=== PATIENT | male | born 1955 | race Caucasian/White ===

== ENCOUNTER 2016-10-17 12:12 | Emergency (ER) | payer BC ==
[~2016-10-17 12:12] MED LIST: ASPI325T PO; ATEN25TA PO; DIGO0.259 PO; EPLE25TA PO; FINA5TAB2 PO; FLAX10005 PO; FLEC50TA PO; GLUC15002 PO; GLUCTAB6 PO; MAGN400T2 PO; METO25TAB PO; MULTCAP PO; PRIL20TA2 PO; RAMI5CA PO; TAMS0.4C2 PO; TRAN4TAB PO; VITA-130 PO; XARE1TAB PO; ZANTTAB PO
--- NOTE | 2016-10-17 13:22 | EDDOCDS ---
Nurse's Notes [facility] Name: Rosendo Castillo Age: 60 yrs Sex: Male : 1955 Arrival Date: 10/17/2016 Time: 12:12 Bed Triage 1 Private MD: Mike Navarro H. Diagnosis: Labyrinthitis Presentation: 10/17 12:16 Presenting complaint: Patient states: blurred vision, burping a lot, feels like may kr3 pass out, dizzy sometimes. symptoms for over 1 week. seen by PCP on Tuesday and was told may be inner ear problem. No treatment given. Adult Sepsis Screening: The patient does not have new or worsening altered mentation. Patient's respiratory rate is less than 22. Systolic blood pressure is greater than 100. Patient has a qSOFA score of 0- Negative Sepsis Screen. Suicide/Homicide risk assessment- the patient denies having any suicidal and/or homicidal ideations and does not present with any other emotional, behavioral or mental health complaints. Status: Patient is not a central services tech or dependent. Transition of care: patient was not received from another setting of care. 12:16 Acuity: ELDA Level 3 kr3 12:16 Method Of Arrival: Walkin/Carried/Asstd kr3 Triage Assessment: 12:22 General: Appears in no apparent distress, comfortable, Behavior is cooperative. Pain: kr3 Location: left mid abdomen Pain currently is 1 out of 10 on a pain scale. Pt Declines HIV testing. 12:23 Neurological: Level of Consciousness is awake, alert, Reports dizziness on and off. kr3 Respiratory: Denies shortness of breath pain with respiration. Derm: Skin is normal. Historical: - Allergies: Codeine Sulfate; - Home Meds: 1. Zantac 150 mg Oral tab 2 times per day (Last dose: 10/17/2016) 2. chlorasetan liquid as needed 3. trandolapril 4 mg oral tab nightly (Last dose: 10/16/2016) 4. aspirin 81 mg Oral chew 1 tab once daily (Last dose: 10/17/2016) 5. eplerenone 25 mg oral tab 1 tab once daily (Last dose: 10/17/2016) 6. magnesium daily 7. multivitamin Oral tab daily - PMHx: Hypertension; GERD; Atrial Fib; Pancreatitis; - PSHx: Cardiac Ablation; TURP; - Social history: Smoking status: Patient states was never smoker of tobacco. No barriers to communication noted, The patient speaks fluent Georgian, Speaks appropriately for age. - Family history: Not pertinent. - : The pt / caregiver states he / she is not on anticoagulants. Home medication list is obtained from the patient. - Exposure Risk Screening:: None identified. Screenin:40 Screening information is obtained from the patient. Fall risk: No risks identified. js13 Assistance ADL's: requires no assistance with activities of daily living. Abuse/DV Screen: The patient / caregiver reports he/she is: not in a situation that causes fear, pain or injury. Nutritional screening: No deficits noted. Advance Directives: There is no active DNR order. home support is adequate. Assessment: 13:19 General: Appears in no apparent distress, Behavior is appropriate for age, cooperative. js13 Pain: Denies pain. Neurological: Level of Consciousness is awake, alert, obeys commands, Denies dizziness. Respiratory: Airway is patent Respiratory effort is even, unlabored, Respiratory pattern is regular, symmetrical. Derm: Skin is pink, warm & dry. Vital Signs: 12:14 BP 153 / 75; Pulse 71; Resp 18 S; Temp 96.8(O); Pulse Ox 98% on R/A; Weight 111.13 kg gr2 (R); Height 6 ft. 0 in. (182.88 cm) (R); Pain 2/10; 13:19 BP 148 / 72; Pulse 74; Resp 16; Temp 97.1(O); Pulse Ox 98% on R/A; js13 12:14 Body Mass Index 33.23 (111.13 kg, 182.88 cm) gr2 Vitals: 12:14 Log In Time: October 17, 2016 at 12:14. gr2 ED Course: 12:14 Patient visited by Chelo Barrera. gr2 12:14 Mike Navarro is Private Physician. gr2 12:14 Patient moved to Waiting gr2 12:15 Patient visited by Chelo Barrera. gr2 12:16 Patient moved to Pre RCE gr2 12:18 Triage Initiated kr3 12:24 Patient moved to Triage 1 kr3 12:40 The patient / caregiver is instructed regarding the plan of care and ED course. js13 12:54 [facility]. btw 12:54 Mitch Raygoza MD is Attending Physician. btw 12:54 Patient visited by Eliceo Johnston PA. btw 13:14 Mike Navarro is Referral Physician. btw 13:20 No IV's were initiated during this patient's visit. No procedures done that require js13 assistance. Order Results: There are currently no results for this order. Outcome: 13:14 Discharge ordered by Provider. btw 13:20 Discharge Assessment: Patient awake, alert and oriented x 3. No cognitive and/or js13 functional deficits noted. Patient verbalized understanding of disposition instructions. patient administered narcotics - no. The following High Risk Discharge criteria are identified: None. Discharged to home ambulatory. Condition: stable. Discharge instructions given to patient, Instructed on discharge instructions, follow up and referral plans. medication usage, Demonstrated understanding of instructions, medications, Pt was receptive of discharge instructions/ teaching. Prescriptions given X 2. No special radiology studies were completed. Property :Personal belongings accompany Pt. 13:20 Patient left the ED. js13 Signatures: Sulma Cardoso,RN RN kr3 Eliceo Johnston PA PA btw Keshia ThomasonRN RN js13 Chelo Barrera gr2 [facility]
--- NOTE | 2016-10-17 13:22 | EDDOCDS ---
Physician Documentation [facility] Name: Rosendo Castillo Age: 60 yrs Sex: Male : 1955 Arrival Date: 10/17/2016 Time: 12:12 Bed Triage 1 Private MD: Mike Navarro H. Disposition: 10/17/16 13:14 Discharged to Home/Self Care. Impression: Labyrinthitis. - Condition is Stable. - Discharge Instructions: Labyrinthitis, [id number]. - Prescriptions for Medrol (Jamal) 4 mg Oral Tablets, Dose Pack - take 1 Pack by ORAL route as directed - follow package instructions; 1 packet. azelastine 137 mcg (0.1 %) Nasal Aerosol, [place] - spray 2 spray by INTRANASAL route 2 times per day each nostril; 1 bottle. - Medication Reconciliation, Local Pharmacy Hours form. - Follow up: Mike Navarro; When: 2 - 3 days; Reason: Further diagnostic work-up, Recheck today's complaints, Continuance of care. - Problem is new. - Symptoms are unchanged. Historical: - Allergies: Codeine Sulfate; - Home Meds: 1. Zantac 150 mg Oral tab 2 times per day (Last dose: 10/17/2016) 2. chlorasetan liquid as needed 3. trandolapril 4 mg oral tab nightly (Last dose: 10/16/2016) 4. aspirin 81 mg Oral chew 1 tab once daily (Last dose: 10/17/2016) 5. eplerenone 25 mg oral tab 1 tab once daily (Last dose: 10/17/2016) 6. magnesium daily 7. multivitamin Oral tab daily - PMHx: Hypertension; GERD; Atrial Fib; Pancreatitis; - PSHx: Cardiac Ablation; TURP; - Social history: Smoking status: Patient states was never smoker of tobacco. No barriers to communication noted, The patient speaks fluent Kyrgyz, Speaks appropriately for age. - Family history: Not pertinent. - : The pt / caregiver states he / she is not on anticoagulants. Home medication list is obtained from the patient. - Exposure Risk Screening:: None identified. Vital Signs: 10/17 12:14 BP 153 / 75; Pulse 71; Resp 18 S; Temp 96.8(O); Pulse Ox 98% on R/A; Weight 111.13 kg / gr2 245 lbs (R); Height 6 ft. 0 in. (182.88 cm) (R); Pain 2/10; 13:19 BP 148 / 72; Pulse 74; Resp 16; Temp 97.1(O); Pulse Ox 98% on R/A; js13 12:14 Body Mass Index 33.23 (111.13 kg, 182.88 cm) gr2 MDM: 12:57 Financial registration complete. lg Signatures: Ann-Marie Reilly, Reg Reg lg Sulma Cardoso,RN RN kr3 Eliceo Johnston PA PA btw Keshia Thomason,RN RN js13 MTDD
--- NOTE | 2016-10-19 14:20 | EDDOCDS ---
Physician Documentation [facility] Name: Rosendo Castillo Age: 60 yrs Sex: Male : 1955 Arrival Date: 10/17/2016 Time: 12:12 Bed Triage 1 Private MD: Mike Navarro H. Disposition: 10/17/16 13:14 Discharged to Home/Self Care. Impression: Labyrinthitis. - Condition is Stable. - Discharge Instructions: Labyrinthitis, [id number]. - Prescriptions for Medrol (Jamal) 4 mg Oral Tablets, Dose Pack - take 1 Pack by ORAL route as directed - follow package instructions; 1 packet. azelastine 137 mcg (0.1 %) Nasal Aerosol, [place] - spray 2 spray by INTRANASAL route 2 times per day each nostril; 1 bottle. - Medication Reconciliation, Local Pharmacy Hours form. - Follow up: Mike Navarro; When: 2 - 3 days; Reason: Further diagnostic work-up, Recheck today's complaints, Continuance of care. - Problem is new. - Symptoms are unchanged. Historical: - Allergies: Codeine Sulfate; - Home Meds: 1. Zantac 150 mg Oral tab 2 times per day (Last dose: 10/17/2016) 2. chlorasetan liquid as needed 3. trandolapril 4 mg oral tab nightly (Last dose: 10/16/2016) 4. aspirin 81 mg Oral chew 1 tab once daily (Last dose: 10/17/2016) 5. eplerenone 25 mg oral tab 1 tab once daily (Last dose: 10/17/2016) 6. magnesium daily 7. multivitamin Oral tab daily - PMHx: Hypertension; GERD; Atrial Fib; Pancreatitis; - PSHx: Cardiac Ablation; TURP; - Social history: Smoking status: Patient states was never smoker of tobacco. No barriers to communication noted, The patient speaks fluent Romansh, Speaks appropriately for age. - Family history: Not pertinent. - : The pt / caregiver states he / she is not on anticoagulants. Home medication list is obtained from the patient. - Exposure Risk Screening:: None identified. Vital Signs: 10/17 12:14 BP 153 / 75; Pulse 71; Resp 18 S; Temp 96.8(O); Pulse Ox 98% on R/A; Weight 111.13 kg / gr2 245 lbs (R); Height 6 ft. 0 in. (182.88 cm) (R); Pain 2/10; 13:19 BP 148 / 72; Pulse 74; Resp 16; Temp 97.1(O); Pulse Ox 98% on R/A; js13 12:14 Body Mass Index 33.23 (111.13 kg, 182.88 cm) gr2 MDM: 12:57 Financial registration complete. lg 14:25 [facility] Payment Agreement was scanned into [employer] and attached to record. lg 21:13 T-Sheet-- Draft Copy was scanned into [employer] and attached to record. klr Signatures: Ann-Marie Reilly, Sulma Valiente lg,RN RN kr3 Eliceo Johnston PA PA btw Sullivan, JenniferRN RN js13 Yocasta Holland The chart was reviewed and I authenticate all verbal orders and agree with the evaluation and treatment provided.Attachments: 14:25 [facility] Payment Agreement lg 21:13 T-Sheet-- Draft Copy klr Chart Complete MTDD
--- NOTE | 2016-10-19 14:21 | EDDOCDS ---
Physician Documentation [facility] Name: Rosendo Castillo Age: 60 yrs Sex: Male : 1955 Arrival Date: 10/17/2016 Time: 12:12 Bed Triage 1 Private MD: Mike Navarro H. Disposition: 10/17/16 13:14 Discharged to Home/Self Care. Impression: Labyrinthitis. - Condition is Stable. - Discharge Instructions: Labyrinthitis, [id number]. - Prescriptions for Medrol (Jamal) 4 mg Oral Tablets, Dose Pack - take 1 Pack by ORAL route as directed - follow package instructions; 1 packet. azelastine 137 mcg (0.1 %) Nasal Aerosol, [place] - spray 2 spray by INTRANASAL route 2 times per day each nostril; 1 bottle. - Medication Reconciliation, Local Pharmacy Hours form. - Follow up: Mike Navarro; When: 2 - 3 days; Reason: Further diagnostic work-up, Recheck today's complaints, Continuance of care. - Problem is new. - Symptoms are unchanged. Historical: - Allergies: Codeine Sulfate; - Home Meds: 1. Zantac 150 mg Oral tab 2 times per day (Last dose: 10/17/2016) 2. chlorasetan liquid as needed 3. trandolapril 4 mg oral tab nightly (Last dose: 10/16/2016) 4. aspirin 81 mg Oral chew 1 tab once daily (Last dose: 10/17/2016) 5. eplerenone 25 mg oral tab 1 tab once daily (Last dose: 10/17/2016) 6. magnesium daily 7. multivitamin Oral tab daily - PMHx: Hypertension; GERD; Atrial Fib; Pancreatitis; - PSHx: Cardiac Ablation; TURP; - Social history: Smoking status: Patient states was never smoker of tobacco. No barriers to communication noted, The patient speaks fluent Japanese, Speaks appropriately for age. - Family history: Not pertinent. - : The pt / caregiver states he / she is not on anticoagulants. Home medication list is obtained from the patient. - Exposure Risk Screening:: None identified. Vital Signs: 10/17 12:14 BP 153 / 75; Pulse 71; Resp 18 S; Temp 96.8(O); Pulse Ox 98% on R/A; Weight 111.13 kg / gr2 245 lbs (R); Height 6 ft. 0 in. (182.88 cm) (R); Pain 2/10; 13:19 BP 148 / 72; Pulse 74; Resp 16; Temp 97.1(O); Pulse Ox 98% on R/A; js13 12:14 Body Mass Index 33.23 (111.13 kg, 182.88 cm) gr2 MDM: 12:57 Financial registration complete. lg 14:25 [facility] Payment Agreement was scanned into [employer] and attached to record. lg 21:13 T-Sheet-- Draft Copy was scanned into [employer] and attached to record. klr Signatures: Ann-Marie Reilly, Sulma Valiente lg,RN RN kr3 Eliceo Johnston PA PA btw Sullivan, JenniferRN RN js13 Yocasta Holland The chart was reviewed and I authenticate all verbal orders and agree with the evaluation and treatment provided.Attachments: 14:25 [facility] Payment Agreement lg 21:13 T-Sheet-- Draft Copy klr Chart Complete MTDD
--- NOTE | 2016-10-19 14:21 | EDDOCDS ---
Nurse's Notes [facility] Name: Rosendo Castillo Age: 60 yrs Sex: Male : 1955 Arrival Date: 10/17/2016 Time: 12:12 Bed Triage 1 Private MD: Mike Navarro H. Diagnosis: Labyrinthitis Presentation: 10/17 12:16 Presenting complaint: Patient states: blurred vision, burping a lot, feels like may kr3 pass out, dizzy sometimes. symptoms for over 1 week. seen by PCP on Tuesday and was told may be inner ear problem. No treatment given. Adult Sepsis Screening: The patient does not have new or worsening altered mentation. Patient's respiratory rate is less than 22. Systolic blood pressure is greater than 100. Patient has a qSOFA score of 0- Negative Sepsis Screen. Suicide/Homicide risk assessment- the patient denies having any suicidal and/or homicidal ideations and does not present with any other emotional, behavioral or mental health complaints. Status: Patient is not a rehabilitation services counselor or dependent. Transition of care: patient was not received from another setting of care. 12:16 Acuity: ELDA Level 3 kr3 12:16 Method Of Arrival: Walkin/Carried/Asstd kr3 Triage Assessment: 12:22 General: Appears in no apparent distress, comfortable, Behavior is cooperative. Pain: kr3 Location: left mid abdomen Pain currently is 1 out of 10 on a pain scale. Pt Declines HIV testing. 12:23 Neurological: Level of Consciousness is awake, alert, Reports dizziness on and off. kr3 Respiratory: Denies shortness of breath pain with respiration. Derm: Skin is normal. Historical: - Allergies: Codeine Sulfate; - Home Meds: 1. Zantac 150 mg Oral tab 2 times per day (Last dose: 10/17/2016) 2. chlorasetan liquid as needed 3. trandolapril 4 mg oral tab nightly (Last dose: 10/16/2016) 4. aspirin 81 mg Oral chew 1 tab once daily (Last dose: 10/17/2016) 5. eplerenone 25 mg oral tab 1 tab once daily (Last dose: 10/17/2016) 6. magnesium daily 7. multivitamin Oral tab daily - PMHx: Hypertension; GERD; Atrial Fib; Pancreatitis; - PSHx: Cardiac Ablation; TURP; - Social history: Smoking status: Patient states was never smoker of tobacco. No barriers to communication noted, The patient speaks fluent Yoruba, Speaks appropriately for age. - Family history: Not pertinent. - : The pt / caregiver states he / she is not on anticoagulants. Home medication list is obtained from the patient. - Exposure Risk Screening:: None identified. Screenin:40 Screening information is obtained from the patient. Fall risk: No risks identified. js13 Assistance ADL's: requires no assistance with activities of daily living. Abuse/DV Screen: The patient / caregiver reports he/she is: not in a situation that causes fear, pain or injury. Nutritional screening: No deficits noted. Advance Directives: There is no active DNR order. home support is adequate. Assessment: 13:19 General: Appears in no apparent distress, Behavior is appropriate for age, cooperative. js13 Pain: Denies pain. Neurological: Level of Consciousness is awake, alert, obeys commands, Denies dizziness. Respiratory: Airway is patent Respiratory effort is even, unlabored, Respiratory pattern is regular, symmetrical. Derm: Skin is pink, warm & dry. Vital Signs: 12:14 BP 153 / 75; Pulse 71; Resp 18 S; Temp 96.8(O); Pulse Ox 98% on R/A; Weight 111.13 kg gr2 (R); Height 6 ft. 0 in. (182.88 cm) (R); Pain 2/10; 13:19 BP 148 / 72; Pulse 74; Resp 16; Temp 97.1(O); Pulse Ox 98% on R/A; js13 12:14 Body Mass Index 33.23 (111.13 kg, 182.88 cm) gr2 Vitals: 12:14 Log In Time: October 17, 2016 at 12:14. gr2 ED Course: 12:14 Patient visited by Chelo Barrera. gr2 12:14 Mike Navarro is Private Physician. gr2 12:14 Patient moved to Waiting gr2 12:15 Patient visited by Chelo Barrera. gr2 12:16 Patient moved to Pre RCE gr2 12:18 Triage Initiated kr3 12:24 Patient moved to Triage 1 kr3 12:40 The patient / caregiver is instructed regarding the plan of care and ED course. js13 12:54 [facility]o Johnston [facility]. btw 12:54 Mitch Raygoza MD is Attending Physician. btw 12:54 Patient visited by Eliceo Johnston PA. btw 13:14 Mike Navarro is Referral Physician. btw 13:20 No IV's were initiated during this patient's visit. No procedures done that require js13 assistance. 14:25 [facility] [place] Agreement was scanned into [employer] and attached to record. lg 21:13 T-Sheet-- Draft Copy was scanned into [employer] and attached to record. klr Order Results: There are currently no results for this order. Outcome: 13:14 Discharge ordered by Provider. btw 13:20 Discharge Assessment: Patient awake, alert and oriented x 3. No cognitive and/or js13 functional deficits noted. Patient verbalized understanding of disposition instructions. patient administered narcotics - no. The following High Risk Discharge criteria are identified: None. Discharged to home ambulatory. Condition: stable. Discharge instructions given to patient, Instructed on discharge instructions, follow up and referral plans. medication usage, Demonstrated understanding of instructions, medications, Pt was receptive of discharge instructions/ teaching. Prescriptions given X 2. No special radiology studies were completed. Property :Personal belongings accompany Pt. 13:20 Patient left the ED. js13 Signatures: Ann-Marie Reilly Reg Reg Sulma Cardoso,RN RN kr3 Eliceo Johnston PA PA btw Keshia Thomason RN RN js13 Chelo Barrera gr2 Yocasta Holland Chart Complete MTDD
== END 2016-10-17 13:20 | disposition home or self-care (01) ==
LOC: M ED 12:12
DX: H83.09 Labyrinthitis, unspecified ear (principal); I10 Essential (primary) hypertension; K21.9 Gastro-esophageal reflux disease without esophagitis; I48.91 Unspecified atrial fibrillation; K86.1 Other chronic pancreatitis; Z79.82 Long term (current) use of aspirin; Z79.899 Other long term (current) drug therapy; Z88.8 Allergy status to other drugs, medicaments and biological substances

== ENCOUNTER 2016-12-27 23:55 | Emergency (ER) | payer BC ==
[~2016-12-27] VITALS: Ht 182.9 cm; Wt 111.1 kg
[~2016-12-27 23:55] MED LIST changes: -TRAN4TAB PO; +TRAN4TAB4 PO
[2016-12-28] MEDS ORDERED: ASPI1TAB PO (00:11)
[2016-12-28 00:36] LABS: BASO % 0.5 % (0.0-1.0); EOS # 0.2 K/mm3 (0.0-0.50); EOS % 4.7 % (0.0-3.0); LARGE UNSTAINED CELL # 0.2 K/mm3 (0.0-0.4); LARGE UNSTAINED CELL % 3.3 % (0.0-4.0); LYMPH # 1.2 K/mm3 (1.5-4.5); LYMPH % 24.3 % (24.0-44.0); MEAN CORPUSCULAR HEMOGLOBIN 27.3 pg (27.0-33.0); MEAN CORPUSCULAR HGB CONC 32.5 g/dl (32.0-36.5); MONO # 0.4 K/mm3 (0.0-0.8); MONO % 8.2 % (0.0-5.0); NEUTROPHILS # 2.9 K/mm3 (1.8-7.7); NEUTROPHILS % 59.1 % (36.0-66.0); PLATELET COUNT, AUTOMATED 121 k/mm3 (150-450); RED CELL DISTRIBUTION WIDTH 12.8 % (11.5-14.5); WHITE BLOOD COUNT 4.9 K/mm3 (4.0-10.0)
[2016-12-28 00:54] LABS: ANION GAP 8 MEQ/L (8-16); BLOOD UREA NITROGEN 18 MG/DL (7-18); CARBON DIOXIDE LEVEL 26 MEQ/L (21-32); CHLORIDE LEVEL 106 MEQ/L (98-107); CREATININE FOR GFR 0.95 MG/DL (0.70-1.30); GLOMERULAR FILTRATION RATE > 60.0 (>49); GLUCOSE, FASTING 105 MG/DL (80-110); POTASSIUM SERUM 4.1 MEQ/L (3.5-5.1); SODIUM LEVEL 140 MEQ/L (136-145); T UPTAKE 35 % (33-40); THYROXINE (T4) 9.4 UG/DL (4.5-12.0)
[2016-12-28 01:30] VITALS: BP 123/75
[2016-12-28] MEDS ORDERED: SIMETHICONE 80 MG CHEW TAB PO PRN (01:45)
--- NOTE | 2016-12-29 07:12 | ECGEPIP ---
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
== END 2016-12-28 02:06 | disposition home or self-care (01) ==
LOC: M ED 12-28 01:12
DX: I49.3 Ventricular premature depolarization (principal)

== ENCOUNTER 2017-01-25 10:24 | Inpatient (IN) | payer BC ==
[~2017-01-25] VITALS: Ht 182.9 cm; Wt 113.0 kg
[~2017-01-25 10:24] MED LIST changes: +ASPI1TAB PO
[2017-01-25] MEDS ORDERED: LEXA1TAB PO (10:33)
[2017-01-25 11:55] LABS: BASO % 0.4 % (0.0-1.0); EOS # 0.1 K/mm3 (0.0-0.50); EOS % 1.4 % (0.0-3.0); LARGE UNSTAINED CELL # 0.1 K/mm3 (0.0-0.4); LARGE UNSTAINED CELL % 1.7 % (0.0-4.0); LYMPH # 0.9 K/mm3 (1.5-4.5); LYMPH % 12.4 % (24.0-44.0); MEAN CORPUSCULAR HEMOGLOBIN 27.3 pg (27.0-33.0); MEAN CORPUSCULAR HGB CONC 32.6 g/dl (32.0-36.5); MEAN CORPUSCULAR VOLUME 83.8 fl (80.0-96.0); MONO # 0.3 K/mm3 (0.0-0.8); MONO % 5.5 % (0.0-5.0); NEUTROPHILS # 4.9 K/mm3 (1.8-7.7); NEUTROPHILS % 78.7 % (36.0-66.0); PLATELET COUNT, AUTOMATED 132 k/mm3 (150-450); WHITE BLOOD COUNT 6.2 K/mm3 (4.0-10.0)
[2017-01-25 12:18] LABS: METHADONE URINE NEGATIVE (NEGATIVE)
[2017-01-25 12:26] LABS: ALBUMIN 3.9 GM/DL (3.2-5.2); ALBUMIN/GLOBULIN RATIO 1.26 (1.00-1.93); ALKALINE PHOSPHATASE 55 U/L (45-117); ALT/SGPT 27 U/L (12-78); ANION GAP 7 MEQ/L (8-16); AST/SGOT 15 U/L (15-37); BILIRUBIN,DIRECT 0.1 MG/DL (0.0-0.2); BILIRUBIN,TOTAL 0.5 MG/DL (0.2-1.0); BLOOD UREA NITROGEN 11 MG/DL (7-18); CALCIUM LEVEL 9.1 MG/DL (8.8-10.2); CARBON DIOXIDE LEVEL 28 MEQ/L (21-32); CHLORIDE LEVEL 107 MEQ/L (98-107); GLOMERULAR FILTRATION RATE > 60.0 (>49); GLUCOSE, FASTING 94 MG/DL (80-110); POTASSIUM SERUM 4.1 MEQ/L (3.5-5.1); SODIUM LEVEL 142 MEQ/L (136-145)
[2017-01-25] MEDS ORDERED: VITMTA PO (13:35)
[2017-01-25] MEDS ORDERED: ZANT1TAB PO (13:36)
--- NOTE | 2017-01-25 14:41 | REP ---
NONCONTRAST BRAIN CT: HISTORY: Hallucinations. No comparison study. FINDINGS: Digital lateral memory care program director radiograph is unremarkable. Bone window settings demonstrate an intact bony calvarium. No bony destructive lesion is seen. Visualized paranasal sinuses are clear. No intraorbital abnormality is seen. On soft tissue window settings, there is no evidence of intracranial hemorrhage. No mass, infarction, extra-axial fluid collection or midline shift is seen. There is minimal diffuse atrophy. IMPRESSION: Minimal diffuse atrophy. Otherwise negative noncontrast brain CT. Signed by Milton Knowles MD 01/25/2017 03:42 P
[2017-01-25 18:36] VITALS: BP 135/65
[2017-01-25] MEDS ORDERED: ACETAMINOPHEN TAB 650MG DOSE (2X325MG) PO PRN (20:00)
[2017-01-25] MEDS ORDERED: traZODone 50 MG TAB PO PRN (20:00)
[2017-01-25] MEDS ORDERED: MOM 30ML SUSPENSION UDC PO PRN (20:00)
--- NOTE | 2017-01-25 20:20 | ECGEPIP ---
Stationary ECG Study 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 Order Number: [id number] Reading MD: Celsa Dumont Measurements Intervals [place] Rate: 63 P: 34 MS: 150 QRS: -2 QRSD: 97 T: 38 QT: 317 QTc: 327 Interpretive Statements SINUS RHYTHM NONSPECIFIC T-WAVE ABNORMALITY DECREASED ECTOPY 12/28/16 Electronically Signed On 01-25-2017 20:20:49 EDT by Celsa Dumont
[2017-01-25] MEDS ORDERED: FAMOTIDINE 20 MG TAB PO PRN (23:45)
[2017-01-26] MEDS: TRANDOLAPRIL 1 MG TAB PO SCH ×2 (01:14→21:36)
[2017-01-26] MEDS: MAGNESIUM OXIDE 400 MG TAB (MAG-OX) PO SCH ×3 (01:14→21:33)
[2017-01-26 06:06] VITALS: BP 137/72
[2017-01-26] MEDS ORDERED: ENTER DRUG NAME HERE (PATIENT'S OWN MED) PO SCH (09:00)
[2017-01-26] MEDS: MULTIVITAMINS/MINERALS THERAP 1 TAB PO SCH (09:02)
[2017-01-26] MEDS: ASPIRIN 81 MG ENTERIC TAB PO SCH (09:02)
[2017-01-26] MEDS: EPLERENONE 25 MG PO SCH (09:02)
[2017-01-26 12:00] VITALS: BP 136/66
[2017-01-26] MEDS: MAALOX 30 ML SUSP *UDC PO PRN ×2 (15:45→20:33)
--- NOTE | 2017-01-26 17:10 | HPEPDOC ---
[facility] History & Physical History and Physical DATE OF ADMISSION: Jan 25, 2017 at 16:14 LEGAL STATUS AT ADMISSION: 9.39 CHIEF COMPLAINT: "I had a lot of anxiety" HISTORY OF THE PRESENT ILLNESS: The patient a 61-year-old man presented to [facility] by himself after increasing anxiety, restlessness and mild panic when he was started on a antidepressant last week by his primary care. The patient described that he had had increasing dizziness, anxiety and worry for the last month that was becoming generally unbearable. The patient stated that he was treated by his outpatient primary care for the vertigo with prednisone and antihistamine spray. He feels as though some of the dizziness might of been due to the anxiety. When he returned to his primary care he was started on Lexapro 10 mg at night last week. He noted that after a few days he became increasingly more restless and anxious. He noted discrete episodes where he would become "fidgety " and subsequently need to do deep breathing in order to soothe his anxiety. He stated that he had several episodes of this before deciding that he needed to present to the hospital or treatment. He describes that the symptoms originated a year and a half ago after his granddaughter from terminal cancer. He describes since then he's become increasingly worried with no necessary provoking factor to the point where he is easily fatigued and expenses muscle tension. He describes that he does at times have discrete episodes of panic but that they are mild and self resolved. Review of the information from the emergency room indicates that the patient presented due to concerns of depression and reported "auditory hallucinations and threats to kill his grandson". When asked about these the patient describes that he did not experience depression every day but became fairly tearful at the mention of his granddaughter. He described difficulties with coping with her and become increasingly more anxious. When asked more specifically about his auditory hallucinations she described that he did not experience him as a "voice PSYCHIATRIC ROS: Affective: The patient denies any episodes of unprovoked depressed mood associated with neurovegetative symptoms lasting longer than 2 weeks with symptoms present nearly everyday. The patient denies any episodes of euphoria/ dysphoria associated with decreased need for sleep, hedonism, talkatively or impulsivity lasting longer than 5 days. Anxiety: See above Trauma: The patient denies any traumatic events associated with nightmares or intrusive thoughts. Psychosis:The patient denies any experiences of auditory or visual hallucinations. They deny any episodes of paranoia or delusional thinking in the past. Personality: The patient does not screen positive for borderline personality disorder PAST PSYCHIATRIC HISTORY: Prior Psychiatric Diagnosis: None Previous admissions: None Current Medications: None Suicide attempts: None Psychotropic Medication History: Has only been tried on the aforementioned Lexapro ALLERGIES: Please see below. FAMILY PSYCHIATRIC HISTORY: Reports that his mother had dementia SOCIAL HISTORY: Early Relations:/development: Described as a "good childhood" -sibling order: Youngest of 3 brothers -Paternal relationships: Describes his relationship with his mother's father as "good" his father was somewhat distant but was generally amenable and his mother was described as "the sweetest thing kindest person ever" Education: Graduated high school Occupational: Has worked in an [employer] for the last 40 years Legal: None Martial: Been for the last 40+ years to a woman he met when he was 16 years old. They have 2 sons together Economic: Still financially sound Supports: Family and friends Abuse/trauma: Loss of his granddaughter year and half ago but denies any abuse or trauma in his early development life SUBSTANCE ABUSE HISTORY: States that he used to drink "6-20 beers" in a weekend but since he was told that that might cause his atrial fibrillation he has ceased. He denies ever using tobacco or illicit drugs. MEDICAL HISTORY: A. fib status post ablation BPH status post transurethral surgery Hypertension MENTAL STATUS EXAMINATION: General: Well dressed with good hygiene Speech: Spontaneous and fluid Thought processes: Linear and logical Thought content: Concerned about his anxiety Abstract reasoning, and computation: Intact Description of associations: Intact Description of abnormal or psychotic thoughts:Denies any suicidal or homicidal ideation. Denies any auditory or visual hallucinations. Does not appear to be responding to internal stimuli. Does not appear to be endorsing any bizarre or paranoid ideation. Judgment: Fair Insight: Fair Orientation: Alert and orientated 3 Recent and remote memory: Intact Attention span and concentration: Intact Fund of knowledge: Adequate Mood: "Okay" Affect: Anxious and constricted PSYCHOMETRIC TESTING/RATING SCALES ON ADMISSION: HAM-A: 1- ANXIOUS MOOD Moderate [2] 2- TENSION Mild [1] 3- FEARS Not present [0] 4- INSOMNIA Mild [1] 5- INTELLECTUAL Not present [0] 6- DEPRESSED MOOD Not present [0] 7- SOMATIC (muscular) Mild [1] 8- SOMATIC (sensory) Not present [0] 9- CARDIOVASCULAR SYMPTOMS Not present [0] 10- RESPIRATORY SYMPTOMS Not present [0] 11- GASTROINTESTINALS SYMPTOMS Not present [0] 12- GENITOURINARY SYMPTOMS Not present [0] 13- AUTONOMIC SYMPTOMS Not present [0] 14- BEHAVIOUR AT INTERVIEW Mild [1] ? HAM-A Score (of 56 points possible) 6 ALBERT ANXIETY (see scale in chart for full breakdown): 29, moderate anxiety HAM-D: DEPRESSED MOOD Absent [0] FEELINGS OF GUILT Self-reproach, feels he/she has let people down [1] SUICIDE Absent [0] INSOMNIA EARLY Complaints of occasional difficulty in falling asleep i.e. 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 Score 5 ? Assessment NORMAL ALBERT DEPRESSION (see scale in chart for full breakdown): 7 MOCA: 27 out of 30 YOUNG MELINA SCALE: Not indicated BRIEF PSYCHIATRIC RATING SCALE: 1- Somatic concern Not present +1 2- Anxiety Mild +3 3- Depression Not present +1 4- Suicidality Not present +1 5- Guilt Very mild +2 6- Hostility Not present +1 7- Elated Mood Not present +1 8- Grandiosity Not present +1 9- Suspiciousness Not present +1 10- Hallucinations Not present +1 11-Unusual thought content Not present +1 12- Bizarre behaviour Not present +1 13- Self-neglect Not present +1 14- Disorientation Not present +1 15- Conceptual disorganisation Not present +1 16- Blunted affect Not present +1 17- Emotional withdrawal Not present +1 18- Motor retardation Not present +1 19- Tension Not present +1 20- Uncooperativeness Not present +1 21- Excitement Not present +1 22- Distractibility Not present +1 23- Motor hyperactivity Not present +1 24- Mannerisms and posturing Not present +1 ? BPRS Score (out of 168 possible points) 27 DIAGNOSES: 1. Unspecified anxiety disorder Rule out complicated grief ASSESSMENT: The patient is 61-year-old man who presents with anxiety that would be best described as moderate and had initially been described as depressed although rating scales both subjective and objective appear to support only minor mood variation within the normal range. He has no psychiatric history and his neuro cognitively intact per screening. He could be best described as complicated bereavement given his recent loss versus adjustment disorder PROBLEM LIST: 1. Anxiety 2. Poor coping skills 3. None INITIAL TREATMENT PLAN: 1. Patient was admitted on a 9.39 legal status. 2. Complete history was obtained. 3. With patients permission, family will be contacted and database will be expanded. 4. Patients medication regimen will be reviewed and changed accordingly. -The patient will be started on 25 mg of sertraline nightly 5. Patient will be provided with protected environment. 6. Patient will be treated with individual, group, and milieu therapies. 7. Patient will receive supportive psych-education. 8. Discharge planning will commence immediately. 9. Outpatient follow-up treatment will be strongly recommended. 10. The initial treatment plan will focus initially on: Further assessment and start of medication with group therapy to help with coping skills as well as anxiety. ESTIMATED LENGTH OF STAY: 1-2 DAYS. TIME SPENT COUNSELING AND COORDINATING INITIAL CARE: 60 minutes. Medications Scheduled (Eplerenone) 25 Mg Tab 25 MG PO DAILY (Reported) Aspirin (Aspirin 81) 81 Mg Tab 81 MG PO DAILY (Reported) Escitalopram Oxalate (Lexapro) 10 Mg Tab 10 MG PO QHS (Reported) Magnesium Oxide (Magnesium Oxide) 400 Mg Tab 400 MG PO BID (Reported) Multivitamins *[facility] STOCKED* (Thera M Plus *[facility] STOCKED*) 1 Tab Tab 1 TAB PO DAILY (Reported) Trandolapril (Trandolapril) 4 Mg Tab 4 MG PO QHS (Reported) Scheduled PRN Ranitidine HCl (Zantac) 150 Mg Tab 1 TAB PO BID PRN PRN HEARTBURN (Reported) Allergies Coded Allergies: Codeine (Unverified Adverse Reaction, Unknown, UNKNOWN REACTION-PTS MOTHER STATES THEY HAD TO PUMP HIS STOM, 05/03/14) GME ATTESTATION My preceptor for this patient encounter was physically present in the building during the encounter and was fully available. As needed, all aspects of the patient interview, examination, medical decision making process, and medical care plan development were reviewed and approved by the preceptor. Preceptor is aware and concurs with the plan as stated in the body of this note and will attest to such by his/her cosignature. JASMINE DONALDSON DO Jan 26, 2017 16:27
[2017-01-26 18:00] VITALS: BP 134/62
[2017-01-26] MEDS: SERTRALINE HCL 25 MG TABLET PO SCH (21:33)
[2017-01-27 06:13] VITALS: BP 126/80
--- NOTE | 2017-01-27 07:13 | HPE ---
DATE OF ADMISSION: 01/25/2017 HISTORY OF PRESENT ILLNESS: Please refer to the psychiatric history and evaluation for further details on this admission. This examination and history performed on 01/26/2017 is intended for medical issues which may need treatment, followup or consultation on this 61-year-old male. PRIMARY CARE PROVIDER: ALLERGIES: CODEINE SOCIAL HISTORY: He is . ETOH - none. Smokes - none. Recreational drug use - none. PAST MEDICAL HISTORY: Hypertension, gastroesophageal reflux disease (GERD), benign prostatic hypertrophy (BPH), atrial fibrillation, status post ablation June 2014. Bilateral lower extremity deep venous thrombosis (DVT) March of 2105, pulmonary emboli March of 2018. He is no longer on anticoagulation other than an aspirin a day. He follows with Dr. Bazzi for hypertension and cardiology. PAST SURGICAL HISTORY: Cardiac ablation, transurethral resection of prostate (TURP) and open reduction, internal fixation (ORIF) of the ankle. HOME MEDICATIONS: - aspirin 81 mg by mouth daily - Lexapro 10 mg by mouth at bedtime - magnesium oxide 400 mg by mouth twice a day - multivitamin by mouth daily - ranitidine 150 mg by mouth twice a day as needed heartburn - Mavik 4 mg by mouth daily - Eplerenone 25 mg by mouth daily LABORATORY DATA: WBC 6.2, hemoglobin 15.1, hematocrit 46.3, platelets 132, electrolytes are normal, BUN and creatinine are 11 and 0.8, toxicology screen is negative. CT of the brain shows minimal diffuse atrophy, otherwise negative CT of the brain. REVIEW OF SYSTEMS: 10-systems review was done. He had no specific complaints. Was feeling well and at his baseline. PHYSICAL EXAMINATION: 61-year-old cooperative male who looks much older than his stated years in no acute distress. Vital signs stable. Height is 72 inches. Weight 113 kg. Body mass index (BMI) 33.8, blood pressure 126/80, pulse 63, respirations 20, temperature 97.1. The patient is alert and oriented times three. Hair is long, slightly scraggly. Pupils equal and reactive to light. Extraocular movements intact. Cornea and sclera clear. Conjunctiva normal. No facial asymmetry. Pharynx, tongue, and gums pink and moist. Tongue is midline. Neck is supple, without lymphadenopathy. No thyromegaly. No goiter. Carotids 2+ without bruit. Chest clear to auscultation, without wheeze or retraction. Heart is regular. Abdomen benign. Bowel sounds positive. /Rectal: Not done. Extremities show equal strength. Full range of motion. No cyanosis, clubbing or edema. Peripheral pulses equal and palpable bilaterally. Skin is warm and dry. IMPRESSION AND PLAN: 1. Psychiatric: Plan per psychiatry. 2. History of hypertension. Stable. 3. History of GERD. On ranitidine. No current acute medical issues.
[2017-01-27] MEDS: MULTIVITAMINS/MINERALS THERAP 1 TAB PO SCH (09:07)
[2017-01-27] MEDS: MAGNESIUM OXIDE 400 MG TAB (MAG-OX) PO SCH ×2 (09:07→21:24)
[2017-01-27] MEDS: ASPIRIN 81 MG ENTERIC TAB PO SCH (09:07)
[2017-01-27] MEDS: EPLERENONE 25 MG PO SCH (09:08)
--- NOTE | 2017-01-27 16:44 | IPNPDOC ---
[facility] Progress Note Progress Note DATE OF SERVICE: 01/27/17 INTERVAL HISTORY: Medication Side effects: Reports no side effects from sertraline Behavior/events: No events overnight Group Attendance: Good group attendance Psychiatric Symptoms: HAM-A: 1- ANXIOUS MOOD Mild [1] 2- TENSION Mild [1] 3- FEARS Not present [0] 4- INSOMNIA Not present [0] 5- INTELLECTUAL Not present [0] 6- DEPRESSED MOOD Not present [0] 7- SOMATIC (muscular) Mild [1] 8- SOMATIC (sensory) Mild [1] 9- CARDIOVASCULAR SYMPTOMS Mild [1] 10- RESPIRATORY SYMPTOMS Not present [0] 11- GASTROINTESTINALS SYMPTOMS Not present [0] 12- GENITOURINARY SYMPTOMS Not present [0] 13- AUTONOMIC SYMPTOMS Not present [0] 14- BEHAVIOUR AT INTERVIEW Mild [1] ? HAM-A Score (of 56 points possible) 6 HAM-D: Not indicated YOUNG MELINA: Not indicated BRIEF PSYCHOTIC RATING SCALE: Not indicated VITAL SIGNS: See below. NEW TEST RESULTS: See below CURRENT MEDICATIONS: See below. MENTAL STATUS EXAMINATION: General: Well dressed with good hygiene Speech: Spontaneous and fluid Thought processes: Linear and logical Thought content: Future orientated Abstract reasoning, and computation: Intact Description of associations: Intact Description of abnormal or psychotic thoughts:Denies any suicidal or homicidal ideation. Denies any auditory or visual hallucinations. Does not appear to be responding to internal stimuli. Does not appear to be endorsing any bizarre or paranoid ideation. Judgment: Fair Insight: Fair Orientation: Alert and orientated 3 Recent and remote memory: Intact Attention span and concentration: Intact Fund of knowledge: Adequate Mood: "Okay" Affect: Mildly anxious DIAGNOSES: 1. Unspecified anxiety disorder. ASSESSMENT: Improving subjectively MANAGEMENT PLAN: Medications: Continue sertraline 25 mg daily Psychotherapy: Encourage group attendance Social: Prospective discharge tomorrow to home Misc: None Disposition: The patient will need of further inpatient stay to address disposition issues and further trial of medication to ensure safety and efficacy. TIME SPENT: 15 minutes. Vital Signs Vital Signs Date Time Temp Pulse Resp B/P Pulse Ox O2 Delivery O2 Flow Rate FiO2 01/27/17 06:13 97.3 72 18 126/80 01/26/17 06:06 Room Air 01/25/17 18:36 98 Current Medications Current Medications Acetaminophen (Tylenol Tab) 650 mg Q6HP PRN PO HEADACHE or DISCOMFORT; Start at 20:00; Stop 02/24/17 at 19:59 Al Hydrox/Mg Hydrox/Simethicone (Mylanta) 30 ml Q4HP PRN PO HEARTBURN/ INDIGESTION Last administered on 01/26/17 20:33; Start 01/25/17 at 20:00; Stop 02/24/17 at 19:59 Aspirin (Ecotrin) 81 mg DAILY PO Last administered on 01/27/17 09:07; Start at 09:00; Stop 02/25/17 at 08:59 Famotidine (Pepcid) 20 mg BID PRN PO HEARTBURN; Start 01/25/17 at 23:45; Stop 02/24/17 at 23:44 Home Med (Med Rec Complete!) ASDIRECTED XX ; Start 01/25/17 at 13:45; Stop at 13:45; Status DC Magnesium Hydroxide (Milk Of Magnesia) 30 ml DAILYPRN PRN PO CONSTIPATION; Start 01/25/17 at 20:00; Stop 02/24/17 at 19:59 Magnesium Oxide (Mag-Ox) 400 mg BID PO Last administered on 01/27/17 09:07; Start 01/25/17 at 21:00; Stop 02/24/17 at 20:59 Multivitamins (Theragram-M) 1 tab DAILY PO Last administered on 01/27/17 09:07 ; Start 01/26/17 at 09:00; Stop 02/25/17 at 08:59 Patient Own Medication (Patient'S Own Med) 1 ea DAILY PO ; Start 01/26/17 at 09: 00; Stop 02/25/17 at 08:59; Status UNV Patient Own Medication (Patient'S Own Med) EPLERENONE 25MG. PO DAILY ... DAILY PO Last administered on 01/27/17 09:08; Start 01/26/17 at 09:00; Stop at 08:59 Sertraline HCl (Zoloft) 25 mg QHS PO Last administered on 01/26/17 21:33; Start 01/26/17 at 21:00; Stop 02/25/17 at 20:59 Trandolapril (Mavik) 4 mg QHS PO Last administered on 01/26/17t 21:36; Start at 21:00; Stop 02/24/17 at 20:59 Trazodone HCl (Desyrel) 50 mg QHSP PRN PO INSOMNIA; Start 01/25/17 at 20:00; Stop 02/24/17 at 19:59 Allergies Coded Allergies: Codeine (Unverified Adverse Reaction, Unknown, UNKNOWN REACTION-PTS MOTHER STATES THEY HAD TO PUMP HIS STOM, 05/03/14) GME ATTESTATION My preceptor for this patient encounter was physically present in the building during the encounter and was fully available. As needed, all aspects of the patient interview, examination, medical decision making process, and medical care plan development were reviewed and approved by the preceptor. Preceptor is aware and concurs with the plan as stated in the body of this note and will attest to such by his/her cosignature. JASMINE DONALDSON DO Jan 27, 2017 16:44
[2017-01-27 18:00] VITALS: BP 145/93
[2017-01-27] MEDS: MAALOX 30 ML SUSP *UDC PO PRN (20:33)
[2017-01-27] MEDS: SERTRALINE HCL 25 MG TABLET PO SCH (21:24)
[2017-01-27 21:27] VITALS: BP 140/80
[2017-01-27] MEDS: TRANDOLAPRIL 1 MG TAB PO SCH (21:27)
[2017-01-27 21:40] VITALS: BP 140/80
[2017-01-28] MEDS: MULTIVITAMINS/MINERALS THERAP 1 TAB PO SCH (09:02)
[2017-01-28] MEDS: MAGNESIUM OXIDE 400 MG TAB (MAG-OX) PO SCH (09:02)
[2017-01-28] MEDS: EPLERENONE 25 MG PO SCH (09:03)
[2017-01-28] MEDS: ASPIRIN 81 MG ENTERIC TAB PO SCH (09:03)
[2017-01-28] MEDS ORDERED: SERT25TA PO (09:43)
[2017-01-28] MEDS ORDERED: TRAZO50TA PO (09:44)
[2017-01-28] MEDS ORDERED: MOM30SS PO (11:26)
[2017-01-28] MEDS ORDERED: MYLASUS16 PO (11:26)
[2017-01-28] MEDS ORDERED: FAMO20TA PO (11:26)
[2017-01-28] MEDS ORDERED: TYLE325T5 PO (11:26)
--- NOTE | 2017-01-28 16:36 | DS.PDOC ---
[facility] Discharge Summary Discharge Summary DATE OF ADMISSION: Jan 25, 2017 at 16:14 DATE OF DISCHARGE: Jan 28, 2017 at 11:45 DISCHARGE DIAGNOSES: 1. Unspecified anxiety disorder. REASON FOR ADMISSION: The patient was admitted due to severe anxiety and reported restlessness and "homicidal thoughts". He had suffered a severe loss of his granddaughter year and half ago where he subsequently began to endorse severe worry and anxiety symptoms. CONSULTANTS INVOLVED: None TREATMENT AND PROGRESS ON THE UNIT : Legal status on admission: 9.39 Medication Management: The patient was started on sertraline 25 mg, his home Lexapro 10 mg was not continued as the patient reported severe symptoms. The patient did not have any side effects from the sertraline and tolerated it well with slight improvements in his mood Psychotherapy: He attended groups relatively frequently Behavior: Patient was friendly and amenable and made no threats towards himself or others during his stay on the inpatient gandhi Discharge planning: After the patient was successfully started on sertraline with no side effects and some benefit in his anxiety he was slated for discharge. Outpatient recommendations: Continue sertraline Pending studies on discharge: None DISCHARGE ASSESSMENT: 7-year-old man with no previous psychiatric history with relatively mild anxiety prior to his started on Lexapro. He appears to been put into a dysphoric and anxious state by the start of the Lexapro that was a primary need is for his admission. He reported homicidal thoughts and auditory hallucinations appear to been simply irritation and an internal monologue respectively. The patient does not pose a danger to himself or others and participated fairly effectively on the gandhi. MENTAL STATUS EXAMINATION ON DISCHARGE: General: Well dressed with good hygiene Speech: Spontaneous and fluid Thought processes: Linear and logical Thought content: Future orientated Abstract reasoning, and computation: Intact Description of associations: Intact Description of abnormal or psychotic thoughts:Denies any suicidal or homicidal ideation. Denies any auditory or visual hallucinations. Does not appear to be responding to internal stimuli. Does not appear to be endorsing any bizarre or paranoid ideation. Judgment: Fair Insight: Fair Orientation: Alert and orientated 3 Recent and remote memory: Intact Attention span and concentration: Intact Fund of knowledge: Adequate Mood: "Good" Affect: Euthymic with a full range PLAN/FOLLOWUP ARRANGEMENTS: The patient was slated to have follow-up at [facility] for management of his medications as well as weekly psychotherapy. The social work team worked during the predischarge meeting in order to evaluate for further issues of lethality address them fully before discharge. They worked on safety planning with the patient's family members in order to ensure that the patient will have a safe and effective discharge. The amount of time spent in the coordination of care for this patient was approximately 30 minutes. Vital Signs/I&Os Vital Signs Date Time Temp Pulse Resp B/P Pulse Ox O2 Delivery O2 Flow Rate FiO2 01/27/17 21:40 98.0 78 16 140/80 01/26/17 06:06 Room Air 01/25/17 18:36 98 Medications Scheduled (Eplerenone) 25 Mg Tab 25 MG PO DAILY Blood Pressure (Reported) Aspirin (Aspirin 81) 81 Mg Tab 81 MG PO DAILY anticoagulant (Reported) Famotidine (Pepcid) 20 Mg Tab 20 MG PO BID HEARTBURN (Reported) Magnesium Oxide (Magnesium Oxide) 400 Mg Tab 400 MG PO BID Supplement (Reported ) Multivitamins *[facility] STOCKED* (Thera M Plus *[facility] STOCKED*) 1 Tab Tab 1 TAB PO DAILY Supplement (Reported) Sertraline Hcl (Sertraline HCl) 25 Mg Tab #7 25 MG PO QHS MOOD Trandolapril (Trandolapril) 4 Mg Tab 4 MG PO QHS Blood Pressure (Reported) Scheduled PRN Acetaminophen (Tylenol) 325 Mg Tab 650 MG PO Q6HP PRN PRN PAIN OR DISCOMFORT ( Reported) Aluminum/Magnesium/Simeth (Mylanta 200-200-20 mg/5Ml) 1 Sidra Sidra 30 ML PO Q4HP PRN PRN HEARTBURN/INDIGESTION (Reported) Milk Of Magnesia (Milk of Magnesia Concentr) 30 Ml Conc 30 ML PO DAILYPRN PRN PRN CONSTIPATION (Reported) Ranitidine HCl (Zantac) 150 Mg Tab 1 TAB PO BID PRN PRN HEARTBURN (Reported) Trazodone HCl (Trazodone HCl) 50 Mg Tab #7 50 MG PO QHSP PRN PRN INSOMNIA Allergies Coded Allergies: Codeine (Unverified Adverse Reaction, Unknown, UNKNOWN REACTION-PTS MOTHER STATES THEY HAD TO PUMP HIS STOM, 05/03/14) GME ATTESTATION My preceptor for this patient encounter was physically present in the building during the encounter and was fully available. As needed, all aspects of the patient interview, examination, medical decision making process, and medical care plan development were reviewed and approved by the preceptor. Preceptor is aware and concurs with the plan as stated in the body of this note and will attest to such by his/her cosignature. JASMINE DONALDSON DO Jan 28, 2017 16:36
== END 2017-01-28 11:45 | disposition home or self-care (01) | DRG 756 ==
LOC: M ED 11:16 → M ED INP 16:14 → M PSY 18:28
PROVIDERS: ADMIT Psychiatry & Neurology Psychiatry; ATTEND Psychiatry & Neurology Psychiatry
DX: F41.9 Anxiety disorder, unspecified (principal); R45.850 Homicidal ideations; K21.9 Gastro-esophageal reflux disease without esophagitis; I10 Essential (primary) hypertension; Z79.899 Other long term (current) drug therapy; Z88.5 Allergy status to narcotic agent; Z86.718 Personal history of other venous thrombosis and embolism; Z86.711 Personal history of pulmonary embolism; Z79.82 Long term (current) use of aspirin

== ENCOUNTER → 2017-04-08 | Outpatient (CLI) | payer BC, OTHER ==
[~2017-04-08] MED LIST changes: +FAMO20TA PO; +LEXA1TAB PO; +MOM30SS PO; +MYLASUS16 PO; +SERT25TA PO; -TRAN4TAB4 PO; +TRAN4TAB8 PO; +TRAZO50TA PO; +TYLE325T5 PO; -VITA-130 PO; +VITA500T PO; +VITMTA PO; +ZANT1TAB PO
== END ==
LOC: M LAB 06:29
PROVIDERS: ATTEND Urology
DX: R97.20 Elevated prostate specific antigen [PSA] (principal)

== ENCOUNTER → 2018-02-07 | Outpatient (CLI) | payer BC ==
[2018-02-07 18:08] LABS: AMYLASE 76 U/L (25-115)
[2018-02-07 18:08] LABS: LIPASE 308 U/L (73-393)
== END ==
LOC: M LAB 16:18
DX: R10.13 Epigastric pain (principal)
CPT/HCPCS: 82150

== ENCOUNTER 2018-02-24 10:42 | Day surgery (SDC) | payer BC ==
[2018-02-24] MEDS: NS 1,000 ML IV (11:55)
[2018-02-24] MEDS ORDERED: fentaNYL 100 MCG/2 ML INJECTION (J3010) As Ordered (11:57)
[2018-02-24] MEDS ORDERED: PROPOFOL 500 MG/50 ML VIAL As Ordered (11:59)
[2018-02-24] MEDS ORDERED: LIDOCAINE 2% INJ 100 MG/5 ML SDV (FOR ANES.) As Ordered (12:04)
== END 2018-02-24 13:34 | disposition home or self-care (01) ==
LOC: M OPP 10:42
DX: Z12.11 Encounter for screening for malignant neoplasm of colon (principal); K57.30 Diverticulosis of large intestine without perforation or abscess without bleeding; K64.8 Other hemorrhoids; R10.13 Epigastric pain; R12 Heartburn; I48.91 Unspecified atrial fibrillation; Z86.79 Personal history of other diseases of the circulatory system; I10 Essential (primary) hypertension; K21.9 Gastro-esophageal reflux disease without esophagitis; M54.30 Sciatica, unspecified side; F41.9 Anxiety disorder, unspecified; F32.9 Major depressive disorder, single episode, unspecified; N40.1 Benign prostatic hyperplasia with lower urinary tract symptoms; Z86.711 Personal history of pulmonary embolism; Z88.8 Allergy status to other drugs, medicaments and biological substances; Z88.5 Allergy status to narcotic agent; Z79.82 Long term (current) use of aspirin; Z79.899 Other long term (current) drug therapy; Z80.3 Family history of malignant neoplasm of breast
CPT/HCPCS: G0121

== ENCOUNTER → 2018-05-26 | Outpatient (CLI) | payer BC ==
[2018-05-26 10:10] LABS: PSA SCREENING 2.71 NG/ML (< 4.0)
== END ==
LOC: M LAB 08:15
DX: N40.0 Benign prostatic hyperplasia without lower urinary tract symptoms (principal); R97.20 Elevated prostate specific antigen [PSA]
CPT/HCPCS: G0103

== ENCOUNTER → 2018-09-27 | Outpatient (CLI) | payer BC ==
[~2018-09-27] MED LIST changes: +CHLO4TAB27 PO; +FLEC50HA PO; -FLEC50TA PO; +GASTROGRAFIN SOLUTION 30ML (Q9963) As Ordered ONE; +LOSA50TA73 PO; +RAMI1CAP24 PO; -RAMI5CA PO; +SERT50TA PO; +TRAN1TAB49 PO; -TRAN4TAB8 PO; +ZANT150T15 PO; -ZANT1TAB PO
--- NOTE | 2018-09-27 20:06 | REP ---
Clinical: Right upper quadrant pain. Technique: Axial contrast enhanced images from the lung bases to the pubic symphysis using oral (per protocol) and 100 ml Isovue 370 intravenous contrast material with precontrast and delayed images of the abdomen as well as coronal and sagittal re-formations. Comparison: 04/22/2008. Findings: Lung bases demonstrate mild basilar atelectasis. Visualized heart and pericardium within normal limits. Liver, spleen, pancreas, gallbladder, bilateral adrenal glands and kidneys are relatively normal. Few scattered subcentimeter hypodensities as well as 1.7 cm posterolateral cortical left renal hypodensity are most compatible with benign simple cysts. The enteric system is without obstruction or acute inflammatory process sigmoid diverticula noted without acute diverticulitis. Pelvis demonstrates a significantly enlarged heterogeneous prostate gland measuring greater than 6.7 cm maximal diameter having mass effect on the base of the bladder. Fat containing periumbilical and supraumbilical ventral hernias measure up to approximately 4.5 cm diameter. No further intraperitoneal or retroperitoneal adenopathy. Abdominal aorta and vasculature without aneurysm or dissection. Osseous structures demonstrate age-related degenerative change without focal osseous abnormality. Impression: 1. Renal hypodensities up to 1.7 cm likely representing benign simple cysts. 2. No bowel obstruction. 3. Two fat containing periumbilical and ventral hernias. 4. Further chronic changes as described above. Electronically Signed by Dima Ramos MD 09/27/2018 07:57 P
== END ==
LOC: M RAD 14:37
PROVIDERS: ATTEND Surgery
DX: K42.9 Umbilical hernia without obstruction or gangrene (principal); K43.9 Ventral hernia without obstruction or gangrene
CPT/HCPCS: 74178; Q9963

== ENCOUNTER 2018-10-24 15:35 | Emergency (ER) | payer BC ==
[~2018-10-24] VITALS: Ht 182.9 cm; Wt 109.1 kg
[~2018-10-24 15:35] MED LIST changes: -GASTROGRAFIN SOLUTION 30ML (Q9963) As Ordered ONE; -LOSA50TA73 PO; +LOSA50TA88 PO
[2018-10-24] MEDS ORDERED: MORPHINE 4 MG/ML 1ML VIAL/SYRINGE (J2270) IV ONE (16:30)
[2018-10-24] MEDS ORDERED: ONDANSETRON 4MG/2ML VIAL (J2405) IV ONE (16:30)
[2018-10-24] MEDS ORDERED: NS 500 ML IV ONE (16:30)
[2018-10-24 17:39] LABS: BASO % 0.4 % (0.0-1.0); EOS # 0.2 10^3/uL (0.0-0.50); EOS % 2.9 % (0.0-3.0); HEMATOCRIT 45.5 % (42.0-52.0); HEMOGLOBIN 14.7 g/dl (13.5-17.5); LYMPH # 0.8 10^3/uL (1.5-4.5); LYMPH % 15.3 % (24.0-44.0); MEAN CORPUSCULAR HEMOGLOBIN 26.8 pg (27.0-33.0); MEAN CORPUSCULAR HGB CONC 32.3 g/dl (32.0-36.5); MONO # 0.4 10^3/uL (0.0-0.8); PLATELET COUNT, AUTOMATED 116 10^3/uL (150-450); RED BLOOD COUNT 5.48 10^6/uL (4.30-6.10); WHITE BLOOD COUNT 5.4 10^3/uL (4.0-10.0)
[2018-10-24 17:59] LABS: ALBUMIN 3.9 GM/DL (3.2-5.2); ALT/SGPT 25 U/L (12-78); BILIRUBIN,DIRECT 0.2 MG/DL (0.0-0.2); BILIRUBIN,TOTAL 0.6 MG/DL (0.2-1.0); BLOOD UREA NITROGEN 9 MG/DL (7-18); CALCIUM LEVEL 9.3 MG/DL (8.8-10.2); CARBON DIOXIDE LEVEL 26 MEQ/L (21-32); CHLORIDE LEVEL 106 MEQ/L (98-107); CREATININE FOR GFR 0.84 MG/DL (0.70-1.30); GLOMERULAR FILTRATION RATE > 60.0 (>49); GLUCOSE, FASTING 86 MG/DL (70-100); LIPASE 157 U/L (73-393); POTASSIUM SERUM 4.4 MEQ/L (3.5-5.1); SODIUM LEVEL 142 MEQ/L (136-145); TOTAL PROTEIN 6.9 GM/DL (6.4-8.2)
[2018-10-24] MEDS ORDERED: ISOVUE-370 76% 100ML VIAL (Q9967) As Ordered ONE (18:13)
[2018-10-24 18:35] VITALS: BP 134/72
== END 2018-10-24 18:38 | disposition home or self-care (01) ==
LOC: M ED 15:35
DX: K43.9 Ventral hernia without obstruction or gangrene (principal)
CPT/HCPCS: 80048; 80076; 83690; 85025; 96374; 96375; 99284; J2270; J2405

== ENCOUNTER 2018-10-31 10:16 | Day surgery (SDC) | payer BC ==
[~2018-10-31] VITALS: Ht 185.4 cm; Wt 105.7 kg
[2018-10-31] MEDS ORDERED: ceFAZolin SOD 1 GM in D5W MINI-BAG PLUS 50 ML IV ONE (10:30)
[2018-10-31] MEDS ORDERED: LR 1,000 ML IV ONE (10:30)
[2018-10-31] MEDS ORDERED: PROPOFOL 200 MG/20 ML VIAL As Ordered ONE (11:19)
[2018-10-31] MEDS ORDERED: LIDOCAINE 2% INJ 100 MG/5 ML SDV (FOR ANES.) As Ordered ONE (11:19)
[2018-10-31] MEDS ORDERED: ROCURONIUM BROMIDE 50 MG/5 ML VIAL As Ordered ONE ×2 (11:19→12:53)
[2018-10-31] MEDS ORDERED: METOCLOPRAMIDE INJ 10MG/2ML VIAL (J2765) As Ordered ONE (11:19)
[2018-10-31] MEDS ORDERED: ONDANSETRON 4MG/2ML VIAL (J2405) As Ordered ONE (11:19)
[2018-10-31] MEDS ORDERED: fentaNYL 100 MCG/2 ML INJECTION (J3010) As Ordered ONE ×2 (11:19→13:06)
[2018-10-31] MEDS ORDERED: MIDAZOLAM INJ 2 MG/2 ML VIAL (J2250) As Ordered ONE (11:20)
[2018-10-31] MEDS ORDERED: BUPIVACAINE/EPIN 0.25% 30 ML VIAL As Ordered ONE (11:39)
[2018-10-31] MEDS ORDERED: ePHEDrine SULFATE 25 MG/5 ML(5MG/ML) SYRINGE As Ordered ONE (12:18)
[2018-10-31] MEDS ORDERED: BUPIVACAINE LIPOSOME/PF 1.3% 20ML VIAL (13.3MG/ML)(EXPAREL)(C9290 PER1MG) As Ordered ONE (12:34)
[2018-10-31] MEDS ORDERED: BUPIVACAINE HCL 0.25% 10 ML VIAL As Ordered ONE (12:34)
[2018-10-31] MEDS ORDERED: SUGAMMADEX SODIUM 500 MG/5 ML VIAL (BRIDION) As Ordered ONE (13:57)
[2018-10-31] MEDS ORDERED: dexameTHASONE 4 MG/ML 1ML VIAL (J1100) As Ordered ONE (13:57)
[2018-10-31] MEDS: PERCOCET 5MG/325MG TAB PO PRN ×2 (14:03→14:39)
[2018-10-31] MEDS ORDERED: PERCOCET 5MG/325MG TAB As Ordered ONE (14:06)
[2018-10-31] MEDS ORDERED: NORCO, ANEXSIA 5/325MG TABLET (HYDROcodone/ACETAMINOPHEN) PO PRN (14:15)
[2018-10-31] MEDS ORDERED: ONDANSETRON 4MG/2ML VIAL (J2405) IV PRN ×2 (14:15→14:30)
[2018-10-31] MEDS ORDERED: METOCLOPRAMIDE INJ 10MG/2ML VIAL (J2765) IV PRN (14:15)
[2018-10-31] MEDS ORDERED: LR 1,000 ML IV SCH ×2 (14:15)
[2018-10-31] MEDS ORDERED: MEPERIDINE INJ 25 MG/ML VIAL (J2175) IV PRN (14:15)
[2018-10-31] MEDS ORDERED: fentaNYL 100 MCG/2 ML INJECTION (J3010) IV PRN (14:15)
[2018-10-31] MEDS ORDERED: KETOROLAC 30 MG/ML VIAL (J1885) IV SCH (15:00)
[2018-10-31 17:20] VITALS: BP 121/69
--- NOTE | 2018-11-03 16:49 | RO ---
DATE OF PROCEDURE: 10/31/2018 PREOPERATIVE DIAGNOSIS: Epigastric hernia. POSTOPERATIVE DIAGNOSIS: Epigastric hernia. OPERATIVE PROCEDURE: Laparoscopic epigastric hernia repair with ventral light mesh (15 cm round). SURGEON: Arpit Villagran MD ACTIVE DIRECTORY ADMINISTRATOR: ANESTHESIA: General endotracheal anesthesia ESTIMATED BLOOD LOSS: Minimal FLUIDS: Crystalloid BRIEF PROCEDURE SUMMARY The patient was brought to the operating room and was given general anesthesia. After adequate anesthesia and preoperative antibiotics were given the patient was prepped and draped in the usual sterile fashion. Next a left subcostal incision was made with skin knife. Blunt dissection was carried down to fascia and Veress needle placed into the abdominal cavity, insufflated to 15 mm pressure. A dilating 5 mm trocar was placed and under direct visualization a left lower quadrant 5 mm trocar was placed. Some adhesions along the anterior abdominal wall next to the hernia were taken down with harmonic scalpel and once this was performed the two right-sided 5 mm trocars were placed as well. At the site of the epigastric hernia, there was still definitely some preperitoneal fat in this area, thus after making a small epigastric incision, used the harmonic scalpel to transect this preperitoneal fat/hernia sac in this area and placed a 12 mL trocar via the site. A 15 cm round ventral light mesh was placed into position and using secure straps circumferentially was able to tack this into place under decreased pressure of 10. The positioning device was removed without difficulty and at the epigastric hernia site, however, the fascial defect could be palpated and thus I just placed a [id number] #0 Vicryl in this area. Otherwise, all incisions were closed with #4-0 Vicryl, Steri-Strips and a dry sterile dressing was applied. The patient was awakened from his anesthesia, extubated, brought to the recovery room awake, alert and hemodynamic stable. Sponge and needle counts correct times two.
== END 2018-10-31 17:35 | disposition home or self-care (01) ==
LOC: M SDC 10:16
PROVIDERS: ATTEND Surgery
DX: K43.9 Ventral hernia without obstruction or gangrene (principal); I10 Essential (primary) hypertension; I48.91 Unspecified atrial fibrillation; K21.9 Gastro-esophageal reflux disease without esophagitis; M12.9 Arthropathy, unspecified; F41.9 Anxiety disorder, unspecified; F32.9 Major depressive disorder, single episode, unspecified; Z88.5 Allergy status to narcotic agent; Z88.8 Allergy status to other drugs, medicaments and biological substances; Z79.899 Other long term (current) drug therapy; Z79.82 Long term (current) use of aspirin; Z86.711 Personal history of pulmonary embolism
CPT/HCPCS: 49652; 88302; C1781; C9290; J0690; J1100; J1885; J2250; J2405; J2765; J3010

== ENCOUNTER → 2019-02-21 | Outpatient (CLI) | payer BC ==
[~2019-02-21] MED LIST changes: +ALLE4TAB12 PO; +ASPI-1 PO; -ASPI1TAB PO; -ASPI325T PO; +ASPI81TA26 PO; -CHLO4TAB27 PO; +METO1TAB63 PO; -METO25TAB PO; +SERT-141 PO; -SERT25TA PO; +SERT25TA85 PO; -SERT50TA PO
[2019-02-21 07:49] LABS: ALBUMIN 3.6 GM/DL (3.2-5.2); BLOOD UREA NITROGEN 16 MG/DL (7-18); CALCIUM LEVEL 8.7 MG/DL (8.8-10.2); CARBON DIOXIDE LEVEL 29 MEQ/L (21-32); CHLORIDE LEVEL 105 MEQ/L (98-107); CHOLESTEROL LEVEL 181 MG/DL (<200); CHOLESTEROL RISK RATIO 4.309 (<5); GLOMERULAR FILTRATION RATE > 60.0 (>49); GLUCOSE, FASTING 103 MG/DL (70-100); HDL CHOLESTEROL 42 MG/DL (>40); LDL CHOLESTEROL 114 MG/DL (<100); NON-HDL-C 139 MG/DL; PHOSPHORUS LEVEL 3.1 MG/DL (2.5-4.9); SODIUM LEVEL 142 MEQ/L (136-145); TRIGLYCERIDES LEVEL 123 MG/DL (<150)
== END ==
LOC: M LAB 06:27
PROVIDERS: ATTEND Internal Medicine Cardiovascular Disease
DX: E78.00 Pure hypercholesterolemia, unspecified (principal); I10 Essential (primary) hypertension

== ENCOUNTER → 2019-07-27 | Outpatient (CLI) | payer BC ==
[~2019-07-27] MED LIST changes: +TRAZ1TAB10 PO; -TRAZO50TA PO; +ZANT150T40 PO; -ZANTTAB PO
[2019-07-27 17:21] LABS: BLOOD UREA NITROGEN 19 MG/DL (7-18); CALCIUM LEVEL 8.9 MG/DL (8.8-10.2); CARBON DIOXIDE LEVEL 30 MEQ/L (21-32); CHLORIDE LEVEL 104 MEQ/L (98-107); CREATININE FOR GFR 0.96 MG/DL (0.70-1.30); GLOMERULAR FILTRATION RATE > 60.0 (>49); GLUCOSE, FASTING 89 MG/DL (70-100); POTASSIUM SERUM 4.3 MEQ/L (3.5-5.1); SODIUM LEVEL 138 MEQ/L (136-145)
== END ==
LOC: M LAB 16:31
PROVIDERS: ATTEND Physician Assistant
DX: I10 Essential (primary) hypertension (principal)

== ENCOUNTER → 2019-09-21 | Outpatient (CLI) | payer BC | LOC: M LAB 07:39 | PROVIDERS: ATTEND Urology | DX: N40.0 Benign prostatic hyperplasia without lower urinary tract symptoms (principal) ==

== ENCOUNTER → 2019-09-29 | Outpatient (CLI) | payer BC ==
[2019-10-03 00:06] LABS: PSA TOTAL 12.1 ng/mL (0.0-4.0)
== END ==
LOC: M LABDRWAD 09:15
PROVIDERS: ATTEND Urology
DX: N40.0 Benign prostatic hyperplasia without lower urinary tract symptoms (principal); R97.20 Elevated prostate specific antigen [PSA]

== ENCOUNTER → 2019-10-30 | Outpatient (CLI) | payer BC ==
--- NOTE | 2019-10-30 19:33 | REP ---
BILATERAL LOWER EXTREMITY DUPLEX ARTERIAL ULTRASOUND: 10/30/2019. Clinical history: Bilateral lower extremity pain. Findings. No prior study. Right side: Brachial pressure 132, dorsalis pedis 146, SOFTWARE TEST TECHNICIAN 148. Right FERMÍN 1.1. Left extremity: Brachial artery velocity 126, dorsalis pedis 144 and SOFTWARE TEST TECHNICIAN 140. FERMÍN on the left 1.1, normal. Right lower extremity arterial ultrasound: Peak systolic velocity. Phasicity . MID[employer]LE [employer]CHO[employer] SCIENCE TEACHER: 122.9 cm/S triphasic Profunda: 84.8 cm/S triphasic SFA proximal: 109.9 cm/S triphasic SFA mid: 95.1 cm/S triphasic SFA distal: 90.2 cm/S triphasic Popliteal: 72 cm/S triphasic VERONICA proximal: 35.9 cm/S triphasic Tibioperoneal trunk: 73.1 cm/S triphasic SOFTWARE TEST TECHNICIAN proximal: 54.2 cm/S triphasic SOFTWARE TEST TECHNICIAN distal: 67.1 cm/S triphasic VERONICA distal: 74.5 cm/S triphasic Left lower extremity arterial ultrasound: Peak systolic velocity. Phasicity. MIDDLE SCHOOL SCIENCE TEACHER: 108 cm/S triphasic Profunda: 121.5 cm/S triphasic SFA proximal: 109.2 cm/S triphasic SFA mid: 83.1 cm/S triphasic SFA distal: 65.7 cm/S triphasic Popliteal: 71.5 cm/S triphasic VERONICA proximal: 55 cm/S triphasic Tibioperoneal trunk: 68.6 cm/S triphasic SOFTWARE TEST TECHNICIAN proximal: 71.9 cm/S triphasic SOFTWARE TEST TECHNICIAN distal: 87.8 cm/S triphasic AT distal: 70.5 cm/S triphasic There is no stenosis. There is no significant peripheral vascular disease in the lower extremities. Electronically Signed by Samuel Arevalo MD 10/30/2019 07:25 P
== END ==
LOC: M RAD 13:21
PROVIDERS: ATTEND Physician Assistant
DX: M79.606 Pain in leg, unspecified (principal)

== ENCOUNTER → 2019-11-26 | Outpatient (CLI) | payer BC ==
--- NOTE | 2019-11-26 12:45 | REP ---
BILATERAL LOWER EXTREMITY DUPLEX VENOUS ULTRASOUND: REFLUX EXAM. HISTORY: Venous insufficiency bilateral legs. FINDINGS: The deep veins are anechoic and fully compressible from the groin to the popliteal fossa in both lower extremities on two-dimensional scanning. Color flow and spectral Doppler interrogation show no evidence of DVT in the left lower extremity. On the right, there is a linear striation echo in the deep venous system from the common femoral vein through the femoral vein into the popliteal vein, consistent with previous DVT. The vein is compressible and patent on Doppler interrogation. REFLUX FINDINGS: Venous reflux greater than 0.5-second duration is seen in the common femoral vein, throughout the femoral vein, and the popliteal vein segment on the right. Reflux lasting 1 second in duration is seen in the mid thigh level of the greater saphenous vein and in a collateral from the greater saphenous vein extending down to the calf. The greater saphenous vein measures 5.6 mm in greatest AP dimension proximally where there is 2.5-second duration reflux, 6.0 mm at midthigh, and 3.7 mm at the knee. The lesser saphenous vein measures 2.2 mm and does not demonstrate reflux. In the left lower extremity, there was no deep or superficial system reflux. A large thrombosed collateral superficial vein is seen off the mid greater saphenous vein extending down to the calf. The collateral is clotted from mid to distal thigh. The greater saphenous vein on the left measures 5.6 mm in AP dimension proximally, 2.3 mm at the midthigh, and 2.7 mm at the knee. Lesser saphenous vein measures 0.9 mm. IMPRESSION: There is venous reflux in the deep and superficial system on the right. A clotted collateral is seen off the mid greater saphenous vein on the left. No left-sided reflux is observed. 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 Electronically Signed by Milton Knowles MD 11/26/2019 02:23 P
== END ==
LOC: M RAD 10:20
PROVIDERS: ATTEND Physician Assistant
DX: I87.2 Venous insufficiency (chronic) (peripheral) (principal)

== ENCOUNTER → 2019-12-15 | Outpatient (CLI) | payer BC ==
[2019-12-15 18:10] LABS: ALBUMIN 3.9 GM/DL (3.2-5.2); ALT/SGPT 31 U/L (12-78); BILIRUBIN,TOTAL 0.4 MG/DL (0.2-1.0); BLOOD UREA NITROGEN 15 MG/DL (7-18); CALCIUM LEVEL 8.7 MG/DL (8.8-10.2); CARBON DIOXIDE LEVEL 31 MEQ/L (21-32); CHLORIDE LEVEL 108 MEQ/L (98-107); CHOLESTEROL LEVEL 124 MG/DL (<200); CREATININE FOR GFR 0.92 MG/DL (0.70-1.30); GLOMERULAR FILTRATION RATE > 60.0 (>49); GLUCOSE, FASTING 96 MG/DL (70-100); HDL CHOLESTEROL 40 MG/DL (>40); LDL CHOLESTEROL 66 MG/DL (<100); NON-HDL-C 84 MG/DL; POTASSIUM SERUM 4.5 MEQ/L (3.5-5.1); SODIUM LEVEL 143 MEQ/L (136-145); TOTAL PROTEIN 6.8 GM/DL (6.4-8.2); TRIGLYCERIDES LEVEL 88 MG/DL (<150)
== END ==
LOC: M ADAMS 09:19
PROVIDERS: ATTEND Physician Assistant
DX: I48.0 Paroxysmal atrial fibrillation (principal); I10 Essential (primary) hypertension; E78.00 Pure hypercholesterolemia, unspecified

== ENCOUNTER → 2020-01-30 | Outpatient (CLI) | payer BC ==
[~2020-01-30] MED LIST changes: +VITA-243 PO; -VITA500T PO
--- NOTE | 2020-01-30 17:00 | REP ---
Clinical: Knee pain. Technique: AP, lateral, bilateral oblique sunrise views of the left knee. Findings: Generalized age-related changes are appreciated with subtle cortical irregularity to the femoral condyles along with fraying and tendinous calcifications at the patella. Minimal medial and patellofemoral joint space narrowing is suggested. No acute fracture or dislocation. No obvious effusion. Impression: Generalized age-related degenerative changes. Electronically Signed by Dima Ramos MD 01/30/2020 04:52 P
== END ==
LOC: M WUC 16:27
PROVIDERS: ATTEND Internal Medicine
DX: M25.562 Pain in left knee (principal)

== ENCOUNTER → 2020-02-20 | Outpatient (REF) | payer BC | LOC: M LABDRWAD 12:54 | PROVIDERS: ATTEND Urology | DX: R97.20 Elevated prostate specific antigen [PSA] (principal) ==

== ENCOUNTER → 2020-07-11 | Outpatient (CLI) | payer BC ==
--- NOTE | 2020-07-11 13:07 | REPVR ---
PROCEDURE INFORMATION: Exam: MR Lumbar Spine Without Contrast. Exam date and time: 07/11/2020 12:05 PM Age: 64 years old Clinical indication: Low back pain; Additional info: Lumbar ddd w/ lbp TECHNIQUE: Imaging protocol: Multiplanar magnetic resonance images of the lumbar spine without intravenous contrast. COMPARISON: No relevant prior studies available. FINDINGS: Vertebrae: There is 3 mm of grade 1 retrolisthesis of L5 with respect to S1. Normal vertebral body alignment is otherwise preserved. There is moderate intervertebral disc space loss at L2/3 and L5/S1. Spinal cord: Normal signal. No cord compression. L1-L2: There is shallow disc bulging. There is mild facet hypertrophy. The spinal canal and neural foramina are patent. L2-L3: There is shallow disc bulging. There is mild facet hypertrophy. There is amgy-vn-wgufqghz bilateral neural foraminal narrowing. L3-L4: There is diffuse disc bulging. There is mild facet and ligamentous hypertrophy. There is mild to moderate bilateral neural foraminal narrowing. L4-L5: There is diffuse disc bulging. There is jtkv-wb-byztnuax facet hypertrophy. There is moderate bilateral neural foraminal narrowing. L5-S1: There is diffuse disc bulging/uncovering related to listhesis. There is moderate facet hypertrophy. There is shid-pw-tllqlzqi bilateral neural foraminal narrowing. Soft tissues: Unremarkable. IMPRESSION: Degenerative disc disease and spondylosis, with multilevel mdms-iu-fyrdlsdo neural foraminal narrowing. Electronically signed by: Paulina Todd On 07/11/2020 13:07:08 PM
== END ==
LOC: M RAD 11:04
PROVIDERS: ATTEND Physician Assistant
DX: M51.26 Other intervertebral disc displacement, lumbar region (principal); M47.816 Spondylosis without myelopathy or radiculopathy, lumbar region

== ENCOUNTER → 2021-02-16 | Outpatient (CLI) | payer BC ==
[~2021-02-16] MED LIST changes: -TRAN1TAB49 PO; +TRAN1TAB56 PO
== END ==
LOC: M LAB 12:48
PROVIDERS: ATTEND Urology
DX: R97.20 Elevated prostate specific antigen [PSA] (principal)

== ENCOUNTER → 2021-07-29 | Outpatient (CLI) | payer BC ==
[2021-07-29 18:11] LABS: APPEARANCE, URINE CLEAR (CLEAR); BACTERIA, URINE AUTO NEGATIVE (NEGATIVE); BILIRUBIN, URINE AUTO NEGATIVE (NEGATIVE); BLOOD, URINE BLOOD NEGATIVE (NEGATIVE); COLOR, URINE YELLOW (YELLOW); GLUCOSE, URINE (UA) AUTO NEGATIVE (NEGATIVE); KETONE, URINE AUTO NEGATIVE (NEGATIVE); LEUKOCYTE ESTERASE, URINE AUTO NEGATIVE (NEGATIVE); MUCUS, URINE SMALL (NEGATIVE); NITRITE, URINE AUTO NEGATIVE (NEGATIVE); PROTEIN, URINE AUTO NEGATIVE (NEGATIVE); RBC, URINE AUTO 0 /HPF (0-3); SPECIFIC GRAVITY URINE AUTO 1.018 (1.002-1.035); SQUAMOUS EPITHELIAL CELL UR AU 0 /HPF (0-6); UROBILINOGEN, URINE AUTO 0.2 mg/dL (0.0-2.0); WBC, URINE AUTO 0 /HPF (0-3)
== END ==
LOC: M LAB 16:13
PROVIDERS: ATTEND Urology
DX: R82.998 Other abnormal findings in urine (principal)

== ENCOUNTER 2021-08-11 18:44 | Inpatient (IN) | payer BC ==
[~2021-08-11] VITALS: Ht 182.9 cm; Wt 122.0 kg
[2021-08-11] MEDS: VALSARTAN 80 MG TAB (DIOVAN) PO SCH (06:26)
[2021-08-11 19:52] LABS: BASO # 0.1 10^3/uL (0.0-0.2); BASO % 0.5 % (0.0-1.0); EOS # 0.5 10^3/uL (0.0-0.5); EOS % 4.8 % (0.0-3.0); HEMATOCRIT 41.1 % (42.0-52.0); LYMPH # 0.8 10^3/uL (1.5-5.0); LYMPH % 7.5 % (24.0-44.0); MEAN CORPUSCULAR HEMOGLOBIN 27.1 pg (27.0-33.0); MEAN CORPUSCULAR HGB CONC 31.6 g/dl (32.0-36.5); MEAN CORPUSCULAR VOLUME 85.8 fl (80.0-96.0); MONO # 0.8 10^3/uL (0.0-0.8); MONO % 7.6 % (2.0-8.0); NEUTROPHILS # 8.4 10^3/uL (1.5-8.5); NEUTROPHILS % 79.2 % (36.0-66.0); RED BLOOD COUNT 4.79 10^6/uL (4.30-6.10); WHITE BLOOD COUNT 10.6 10^3/uL (4.0-10.0)
--- NOTE | 2021-08-11 19:52 | REP ---
INDICATION: afib RVR. COMPARISON: CT angio and chest x-ray 03/17/2015, chest 05/03/2014. TECHNIQUE: AP portable seated FINDINGS: Lung kimble are well inflated. CP angles are sharply defined. There is no effusion, infiltrate atelectasis or mass. Heart not enlarged for portable technique. Left atrium is mildly prominent with slight elevation of the left mainstem bronchus. The aorta is normal for age. Airway is intact. No widening of the mediastinum. No vascular redistribution or pulmonary edema. Visualized bones intact. No free air under the diaphragm. IMPRESSION: 1. No acute cardiopulmonary change. Heart size not enlarged for portable technique. I do suspect some mild left atrial enlargement. No pulmonary edema or pleural effusion. <Electronically signed by Samuel Arevalo > 08/11/211948
[2021-08-11] MEDS: METOPROLOL 5 MG/5 ML VIAL IV SCH ×3 (20:07→21:04)
[2021-08-11 20:09] LABS: ALBUMIN 3.1 GM/DL (3.2-5.2); ALT/SGPT 23 U/L (12-78); BLOOD UREA NITROGEN 15 MG/DL (7-18); CALCIUM LEVEL 8.9 MG/DL (8.8-10.2); CARBON DIOXIDE LEVEL 28 MEQ/L (21-32); CHLORIDE LEVEL 101 MEQ/L (98-107); CK-MB VALUE MASS < 1.0 NG/ML (<3.6); CPK CREATINE PHOSPHOKINASE 45 U/L (39-308); CREATININE FOR GFR 1.02 MG/DL (0.70-1.30); GLOMERULAR FILTRATION RATE > 60.0 (>49); GLUCOSE, FASTING 162 MG/DL (70-100); MB/CK RELATIVE INDEX 2.22 (< OR =4); NT-PRO BNP 57 PG/ML (<125); POTASSIUM SERUM 3.6 MEQ/L (3.5-5.1); SODIUM LEVEL 136 MEQ/L (136-145); TOTAL PROTEIN 6.6 GM/DL (6.4-8.2); TROPONIN I 0.02 NG/ML (< 0.10)
--- OUTSIDE RECORDS SUMMARY | 2021-08-11 20:10 | CCD ---
Continuity of Care Document (CCD) Created on: 07/09/2021 Rosendo Castillo External Reference #: [id number] : [id number] Sex: Male Author Author Rosendo NAVARRO M.D. Organization Unknown Address [address] [address] Phone [phone] Care Team Providers Care Rail Operator Name Role Phone Placido Bazzi M.D. [facility] [phone] Problems Active Problems Provider Date Atrial fibrillation John Munoz . M.D Onset: 02/27/2013 Acute peptic ulcer without hemorrhage, w ithout perforation AND without obstruction John Munoz . M.D Onset: 02/27/2013 Acquired thrombocytopenia Marquez Acevedo D.O., [facility] Onset : 10/14/2019 Social History Type Date Description Comments Sex Unknown ETOH Use Denies alcohol use Tobacco Use Start: Unknown Patient has never smoked Recreational Drug Use Denies Drug Use Allergies, Adverse Reactions, Alerts Active Allergies Criticality Reaction | Severity Comments Date Codeine Unable to assess criticality childhood al lergy 02/20/2013 Lexapro Unable to assess criticality 10/17/2018 Medications Active Medications SIG Qnty Indications Ordering Provide r Date Famotidine 40mg Tablets 1 by mouth every day 90tabs Mike Navarro M.D. 09/04/20 19 Sertraline HCL 50mg Tablets Take One Tablet By Mouth Every Day 90tabs Mike Navarro M.D . 06/18/2019 Multi-Vitamin Tablets 1 po q d 90tabs Unknown Magnesium 400mg Capsules 1 po qd (241.3) Unknown Eplerenone 25mg Tablets 1 po qd Placido Bazzi M.D. Aspirin 81mg Tablets DR 1 by mouth every day Unknown Chlorthalidone 25mg Tablets 1/2 tab p.o. qod Placido Bazzi M.D. Valsartan 320mg Tablets 1 by mouth every day Placido Bazzi M.D. Tums Ultra 1000 1000mg Chewtabs chew and swallow 2 tablets by mouth 4 times per day as needed OTC Unknown Immunizations CPT Code Status Date Vaccine Lot # 22725 Given 07/06/2021 Influenza Virus Vaccine, Quadrivalent, Slit Virus, Im Use 3Y & Up [id number] Given 07/25/2017 Influenza Virus Vaccine, Quadrivalent, Slit Virus, Im Use 3Y & Up [id number] Given 09/12/2015 Influenza Virus Vac. Split Virus Individuals 3 Years And Above [id number] Refused 08/14/2018 Influenza Virus Vaccine, Quadrivalent, Slit Virus, Im Use 3Y & Up Vital Signs Date Vital Result Comment 07/06/2021 2:10pm BP Systolic 116 mmHg BP Diastolic 74 mmHg Body Temperature 99.2 F Heart Rate 72 /min Respiratory Rate 14 /min Height 72 inches 6'0" Weight 273.00 lb [place] Body Weight 178 lb BMI (Body Mass Index) 37.0 kg/m2 O2 % BldC Oximetry 96 % 05/08/2021 10:58am BP Systolic 126 mmHg BP Diastolic 80 mmHg Body Temperature 98.1 F Heart Rate 78 /min Respiratory Rate 14 /min Height 72 inches 6'0" Weight 265.00 lb [place] Body Weight 178 lb BMI (Body Mass Index) 35.9 kg/m2 O2 % BldC Oximetry 96 % Results Test Acquired Date Facility Test Result H/L Range Note CBC 07/06/2021 [facility] WBC 4.8 10E3/uL 4.1 - 10.9 1 RBC 4.93 10E6/uL 4.20 - 6.30 HGB 13.6 g/dL 12.0 - 18.0 HCT 40.9 % 37.0 - 51.0 MCV 83.0 fL 80.0 - 97.0 MCH 27.6 pg 26.0 - 32.0 MCHC 33.3 g/dL 31.0 - 36.0 PLT 145 10E3/uL 140 - 440 RDW-CV 13.2 % 11.5 - 14.5 Lym% 20.7 % 10.0 - 58.5 Neut% 67.1 % 37.0 - 92.0 MXD% 12.2 % 0.1 - 24.0 Lym# 1.0 10E3/uL 0.6 - 4.1 Neut# 3.2 % 2.0 - 7.8 MXD# 0.6 10E3/uL 0.0 - 1.8 MPV 10.7 fL 9.0 - 13.0 CMP 07/06/2021 [facility] Glu 80 mg/dL 70 - 110 BUN 14 mg/dL 8 - 23 Creat 0.9 mg/dL 0.7 - 1.2 BUN/Creatinine Ratio 16.2 Calc Na 137 mmol/L 136 - 145 K 4.2 mmol/L 3.5 - 5.1 CL 101.8 mmol/L 98.0 - 107.0 Co2 22.8 mmol/L 22.0 - 29.0 CA 9.2 mg/dL 8.6 - 10.2 TP 6.4 g/dL Low 6.6 - 8.7 Alb 4.4 g/dL 3.5 - 5.2 A/G Ratio 2.2 Calc Globulin 2.0 Calc Alp 71.4 U/L 40 - 129 Alt (SGPT) 15 U/L 0 - 41 Ast (Sgot) 16 U/L 0 - 40 Tbili 0.31 mg/dL 0.0 - 1.2 Osmolality-Calculated 273.4 Calc Anion Gap 17 mmol/L eGFR 104 # Calc 2 eGFR Non-Afr. [place]an 90 # Calc 3 Urinalysis panel 06/10/2021 N2N/CCD Imports pH of Urine by Test strip 6.5 5.0-7.5 Urobilinogen [Mass/volume] in Urine by Test strip 0.2 E.U./dL 0.0-1.0 CBC 05/05/2021 [facility] WBC 4.1 10E3/uL 4.1 - 10.9 4 RBC 4.95 10E6/uL 4.20 - 6.30 HGB 13.5 g/dL 12.0 - 18.0 HCT 41.0 % 37.0 - 51.0 MCV 82.8 fL 80.0 - 97.0 MCH 27.3 pg 26.0 - 32.0 MCHC 32.9 g/dL 31.0 - 36.0 PLT 130 10E3/uL Low 140 - 440 RDW-CV 14.0 % 11.5 - 14.5 Lym% 21.2 % 10.0 - 58.5 Neut% 62.9 % 37.0 - 92.0 MXD% 15.9 % 0.1 - 24.0 Lym# 0.9 10E3/uL 0.6 - 4.1 Neut# 2.5 % 2.0 - 7.8 MXD# 0.7 10E3/uL 0.0 - 1.8 MPV 10.0 fL 9.0 - 13.0 CMP 05/05/2021 [facility] Glu 102 mg/dL 70 - 110 BUN 15 mg/dL 8 - 23 Creat 1.0 mg/dL 0.7 - 1.2 BUN/Creatinine Ratio 14.7 Calc Na 137 mmol/L 136 - 145 K 4.2 mmol/L 3.5 - 5.1 CL 103.3 mmol/L 98.0 - 107.0 Co2 22.6 mmol/L 22.0 - 29.0 CA 9.6 mg/dL 8.6 - 10.2 TP 6.5 g/dL Low 6.6 - 8.7 Alb 4.2 g/dL 3.5 - 5.2 A/G Ratio 1.9 Calc Globulin 2.2 Calc Alp 61.9 U/L 40 - 129 Alt (SGPT) 15 U/L 0 - 41 Ast (Sgot) 14 U/L 0 - 40 Tbili 0.60 mg/dL 0.0 - 1.2 Osmolality-Calculated 274.6 Calc Anion Gap 15 mmol/L eGFR 92 # Calc 5 eGFR Non-Afr. [place]an 79 # Calc 6 Lipid Panel 05/05/2021 [facility] Chol 211 mg/dL High 0 - 200 Trig 186 mg/dL 35 - 200 HDL 38 mg/dL 35 - 55 LDL_C 136 Calc High 75 - 129 Cho/HDL Ratio 5.5 CALC [facility] [phone] Prostatic Specific Ag Monitor 3.54 NG/ML Normal < 4.00 7 1 NORMAL RANGES Age WBC RBC HGB HCT MCV PLT Adult M 4.1-10.9 4.20-6.30 12.0-18.0 37.0-51.0 80-97 140-440 Adult F 4.1-10.9 4.04-5.48 12.0-18.0 37.0-51.0 80-97 140-440 0 -1 Yr 5.0-20.0 3.9-5.9 15-18 MV: 44 MV: 91 MV: 277 2-9 Yr. 6.0-17.0 3.8-5.4 11-13 MV: 37 MV: 78 MV: 300 10 Yrs. 5.0-13.0 3.8-5.4 12-15 MV: 39 MV: 80 MV: 250 NOTE: * FOR ADULT BLACK MALES AND FEMALES, NORMAL WBC IS 2.9-7.7 K/ML * FOR ADULT BLACK MALES AND FEMALES, NORMAL RBC,HGB, AND HCT IS 5% LESS SOURCE FOR DATA: Intralign 1800 OPERATION MANUAL( AUTOMATED BLOOD COUNTS AND DIFF.) APPENDIX B-3 CHRONIC KIDNEY DISEASE STAGING PER NKF: MALE GFR INTERPRETATION: 20-49 YRS: >60 mL/min Normal 50-59 YRS: >56 mL/min Normal 60-69 YRS: >49 mL/min Normal 70-79 YRS: >42 mL/min Normal 80 and above >35 mL/min Normal FEMALE GRF INTERPRETATION: 20-39 YRS: >60 mL/min Normal 40-49 YRS: >58 mL/min Normal 50-59 YRS: >51 mL/min Normal 60-69 YRS: >45 mL/min Normal 70-79 YRS: >39 mL/min Normal 80 and above >32 mL/min Normal 2 CKD-EPI 3 CKD-EPI 4 NORMAL RANGES Age WBC RBC HGB HCT MCV PLT Adult M 4.1-10.9 4.20-6.30 12.0-18.0 37.0-51.0 80-97 140-440 Adult F 4.1-10.9 4.04-5.48 12.0-18.0 37.0-51.0 80-97 140-440 0 -1 Yr 5.0-20.0 3.9-5.9 15-18 MV: 44 MV: 91 MV: 277 2-9 Yr. 6.0-17.0 3.8-5.4 11-13 MV: 37 MV: 78 MV: 300 10 Yrs. 5.0-13.0 3.8-5.4 12-15 MV: 39 MV: 80 MV: 250 NOTE: * FOR ADULT BLACK MALES AND FEMALES, NORMAL WBC IS 2.9-7.7 K/ML * FOR ADULT BLACK MALES AND FEMALES, NORMAL RBC,HGB, AND HCT IS 5% LESS SOURCE FOR DATA: Intralign 1800 OPERATION MANUAL( AUTOMATED BLOOD COUNTS AND DIFF.) APPENDIX B-3 CHRONIC KIDNEY DISEASE STAGING PER NKF: MALE GFR INTERPRETATION: 20-49 YRS: >60 mL/min Normal 50-59 YRS: >56 mL/min Normal 60-69 YRS: >49 mL/min Normal 70-79 YRS: >42 mL/min Normal 80 and above >35 mL/min Normal FEMALE GRF INTERPRETATION: 20-39 YRS: >60 mL/min Normal 40-49 YRS: >58 mL/min Normal 50-59 YRS: >51 mL/min Normal 60-69 YRS: >45 mL/min Normal 70-79 YRS: >39 mL/min Normal 80 and above >32 mL/min NormalCLASSIFICATION CHOLESTEROL FOR ADULTS CHILDREN/ADOLESCENTS* DESIRABLE: <200 MG/DL <170 MG/DL BORDER-LINE HIGH RISK: 200-239 MG/DL 170-199 MG/DL HIGH RISK: >240 MG/DL >200 MG/DL CLASS. FOR PRIMARY LDL CHOL PREVENTION: LDL CHOL-CHILD/ADOLESCENTS* DESIRABLE: <130 MG/DL <110 MG/DL BORDERLINE-HIGH RISK: 130- 159 MG/DL 110-129 MG/DL HIGH RISK: >160 MG/DL >130 MG/DL *CHILDREN AND ADOLESCENTS REPRESENTS INDIVIDUALA AGED 2-19 YEARS EXCLUSIVE. 5 CKD-EPI 6 CKD-EPI 7 The PSA assay is performed o n the Siemens Thornton analyzer by LOCI sandwich chemiluminescent immunoassay and should not be compared interchangeably with other methods. It should not be used alone as a screening test or diagnosis for the presence or absence of malignant disease. Predictions of disease recurrence should not be based solely on values obtained from serial patient serum values. Procedures Date Code Description Status 07/06/2021 97665 Office/Outpatient Established Mo d MDM 30-39 Min Completed 07/06/2021 07892 Electrocardiogram Complete Compl eted 05/08/2021 05192 Office/Outpatient Established Mo d MDM 30-39 Min Completed Medical Devices Description No Information Available Encounters Type Date Location Provider Dx Diagnosis Office Visit 07/06/2021 2:00p [place] [facility] Mike Navarro M. D. Z01.810 Encounter for preprocedural cardiovascular examination Z23 Encounter for immunization Office Visit 05/08/2021 11:00a [place] [facility] Mike Navarro M. D. E78.5 Hyperlipidemia, unspecified F33.0 Major depressive disorder, r ecurrent, mild I10 Essential (primary) hyperten ori I48.91 Unspecified atrial fibrillat ion Assessments Date Code Description Provider 07/06/2021 Z01.810 Encounter for preprocedural card iovascular examination Mike Navarro M.D. 07/06/2021 Z23 Encounter for immunization Mike Romano M.D. 05/08/2021 E78.5 Hyperlipidemia, unspecified [facility] Mike martel M.D. 05/08/2021 F33.0 Major depressive disorder, recur rent, mild Mike Navarro M.D. 05/08/2021 I10 Essential (primary) hypertension Mike Navarro M.D. 05/08/2021 I48.91 Unspecified atrial fibrillation Mike Navarro M.D. 05/05/2021 E78.5 Hyperlipidemia, unspecified [facility] Mike martel M.D. 05/05/2021 E78.5 Hyperlipidemia, unspecified Labo ratory [place] Schedule 05/05/2021 I10 Essential (primary) hypertension Mike Navarro M.D. 05/05/2021 I10 Essential (primary) hypertension Laboratory [place] Schedule Plan of Treatment Future Appointment(s):* 11/04/2021 8:45 am - Laboratory [place] Schedule at [facility] * 11/09/2021 10:20 am - Mike Navarro M.D. at [facility] Functional Status Description No Information Available Mental Status Description No Information Available Referrals Description No Information Available
--- OUTSIDE RECORDS SUMMARY | 2021-08-11 20:10 | CCD | Continuity of Care Document ---
Author Author Rosendo NAVARRO M.D. Organization Unknown Address [address] [address] Phone [phone] Care Team Providers Care Alarm Operator Name Role Phone Placido Bazzi M.D. [facility] [phone] Problems Active Problems Provider Date Atrial fibrillation John Munoz . M.D Onset: 02/27/2013 Acute peptic ulcer without hemorrhage, w ithout perforation AND without obstruction John Munoz . M.D Onset: 02/27/2013 Acquired thrombocytopenia Marquez Acevedo D.O., [facility] Onset : 10/14/2019 Social History Type Date [...] CPT Code Status Date Vaccine Lot # [id number] Given 07/06/2021 Influenza Virus Vaccine, Quadrivalent, Slit Virus, Im Use 3Y & Up [id number] 81117 Given 07/25/2017 Influenza Virus Vaccine, Quadrivalent, Slit Virus, Im Use 3Y & Up [id number] 25627 Given 09/12/2015 Influenza Virus Vac. Split Virus Individuals 3 Years And Above [id number] Refused 08/14/2018 Influenza Virus Vaccine, Quadrivalent, Slit Virus, Im Use 3Y & Up Vital Signs Date Vital Result Comment 07/06/2021 2:10pm BP Systolic 116 mmHg BP Diastolic 74 mmHg Body Temperature 99.2 F Heart Rate 72 /min Respiratory Rate 14 /min Height 72 inches 6'0" Weight 273.00 lb [place] Body Weight 178 lb BMI (Body Mass Index) 37.0 kg/m2 O2 % BldC Oximetry 96 % 05/08/2021 10:58am BP Systolic 126 mmHg BP Diastolic 80 mmHg Body Temperature 98.1 F Heart Rate 78 /min Respiratory Rate 14 /min Height 72 inches 6'0" Weight 265.00 lb [place] Body Weight 178 lb BMI (Body Mass [...] eGFR 104 # Calc 2 eGFR Non-Afr. Israeli 90 # Calc 3 Urinalysis panel 06/10/2021 [...] eGFR 92 # Calc 5 eGFR Non-Afr. Israeli 79 # Calc 6 Lipid Panel 05/05/2021 [facility]Inhouse Chol 211 mg/dL High 0 - 200 Trig 186 mg/dL 35 - 200 HDL 38 mg/dL 35 - 55 LDL_C 136 Calc High 75 - 129 Cho/HDL Ratio 5.5 CALC [facility] [phone] Prostatic Specific Ag Monitor 3.54 NG/ML Normal [...] HCT IS 5% LESS SOURCE FOR DATA: JW Player 1800 OPERATION MANUAL( AUTOMATED BLOOD COUNTS AND [...] HCT IS 5% LESS SOURCE FOR DATA: JW Player 1800 OPERATION MANUAL( AUTOMATED BLOOD COUNTS AND [...] assay is performed o n the Siemens [place] analyzer by LOCI sandwich chemiluminescent immunoassay and should not be compared interchangeably with other methods. It should not be used alone as a screening test or diagnosis for the presence or absence of malignant disease. Predictions of disease recurrence should not be based solely on values obtained from serial patient serum values. Procedures Date Code Description Status 07/06/2021 59524 Office/Outpatient Established Mo d MDM 30-39 Min Completed 07/06/2021 92833 Electrocardiogram Complete Compl eted 05/08/2021 55551 Office/Outpatient Established Mo d MDM 30-39 Min Completed Medical Devices Description No Information Available Encounters Type Date Location Provider Dx Diagnosis Office Visit 07/06/2021 2:00p [place] [facility] Mike Navarro M. D. Z01.810 Encounter for preprocedural cardiovascular examination Office Visit 05/08/2021 11:00a [place] [facility] Mike Navarro M. D. E78.5 Hyperlipidemia, unspecified F33.0 Major depressive disorder, r ecurrent, mild I10 Essential (primary) hyperten ori I48.91 Unspecified atrial fibrillat ion Assessments Date Code Description Provider 07/06/2021 Z01.810 Encounter for preprocedural card iovascular examination Mike Navarro M.D. 05/08/2021 E78.5 Hyperlipidemia, unspecified [facility] helMike woods M.D. 05/08/2021 F33.0 Major depressive disorder, recur rent, mild Mike Navarro M.D. 05/08/2021 I10 Essential (primary) hypertension Mike Navarro M.D. 05/08/2021 I48.91 Unspecified atrial fibrillation Mike Navarro M.D. 05/05/2021 E78.5 Hyperlipidemia, unspecified [facility] Mike martel M.D. 05/05/2021 E78.5 Hyperlipidemia, unspecified Labo ratory [place] Schedule 05/05/2021 I10 Essential (primary) hypertension Mike Navarro M.D. 05/05/2021 I10 Essential (primary) hypertension Laboratory [place] Schedule Plan of Treatment Future Appointment(s):* 11/04/2021 8:45 am - Laboratory [place] Schedule at [facility] * 11/09/2021 10:20 am - Mike Navarro M.D. at [facility] Functional Status Description No Information Available Mental Status Description No Information Available Referrals Description No Information Available
--- OUTSIDE RECORDS SUMMARY | 2021-08-11 20:10 | CCD | Continuity of Care Document ---
Author Author Rosendo Melton Organization Unknown Address [address] [address] Phone [phone] Care Team Providers Care Ldr Rn Name Role Phone Mike Navarro MD AUTM [phone] [facility] [phone] AUTM [phone] Problems Active Problems Provider Date Essential hypertension Albert Echols MD Onset: 020 Social History Type Date Description Comments Sex Unknown ETOH Use Denies alcohol use Tobacco Use Start: Unknown Patient has never smoked Smoking Status Reviewed: 12/12/20 Patient has never smoked Allergies, Adverse Reactions, Alerts Active Allergies Criticality Reaction | Severity Comments Date Codeine Unable to assess criticality 02/28/2020 Lexapro Unable to assess criticality 02/28/2020 Medications Active Medications SIG Qnty Indications Ordering Provide r Date Tramadol HCL 50mg Tablets Take 1-2 Tablets By Mouth Every 4-6 Hours as Needed For Pain, MDD 5 35tabs Nathan Alba MD 06/02/2020 Sertraline HCL 50mg Tablets Jhony Fowler RPA Eplerenone 25mg Tablets Take One Tablet By Mouth Every Day Unknown Valsartan 320mg Tablets Placido Bazzi MD Chlorthalidone 25mg Tablets Placido Bazzi MD Aspirin 81mg Chewtabs 1 by mouth every day Unknown Famotidine 10mg Tablets take 1 tab 1 hour before procedure Unknown Tylenol 325mg Tablets 2 tabs every 4 hours as needed pain or fever Unknown Immunizations Description No Information Available Vital Signs Date Vital Result Comment 06/04/2021 9:21am Body Temperature 97.3 F Height 71 inches 5'11" Weight 268.50 lb BMI (Body Mass Index) 37.4 kg/m2 02/27/2021 2:28pm Body Temperature 97.8 F Results Test Acquired Date Facility Test Result H/L Range Note Laboratory test finding 06/22/2021 In House Covid Rapid Testing NEGATIVE 1 Laboratory test finding 05/20/2021 In House Covid Rapid Testing Negative Laboratory test finding 02/13/2021 In House Covid Rapid Testing Negative 1 [facility] COVID-19 ANTIGEN LOT #[id number] 07/07/21 8:56A.M. Procedures Date Code Description Status 06/04/2021 03722 Office/Outpatient Established Lo w MDM 20-29 Min Completed 05/22/2021 37113 Re-Eval Of PT Establ ished Plan Of Care 20Mins Face To Face PT/Fam Completed 05/22/2021 37395 Manual Therapy Each 15 Minutes C ompleted 05/22/2021 17013 Therapeutic Procedure, Each 15 M inutes Completed 05/12/2021 70831 Manual Therapy Each 15 Minutes C ompleted 05/12/2021 35900 Therapeutic Procedure, Each 15 M inutes Completed 05/05/2021 20116 Manual Therapy Each 15 Minutes C ompleted 05/05/2021 62328 Therapeutic Procedure, Each 15 M inutes Completed 04/28/2021 01277 Manual Therapy Each 15 Minutes C ompleted 04/28/2021 02976 Therapeutic Procedure, Each 15 M inutes Completed 04/23/2021 38147 Manual Therapy Each 15 Minutes C ompleted 04/23/2021 42446 Therapeutic Procedure, Each 15 M inutes Completed 04/20/2021 47074 Therapeutic Procedure, Each 15 M inutes Completed 04/20/2021 48584 Manual Therapy Each 15 Minutes C ompleted 04/09/2021 76904 Office/Outpatient Established Mo d MDM 30-39 Min Completed 04/08/2021 22362 Manual Therapy Each 15 Minutes C ompleted 04/08/2021 79354 Therapeutic Procedure, Each 15 M inutes Completed 02/25/2021 84340 Manual Therapy Each 15 Minutes C ompleted 02/25/2021 75308 Therapeutic Procedure, Each 15 M inutes Completed 02/23/2021 57170 Manual Therapy Each 15 Minutes C ompleted 02/23/2021 45652 Therapeutic Procedure, Each 15 M inutes Completed 02/20/2021 36142 Physical Therapy Eval - Low Comp lexity Completed 01/23/2021 79475 Office/Outpatient Established Lo w MDM 20-29 Min Completed 01/14/2021 35995 Re-Eval Of PT Establ ished Plan Of Care 20Mins Face To Face PT/Fam Completed 01/14/2021 38380 Manual Therapy Each 15 Minutes C ompleted 01/07/2021 56639 Manual Therapy Each 15 Minutes C ompleted 01/07/2021 07697 Therapeutic Procedure, Each 15 M inutes Completed Medical Devices Description No Information Available Encounters Type Date Location Provider Dx Diagnosis Office Visit 06/04/2021 9:15a [place] Ace[place] PA-C M51.37 Other intervertebral disc degeneration, lumbosacral region M51.36 Other intervertebral disc de generation, lumbar region M50.30 Other cervical disc degenera tion, unsp cervical region Office Visit 04/09/2021 11:30a [place] Mehta, P.A. M51.37 Other intervertebral disc degeneration, lumbosacral region M50.30 Other cervical disc degenera tion, unsp cervical region Office Visit 01/23/2021 4:00p Minesh Mehta, P.A. M50.30 Other cervical disc degeneration, unsp cervical region M51.37 Other intervertebral disc de generation, lumbosacral region Assessments Date Code Description Provider 07/07/2021 Z01.818 Encounter for other preprocedura l examination Lab 07/07/2021 Z20.828 Contact with and (chambers spected) exposure to other viral communicable diseases Lab 06/04/2021 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, lumbosacral region Belinda Acevedo PA-C 06/04/2021 M51.36 Other intervertebral disc degene ration, lumbar region Belinda Acevedo PA-C 06/04/2021 M50.30 Other cervical disc degeneration , unspecified cervical region Belinda Acevedo PA-C 05/28/2021 Z01.818 Encounter for other preprocedura l examination Nathan Alba MD 05/28/2021 Z01.818 Encounter for other preprocedura l examination Lab 05/28/2021 Z20.828 Contact with and (chambers spected) exposure to other viral communicable diseases Nathan Alba MD 05/28/2021 Z20.828 Contact with and (chambers spected) exposure to other viral communicable diseases Lab 05/22/2021 M50.30 Other cervical disc degeneration , unspecified cervical region Jarocho Pederson, PT, DPT 05/22/2021 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, lumbosacral region Jarocho Pederson, PT, DPT 05/20/2021 Z20.828 Contact with and (chambers spected) exposure to other viral communicable diseases Rodger Mehta, P.A. 05/12/2021 M50.30 Other cervical disc degeneration , unspecified cervical region Doretha Carly Kemp, DESK DIRECTOR 05/12/2021 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, lumbosacral region Doretha Carly Kemp, DESK DIRECTOR 05/05/2021 M50.30 Other cervical disc degeneration , unspecified cervical region Danamarie Ortolano, DESK DIRECTOR 05/05/2021 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, lumbosacral region Danamarie Ortolano, DESK DIRECTOR 04/28/2021 M50.30 Other cervical disc degeneration , unspecified cervical region Jarocho Pederson, PT, DPT 04/28/2021 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, lumbosacral region Jarocho Pederson, PT, DPT 04/23/2021 M50.30 Other cervical disc degeneration , unspecified cervical region Doretha Carly Kemp, DESK DIRECTOR 04/23/2021 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, lumbosacral region Doretha Carly Kemp, DESK DIRECTOR 04/20/2021 M50.30 Other cervical disc degeneration , unspecified cervical region Doretha Carly Kemp, DESK DIRECTOR 04/20/2021 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, lumbosacral region Doretha Carly Kemp, DESK DIRECTOR 04/09/2021 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, lumbosacral region Rodger Mehta, P.A. 04/09/2021 M50.30 Other cervical disc degeneration , unspecified cervical region Rodger Mehta, P.A. 04/08/2021 M51.36 Other intervertebral disc degene ration, lumbar region Jarocho Pederson, PT, DPT 04/08/2021 M50.30 Other cervical disc degeneration , unspecified cervical region Jarocho Pederson, PT, DPT 02/27/2021 Z01.818 Encounter for other preprocedura l examination Bora Acevedo MD 02/27/2021 Z01.818 Encounter for other preprocedura l examination Lab 02/27/2021 Z20.828 Contact with and (chambers spected) exposure to other viral communicable diseases Bora Acevedo MD 02/27/2021 Z20.828 Contact with and (chambers spected) exposure to other viral communicable diseases Lab 02/25/2021 M50.30 Other cervical disc degeneration , unspecified cervical region Danamarie Ortolano, DESK DIRECTOR 02/25/2021 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, lumbosacral region Danamarie Ortolano, DESK DIRECTOR 02/23/2021 M50.30 Other cervical disc degeneration , unspecified cervical region Danamarie Ortolano, DESK DIRECTOR 02/23/2021 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, lumbosacral region Danamarie Ortolano, DESK DIRECTOR 02/20/2021 M50.30 Other cervical disc degeneration , unspecified cervical region Jarocho Pederson, PT, DPT 02/20/2021 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, lumbosacral region Jarocho Pederson, PT, DPT 02/13/2021 Z20.828 Contact w and exposure to oth vi ral communicable diseases Rodger Mehta, P.A. 01/23/2021 M50.30 Other cervical disc degeneration , unspecified cervical region Rodger Mehta, P.A. 01/23/2021 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, lumbosacral region Rodger Mehta, P.A. 01/14/2021 M50.30 Other cervical disc degeneration , unspecified cervical region Jarocho Pederson, PT, DPT 01/07/2021 M50.30 Other cervical disc degeneration , unspecified cervical region Glenda Bowen P.T.A. Plan of Treatment Future Appointment(s):* 07/09/2021 5:00 pm - [facility] 06/04/2021 - Belinda Acevedo PA-C* M51.37 Other intervertebral disc degeneration, lumbosacral region* Follow up:* after [facility] Catracho Injection with MKM. * M51.36 Other intervertebral disc degeneration, lumbar region * M50.30 Other cervical disc degeneration, unspecified cervical region Functional Status Description No Information Available Mental Status Description No Information Available Referrals Refer to Dr Reason for Referral Status Appt Date Belinda Acevedo PA-C ELDA INJ([id number]) #3 PER EVIC[facility] E HAS MARIVEL APPROVED TO SURGERY NT-- RECEIVED WRITTEN AUTH Created [address] [phone] Doretha Kemp PTA ELDA INJ([id number]) # 2 [facility] Created 1571 [facility], [address] [phone] Rodger Mehta, PA ELDA INJ ([id number]) #1 [facility] INJ TO SURGERY NT Created 1571 [facility] [address] [place] [address] [phone] Rodger Mehta, PA physical therapy approved 10 additional visits lumbar cervical authorization number [id number] nlg Created 0 [address] [place] [address] [phone]
--- OUTSIDE RECORDS SUMMARY | 2021-08-11 20:10 | CCD ---
Continuity of Care Document (CCD) Created on: 07/15/2021 Rosendo Castillo External Reference #: [id number] : [id number] Sex: Male Author Author Rosendo LINARES PA-C Organization Unknown Address [address] [address] Phone [phone] Care Team Providers Care Retail Cashier Associate Name Role Phone Mike Navarro MD AUTM [phone] [facility] [phone] AUTM [phone] Problems Active Problems Provider Date Essential hypertension [...] Available Vital Signs Date Vital Result Comment 07/15/2021 2:40pm Body Temperature 97.5 F 06/04/2021 9:21am Body Temperature 97.3 F Height 71 inches 5'11" Weight 268.50 lb BMI (Body Mass Index) 37.4 kg/m2 Results Test Acquired Date Facility Test Result H/L Range Note Laboratory test finding 07/15/2021 In House Covid Rapid Testing Negative 1 Laboratory test finding 06/22/2021 In House Covid Rapid Testing NEGATIVE 2 Laboratory test finding 05/20/2021 In House Covid Rapid Testing Negative Laboratory test finding 02/13/2021 In House Covid Rapid Testing Negative 1 [facility] Covid-19 Antigen Lot# [id number] 07/15/21 at 2:50pm 2 [facility] COVID-19 ANTIGEN LOT #[id number] 07/07/21 8:56A.M. Procedures Date Code Description Status 06/04/2021 17092 Office/Outpatient Established Lo w MDM 20-29 Min Completed 05/22/2021 71554 Re-Eval Of PT Establ ished Plan Of Care 20Mins Face To Face PT/Fam Completed 05/22/2021 52563 Manual Therapy Each 15 Minutes C ompleted 05/22/2021 58630 Therapeutic Procedure, Each 15 M inutes Completed 05/12/2021 44947 Manual Therapy Each 15 Minutes C ompleted 05/12/2021 68910 Therapeutic Procedure, Each 15 M inutes Completed 05/05/2021 44564 Manual Therapy Each 15 Minutes C ompleted 05/05/2021 28488 Therapeutic Procedure, Each 15 M inutes Completed 04/28/2021 46374 Manual Therapy Each 15 Minutes C ompleted 04/28/2021 64937 Therapeutic Procedure, Each 15 M inutes Completed 04/23/2021 53787 Manual Therapy Each 15 Minutes C ompleted 04/23/2021 23728 Therapeutic Procedure, Each 15 M inutes Completed 04/20/2021 25005 Manual Therapy Each 15 Minutes C ompleted 04/20/2021 14346 Therapeutic Procedure, Each 15 M inutes Completed 04/09/2021 97465 Office/Outpatient Established Mo d MDM 30-39 Min Completed 04/08/2021 46642 Manual Therapy Each 15 Minutes C ompleted 04/08/2021 88314 Therapeutic Procedure, Each 15 M inutes Completed 02/25/2021 62654 Manual Therapy Each 15 Minutes C ompleted 02/25/2021 67900 Therapeutic Procedure, Each 15 M inutes Completed 02/23/2021 20681 Manual Therapy Each 15 Minutes C ompleted 02/23/2021 94755 Therapeutic Procedure, Each 15 M inutes Completed 02/20/2021 77640 Physical Therapy Eval - Low Comp lexity Completed 01/23/2021 06438 Office/Outpatient Established Lo w MDM 20-29 Min Completed 01/14/2021 41085 Re-Eval Of PT Establ ished Plan Of Care 20Mins Face To Face PT/Fam Completed 01/14/2021 84750 Manual Therapy Each 15 Minutes C ompleted Medical Devices Description No Information Available Encounters Type Date Location Provider Dx Diagnosis Office Visit 06/04/2021 9:15a Minesh Linares PA-C M51.37 Other intervertebral disc degeneration, lumbosacral region M51.36 Other intervertebral disc de generation, lumbar region M50.30 Other cervical disc degenera tion, unsp cervical region Office Visit 04/09/2021 11:30a Minesh Mehta, P.A. M51.37 Other intervertebral disc degeneration, lumbosacral region M50.30 Other cervical disc degenera tion, unsp cervical region Office Visit 01/23/2021 4:00p Minesh Mehta, P.A. M50.30 Other cervical disc degeneration, unsp cervical region M51.37 Other intervertebral disc de generation, lumbosacral region Assessments Date Code Description Provider 07/15/2021 Z20.828 Contact with and (chambers spected) exposure to other viral communicable diseases Belinda Linares PA-C 07/07/2021 Z01.818 Encounter for other preprocedura l examination Nathan Alba MD 07/07/2021 Z01.818 Encounter for other preprocedura l examination Lab 07/07/2021 Z20.828 Contact with and (chambers spected) exposure to other viral communicable diseases Nathan Alba MD 07/07/2021 Z20.828 Contact with and (chambers spected) exposure to other viral communicable diseases Lab 06/04/2021 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, lumbosacral region Belinda Linares, PA-C 06/04/2021 M51.36 Other intervertebral disc degene ration, lumbar region Belinda Nieves Fish, PA-C 06/04/2021 M50.30 Other cervical disc degeneration , unspecified cervical region Belinda Linares, PA-C 05/28/2021 Z01.818 Encounter for other preprocedura [...] spected) exposure to other viral communicable diseases Jayla Anthony 05/12/2021 M50.30 Other cervical disc degeneration , unspecified cervical region Doretha Kemp, HOT DIP GALVANIZER 05/12/2021 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, lumbosacral region Doretha Kemp, HOT DIP GALVANIZER 05/05/2021 M50.30 Other cervical disc degeneration , unspecified cervical region Danamarie Ortolano, HOT DIP GALVANIZER 05/05/2021 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, lumbosacral region Danamarie Ortolano, HOT DIP GALVANIZER 04/28/2021 M50.30 Other cervical disc degeneration , unspecified cervical region Jarocho Pederson, PT, DPT 04/28/2021 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, lumbosacral region Jarocho Pederson, PT, DPT 04/23/2021 M50.30 Other cervical disc degeneration , unspecified cervical region Doretha Kemp, HOT DIP GALVANIZER 04/23/2021 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, lumbosacral region Doretha Kemp, HOT DIP GALVANIZER 04/20/2021 M50.30 Other cervical disc degeneration , unspecified cervical region Doretha Kemp, HOT DIP GALVANIZER 04/20/2021 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, lumbosacral region Doretha Kemp, HOT DIP GALVANIZER 04/09/2021 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, lumbosacral region Rodger Mehta, P.A. 04/09/2021 M50.30 Other cervical disc degeneration , unspecified cervical region Rodger Mehta, P.A. 04/08/2021 M51.36 Other intervertebral disc degene ration, lumbar region Jarocho Pederson, PT, DPT 04/08/2021 M50.30 Other cervical disc degeneration , unspecified cervical region Jarocho Pederson, PT, DPT 02/27/2021 Z01.818 Encounter for other preprocedura l examination Bora Linares MD 02/27/2021 Z01.818 Encounter for other preprocedura l examination Lab 02/27/2021 Z20.828 Contact with and (chambers spected) exposure to other viral communicable diseases Bora Linares MD 02/27/2021 Z20.828 Contact with and (chambers spected) exposure to other viral communicable diseases Lab 02/25/2021 M50.30 Other cervical disc degeneration , unspecified cervical region Danamarie Ortolano, HOT DIP GALVANIZER 02/25/2021 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, lumbosacral region Danamarie Ortolano, HOT DIP GALVANIZER 02/23/2021 M50.30 Other cervical disc degeneration , unspecified cervical region Danamarie Ortolano, HOT DIP GALVANIZER 02/23/2021 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, lumbosacral region Danamarie Ortolano, HOT DIP GALVANIZER 02/20/2021 M50.30 Other cervical disc degeneration , unspecified cervical region Jarocho Pederson, PT, DPT 02/20/2021 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, lumbosacral region Jarocho Pederson, PT, DPT 02/13/2021 Z20.828 Contact w and exposure to oth vi ral communicable diseases Jayla Anthony 01/23/2021 M50.30 Other cervical disc degeneration , unspecified cervical region Jayla Anthony 01/23/2021 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, lumbosacral region Jayla Anthony 01/14/2021 M50.30 Other cervical disc degeneration , unspecified cervical region Jarocho Pederson, PT, DPT Plan of Treatment 06/04/2021 - Belinda Linares PA-C* M51.37 Other intervertebral disc degeneration, lumbosacral region* Follow up:* after Intrepid Catracho Injection with MKM. * M51.36 Other intervertebral disc degeneration, lumbar region * M50.30 Other cervical disc degeneration, unspecified cervical region Functional Status Description No Information Available Mental Status Description No Information Available Referrals Refer to Dr Reason for Referral Status Appt Date Belinda Linares PA-C ELDA INJ([id number]) #3 PER EVICOFelecia Harkins HAS MARIVEL APPROVED TO SURGERY NT-- RECEIVED WRITTEN AUTH Created [address] [phone] Doretha Kemp PTA ELDA INJ([id number]) # 2 PER SANAM Carlson AT [facility] IS APPROVED TO SURGERY NT Created [address] [place] [address], [address] [place] [phone] Rodger Mehta, PA ELDA INJ ([id number]) #1 PER TERR I C. AT [facility] APPROVAL FOR 1 INJ TO SURGERY NT Created 1571 [facility] [address] [place] [address] [phone] Rodger Mehta, PA physical therapy approved 10 additional visits lumbar cervical authorization number [id number] nlg Created 0 1571 [facility] [address] [place] [address] [phone]
--- OUTSIDE RECORDS SUMMARY | 2021-08-11 20:10 | CCD ---
Continuity of Care Document (CCD) Created on: 07/14/2021 SivaRosendo hooper J External Reference #: [id number] : [id number] Sex: Male Author Organization Unknown Address Unknown Phone Unavailable Care Team Providers Care Analytical Lab Analyst Name Role Phone Mike Navarro M.D. AUTM [phone] Placido Bazzi M.D. AUTM [phone] Problems Active Problems Provider Date Benign prostatic hyperplasia with outflow obstruction CHAKA Rehman Onset: 10/06/2012 Nocturia - finding CHAKA Rehman Onset: 012 Incomplete emptying of bladder CHAKA Rehman Ons et: 10/06/2012 Dribbling of urine CHAKA Rehman Onset: 013 Dyspnea Placido Bazzi M.D. Onset: 03/14/2017 Paroxysmal atrial fibrillation Placido Bazzi M.D. Onset: 0 06/17/2016 Disorder of magnesium metabolism Placido Bazzi M.D. Onset: 10/09/2015 Essential hypertension Placido Bazzi M.D. Onset: 5 Edema Placido Bazzi M.D. Onset: 12/13/2014 Benign essential hypertension Placido Bazzi M.D. 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 Onset: 09/26/2017 Raised prostate specific antigen Tru Au MD Onse t: 11/21/2019 Social History Type Date Description Comments Sex Unknown Tobacco Use Reviewed: 11/26/19 Never Smoked Cigarettes Smoking Status Reviewed: 06/08/21 Never Smoked Cigarettes ETOH Use Patient denies alcohol use Allergies and adverse reactions Active Allergies Criticality Reaction | Severity Comments Date Codeine Unable to assess criticality 11/08/2008 Lexapro Unable to assess criticality confusion 03/14/2017 Medications Active Medications SIG Qnty Indications Ordering Provide r Date Sertraline HCL 50mg Tablets 1 by mouth every day Unknown 09/25/2017 Eplerenone 25mg Tablets 1 by mouth every day 90tabs R60.0 Placido Bazzi M.D. 12/13/2014 Tylenol Extra Strength 500mg Table ts as needed Unknown Multi Vitamin Daily Tablets 1 by mouth every day Unknown Aspirin 81mg Tablets DR 1 by mouth every day Unknown Magnesium Oxide 400mg Tablets 1 by mouth every day Unknown Famotidine 20mg Tablets Take One Tablet By Mouth Twice A Day Unknown Valsartan 320mg Tablets Placido Bazzi M.D. Chlorthalidone 25mg Tablets 1/2 tablet every other day Placido Bazzi M.D. History Medications Ciprofloxacin HCL 250mg Tablets 1 by mouth in office for procedure 1 by mouth tomorrow 2tabs Layne Gentile MD 06/10/2021 - 06/11/2021 Immunizations Description No Information Available Vital Signs Date Vital Result Comment 05/13/2021 2:29pm Body Temperature 96.3 F 04/30/2021 3:24pm Height 72 inches 6'0" Weight 250.00 lb Weight 113.400 kg BMI (Body Mass Index) 33.9 kg/m2 BP Systolic 128 mmHg BP Diastolic 72 mmHg Heart Rate 80 /min Results Test Acquired Date Facility Test Result H/L Range Note 230 Ua Routine 06/10/2021 [facility] REF TO ADDRESS ON ORDER FOR (273)- - Ua Glucose Negative Ua Protein Negative Ua Nitrite Negative Ua Leuko Negative Ua Blood Negative Ua Color Not Entered Ua Ketones Negative Ua Clarity Not Entered Ua Specific [place] >=1.030 1.003-1.030 Ua PH 6.5 5.0-7.5 Ua Bilirubin Negative Ua Urobilinogen 0.2 E.U./dL 0.0-1.0 Urine Microscopy 04/30/2021 [facility] [address] [place] [address] [phone] Urine WBC 0-2 /HPF 0 - 5 Urine RBC 3-5 /HPF 0-2 Bacteria NEG /HPF Neg Crystals CA OXY 2+ /HPF Neg Epithelial Cells RARE /HPF Neg Sperm NEG /HPF Neg Yeast NEG /HPF Neg UACast NEG /LPF Neg 230 Ua Routine 04/30/2021 [facility] REF TO ADDRESS ON ORDER FOR (315)- - Ua Glucose Negative Ua Protein Negative Ua Nitrite Negative Ua Leuko Negative Ua Blood Trace-intact Ua Color Not Entered Ua Ketones Negative Ua Clarity Not Entered Ua Specific [place] >=1.030 1.003-1.030 Ua PH 5.5 5.0-7.5 Ua Bilirubin Negative Ua Urobilinogen 0.2 E.U./dL 0.0-1.0 Laboratory test finding 02/16/2021 [facility]) [address] [place] [address] [id number] [phone] PSA Total 3.54 Prostatic Specific Ag Monitor 3.54 NG/ML Normal < 4.00 1 1 The PSA assay is performed o n the Siemens [place] analyzer by LOCI sandwich chemiluminescent immunoassay and should not be compared interchangeably with other methods. It should not be used alone as a screening test or diagnosis for the presence or absence of malignant disease. Predictions of disease recurrence should not be based solely on values obtained from serial patient serum values. Procedures Date Code Description Status 06/10/2021 34898 Cystourethroscopy, Separate Proc edure Completed 05/13/[address] Abdomen/Pelvis With W/Wo Cont rast Completed 04/30/2021 01859 Office/Outpatient Established Mo d MDM 30-39 Min Completed Medical Devices Description No Information Available Encounters Type Date Location Provider Dx Diagnosis Office Visit 04/30/2021 3:30p [facility] Etelvina Maynard NP N40.1 Benign prostatic hyperplasia with lower urinary tract symp R35.1 Nocturia R31.29 Other microscopic hematuria R97.20 Elevated prostate specific a ntigen [PSA] Assessments Date Code Description Provider 06/10/2021 N40.1 Benign prostatic hyperplasia wit h lower urinary tract symptoms Xavier Gentile MD 06/10/2021 R39.12 Poor urinary stream Xavier concepcion MD 05/13/2021 N20.0 Calculus of kidney Ilija Aleksic , MD 05/13/2021 N28.1 Cyst of kidney, acquired Sourav rice MD 05/13/2021 R31.29 Other microscopic hematuria Sharmila Truong MD 04/30/2021 N40.1 Benign prostatic hyperplasia wit h lower urinary tract symptoms Etelvina Maynard NP 04/30/2021 R35.1 Nocturia Etelvina Maynard NP 04/30/2021 R31.29 Other microscopic hematuria Ther wandy Maynard NP 04/30/2021 R97.20 Elevated prostate specific antig en [PSA] Etelvina Maynard NP 04/30/2021 R31.29 Other microscopic hematuria Katina Valenzuela MD Plan of Treatment Future Appointment(s):* 08/13/2021 3:15 pm - Xavier Gentile MD at [facility]/ ..P Urology * 08/13/2021 8:40 am - Xavier Gentile MD at [facility]/ [facility] Urology * 07/23/2021 2:15 pm - Xavier Gentile MD at [facility]/ [facility].P Urology * 08/05/2021 11:35 am - Xavier Gentile MD at [facility] * 04/30/2022 10:45 am - Etelvina Maynard NP at [facility]/ [facility]. Urology Functional Status Description No Information Available Mental Status Description No Information Available Referrals Refer to Dr Reason for Referral Status Appt Date Xavier Gentile M.D. CPT: 53912,44105 Per [employer] online the patient is active with a [employer] Blue PPO Signature Deductible 3 plan. Benefit below Surgery-Outpatient Physician No Limit $2,600.00 Deductible Per [employer] auth grids no auth is required for either code above. 0226 06/22/2021 PIETRO Created [facility] [address] [place] [address] [phone] Xavier Gentile M.D. Per [place] ([employer]) [facility] e: CPT Code: 30181 Auth: [id number] Valid: 05/01/2021-06/15/2021 05/01/2021 PIETRO Created [facility] [address] [address] [phone]
--- OUTSIDE RECORDS SUMMARY | 2021-08-11 20:10 | CCD | Continuity of Care Document ---
Author Author Rosendo NAVARRO M.D. Organization Unknown Address [address] [address] Phone [phone] Care Team Providers Care Executive Officer Name Role Phone Placido Bazzi M.D. [facility] [phone] Problems Active Problems Provider Date Atrial fibrillation John Munoz . M.D Onset: 02/27/2013 Acute peptic ulcer without hemorrhage, w ithout perforation AND without obstruction John Munoz . M.D Onset: 02/27/2013 Acquired thrombocytopenia Marquez Acevedo D.O., [facility] Onset : 10/14/2019 Social History Type Date Description Comments Sex Unknown ETOH Use Denies alcohol use Tobacco Use Start: Unknown Patient has never smoked Recreational Drug Use Denies Drug Use Allergies and adverse reactions Active Allergies Criticality [...] CPT Code Status Date Vaccine Lot # [id number] Given 07/06/2021 Influenza Virus Vaccine, Quadrivalent, Slit Virus, Im Use 3Y & Up [id number] 41427 Given 07/25/2017 Influenza Virus Vaccine, Quadrivalent, Slit Virus, Im Use 3Y & Up [id number] Given 09/12/2015 Influenza Virus Vac. Split Virus Individuals 3 Years And Above [id number] Refused 08/14/2018 Influenza Virus Vaccine, Quadrivalent, Slit Virus, Im Use 3Y & Up Vital Signs Date Vital Result Comment 07/06/2021 2:10pm BP Systolic 116 mmHg BP Diastolic 74 mmHg Body Temperature 99.2 F Heart Rate 72 /min Respiratory Rate 14 /min Height 72 inches 6'0" Weight 273.00 lb [place] Body Weight 178 lb BMI (Body Mass Index) 37.0 kg/m2 O2 % BldC Oximetry 96 % 05/08/2021 10:58am BP Systolic 126 mmHg BP Diastolic 80 mmHg Body Temperature 98.1 F Heart Rate 78 /min Respiratory Rate 14 /min Height 72 inches 6'0" Weight 265.00 lb [place] Body Weight 178 lb BMI (Body Mass Index) 35.9 kg/m2 O2 % BldC Oximetry 96 % Results Test Acquired Date Facility Test Result H/L Range Note Ua Routine 07/29/2021 [facility]) [phone] Appearance, Urine CLEAR Normal Clear Color, Urine YELLOW Normal Yellow PH,Urine 5.0 units Normal 5.0-9.0 Specific [place] Urine Auto 1.018 Normal 1.002-1.035 Protein, Urine Auto NEGATIVE mg/dL Normal Negative Glucose, Urine (Ua) Auto NEGATIVE mg/dL Normal Negative Ketone, Urine Auto NEGATIVE mg/dL Normal Negative Urobilinogen, Urine Auto 0.2 mg/dL Normal 0.0-2.0 Bilirubin, Urine Auto NEGATIVE Normal Negative Nitrite, Urine Auto NEGATIVE Normal Negative Leukocyte Esterase, Urine Auto NEGATIVE Normal Negative Blood, Urine Blood NEGATIVE Normal Negative WBC, Urine Auto 0 /HPF Normal 0-3 RBC, Urine Auto 0 /HPF Normal 0-3 Bacteria, Urine Auto NEGATIVE Normal Negative Squamous Epithelial Cell Ur AU 0 /HPF Normal 0-6 Mucus, Urine SMALL Normal Negative Hyaline Cast, Urine Auto 0 /LPF Normal 0-1 CBC 07/06/2021 [facility] WBC 4.8 10E3/uL 4.1 [...] eGFR 104 # Calc 2 eGFR Non-Afr. Finnish 90 # Calc 3 Urinalysis panel 06/10/2021 [...] eGFR 92 # Calc 5 eGFR Non-Afr. Finnish 79 # Calc 6 Lipid Panel 05/05/2021 [facility] Chol 211 mg/dL High 0 - 200 Trig 186 mg/dL 35 - 200 HDL 38 mg/dL 35 - 55 LDL_C 136 Calc High 75 - 129 Cho/HDL Ratio 5.5 CALC Laboratory test finding 02/16/2021 [facility] (Interface) [phone] Prostatic Specific Ag Monitor 3.54 NG/ML Normal [...] HCT IS 5% LESS SOURCE FOR DATA: EDISON DYN 1800 OPERATION MANUAL( AUTOMATED BLOOD COUNTS AND [...] HCT IS 5% LESS SOURCE FOR DATA: [employer] 1800 OPERATION MANUAL( AUTOMATED BLOOD COUNTS AND [...] assay is performed o n the Siemens [place] analyzer by LOCI sandwich chemiluminescent immunoassay and should not be compared interchangeably with other methods. It should not be used alone as a screening test or diagnosis for the presence or absence of malignant disease. Predictions of disease recurrence should not be based solely on values obtained from serial patient serum values. Procedures Date Code Description Status 07/06/2021 56350 Office/Outpatient Established Mo d MDM 30-39 Min Completed 07/06/2021 19579 Electrocardiogram Complete Compl eted 05/08/2021 39025 Office/Outpatient Established Mo d MDM 30-39 Min Completed Medical Devices Description No Information Available Encounters Type Date Location Provider Dx Diagnosis Office Visit 07/06/2021 2:00p [facility] Mike Navarro M. D. Z01.810 Encounter for preprocedural cardiovascular examination Z23 Encounter for immunization Office Visit 05/08/2021 11:00a [place] [facility] Mike Navarro M. D. E78.5 Hyperlipidemia, unspecified F33.0 Major depressive disorder, r ecurrent, mild I10 Essential (primary) hyperten ori I48.91 Unspecified atrial fibrillat ion Assessments Date Code Description Provider 07/06/2021 Z01.810 Encounter for preprocedural card iovascular examination Mike Navarro M.D. 07/06/2021 Z23 Encounter for immunization Zack Mike mcrae M.D. 05/08/2021 E78.5 Hyperlipidemia, unspecified [facility] Mike martel M.D. 05/08/2021 F33.0 Major depressive disorder, recur rent, mild Mike Navarro M.D. 05/08/2021 I10 Essential (primary) hypertension Mike Navarro M.D. 05/08/2021 I48.91 Unspecified atrial fibrillation Mike Navarro M.D. 05/05/2021 E78.5 Hyperlipidemia, unspecified [facility] Mike martel M.D. 05/05/2021 E78.5 Hyperlipidemia, unspecified Labo ratory [place] Schedule 05/05/2021 I10 Essential (primary) hypertension Mike Navarro M.D. 05/05/2021 I10 Essential (primary) hypertension Laboratory [place] Schedule Plan of Treatment Future Appointment(s):* 11/04/2021 8:45 am - Laboratory [place] Schedule at [facility] * 11/09/2021 10:20 am - Mike Navarro M.D. at [facility] Functional Status Description No Information Available Mental Status Description No Information Available Referrals Description No Information Available
--- OUTSIDE RECORDS SUMMARY | 2021-08-11 20:10 | CCD | Continuity of Care Document ---
Author Author Rosendo LINARES PA-C Organization Unknown Address [address] [address] Phone [phone] Care Team Providers Care Manager Food Name Role Phone Mike Navarro MD AUTM [phone] [facility] [phone] AUTM [phone] Problems Active Problems Provider Date Essential hypertension [...] Negative 1 CARE START COVID-19 ANTIGEN LOT #[id number] 07/07/21 8:56A.M. Procedures Date Code Description Status 06/04/2021 20991 Office/Outpatient Established Lo w MDM 20-29 Min Completed 05/22/2021 72440 Re-Eval Of PT Establ ished Plan Of Care 20Mins Face To Face PT/Fam Completed 05/22/2021 66766 Manual Therapy Each 15 Minutes C ompleted 05/22/2021 10120 Therapeutic Procedure, Each 15 M inutes Completed 05/12/2021 72437 Manual Therapy Each 15 Minutes C ompleted 05/12/2021 02201 Therapeutic Procedure, Each 15 M inutes Completed 05/05/2021 91915 Manual Therapy Each 15 Minutes C ompleted 05/05/2021 37098 Therapeutic Procedure, Each 15 M inutes Completed 04/28/2021 04733 Manual Therapy Each 15 Minutes C ompleted 04/28/2021 54416 Therapeutic Procedure, Each 15 M inutes Completed 04/23/2021 19744 Manual Therapy Each 15 Minutes C ompleted 04/23/2021 30969 Therapeutic Procedure, Each 15 M inutes Completed 04/20/2021 44680 Therapeutic Procedure, Each 15 M inutes Completed 04/20/2021 67486 Manual Therapy Each 15 Minutes C ompleted 04/09/2021 64100 Office/Outpatient Established Mo d MDM 30-39 Min Completed 04/08/2021 44413 Manual Therapy Each 15 Minutes C ompleted 04/08/2021 61785 Therapeutic Procedure, Each 15 M inutes Completed 02/25/2021 61527 Manual Therapy Each 15 Minutes C ompleted 02/25/2021 23044 Therapeutic Procedure, Each 15 M inutes Completed 02/23/2021 14733 Manual Therapy Each 15 Minutes C ompleted 02/23/2021 97028 Therapeutic Procedure, Each 15 M inutes Completed 02/20/2021 64850 Physical Therapy Eval - Low Comp lexity Completed 01/23/2021 17921 Office/Outpatient Established Lo w MDM 20-29 Min Completed 01/14/2021 28280 Re-Eval Of PT Establ ished Plan Of Care 20Mins Face To Face PT/Fam Completed 01/14/2021 38077 Manual Therapy Each 15 Minutes C ompleted 01/07/2021 59871 Manual Therapy Each 15 Minutes C ompleted 01/07/2021 30464 Therapeutic Procedure, Each 15 M inutes Completed Medical Devices Description No Information Available Encounters Type Date Location Provider Dx Diagnosis Office Visit 06/04/2021 9[place] M51.37 Other intervertebral disc degeneration, lumbosacral region M51.36 Other intervertebral disc de generation, lumbar region M50.30 Other cervical disc degenera tion, unsp cervical region Office Visit 04/09/2021 11:30a [place] Me[place], P.A. M51.37 Other intervertebral disc degeneration, [...] intervertebral disc degene ration, lumbosacral region Belinda Linares PA-C 06/04/2021 M51.36 Other intervertebral disc degene ration, lumbar region Belinda Linares PA-C 06/04/2021 M50.30 Other cervical disc degeneration , unspecified cervical region Belinda Linares PA-C 05/28/2021 Z01.818 Encounter for other preprocedura [...] , unspecified cervical region Doretha Carly Kemp, DIRECTOR OF BUSINESS CONTINUITY 05/12/2021 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, lumbosacral region Doretha Carly Kemp, DIRECTOR OF BUSINESS CONTINUITY 05/05/2021 M50.30 Other cervical disc degeneration , unspecified cervical region Danamarie Ortolano, DIRECTOR OF BUSINESS CONTINUITY 05/05/2021 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, lumbosacral region Danamarie Ortolano, DIRECTOR OF BUSINESS CONTINUITY 04/28/2021 M50.30 Other cervical disc degeneration , unspecified cervical region Jarocho Pederson, PT, DPT 04/28/2021 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, lumbosacral region Jarocho Pederson, PT, DPT 04/23/2021 M50.30 Other cervical disc degeneration , unspecified cervical region Doretha Carly Kemp, DIRECTOR OF BUSINESS CONTINUITY 04/23/2021 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, lumbosacral region Doretha Carly Kemp, DIRECTOR OF BUSINESS CONTINUITY 04/20/2021 M50.30 Other cervical disc degeneration , unspecified cervical region Doretha Carly Kemp, DIRECTOR OF BUSINESS CONTINUITY 04/20/2021 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, lumbosacral region Doretha Carly Kemp, DIRECTOR OF BUSINESS CONTINUITY 04/09/2021 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, [...] degeneration , unspecified cervical region Danamarie Ortolano, DIRECTOR OF BUSINESS CONTINUITY 02/25/2021 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, lumbosacral region Danamarie Ortolano, DIRECTOR OF BUSINESS CONTINUITY 02/23/2021 M50.30 Other cervical disc degeneration , unspecified cervical region Danamarie Ortolano, DIRECTOR OF BUSINESS CONTINUITY 02/23/2021 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, lumbosacral region Danamarie Ortolano, DIRECTOR OF BUSINESS CONTINUITY 02/20/2021 M50.30 Other cervical disc degeneration , [...] at [facility] 06/04/2021 - Belinda Linares PA-C* M51.37 Other intervertebral disc degeneration, lumbosacral region* Follow up:* after Intrepid Catracho Injection with MKM. * M51.36 Other intervertebral disc degeneration, lumbar region * M50.30 Other cervical disc degeneration, unspecified cervical region Functional Status Description No Information Available Mental Status Description No Information Available Referrals Refer to Dr Reason for Referral Status Appt Date Belinda Linares PA-C ELDA INJ([id number]) #3 PER [facility] HAS MARIVEL APPROVED TO SURGERY NT-- RECEIVED WRITTEN AUTH Created [address] [place] [address] [address] [place] [phone] Doretha Kemp PTA ELDA INJ([id number]) # 2 PER AMMATILDE A M AT [facility] IS APPROVED TO SURGERY NT Created [address] [facility], [address] [place] [address] [phone] Rodger Mehta, PA ELDA INJ ([id number]) #1 PER TERR I C. AT [facility] APPROVAL FOR 1 INJ TO SURGERY NT Created [address] [place] [address] [address] [place] [address] [phone] Rodger Mehta, PA physical therapy approved 10 additional visits lumbar cervical authorization number [id number] nlg Created 0 1571 [facility] [address] [place] [address] [phone]
--- OUTSIDE RECORDS SUMMARY | 2021-08-11 20:10 | CCD | Continuity of Care Document ---
Author Author Rosendo Melton Organization Unknown Address [address] [address] Phone [phone] Care Team Providers Care Recreational Sports Director Name Role Phone Mike Navarro MD AUTM [phone] [facility] [phone] AUTM Problems Active Problems Provider Date Essential hypertension Albert Echols MD Onset: 020 Social History Type Date Description Comments Sex Unknown ETOH Use Denies alcohol use Tobacco Use Start: Unknown Patient has never smoked Smoking Status Reviewed: 12/12/20 Patient has never smoked Allergies and adverse reactions Active Allergies Criticality [...] Testing Negative 1 [facility]Start Covid-19 Antigen Lot# [id number] 07/15/21 at 2:50pm 2 CARE START COVID-19 ANTIGEN LOT #[id number] 07/07/21 8:56A.M. Procedures Date Code Description Status 06/04/2021 70398 Office/Outpatient Established Lo w MDM 20-29 Min Completed 05/22/2021 57163 Re-Eval Of PT Establ ished Plan Of Care 20Mins Face To Face PT/Fam Completed 05/22/2021 24992 Manual Therapy Each 15 Minutes C ompleted 05/22/2021 19593 Therapeutic Procedure, Each 15 M inutes Completed 05/12/2021 56855 Manual Therapy Each 15 Minutes C ompleted 05/12/2021 86110 Therapeutic Procedure, Each 15 M inutes Completed 05/05/2021 76486 Manual Therapy Each 15 Minutes C ompleted 05/05/2021 99700 Therapeutic Procedure, Each 15 M inutes Completed 04/28/2021 24384 Manual Therapy Each 15 Minutes C ompleted 04/28/2021 38575 Therapeutic Procedure, Each 15 M inutes Completed 04/23/2021 71446 Therapeutic Procedure, Each 15 M inutes Completed 04/23/2021 87604 Manual Therapy Each 15 Minutes C ompleted 04/20/2021 57328 Manual Therapy Each 15 Minutes C ompleted 04/20/2021 44118 Therapeutic Procedure, Each 15 M inutes Completed 04/09/2021 73038 Office/Outpatient Established Mo d MDM 30-39 Min Completed 04/08/2021 08287 Manual Therapy Each 15 Minutes C ompleted 04/08/2021 80866 Therapeutic Procedure, Each 15 M inutes Completed 02/25/2021 43542 Manual Therapy Each 15 Minutes C ompleted 02/25/2021 47571 Therapeutic Procedure, Each 15 M inutes Completed 02/23/2021 40881 Manual Therapy Each 15 Minutes C ompleted 02/23/2021 50857 Therapeutic Procedure, Each 15 M inutes Completed 02/20/2021 79505 Physical Therapy Eval - Low Comp lexity Completed 01/23/2021 19674 Office/Outpatient Established Lo w MDM 20-29 Min Completed Medical Devices Description No Information Available Encounters Type Date Location Provider Dx Diagnosis Office Visit 06/04/2021 9:15a Minesh Acevedo PA-C M51.37 Other intervertebral disc degeneration, [...] region Assessments Date Code Description Provider 07/15/2021 Z01.818 Encounter for other preprocedura l examination Nathan Alba MD 07/15/2021 Z01.818 Encounter for other preprocedura l examination Lab 07/15/2021 Z20.828 Contact with and (chambers spected) exposure to other viral communicable diseases Nathan Alba MD 07/15/2021 Z20.828 Contact with and (chambers spected) exposure to other viral communicable diseases Lab 07/15/2021 Z20.828 Contact with and (chambers spected) exposure to other viral communicable diseases Belinda Acevedo PA-C 07/07/2021 Z01.818 Encounter for other preprocedura l examination Nathan Alba MD 07/07/2021 Z01.818 Encounter for other preprocedura l examination Lab 07/07/2021 Z20.828 Contact with and (chambers spected) exposure to other viral communicable diseases Nathan Alba MD 07/07/2021 Z20.828 Contact with and (chambers spected) exposure to other viral communicable diseases Lab 06/04/2021 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, lumbosacral region Belinda Acevedo, PA-C 06/04/2021 M51.36 Other intervertebral disc degene ration, lumbar region Belinda Acevedo, PA-C 06/04/2021 M50.30 Other cervical disc degeneration , unspecified cervical region Belinda Acevedo, PA-C 05/28/2021 Z01.818 Encounter for other preprocedura l examination Nathan Alab MD 05/28/2021 Z01.818 Encounter for other preprocedura [...] degeneration , unspecified cervical region Doretha Kemp, QUICKBOOKS BOOKKEEPER 05/12/2021 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, lumbosacral region Doretha Kemp, QUICKBOOKS BOOKKEEPER 05/05/2021 M50.30 Other cervical disc degeneration , unspecified cervical region Danamarie Ortolano, QUICKBOOKS BOOKKEEPER 05/05/2021 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, lumbosacral region Danamarie Ortolano, QUICKBOOKS BOOKKEEPER 04/28/2021 M50.30 Other cervical disc degeneration , unspecified cervical region Jarocho Pederson, PT, DPT 04/28/2021 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, lumbosacral region Jarocho Pederson, PT, DPT 04/23/2021 M50.30 Other cervical disc degeneration , unspecified cervical region Doretha Carlyjacklyn Kemp, QUICKBOOKS BOOKKEEPER 04/23/2021 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, lumbosacral region Doretha Carlyjacklyn Kemp, QUICKBOOKS BOOKKEEPER 04/20/2021 M50.30 Other cervical disc degeneration , unspecified cervical region Doretha Stephensjacklyn Kemp, QUICKBOOKS BOOKKEEPER 04/20/2021 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, lumbosacral region Doretha Carlyjacklyn Kemp, QUICKBOOKS BOOKKEEPER 04/09/2021 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, [...] degeneration , unspecified cervical region Danamarie Ortolano, QUICKBOOKS BOOKKEEPER 02/25/2021 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, lumbosacral region Danamarie Ortolano, QUICKBOOKS BOOKKEEPER 02/23/2021 M50.30 Other cervical disc degeneration , unspecified cervical region Danamarie Ortolano, QUICKBOOKS BOOKKEEPER 02/23/2021 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, lumbosacral region Danamarie Ortolano, QUICKBOOKS BOOKKEEPER 02/20/2021 M50.30 Other cervical disc degeneration , unspecified cervical region Jarocho Pederson, PT, DPT 02/20/2021 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, lumbosacral region Jarocho Pederson, PT, DPT 02/13/2021 Z20.828 Contact w and exposure to oth vi ral communicable diseases Rodger Mehta, Emily.A. 01/23/2021 M50.30 Other cervical disc degeneration , unspecified cervical region Jayla Anthony 01/23/2021 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, lumbosacral region Vamsi Anthony. Plan of Treatment 06/04/2021 - Belinda Acevedo PA-C* M51.37 Other intervertebral disc degeneration, lumbosacral region* Follow up:* after Intrepid Catracho Injection with MKM. * M51.36 Other intervertebral disc degeneration, lumbar region * M50.30 Other cervical disc degeneration, unspecified cervical region Functional Status Description No Information Available Mental Status Description No Information Available Referrals Refer to Dr Reason for Referral Status Appt Date Belinda Acevedo PA-C ELDA INJ([id number]) #3 PER EVICOR E HAS MARIVEL APPROVED TO SURGERY NT-- RECEIVED WRITTEN AUTH Created [address] [place] [address] [address] [place] [phone] Doretha Kemp PTA ELDA INJ([id number]) # 2 PER AMAND A M [facility] [place] TO [place]GERY NT Created [address] [place] [address], [address] [place] [phone] Rodger Mehta, PA ELDA INJ ([id number]) #1 PER TERR I C. AT [facility] [place] FOR 1 INJ TO SURGERY NT Created [address] [facility] [address] [place] [address] [phone] Rodger Mehta, PA physical therapy approved 10 additional visits lumbar cervical authorization number [id number] nlg Created 0 [address] [facility] [address] [place] [address] [phone]
--- OUTSIDE RECORDS SUMMARY | 2021-08-11 20:10 | CCD | Continuity of Care Document ---
Author Author Rosendo NAVARRO M.D. Organization Unknown Address [address] [address] Phone [phone] Care Team Providers Care Color Corrector Name Role Phone Placido Bazzi M.D. [facility] [phone] Problems Active Problems Provider Date Atrial fibrillation John Munoz . M.D Onset: 02/27/2013 Acute peptic ulcer without hemorrhage, w ithout perforation AND without obstruction John Munoz . M.D Onset: 02/27/2013 Acquired thrombocytopenia Marquez Acevedo D.O., [facility] Onset : 10/14/2019 Social History Type Date [...] CPT Code Status Date Vaccine Lot # [id number] Given 07/25/2017 Influenza Virus Vaccine, Quadrivalent, Slit Virus, Im Use 3Y & Up [id number] Given 09/12/2015 Influenza Virus Vac. Split Virus Individuals 3 Years And Above [id number] Refused 08/14/2018 Influenza Virus Vaccine, Quadrivalent, Slit Virus, Im Use 3Y & Up Vital Signs Date Vital Result Comment 07/06/2021 2:10pm BP Systolic 116 mmHg BP Diastolic 74 mmHg Body Temperature 99.2 F Heart Rate 72 /min Respiratory Rate 14 /min Height 72 inches 6'0" Weight 273.00 lb [place] Body Weight 178 lb BMI (Body Mass Index) 37.0 kg/m2 O2 % BldC Oximetry 96 % 05/08/2021 10:58am BP Systolic 126 mmHg BP Diastolic 80 mmHg Body Temperature 98.1 F Heart Rate 78 /min Respiratory Rate 14 /min Height 72 inches 6'0" Weight 265.00 lb [place] Body Weight 178 lb BMI (Body Mass Index) 35.9 kg/m2 O2 % BldC Oximetry 96 % Results Test Acquired Date Facility Test Result H/L Range Note Urinalysis panel 06/10/2021 N2N/CCD Im[facility] pH of Urine by Test strip 6.5 5.0-7.5 Urobilinogen [Mass/volume] in Urine by Test strip 0.2 E.U./dL 0.0-1.0 CBC 05/05/2021 [facility] WBC 4.1 10E3/uL 4.1 - 10.9 1 RBC 4.95 10E6/uL 4.20 - 6.30 HGB [...] Gap 15 mmol/L eGFR 92 # Calc 2 eGFR Non-Afr. Mauritian 79 # Calc 3 Lipid Panel 05/05/2021 [facility] Chol 211 mg/dL High 0 - 200 Trig 186 mg/dL 35 - 200 HDL 38 mg/dL 35 - 55 LDL_C 136 Calc High 75 - 129 Cho/HDL Ratio 5.5 CALC [facility] [phone] Prostatic Specific Ag Monitor 3.54 NG/ML Normal < 4.00 4 1 NORMAL RANGES Age WBC RBC HGB [...] HCT IS 5% LESS SOURCE FOR DATA: [place] CK1 1800 OPERATION MANUAL( AUTOMATED BLOOD COUNTS AND [...] ADOLESCENTS REPRESENTS INDIVIDUALA AGED 2-19 YEARS EXCLUSIVE. 2 CKD-EPI 3 CKD-EPI 4 The PSA assay is performed o n the Siemens [place] analyzer by LOCI sandwich chemiluminescent immunoassay and should not be compared interchangeably with other methods. It should not be used alone as a screening test or diagnosis for the presence or absence of malignant disease. Predictions of disease recurrence should not be based solely on values obtained from serial patient serum values. Procedures Date Code Description Status 07/06/2021 00277 Office/Outpatient Established Mo d MDM 30-39 Min Completed 07/06/2021 80534 Electrocardiogram Complete Compl eted 05/08/2021 77492 Office/Outpatient Established Mo d MDM 30-39 Min Completed Medical Devices Description No Information Available Encounters Type Date Location Provider Dx Diagnosis Office Visit 07/06/2021 2:00p [facility] Mike Navarro M. D. Z01.810 Encounter for preprocedural cardiovascular examination Office Visit 05/08/2021 11:00a [facility] Mike Navarro M. D. E78.5 Hyperlipidemia, unspecified F33.0 Major depressive disorder, r ecurrent, mild I10 Essential (primary) hyperten ori I48.91 Unspecified atrial fibrillat ion Assessments Date Code Description Provider 07/06/2021 Z01.810 Encounter for preprocedural card iovascular examination Mike Navarro M.D. 05/08/2021 E78.5 Hyperlipidemia, unspecified Mitc Mike martel M.D. 05/08/2021 F33.0 Major depressive disorder, recur rent, mild Mike Navarro M.D. 05/08/2021 I10 Essential (primary) hypertension Mike Navarro M.D. 05/08/2021 I48.91 Unspecified atrial fibrillation Mike Navarro M.D. 05/05/2021 E78.5 Hyperlipidemia, unspecified Mitc Mike martel M.D. 05/05/2021 E78.5 Hyperlipidemia, unspecified Labo ratory [facility] Schedule 05/05/2021 I10 Essential (primary) hypertension Mike Navarro M.D. 05/05/2021 I10 Essential (primary) hypertension Laboratory [facility] Schedule Plan of Treatment Future Appointment(s):* 11/04/2021 8:45 am - [facility] Schedule at [facility] * 11/09/2021 10:20 am - Mike Navarro M.D. at [facility] Functional Status Description No Information Available Mental Status Description No Information Available Referrals Description No Information Available
--- OUTSIDE RECORDS SUMMARY | 2021-08-11 20:10 | CCD | Continuity of Care Document ---
Author Author Rosendo Melton Organization Unknown Address [address] [address] Phone [phone] Care Team Providers Care Process Improvement Engineer Name Role Phone Mike Navarro MD AUTM [phone] [facility] [phone] AUTM Problems Active Problems Provider Date Essential [...] Negative 1 C[facility] START COVID-19 ANTIGEN LOT #[id number] 07/07/21 8:56A.M. Procedures Date Code Description Status 06/04/2021 23025 Office/Outpatient Established Lo w MDM 20-29 Min Completed 05/22/2021 55401 Re-Eval Of PT Establ ished Plan Of Care 20Mins Face To Face PT/Fam Completed 05/22/2021 37232 Manual Therapy Each 15 Minutes C ompleted 05/22/2021 77964 Therapeutic Procedure, Each 15 M inutes Completed 05/12/2021 87570 Manual Therapy Each 15 Minutes C ompleted 05/12/2021 66823 Therapeutic Procedure, Each 15 M inutes Completed 05/05/2021 02956 Manual Therapy Each 15 Minutes C ompleted 05/05/2021 78268 Therapeutic Procedure, Each 15 M inutes Completed 04/28/2021 18615 Manual Therapy Each 15 Minutes C ompleted 04/28/2021 67543 Therapeutic Procedure, Each 15 M inutes Completed 04/23/2021 13367 Manual Therapy Each 15 Minutes C ompleted 04/23/2021 81704 Therapeutic Procedure, Each 15 M inutes Completed 04/20/2021 03038 Therapeutic Procedure, Each 15 M inutes Completed 04/20/2021 42664 Manual Therapy Each 15 Minutes C ompleted 04/09/2021 41071 Office/Outpatient Established Mo d MDM 30-39 Min Completed 04/08/2021 40930 Manual Therapy Each 15 Minutes C ompleted 04/08/2021 71292 Therapeutic Procedure, Each 15 M inutes Completed 02/25/2021 13493 Manual Therapy Each 15 Minutes C ompleted 02/25/2021 92895 Therapeutic Procedure, Each 15 M inutes Completed 02/23/2021 03678 Manual Therapy Each 15 Minutes C ompleted 02/23/2021 79675 Therapeutic Procedure, Each 15 M inutes Completed 02/20/2021 03224 Physical Therapy Eval - Low Comp lexity Completed 01/23/2021 69239 Office/Outpatient Established Lo w MDM 20-29 Min Completed 01/14/2021 32800 Re-Eval Of PT Establ ished Plan Of Care 20Mins Face To Face PT/Fam Completed 01/14/2021 53191 Manual Therapy Each 15 Minutes C ompleted 01/07/2021 01127 Manual Therapy Each 15 Minutes C ompleted 01/07/2021 08808 Therapeutic Procedure, Each 15 M inutes Completed Medical Devices Description No Information Available Encounters Type Date Location Provider Dx Diagnosis Office Visit 06/04/2021 9:15a [place] PA-C M51.37 Other intervertebral disc degeneration, [...] to other viral communicable diseases Rodger Mehta, Jayla 05/12/2021 M50.30 Other cervical disc degeneration , unspecified cervical region Doretha Kemp, OBJECT ORIENTED DEVELOPER 05/12/2021 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, lumbosacral region Doretha Kemp, OBJECT ORIENTED DEVELOPER 05/05/2021 M50.30 Other cervical disc degeneration , unspecified cervical region Danamarie Ortolano, OBJECT ORIENTED DEVELOPER 05/05/2021 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, lumbosacral region Danamarie Ortolano, OBJECT ORIENTED DEVELOPER 04/28/2021 M50.30 Other cervical disc degeneration , unspecified cervical region Jarocho Pederson, PT, DPT 04/28/2021 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, lumbosacral region Jarocho Pederson, PT, DPT 04/23/2021 M50.30 Other cervical disc degeneration , unspecified cervical region Doretha Kemp, OBJECT ORIENTED DEVELOPER 04/23/2021 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, lumbosacral region Doretha Kemp, OBJECT ORIENTED DEVELOPER 04/20/2021 M50.30 Other cervical disc degeneration , unspecified cervical region Doretha Kemp, OBJECT ORIENTED DEVELOPER 04/20/2021 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, lumbosacral region Doretha Kemp, OBJECT ORIENTED DEVELOPER 04/09/2021 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, [...] degeneration , unspecified cervical region Danamarie Ortolano, OBJECT ORIENTED DEVELOPER 02/25/2021 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, lumbosacral region Danamarie Ortolano, OBJECT ORIENTED DEVELOPER 02/23/2021 M50.30 Other cervical disc degeneration , unspecified cervical region Danamarie Ortolano, OBJECT ORIENTED DEVELOPER 02/23/2021 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, lumbosacral region Danamarie Ortolano, OBJECT ORIENTED DEVELOPER 02/20/2021 M50.30 Other cervical disc degeneration , [...] disc degeneration , unspecified cervical region Glenda WellsTTimothy Plan of Treatment Future Appointment(s):* 07/09/2021 5:00 [...] Status Appt Date Belinda Acevedo PA-C ELDA INJ([id number]) #3 PER EVICOR E HAS MARIVEL APPROVED TO SURGERY NT-- RECEIVED WRITTEN AUTH Created [address] [place] [phone] Doretha Kemp PTA ELDA INJ([id number]) # 2 [facility] [place] Created [address] [place] [address], [address] [place] [address] [phone] Rodger Mehta PA ELDA INJ ([id number]) #1 PER T[facility]. [facility] [place] 1 INJ TO SURGERY NT Created [address] [facility] [address] [place] [address] [phone] Rodger Mehta PA physical therapy approved 10 additional visits lumbar cervical authorization number [id number] nlg Created 0 [address] [place] [address] [phone]
--- OUTSIDE RECORDS SUMMARY | 2021-08-11 20:10 | CCD | Continuity of Care Document ---
Author Author Rosendo Melton Organization Unknown Address [address] [address] Phone [phone] Care Team Providers Care Sales And Marketing Professional Name Role Phone Mike Navarro MD AUTM [phone] [facility] [phone] AUTM Problems Active Problems Provider Date Essential [...] Testing Negative 1 [facility] Covid-19 Antigen Lot# [id number] 07/15/21 at 2:50pm 2 C[facility] START COVID-19 ANTIGEN LOT #[id number] 07/07/21 8:56A.M. Procedures Date Code Description Status 06/04/2021 37483 Office/Outpatient Established Lo w MDM 20-29 Min Completed 05/22/2021 22812 Re-Eval Of PT Establ ished Plan Of Care 20Mins Face To Face PT/Fam Completed 05/22/2021 87235 Manual Therapy Each 15 Minutes C ompleted 05/22/2021 03947 Therapeutic Procedure, Each 15 M inutes Completed 05/12/2021 30275 Manual Therapy Each 15 Minutes C ompleted 05/12/2021 39678 Therapeutic Procedure, Each 15 M inutes Completed 05/05/2021 15226 Manual Therapy Each 15 Minutes C ompleted 05/05/2021 93764 Therapeutic Procedure, Each 15 M inutes Completed 04/28/2021 77568 Manual Therapy Each 15 Minutes C ompleted 04/28/2021 71051 Therapeutic Procedure, Each 15 M inutes Completed 04/23/2021 02640 Manual Therapy Each 15 Minutes C ompleted 04/23/2021 91654 Therapeutic Procedure, Each 15 M inutes Completed 04/20/2021 74665 Manual Therapy Each 15 Minutes C ompleted 04/20/2021 19104 Therapeutic Procedure, Each 15 M inutes Completed 04/09/2021 33823 Office/Outpatient Established Mo d MDM 30-39 Min Completed 04/08/2021 11767 Manual Therapy Each 15 Minutes C ompleted 04/08/2021 63617 Therapeutic Procedure, Each 15 M inutes Completed 02/25/2021 21799 Manual Therapy Each 15 Minutes C ompleted 02/25/2021 11637 Therapeutic Procedure, Each 15 M inutes Completed 02/23/2021 12858 Manual Therapy Each 15 Minutes C ompleted 02/23/2021 57745 Therapeutic Procedure, Each 15 M inutes Completed 02/20/2021 16338 Physical Therapy Eval - Low Comp lexity Completed 01/23/2021 81109 Office/Outpatient Established Lo w MDM 20-29 Min Completed 01/14/2021 33325 Re-Eval Of PT Establ ished Plan Of Care 20Mins Face To Face PT/Fam Completed 01/14/2021 10290 Manual Therapy Each 15 Minutes C ompleted [...] degeneration , unspecified cervical region Doretha Kemp, PILLING MACHINE OPERATOR 05/12/2021 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, lumbosacral region Doretha Kemp, PILLING MACHINE OPERATOR 05/05/2021 M50.30 Other cervical disc degeneration , unspecified cervical region Danamarie Ortolano, PILLING MACHINE OPERATOR 05/05/2021 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, lumbosacral region Danamarie Ortolano, PILLING MACHINE OPERATOR 04/28/2021 M50.30 Other cervical disc degeneration , unspecified cervical region Jarocho Pederson, PT, DPT 04/28/2021 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, lumbosacral region Jarocho Pederson, PT, DPT 04/23/2021 M50.30 Other cervical disc degeneration , unspecified cervical region Doretha Kemp, PILLING MACHINE OPERATOR 04/23/2021 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, lumbosacral region Doretha Carly Kemp, PILLING MACHINE OPERATOR 04/20/2021 M50.30 Other cervical disc degeneration , unspecified cervical region Doretha Carroll Kemp, PILLING MACHINE OPERATOR 04/20/2021 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, lumbosacral region Doretha Kemp, PILLING MACHINE OPERATOR 04/09/2021 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, lumbosacral region Rodger Mehta, P.A. 04/09/2021 M50.30 Other cervical disc degeneration , unspecified cervical region Rodger Mehta, P.A. 04/08/2021 M51.36 Other intervertebral disc degene ration, lumbar region Jarocho Pederson, PT, DPT 04/08/2021 M50.30 Other cervical disc degeneration , unspecified cervical region Jarcoho Pederson, PT, DPT 02/27/2021 Z01.818 Encounter for [...] degeneration , unspecified cervical region Danamarie Ortolano, PILLING MACHINE OPERATOR 02/25/2021 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, lumbosacral region Danamarie Ortolano, PILLING MACHINE OPERATOR 02/23/2021 M50.30 Other cervical disc degeneration , unspecified cervical region Danamarie Ortolano, PILLING MACHINE OPERATOR 02/23/2021 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, lumbosacral region Danamarie Ortolano, PILLING MACHINE OPERATOR 02/20/2021 M50.30 Other cervical disc degeneration , unspecified cervical region Jarocho Pederson, PT, DPT 02/20/2021 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, lumbosacral region Jarocho Pederson, PT, DPT 02/13/2021 Z20.828 Contact w and exposure to oth vi ral communicable diseases Rodger Mehta P.AJna 01/23/2021 M50.30 Other cervical disc degeneration , unspecified cervical region Jayla Anthony 01/23/2021 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, lumbosacral region Jayla Anthony 01/14/2021 M50.30 Other cervical disc degeneration , unspecified cervical region Jarocho Pederson, PT, DPT Plan of Treatment 06/04/2021 - Belinda Acevedo [...] Status Appt Date Belinda Acevedo PA-C ELDA INJ([id number]) #3 PER EVICOR E HAS MARIVEL APPROVED TO SURGERY NT-- RECEIVED WRITTEN AUTH Created [address] [phone] Doretha Kemp, DEBO ELDA INJ([id number]) # 2 PER SANAM Carlson AT [facility] IS APPROVED TO SURGERY NT Created [address] [place] [phone] Rodger Mehta, PA ELDA INJ ([id number]) #1 PER TERR I C. AT [facility] APPROVAL FOR 1 INJ TO SURGERY NT Created [address] [facility] [address] [place] [address] [phone] Rodger Mehta, PA physical therapy approved 10 additional visits lumbar cervical authorization number [id number] nlg Created 0 [address] [place] [address] [phone]
--- OUTSIDE RECORDS SUMMARY | 2021-08-11 20:10 | CCD | Continuity of Care Document ---
Author Author Rosendo NAVARRO M.D. Organization Unknown Address [address] [address] Phone [phone] Care Team Providers Care Carbon Furnace Operator Name Role Phone Placido Bazzi M.D. [facility] [phone] Problems Active Problems Provider Date Atrial fibrillation John Munoz . M.D Onset: 02/27/2013 Acute peptic ulcer without hemorrhage, w ithout perforation AND without obstruction John Munoz . M.D Onset: 02/27/2013 Acquired thrombocytopenia Marquez Acevedo D.O., [facility] Onset : 10/14/2019 Social History Type Date [...] CPT Code Status Date Vaccine Lot # [id number] Given 07/06/2021 Influenza Virus Vaccine, Quadrivalent, Slit Virus, Im Use 3Y & Up [id number] Given 07/25/2017 Influenza Virus Vaccine, Quadrivalent, Slit Virus, Im Use 3Y & Up [id number] 80700 Given 09/12/2015 Influenza Virus Vac. Split Virus Individuals 3 Years And Above [id number] Refused 08/14/2018 Influenza Virus Vaccine, Quadrivalent, Slit Virus, Im Use 3Y & Up Vital Signs Date Vital Result Comment 07/06/2021 2:10pm BP Systolic 116 mmHg BP Diastolic 74 mmHg Body Temperature 99.2 F Heart Rate 72 /min Respiratory Rate 14 /min Height 72 inches 6'0" Weight 273.00 lb [place] Body Weight 178 lb BMI (Body Mass Index) 37.0 kg/m2 O2 % BldC Oximetry 96 % 05/08/2021 10:58am BP Systolic 126 mmHg BP Diastolic 80 mmHg Body Temperature 98.1 F Heart Rate 78 /min Respiratory Rate 14 /min Height 72 inches 6'0" Weight 265.00 lb [place] Body Weight 178 lb BMI (Body Mass Index) 35.9 kg/m2 O2 % BldC Oximetry 96 % Results Test Acquired Date Facility Test Result H/L Range Note Ua Routine 07/29/2021 [facility]) [phone] Appearance, Urine CLEAR Normal Clear Color, Urine YELLOW Normal Yellow PH,Urine 5.0 units Normal 5.0-9.0 Specific [place] Urine Auto 1.018 Normal 1.002-1.035 Protein, Urine [...] Cast, Urine Auto 0 /LPF Normal 0-1 Urine Culture 07/29/2021 [facility] ( [facility]ames) [phone] Urine Culture FULL REPORT IN L <SEE NOTE> Normal 1 CBC 07/06/2021 [facility] WBC 4.8 10E3/uL 4.1 - 10.9 2 RBC 4.93 10E6/uL 4.20 - 6.30 HGB [...] Gap 17 mmol/L eGFR 104 # Calc 3 eGFR Non-Afr. Belgian 90 # Calc 4 Urinalysis panel 06/10/2021 N2N/CCD Imports pH of Urine by Test strip 6.5 5.0-7.5 Urobilinogen [Mass/volume] in Urine by Test strip 0.2 E.U./dL 0.0-1.0 CBC 05/05/2021 [facility] WBC 4.1 10E3/uL 4.1 - 10.9 5 RBC 4.95 10E6/uL 4.20 - 6.30 HGB [...] Gap 15 mmol/L eGFR 92 # Calc 6 eGFR Non-Afr. Belgian 79 # Calc 7 Lipid Panel 05/05/2021 [facility] Chol 211 mg/dL High 0 - 200 Trig 186 mg/dL 35 - 200 HDL 38 mg/dL 35 - 55 LDL_C 136 Calc High 75 - 129 Cho/HDL Ratio 5.5 CALC [facility] test [facility] [phone] Prostatic Specific Ag Monitor 3.54 NG/ML Normal < 4.00 8 1 FULL REPORT IN LAB NOTES (eC W and [place]). NO GROWTH 2 NORMAL RANGES Age WBC RBC HGB HCT [...] HCT IS 5% LESS SOURCE FOR DATA: [email or web address] 1800 OPERATION MANUAL( AUTOMATED BLOOD COUNTS AND [...] Normal 80 and above >32 mL/min Normal 3 CKD-EPI 4 CKD-EPI 5 NORMAL RANGES Age WBC RBC HGB HCT [...] HCT IS 5% LESS SOURCE FOR DATA: [email or web address] 1800 OPERATION MANUAL( AUTOMATED BLOOD COUNTS AND [...] ADOLESCENTS REPRESENTS INDIVIDUALA AGED 2-19 YEARS EXCLUSIVE. 6 CKD-EPI 7 CKD-EPI 8 The PSA assay is performed o n the Siemens Shelton analyzer by LOCI sandwich chemiluminescent immunoassay and should not be compared interchangeably with other methods. It should not be used alone as a screening test or diagnosis for the presence or absence of malignant disease. Predictions of disease recurrence should not be based solely on values obtained from serial patient serum values. Procedures Date Code Description Status 07/06/2021 03796 Office/Outpatient Established Mo d MDM 30-39 Min Completed 07/06/2021 73600 Electrocardiogram Complete Compl eted 05/08/2021 30391 Office/Outpatient Established Mo d MDM 30-39 Min Completed Medical Devices Description No Information Available Encounters Type Date Location Provider Dx Diagnosis Office Visit 07/06/2021 2:00p [place] [facility] Mike Navarro M. D. Z01.810 Encounter for preprocedural cardiovascular examination Z23 Encounter for immunization Office Visit 05/08/2021 11:00a [place] [place] [facility] Mike Navarro M. D. E78.5 Hyperlipidemia, unspecified F33.0 Major depressive disorder, r ecurrent, mild I10 Essential (primary) hyperten ori I48.91 Unspecified atrial fibrillat ion Assessments Date Code Description Provider 07/06/2021 Z01.810 Encounter for preprocedural card iovascular examination Mike Navarro M.D. 07/06/2021 Z23 Encounter for immunization Zack Mike mcrae M.D. 05/08/2021 E78.5 Hyperlipidemia, unspecified [facility] Mike martel M.D. 05/08/2021 F33.0 Major depressive disorder, recur rent, mild Mike Navarro M.D. 05/08/2021 I10 Essential (primary) hypertension Mike Navarro M.D. 05/08/2021 I48.91 Unspecified atrial fibrillation Mike Navarro M.D. 05/05/2021 E78.5 Hyperlipidemia, unspecified [facility] Mike martel M.D. 05/05/2021 E78.5 Hyperlipidemia, unspecified Labo ratory [place] Schedule 05/05/2021 I10 Essential (primary) hypertension Mike Navarro M.D. 05/05/2021 I10 Essential (primary) hypertension Laboratory [place] Schedule Plan of Treatment Future Appointment(s):* 11/04/2021 8:45 am - Laboratory [place] Schedule at [facility] * 11/09/2021 10:20 am - Mike Navarro M.D. at [place] [facility] Functional Status Description No Information Available Mental Status Description No Information Available Referrals Description No Information Available
--- OUTSIDE RECORDS SUMMARY | 2021-08-11 20:11 | CCD | Continuity of Care Document ---
Author Author Rosendo LINARES PA-C Organization Unknown Address [address] [address] Phone [phone] Care Team Providers Care Director Cardiac Name Role Phone Mike Navarro MD AUTM [phone] [facility] [phone] AUTM Problems Active Problems Provider Date Essential [...] Result H/L Range Note Laboratory test finding 05/20/2021 In House Covid Rapid Testing Negative Laboratory test finding 02/13/2021 In House Covid Rapid Testing Negative Procedures Date Code Description Status 06/04/2021 54049 Office/Outpatient Established Lo w MDM 20-29 Min Completed 05/22/2021 74117 Re-Eval Of PT Establ ished Plan Of Care 20Mins Face To Face PT/Fam Completed 05/22/2021 14177 Therapeutic Procedure, Each 15 M inutes Completed 05/22/2021 30341 Manual Therapy Each 15 Minutes C ompleted 05/12/2021 36019 Manual Therapy Each 15 Minutes C ompleted 05/12/2021 49915 Therapeutic Procedure, Each 15 M inutes Completed 05/05/2021 50907 Manual Therapy Each 15 Minutes C ompleted 05/05/2021 38886 Therapeutic Procedure, Each 15 M inutes Completed 04/28/2021 79739 Manual Therapy Each 15 Minutes C ompleted 04/28/2021 91007 Therapeutic Procedure, Each 15 M inutes Completed 04/23/2021 44684 Manual Therapy Each 15 Minutes C ompleted 04/23/2021 54075 Therapeutic Procedure, Each 15 M inutes Completed 04/20/2021 54403 Manual Therapy Each 15 Minutes C ompleted 04/20/2021 33757 Therapeutic Procedure, Each 15 M inutes Completed 04/09/2021 43747 Office/Outpatient Established Mo d MDM 30-39 Min Completed 04/08/2021 81833 Manual Therapy Each 15 Minutes C ompleted 04/08/2021 71023 Therapeutic Procedure, Each 15 M inutes Completed 02/25/2021 55610 Manual Therapy Each 15 Minutes C ompleted 02/25/2021 30399 Therapeutic Procedure, Each 15 M inutes Completed 02/23/2021 41465 Manual Therapy Each 15 Minutes C ompleted 02/23/2021 74766 Therapeutic Procedure, Each 15 M inutes Completed 02/20/2021 71344 Physical Therapy Eval - Low Comp lexity Completed 01/23/2021 74142 Office/Outpatient Established Lo w MDM 20-29 Min Completed 01/14/2021 17082 Re-Eval Of PT Establ ished Plan Of Care 20Mins Face To Face PT/Fam Completed 01/14/2021 78354 Manual Therapy Each 15 Minutes C ompleted 01/07/2021 07730 Therapeutic Procedure, Each 15 M inutes Completed 01/07/2021 67829 Manual Therapy Each 15 Minutes C ompleted 12/30/2020 72354 Manual Therapy Each 15 Minutes C ompleted 12/30/2020 15038 Therapeutic Procedure, Each 15 M inutes Completed 12/24/2020 41684 Manual Therapy Each 15 Minutes C ompleted 12/24/2020 19884 Therapeutic Procedure, Each 15 M inutes Completed 12/22/2020 03329 Manual Therapy Each 15 Minutes C ompleted 12/22/2020 98361 Therapeutic Procedure, Each 15 M inutes Completed 12/16/2020 07891 Manual Therapy Each 15 Minutes C ompleted 12/16/2020 45099 Therapeutic Procedure, Each 15 M inutes Completed Medical Devices Description No Information Available Encounters Type Date Location Provider Dx Diagnosis Office Visit 06/04/2021 9:15a [place] Belinda Linares PA-C M51.37 Other intervertebral disc degeneration, lumbosacral region M51.36 Other intervertebral disc de generation, lumbar region M50.30 Other cervical disc degenera tion, unsp cervical region Office Visit 04/09/2021 11:[place] Me[place] P.A. M51.37 Other intervertebral disc degeneration, lumbosacral region M50.30 Other cervical disc degenera tion, unsp cervical region Office Visit 01/23/2021 4:00p [place] Rodger Mehta, P.A. M50.30 Other cervical disc degeneration, unsp cervical region M51.37 Other intervertebral disc de generation, lumbosacral region Assessments Date Code Description Provider 06/04/2021 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, [...] degeneration , unspecified cervical region Doretha Kemp, COPY CLERK 05/12/2021 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, lumbosacral region Doretha Kemp, COPY CLERK 05/05/2021 M50.30 Other cervical disc degeneration , unspecified cervical region Danamarie Ortolano, COPY CLERK 05/05/2021 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, lumbosacral region Danamarie Ortolano, COPY CLERK 04/28/2021 M50.30 Other cervical disc degeneration , unspecified cervical region Jarocho Pederson, PT, DPT 04/28/2021 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, lumbosacral region Jarocho Pederson, PT, DPT 04/23/2021 M50.30 Other cervical disc degeneration , unspecified cervical region Doretha Carly Kemp, COPY CLERK 04/23/2021 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, lumbosacral region Doretha Kemp, COPY CLERK 04/20/2021 M50.30 Other cervical disc degeneration , unspecified cervical region Doretha Carly Kemp, COPY CLERK 04/20/2021 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, lumbosacral region Doretha Kemp, COPY CLERK 04/09/2021 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, [...] degeneration , unspecified cervical region Danamarie Ortolano, COPY CLERK 02/25/2021 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, lumbosacral region Danamarie Ortolano, COPY CLERK 02/23/2021 M50.30 Other cervical disc degeneration , unspecified cervical region Danamarie Ortolano, COPY CLERK 02/23/2021 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, lumbosacral region Danamarie Ortolano, COPY CLERK 02/20/2021 M50.30 Other cervical disc degeneration , [...] disc degene ration, lumbosacral region Rodger Mehta, Jayla 01/14/2021 M50.30 Other cervical disc degeneration , unspecified cervical region Jarocho Pederson, PT, DPT 01/07/2021 M50.30 Other cervical disc degeneration , unspecified cervical region Glenda Bowen P.T.A. 12/30/2020 M50.30 Other cervical disc degeneration , unspecified cervical region Danamarie Ortolano, COPY CLERK 12/24/2020 M50.30 Other cervical disc degeneration , unspecified cervical region Danamarie Ortolano, COPY CLERK 12/22/2020 M50.30 Other cervical disc degeneration , unspecified cervical region Jarocho Pederson, PT, DPT 12/16/2020 M50.30 Other cervical disc degeneration , unspecified cervical region Danamarie Ortolano, COPY CLERK Plan of Treatment 06/04/2021 - ROB Simons-C* M51.37 Other intervertebral disc degeneration, lumbosacral region* Follow up:* after Intrepid Catracho Injection with MKM. * M51.36 Other intervertebral disc degeneration, lumbar region * M50.30 Other cervical disc degeneration, unspecified cervical region Functional Status Description No Information Available Mental Status Description No Information Available Referrals Refer to Reason for Referral Status Appt Date Doretha Kemp, COPY CLERK ELDA INJ([id number]) # 2 PER SANAM Carlson AT [facility] IS APPROVED TO SURGERY NT Created [address] [place] [address], [address] [place] [address] [phone] Rodger Mehta, PA ELDA INJ ([id number]) PER EDWIGE Wagner AT [facility] APPROVAL FOR 1 INJ TO SURGERY NT Created [address] [facility] [address] [place] [address] [phone] Rodger Mehta PA physical therapy approved 10 additional visits lumbar cervical authorization number [id number] nlg Created [address] [facility] [address] [place] [address] [phone]
--- OUTSIDE RECORDS SUMMARY | 2021-08-11 20:11 | CCD | Continuity of Care Document ---
Author Author Rosendo Melton Organization Unknown Address [address] [address] Phone [phone] Care Team Providers Care Body Maker Machine Setter Name Role Phone Mike Navarro MD AUTM [phone] [facility] [phone] AUTM Problems Active Problems Provider Date Essential [...] Available Vital Signs Date Vital Result Comment 02/27/2021 2:28pm Body Temperature 97.8 F 11/05/2020 9:31am Body Temperature 96.8 F Height 70.5 inches 5'10.50" Weight 262.25 lb BMI (Body Mass Index) 37.1 kg/m2 Results Test Acquired Date Facility Test Result H/L Range Note Laboratory test finding 05/20/2021 In House Covid Rapid Testing <pending> Laboratory test finding 02/13/2021 In House Covid Rapid Testing Negative Procedures Date Code Description Status 05/22/2021 30714 Manual Therapy Each 15 Minutes C ompleted 05/22/2021 03048 Re-Eval Of PT Establ ished Plan Of Care 20Mins Face To Face PT/Fam Completed 05/22/2021 51010 Therapeutic Procedure, Each 15 M inutes Completed 05/12/2021 16623 Manual Therapy Each 15 Minutes C ompleted 05/12/2021 96663 Therapeutic Procedure, Each 15 M inutes Completed 05/05/2021 93175 Manual Therapy Each 15 Minutes C ompleted 05/05/2021 36553 Therapeutic Procedure, Each 15 M inutes Completed 04/28/2021 96758 Manual Therapy Each 15 Minutes C ompleted 04/28/2021 32939 Therapeutic Procedure, Each 15 M inutes Completed 04/23/2021 50121 Manual Therapy Each 15 Minutes C ompleted 04/23/2021 68718 Therapeutic Procedure, Each 15 M inutes Completed 04/20/2021 72641 Manual Therapy Each 15 Minutes C ompleted 04/20/2021 72103 Therapeutic Procedure, Each 15 M inutes Completed 04/09/2021 47560 Office/Outpatient Established Mo d MDM 30-39 Min Completed 04/08/2021 48399 Manual Therapy Each 15 Minutes C ompleted 04/08/2021 10069 Therapeutic Procedure, Each 15 M inutes Completed 02/25/2021 51707 Manual Therapy Each 15 Minutes C ompleted 02/25/2021 24132 Therapeutic Procedure, Each 15 M inutes Completed 02/23/2021 05433 Manual Therapy Each 15 Minutes C ompleted 02/23/2021 91701 Therapeutic Procedure, Each 15 M inutes Completed 02/20/2021 81368 Physical Therapy Eval - Low Comp lexity Completed 01/23/2021 26061 Office/Outpatient Established Lo w MDM 20-29 Min Completed 01/14/2021 16644 Re-Eval Of PT Establ ished Plan Of Care 20Mins Face To Face PT/Fam Completed 01/14/2021 84331 Manual Therapy Each 15 Minutes C ompleted 01/07/2021 78570 Manual Therapy Each 15 Minutes C ompleted 01/07/2021 20779 Therapeutic Procedure, Each 15 M inutes Completed 12/30/2020 38043 Manual Therapy Each 15 Minutes C ompleted 12/30/2020 91925 Therapeutic Procedure, Each 15 M inutes Completed 12/24/2020 77469 Manual Therapy Each 15 Minutes C ompleted 12/24/2020 43191 Therapeutic Procedure, Each 15 M inutes Completed 12/22/2020 00228 Therapeutic Procedure, Each 15 M inutes Completed 12/22/2020 39359 Manual Therapy Each 15 Minutes C ompleted 12/16/2020 23299 Manual Therapy Each 15 Minutes C ompleted 12/16/2020 93327 Therapeutic Procedure, Each 15 M inutes Completed 12/12/2020 30704 Office/Outpatient Established Mo d MDM 30-39 Min Completed 12/10/2020 53356 Manual Therapy Each 15 Minutes C ompleted 12/10/2020 28630 Therapeutic Procedure, Each 15 M inutes Completed 12/05/2020 59142 Manual Therapy Each 15 Minutes C ompleted 12/05/2020 95109 Therapeutic Procedure, Each 15 M inutes Completed 12/03/2020 79445 Manual Therapy Each 15 Minutes C ompleted 12/03/2020 58814 Therapeutic Procedure, Each 15 M inutes Completed Medical Devices Description No Information Available Encounters Type Date Location Provider Dx Diagnosis Office Visit 04/09/2021 11:30a Minesh Mehta, P.A. M51.37 Other intervertebral disc degeneration, lumbosacral region M50.30 Other cervical disc degenera tion, unsp cervical region Office Visit 01/23/2021 4:00p Minesh Mehta, P.A. M50.30 Other cervical disc degeneration, unsp cervical region M51.37 Other intervertebral disc de generation, lumbosacral region Office Visit 12/12/2020 3:30p Minesh Mehta P.A. M50.30 Other cervical disc degeneration, unsp cervical region M43.12 Spondylolisthesis, cervical region M48.02 Spinal stenosis, cervical re gion M43.17 Spondylolisthesis, lumbosacr al region Assessments Date Code Description Provider 05/22/2021 M50.30 Other cervical disc degeneration , unspecified cervical region Jarocho Pederson, PT, DPT 05/22/2021 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, lumbosacral region Jarocho Pederson, PT, DPT 05/22/2021 M51.36 Other intervertebral disc degene ration, lumbar region Jarocho Pederson, PT, DPT 05/20/2021 Z20.828 Contact with and (chambers spected) exposure to other viral communicable diseases Rodger Mehta, P.A. 05/12/2021 M50.30 Other cervical disc degeneration , unspecified cervical region Doretha Carly Kemp, GOLF CART MAKER 05/12/2021 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, lumbosacral region Doretha Carly Kemp, GOLF CART MAKER 05/05/2021 M50.30 Other cervical disc degeneration , unspecified cervical region Danamarie Ortolano, GOLF CART MAKER 05/05/2021 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, lumbosacral region Danamarie Ortolano, GOLF CART MAKER 04/28/2021 M50.30 Other cervical disc degeneration , unspecified cervical region Jarocho Pederson, PT, DPT 04/28/2021 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, lumbosacral region Jarocho Pederson, PT, DPT 04/23/2021 M50.30 Other cervical disc degeneration , unspecified cervical region Doretha Carly Kemp, GOLF CART MAKER 04/23/2021 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, lumbosacral region Doretha Carly Kemp, GOLF CART MAKER 04/20/2021 M50.30 Other cervical disc degeneration , unspecified cervical region Doretha Carlyjacklyn Kepm, GOLF CART MAKER 04/20/2021 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, lumbosacral region Doretha Carly Kemp, GOLF CART MAKER 04/09/2021 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, [...] degeneration , unspecified cervical region Danamarie Ortolano, GOLF CART MAKER 02/25/2021 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, lumbosacral region Danamarie Ortolano, GOLF CART MAKER 02/23/2021 M50.30 Other cervical disc degeneration , unspecified cervical region Danamarie Ortolano, GOLF CART MAKER 02/23/2021 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, lumbosacral region Danamarie Ortolano, GOLF CART MAKER 02/20/2021 M50.30 Other cervical disc degeneration , [...] degeneration , unspecified cervical region Danamarie Ortolano, GOLF CART MAKER 12/24/2020 M50.30 Other cervical disc degeneration , unspecified cervical region Danamarie Ortolano, GOLF CART MAKER 12/22/2020 M50.30 Other cervical disc degeneration , unspecified cervical region Jarocho Pederson, PT, DPT 12/16/2020 M50.30 Other cervical disc degeneration , unspecified cervical region Danamarie Ortolano, GOLF CART MAKER 12/12/2020 M50.30 Other cervical disc degeneration , unspecified cervical region Rodger Mehta, P.A. 12/12/2020 M43.12 Spondylolisthesis, cervical nicolas on Rodger Mehta, P.A. 12/12/2020 M48.02 Spinal stenosis, cervical region Rodger Mehta, P.A. 12/12/2020 M43.17 Spondylolisthesis, lumbosacral r egion Rodger Mehta, P.A. 12/10/2020 M50.30 Other cervical disc degeneration , unspecified cervical region Danamarie Ortolano, GOLF CART MAKER 12/05/2020 M50.30 Other cervical disc degeneration , unspecified cervical region Danamarie Ortolano, GOLF CART MAKER 12/03/2020 M50.30 Other cervical disc degeneration , unspecified cervical region Danamarie Ortolano, GOLF CART MAKER Plan of Treatment Future Appointment(s):* 06/04/2021 9:15 am - Belinda Acevedo PA-C at [place] Functional Status Description No Information Available Mental Status Description No Information Available Referrals Refer to Dr Reason for Referral Status Appt Date Doretha Kemp, GOLF CART MAKER ELDA INJ([id number]) # 2 PER SANAM Carlson AT [facility] IS APPROVED TO SURGERY NT Created [address] [facility], [address] [place] [address] [phone] Rodger Mehta PA ELDA INJ ([id number]) PER EDWIGE Wagner AT [facility] APPROVAL FOR 1 INJ TO SURGERY NT Created [address] [place] [id number] [phone] Rodger Mehta, PA physical therapy approved 10 additional visits lumbar cervical authorization number [id number] nlg Created 0 [address] [place] [id number] [phone]
--- OUTSIDE RECORDS SUMMARY | 2021-08-11 20:11 | CCD | Continuity of Care Document ---
Author Author Rosendo LOUIE M.D. Organization Unknown Address [address] [place] [address] Phone [phone] Care Team Providers Care Drop Man Name Role Phone Clau Champion AUTM [phone] Mike Navarro M.D. AUTM [phone] Problems Active Problems Provider Date Deep venous thrombosis of lower extremity Wale Hartley Onset: 05/22/2021 Atrial fibrillation Kevin Louie M.D. Onset: 05/22/2021 Anxiety state Kevin Louie M.D. Onset: 05/26/2021 Essential hypertension Kevin Louie M.D. Onset: Varicose veins of lower extremity Kevin Louie M.D. Onset : 05/26/2021 Peripheral venous insufficiency Kevin Louie M.D. Onset: 05/26/2021 Social History Type Date Description Comments Sex Unknown ETOH Use Denies alcohol use Tobacco Use Reviewed: 05/26/21 Patient has never smoked Recreational Drug Use Denies Drug Use Smoking Status Reviewed: 05/26/21 Patient has never smoked Allergies, Adverse Reactions, Alerts Active Allergies Reaction Severity Comments Date Codeine 05/22/2021 Lexapro not good things 05/22/2021 Proton Pump Inhibitors 05/22 Medications Active Medications SIG Qnty Indications Ordering Provide r Date Aspirin 81 Low Dose 81mg Chewtabs chew 1 tablet (81 mg total) daily Unknown Atorvastatin Calcium 10mg Tablets every day Unknown Chlorthalidone 25mg Tablets 1/2 by mouth every two days Unknown Coq-10 100mg Capsules by mouth every day Unknown Eplerenone 25mg Tablets qd Unknown Magnesium Oxide 400mg Tablets 1 by mouth every day Unknown Multivitamin Adult Tablets 1 by mouth every day Unknown Famotidine 20mg Tablets every day Unknown Valsartan 320mg Tablets every day Unknown Sertraline HCL 50mg Tablets e very day Unknown Immunizations Description No Information Available Vital Signs Date Vital Result Comment 05/26/2021 2:02pm BP Systolic Right Arm 174 mmHg BP Diastolic Right Arm 100 mmHg BP Systolic Left Arm 170 mmHg BP Diastolic Left Arm 98 mmHg Heart Rate 72 /min Body Temperature 97.2 F Height 72 inches 6'0" Weight 250.00 lb Weight 113.400 kg BMI (Body Mass Index) 33.9 kg/m2 Results Description No Information Available Procedures Description No Information Available Medical Devices Description No Information Available Encounters Description No Information Available Assessments Description No Information Available Plan of Treatment Future Appointment(s):* 05/28/2022 2:00 pm - Kevin Louie M.D. at Main Office 05/26/2021 - Kevin Louie M.D.* * Follow up:* 1 YEAR OV/ Functional Status Description No Information Available Mental Status Description No Information Available Referrals Description No Information Available
--- OUTSIDE RECORDS SUMMARY | 2021-08-11 20:11 | CCD | Continuity of Care Document ---
Author Author Rosendo BEARD MD Organization Unknown Address [address] [place] [address] [address] [place] [address] Phone [phone] Care Team Providers Care Lead Fabricator Name Role Phone Mike Navarro M.D. AUTM [phone] Placido Bazzi M.D. AUTM [phone] Problems Active Problems Provider Date Benign prostatic [...] Cigarettes ETOH Use Patient denies alcohol use Allergies, Adverse Reactions, Alerts Active Allergies Criticality [...] tablet every other day Placido Bazzi M.D. Immunizations Description No Information Available Vital Signs [...] Routine 06/10/2021 [facility] REF TO DR ADDRESS ON ORDER FOR (952)- - Ua Glucose Negative Ua Protein Negative Ua Nitrite Negative Ua Leuko Negative Ua Blood Negative Ua Color Not Entered Ua Ketones Negative Ua Clarity Not Entered Ua Specific [place] >=1.030 1.003-1.030 Ua PH 6.5 5.0-7.5 Ua Bilirubin Negative Ua Urobilinogen 0.2 E.U./dL 0.0-1.0 Urine Microscopy 04/30/2021 [facility] [address] [place] [address] [phone] Urine WBC 0-2 /HPF 0 - 5 Urine RBC 3-5 /HPF 0-2 Bacteria NEG /HPF Neg Crystals CA OXY 2+ /HPF Neg Epithelial Cells RARE /HPF Neg Sperm NEG /HPF Neg Yeast NEG /HPF Neg UACast NEG /LPF Neg 230 Ua Routine 04/30/2021 [facility] REF TO DR ADDRESS ON ORDER FOR (984)- - Ua Glucose Negative Ua Protein Negative Ua Nitrite Negative Ua Leuko Negative Ua Blood Trace-intact Ua Color Not Entered Ua Ketones Negative Ua Clarity Not Entered Ua Specific [place] >=1.030 1.003-1.030 Ua PH 5.5 5.0-7.5 Ua Bilirubin Negative Ua Urobilinogen 0.2 E.U./dL 0.0-1.0 Laboratory test finding 02/16/2021 [facility]) [address] [place] [address] [phone] PSA Total 3.54 Prostatic Specific Ag Monitor 3.54 NG/ML Normal < 4.00 1 1 The PSA assay is performed o n the Siemens [place] analyzer by LOCI sandwich chemiluminescent immunoassay and should not be compared interchangeably with other methods. It should not be used alone as a screening test or diagnosis for the presence or absence of malignant disease. Predictions of disease recurrence should not be based solely on values obtained from serial patient serum values. Procedures Date Code Description Status 05/13/[address] Abdomen/Pelvis With W/Wo Cont rast Completed 04/30/2021 85927 Office/Outpatient Established Mo d MDM 30-39 Min Completed Medical Devices Description No Information Available Encounters Type Date Location Provider Dx Diagnosis Office Visit 04/30/2021 3:30p [facility] Etelvina Maynard NP N40.1 Benign prostatic hyperplasia with lower urinary tract symp R35.1 Nocturia R31.29 Other microscopic hematuria R97.20 Elevated prostate specific a ntigen [PSA] Assessments Date Code Description Provider 05/13/2021 N20.0 Calculus of kidney Sourav Truong MD 05/13/2021 N28.1 Cyst of kidney, acquired Sourav rice MD 05/13/2021 R31.29 Other microscopic hematuria Sharmila Truong MD 04/30/2021 N40.1 Benign prostatic hyperplasia wit h lower urinary tract symptoms Etelvina A Maynard, VETERINARY BACTERIOLOGIST 04/30/2021 R35.1 Nocturia Etelvina Maynard NP 04/30/2021 R31.29 Other microscopic hematuria Ther wandy Maynard NP 04/30/2021 R97.20 Elevated prostate specific antig en [PSA] Etelvina Maynard NP 04/30/2021 R31.29 Other microscopic hematuria Katina Valenzuela MD Plan of Treatment Future Appointment(s):* 04/30/2022 10:45 am - Etelvina Maynard NP at [facility]/ [facility] 04/30/2021 - Etelvina Maynard NP* N40.1 Benign prostatic hyperplasia with lower urinary tract symptoms* Comments:* He has had 2 prostate biopsies in the past showing benign disease. The most recent was an MRI fusion prostate biopsy in 2019. His PSA is stable and his exam is not suspicious. Continue yearly follow-up. * R35.1 Nocturia* Comments:* Stable and compensated post TURP. He will return in 1 year with a PVR. * R31.29 Other microscopic hematuria* Comments:* He has trace blood on UA. This appears to be a new finding. He does take low-dose daily aspirin. A urine for microscopy will be obtained. He is aware if he has greater than 2 RBCs per high-power field further evaluation with CT urogram and cystoscopy will be warranted. I will contact him if further evaluation is needed. * R97.20 Elevated prostate specific antigen [PSA]* Comments:* He has a history of an elevated PSA and has had 2 prostate biopsies in the past showing benign disease. His total PSA has fallen back to his baseline. Continue yearly follow-up. Functional Status Description No Information Available Mental Status Description No Information Available Referrals Refer to Reason for Referral Status Appt Date Xavier Beard M.D. Per [facility] [facility]) Deon encarnacion: CPT Code: 67394 Auth: [id number] Valid: 05/01/2021-06/15/2021 05/01/2021 PIETRO Created [facility] [address] [place] [phone]
--- OUTSIDE RECORDS SUMMARY | 2021-08-11 20:11 | CCD | Continuity of Care Document ---
Author Author Rosendo Melton Organization Unknown Address [address] [address] Phone [phone] Care Team Providers Care Respiratory Therapist Assistant Name Role Phone Mike Navarro MD AUTM [phone] [facility] [phone] AUTM [phone] Problems Active Problems Provider Date Essential hypertension [...] Negative Procedures Date Code Description Status 05/22/2021 56959 Manual Therapy Each 15 Minutes C ompleted 05/22/2021 92360 Re-Eval Of PT Establ ished Plan Of Care 20Mins Face To Face PT/Fam Completed 05/22/2021 59788 Therapeutic Procedure, Each 15 M inutes Completed 05/12/2021 61855 Manual Therapy Each 15 Minutes C ompleted 05/12/2021 56298 Therapeutic Procedure, Each 15 M inutes Completed 05/05/2021 77303 Manual Therapy Each 15 Minutes C ompleted 05/05/2021 04420 Therapeutic Procedure, Each 15 M inutes Completed 04/28/2021 93625 Manual Therapy Each 15 Minutes C ompleted 04/28/2021 48984 Therapeutic Procedure, Each 15 M inutes Completed 04/23/2021 65677 Manual Therapy Each 15 Minutes C ompleted 04/23/2021 05681 Therapeutic Procedure, Each 15 M inutes Completed 04/20/2021 75748 Manual Therapy Each 15 Minutes C ompleted 04/20/2021 02705 Therapeutic Procedure, Each 15 M inutes Completed 04/09/2021 48588 Office/Outpatient Established Mo d MDM 30-39 Min Completed 04/08/2021 93421 Manual Therapy Each 15 Minutes C ompleted 04/08/2021 95549 Therapeutic Procedure, Each 15 M inutes Completed 02/25/2021 49972 Manual Therapy Each 15 Minutes C ompleted 02/25/2021 02805 Therapeutic Procedure, Each 15 M inutes Completed 02/23/2021 54272 Manual Therapy Each 15 Minutes C ompleted 02/23/2021 88204 Therapeutic Procedure, Each 15 M inutes Completed 02/20/2021 61285 Physical Therapy Eval - Low Comp lexity Completed 01/23/2021 63536 Office/Outpatient Established Lo w MDM 20-29 Min Completed 01/14/2021 86196 Re-Eval Of PT Establ ished Plan Of Care 20Mins Face To Face PT/Fam Completed 01/14/2021 22010 Manual Therapy Each 15 Minutes C ompleted 01/07/2021 76815 Manual Therapy Each 15 Minutes C ompleted 01/07/2021 20095 Therapeutic Procedure, Each 15 M inutes Completed 12/30/2020 98099 Manual Therapy Each 15 Minutes C ompleted 12/30/2020 78891 Therapeutic Procedure, Each 15 M inutes Completed 12/24/2020 96392 Manual Therapy Each 15 Minutes C ompleted 12/24/2020 70105 Therapeutic Procedure, Each 15 M inutes Completed 12/22/2020 42042 Therapeutic Procedure, Each 15 M inutes Completed 12/22/2020 12150 Manual Therapy Each 15 Minutes C ompleted 12/16/2020 75637 Manual Therapy Each 15 Minutes C ompleted 12/16/2020 62131 Therapeutic Procedure, Each 15 M inutes Completed 12/12/2020 61955 Office/Outpatient Established Mo d MDM 30-39 Min Completed 12/10/2020 13284 Manual Therapy Each 15 Minutes C ompleted 12/10/2020 68486 Therapeutic Procedure, Each 15 M inutes Completed 12/05/2020 17504 Manual Therapy Each 15 Minutes C ompleted 12/05/2020 44015 Therapeutic Procedure, Each 15 M inutes Completed 12/03/2020 19906 Manual Therapy Each 15 Minutes C ompleted 12/03/2020 97149 Therapeutic Procedure, Each 15 M inutes Completed [...] al region Assessments Date Code Description Provider 05/28/2021 Z01.818 Encounter for other preprocedura l examination Nathan Alba MD 05/28/2021 Z01.818 Encounter for other preprocedura l examination Lab 05/28/2021 Z20.828 Contact with and (chambers spected) exposure to other viral communicable diseases Nathan Alba MD 05/28/2021 Z20.828 Contact with and (chambers spected) exposure to other viral communicable diseases Lab 05/22/2021 M50.30 Other cervical disc degeneration , unspecified cervical region Jarocho Pederson PT, DPT 05/22/2021 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, lumbosacral region Jarocho Pederson PT, DPT 05/22/2021 M51.36 Other intervertebral disc degene ration, lumbar region Jarocho Pederson PT, DPT 05/20/2021 Z20.828 Contact with and (chambers spected) exposure to other viral communicable diseases Jayla Anthony 05/12/2021 M50.30 Other cervical disc degeneration , unspecified cervical region Doretha Kemp, DIE OPERATOR 05/12/2021 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, lumbosacral region Doretha Kemp, DIE OPERATOR 05/05/2021 M50.30 Other cervical disc degeneration , unspecified cervical region Danamarie Ortolano, DIE OPERATOR 05/05/2021 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, lumbosacral region Danamarie Ortolano, DIE OPERATOR 04/28/2021 M50.30 Other cervical disc degeneration , unspecified cervical region Jarocho Pederson PT, DPT 04/28/2021 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, lumbosacral region Jarocho Pederson PT, DPT 04/23/2021 M50.30 Other cervical disc degeneration , unspecified cervical region Doretha Carly Kemp, DIE OPERATOR 04/23/2021 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, lumbosacral region Doretha Kemp, DIE OPERATOR 04/20/2021 M50.30 Other cervical disc degeneration , unspecified cervical region Doretha Kemp, DIE OPERATOR 04/20/2021 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, lumbosacral region Doretha Kemp, DIE OPERATOR 04/09/2021 M51.37 Other intervertebral disc degene [...] degeneration , unspecified cervical region Danamarie Ortolano, DIE OPERATOR 02/25/2021 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, lumbosacral region Danamarie Ortolano, DIE OPERATOR 02/23/2021 M50.30 Other cervical disc degeneration , unspecified cervical region Danamarie Ortolano, DIE OPERATOR 02/23/2021 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, lumbosacral region Danamarie Ortolano, DIE OPERATOR 02/20/2021 M50.30 Other cervical disc degeneration [...] degeneration , unspecified cervical region Danamarie Ortolano, DIE OPERATOR 12/24/2020 M50.30 Other cervical disc degeneration , unspecified cervical region Danamarie Ortolano, DIE OPERATOR 12/22/2020 M50.30 Other cervical disc degeneration , unspecified cervical region Jarocho Pederson, PT, DPT 12/16/2020 M50.30 Other cervical disc degeneration , unspecified cervical region Danamarie Ortolano, DIE OPERATOR 12/12/2020 M50.30 Other cervical disc degeneration , unspecified cervical region Rodger Mehta, P.A. 12/12/2020 M43.12 Spondylolisthesis, cervical nicolas on Rodger Mehta, P.A. 12/12/2020 M48.02 Spinal stenosis, cervical region Rodger Mehta, P.A. 12/12/2020 M43.17 Spondylolisthesis, lumbosacral r egion Rodger Mehta, P.A. 12/10/2020 M50.30 Other cervical disc degeneration , unspecified cervical region Danamarie Ortolano, DIE OPERATOR 12/05/2020 M50.30 Other cervical disc degeneration , unspecified cervical region Danamarie Ortolano, DIE OPERATOR 12/03/2020 M50.30 Other cervical disc degeneration , unspecified cervical region Danamarie Ortolano, DIE OPERATOR Plan of Treatment Future Appointment(s):* 06/04/2021 9:15 am - Belinda Acevedo PA-C at [place] Functional Status Description No Information Available Mental Status Description No Information Available Referrals Refer to Dr Reason for Referral Status Appt Date Doretha Kemp, DEBO ELDA INJ([id number]) # 2 PER SANAM Carlson AT [facility] IS APPROVED TO SURGERY NT Created [address] [facility] [address] [place] [phone] Rodger Mehta PA ELDA INJ ([id number]) PER EDWIGE Wagner AT [facility] APPROVAL FOR 1 INJ TO SURGERY NT Created [address] [facility] [address] [place] [address] [phone] Rodger Mehta PA physical therapy approved 10 additional visits lumbar cervical authorization number [id number] formerly [facility] Created 0 [address] [facility] [address] [place] [address] [phone]
--- OUTSIDE RECORDS SUMMARY | 2021-08-11 20:11 | CCD | Continuity of Care Document ---
Author Author Rosendo BEARD MD Organization Unknown Address [address] [place] [address] [address] [place] [address] Phone [phone] Care Team Providers Care Grid Caster Name Role Phone Mike Navarro M.D. AUTM [phone] Placido Bazzi M.D. AUTM [phone] Problems Active Problems Provider Date Benign prostatic [...] SIG Qnty Indications Ordering Provide r Date Ciprofloxacin HCL 250mg Tablets 1 by mouth in office for procedure 1 by mouth tomorrow 2tabs Layne Beard MD 06/10/2021 Sertraline HCL 50mg Tablets 1 by mouth [...] REF TO DR ADDRESS ON ORDER FOR (315)- - Ua Glucose Negative Ua Protein Negative Ua Nitrite Negative Ua Leuko Negative Ua Blood Negative Ua Color Not Entered Ua Ketones Negative Ua Clarity Not Entered Ua Specific [place] >=1.030 1.003-1.030 Ua PH 6.5 5.0-7.5 Ua Bilirubin Negative Ua Urobilinogen 0.2 E.U./dL 0.0-1.0 Urine Microscopy 04/30/2021 [facility] [address] [place] [address] [phone] Urine WBC 0-2 /HPF 0 - 5 Urine RBC 3-5 /HPF 0-2 Bacteria NEG /HPF Neg Crystals CA OXY 2+ /HPF Neg Epithelial Cells RARE /HPF Neg Sperm NEG /HPF Neg Yeast NEG /HPF Neg UACast NEG /LPF Neg 230 Ua Routine 04/30/2021 [facility] REF TO DR ADDRESS ON ORDER FOR (576)- - Ua Glucose Negative Ua Protein Negative Ua Nitrite Negative Ua Leuko Negative Ua Blood Trace-intact Ua Color Not Entered Ua Ketones Negative Ua Clarity Not Entered Ua Specific [place] >=1.030 1.003-1.030 Ua PH 5.5 5.0-7.5 Ua Bilirubin Negative Ua Urobilinogen 0.2 E.U./dL 0.0-1.0 Laboratory test finding 02/16/[address] [address] [phone] PSA Total 3.54 Prostatic Specific Ag Monitor 3.54 NG/ML Normal < 4.00 1 1 The PSA assay is performed o n the Siemens [place] analyzer by LOCI sandwich chemiluminescent immunoassay and should not be compared interchangeably with other methods. It should not be used alone as a screening test or diagnosis for the presence or absence of malignant disease. Predictions of disease recurrence should not be based solely on values obtained from serial patient serum values. Procedures Date Code Description Status 06/10/2021 94855 Cystourethroscopy, Separate Proc edure Completed 05/13/[address] Abdomen/Pelvis With W/Wo Cont rast Completed 04/30/2021 26819 Office/Outpatient Established Mo d MDM 30-39 Min Completed Medical Devices Description No Information Available Encounters Type Date Location Provider Dx Diagnosis Office Visit 04/30/2021 3:30p [facility]/ [facility] Etelvina Maynard NP N40.1 Benign prostatic hyperplasia with lower urinary tract symp R35.1 Nocturia R31.29 Other microscopic hematuria R97.20 Elevated prostate specific a ntigen [PSA] Assessments Date Code Description Provider 06/10/2021 N40.1 Benign prostatic hyperplasia wit h lower urinary tract symptoms Xavier Beard MD 06/10/2021 R39.12 Poor urinary stream Xavier concepcion MD 05/13/2021 N20.0 Calculus of kidney Sourav Truong [...] 10:45 am - Etelvina Maynard NP at [facility]/ [facility] Functional Status Description No Information Available Mental Status Description No Information Available Referrals Refer to Reason for Referral Status Appt Date Xavier Beard M.D. Per [facility] (Mary[facility]) Deon encarnacion: CPT Code: 28830 Auth: [id number] Valid: 05/01/2021-06/15/2021 05/01/2021 PIETRO Created [facility] [address] [place] [phone]
--- OUTSIDE RECORDS SUMMARY | 2021-08-11 20:11 | CCD | Continuity of Care Document ---
Author Author Rosendo BEARD MD Organization Unknown Address [address] [place] [address] [address] [place] [address] Phone [phone] Care Team Providers Care Portainer Operator Name Role Phone Mike Navarro M.D. AUTM [phone] Placido Bazzi M.D. AUTM [phone] Problems Active Problems Provider Date Benign prostatic [...] Bazzi M.D. Onset: 12/13/2014 Benign essential hypertension Placiod Bazzi M.D. Onset: Obesity Onset: 03/27/2014 Benign [...] mouth tomorrow 2tabs Layne Beard MD 06/10/2021 - 06/11/2021 Immunizations Description No [...] Negative Ua Clarity Not Entered Ua Specific [place] >=1.030 1.003-1.030 Ua PH 6.5 5.0-7.5 Ua Bilirubin Negative Ua Urobilinogen 0.2 E.U./dL 0.0-1.0 Urine Microscopy 04/30/2021 [facility] [address] [place] [address] [phone] Urine WBC 0-2 /HPF 0 - 5 Urine RBC 3-5 /HPF 0-2 Bacteria NEG /HPF Neg Crystals CA OXY 2+ /HPF Neg Epithelial Cells RARE /HPF Neg Sperm NEG /HPF Neg Yeast NEG /HPF Neg UACast NEG /LPF Neg 230 Ua Routine 04/30/2021 [facility] REF TO DR ADDRESS ON ORDER FOR (615)- - Ua Glucose Negative Ua Protein Negative Ua Nitrite Negative Ua Leuko Negative Ua Blood Trace-intact Ua Color Not Entered Ua Ketones Negative Ua Clarity Not Entered Ua Specific [place] >=1.030 1.003-1.030 Ua PH 5.5 5.0-7.5 Ua Bilirubin Negative Ua Urobilinogen 0.2 E.U./dL 0.0-1.0 Laboratory test finding 02/16/[address] [address] [phone] PSA Total 3.54 Prostatic Specific Ag Monitor 3.54 NG/ML Normal < 4.00 1 1 The PSA assay is performed o n the Siemens [place] analyzer by LOCI sandwich chemiluminescent immunoassay and should not be compared interchangeably with other methods. It should not be used alone as a screening test or diagnosis for the presence or absence of malignant disease. Predictions of disease recurrence should not be based solely on values obtained from serial patient serum values. Procedures Date Code Description Status 06/10/2021 74035 Cystourethroscopy, Separate Proc edure Completed 05/13/[address] Abdomen/Pelvis With W/Wo Cont rast Completed 04/30/2021 66148 Office/Outpatient Established Mo d MDM 30-39 Min Completed Medical Devices Description No Information Available Encounters Type Date Location Provider Dx Diagnosis Office Visit 04/30/2021 3:30p [facility]/ [facility] Etelvina Maynard NP N40.1 Benign prostatic hyperplasia with lower urinary tract symp R35.1 Nocturia R31.29 Other microscopic hematuria R97.20 Elevated prostate specific a ntigen [PSA] Assessments Date Code Description Provider 06/10/2021 N40.1 Benign prostatic hyperplasia wit h lower urinary tract symptoms Xavier Derosalia, MD 06/10/2021 R39.12 Poor urinary stream Xavier [...] Valenzuela MD Plan of Treatment Future Appointment(s):* 07/23/2021 2:15 pm - Xavier Beard MD at [facility]/ [facility] * 07/23/2021 7:10 am - Xavier Beard MD at [facility] * 08/05/2021 1:30 pm - Xavier Beard MD at [facility] * 04/30/2022 10:45 am - Etelvina Maynard NP at [facility]/ [facility] Functional Status Description No Information Available Mental Status Description No Information Available Referrals Refer to Dr Reason for Referral Status Appt Date Xavier Beard M.D. Per Vianey Sandhu) Deon encarnacion: CPT Code: 72758 Auth: [id number] Valid: 05/01/2021-06/15/2021 05/01/2021 PIETRO Created [facility] [address] [place] [phone]
--- OUTSIDE RECORDS SUMMARY | 2021-08-11 20:11 | CCD ---
Continuity of Care Document (CCD) Created on: 06/04/2021 Rosendo Castillo External Reference #: [id number] : [id number] Sex: Male Author Author Rosendo LINARES PA-C Organization Unknown Address [address] [address] Phone [phone] Care Team Providers Care Golf Sales Manager Name Role Phone Mike Navarro MD AUTM [phone] [facility] [phone] AUTM Problems Active Problems Provider Date Essential [...] Negative Procedures Date Code Description Status 06/04/2021 97024 Office/Outpatient Established Lo w MDM 20-29 Min Completed 05/22/2021 08142 Re-Eval Of PT Establ ished Plan Of Care 20Mins Face To Face PT/Fam Completed 05/22/2021 21749 Therapeutic Procedure, Each 15 M inutes Completed 05/22/2021 20098 Manual Therapy Each 15 Minutes C ompleted 05/12/2021 41242 Manual Therapy Each 15 Minutes C ompleted 05/12/2021 58040 Therapeutic Procedure, Each 15 M inutes Completed 05/05/2021 62743 Manual Therapy Each 15 Minutes C ompleted 05/05/2021 11678 Therapeutic Procedure, Each 15 M inutes Completed 04/28/2021 44149 Manual Therapy Each 15 Minutes C ompleted 04/28/2021 28370 Therapeutic Procedure, Each 15 M inutes Completed 04/23/2021 50182 Therapeutic Procedure, Each 15 M inutes Completed 04/23/2021 00166 Manual Therapy Each 15 Minutes C ompleted 04/20/2021 02474 Manual Therapy Each 15 Minutes C ompleted 04/20/2021 21721 Therapeutic Procedure, Each 15 M inutes Completed 04/09/2021 58484 Office/Outpatient Established Mo d MDM 30-39 Min Completed 04/08/2021 21159 Manual Therapy Each 15 Minutes C ompleted 04/08/2021 10555 Therapeutic Procedure, Each 15 M inutes Completed 02/25/2021 74455 Manual Therapy Each 15 Minutes C ompleted 02/25/2021 45259 Therapeutic Procedure, Each 15 M inutes Completed 02/23/2021 38133 Manual Therapy Each 15 Minutes C ompleted 02/23/2021 06281 Therapeutic Procedure, Each 15 M inutes Completed 02/20/2021 06031 Physical Therapy Eval - Low Comp lexity Completed 01/23/2021 51228 Office/Outpatient Established Lo w MDM 20-29 Min Completed 01/14/2021 93129 Re-Eval Of PT Establ ished Plan Of Care 20Mins Face To Face PT/Fam Completed 01/14/2021 05136 Manual Therapy Each 15 Minutes C ompleted 01/07/2021 64464 Manual Therapy Each 15 Minutes C ompleted 01/07/2021 34514 Therapeutic Procedure, Each 15 M inutes Completed 12/30/2020 84480 Manual Therapy Each 15 Minutes C ompleted 12/30/2020 48397 Therapeutic Procedure, Each 15 M inutes Completed 12/24/2020 98174 Manual Therapy Each 15 Minutes C ompleted 12/24/2020 19478 Therapeutic Procedure, Each 15 M inutes Completed 12/22/2020 42260 Manual Therapy Each 15 Minutes C ompleted 12/22/2020 79622 Therapeutic Procedure, Each 15 M inutes Completed 12/16/2020 87376 Manual Therapy Each 15 Minutes C ompleted 12/16/2020 22356 Therapeutic Procedure, Each 15 M inutes Completed 12/12/2020 35956 Office/Outpatient Established Mo d MDM 30-39 Min Completed 12/10/2020 72213 Manual Therapy Each 15 Minutes C ompleted 12/10/2020 28867 Therapeutic Procedure, Each 15 M inutes Completed [...] lumbosacral region Office Visit 12/12/2020 3:30p Minesh Mehta, P.A. M50.30 Other cervical disc degeneration, unsp cervical region M43.12 Spondylolisthesis, cervical region M48.02 Spinal stenosis, cervical re gion M43.17 Spondylolisthesis, lumbosacr al region Assessments Date Code Description Provider 06/04/2021 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, lumbosacral region Belinda Nieves Curtis, PA-C 06/04/2021 M51.36 Other intervertebral disc degene ration, lumbar region Belinda Nieves Curtis, PA-C 06/04/2021 M50.30 Other cervical disc degeneration , unspecified cervical region Belinda Nieves Fish, PA-C 05/28/2021 Z01.818 Encounter for other preprocedura [...] degeneration , unspecified cervical region Doretha Kemp, SAP BI DEVELOPER 05/12/2021 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, lumbosacral region Doretha Kemp, SAP BI DEVELOPER 05/05/2021 M50.30 Other cervical disc degeneration , unspecified cervical region Danamarie Ortolano, SAP BI DEVELOPER 05/05/2021 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, lumbosacral region Danamarie Ortolano, SAP BI DEVELOPER 04/28/2021 M50.30 Other cervical disc degeneration , unspecified cervical region Jarocho Pederson, PT, DPT 04/28/2021 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, lumbosacral region Jarocho Pederson, PT, DPT 04/23/2021 M50.30 Other cervical disc degeneration , unspecified cervical region Doretha Carroll Kemp, SAP BI DEVELOPER 04/23/2021 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, lumbosacral region Doretha Stephensjacklyn Kemp, SAP BI DEVELOPER 04/20/2021 M50.30 Other cervical disc degeneration , unspecified cervical region Doretha Carlyjacklyn Kemp, SAP BI DEVELOPER 04/20/2021 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, lumbosacral region Doretha Carlyjacklyn Kemp, SAP BI DEVELOPER 04/09/2021 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, lumbosacral region Rodger Mehta, P.A. 04/09/2021 M50.30 Other cervical disc degeneration , unspecified cervical region Rodger Mehta, P.A. 04/08/2021 M51.36 Other intervertebral disc degene ration, lumbar region Jarocho Pedersno, PT, DPT 04/08/2021 M50.30 Other cervical disc [...] degeneration , unspecified cervical region Danamarie Ortolano, SAP BI DEVELOPER 02/25/2021 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, lumbosacral region Danamarie Ortolano, SAP BI DEVELOPER 02/23/2021 M50.30 Other cervical disc degeneration , unspecified cervical region Danamarie Ortolano, SAP BI DEVELOPER 02/23/2021 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, lumbosacral region Danamarie Ortolano, SAP BI DEVELOPER 02/20/2021 M50.30 Other cervical disc degeneration , unspecified cervical region Jarocho RobynJan Pederson, PT, DPT 02/20/2021 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, lumbosacral region Jarocho RobynJan Pederson, PT, DPT 02/13/2021 Z20.828 Contact w [...] degeneration , unspecified cervical region Danamarie Ortolano, SAP BI DEVELOPER 12/24/2020 M50.30 Other cervical disc degeneration , unspecified cervical region Danamarie Ortolano, SAP BI DEVELOPER 12/22/2020 M50.30 Other cervical disc degeneration , unspecified cervical region Jarocho Pederson, PT, DPT 12/16/2020 M50.30 Other cervical disc degeneration , unspecified cervical region Danamarie Ortolano, SAP BI DEVELOPER 12/12/2020 M50.30 Other cervical disc degeneration , unspecified cervical region Rodger Mehta, P.A. 12/12/2020 M43.12 Spondylolisthesis, cervical nicolas on Rodger Mehta, P.A. 12/12/2020 M48.02 Spinal stenosis, cervical region Rodger Mehta, P.A. 12/12/2020 M43.17 Spondylolisthesis, lumbosacral r egion Rodger Mehta, P.A. 12/10/2020 M50.30 Other cervical disc degeneration , unspecified cervical region Danamarie Ortolano, SAP BI DEVELOPER Plan of Treatment 06/04/2021 - Belinda Linares PA-C* M51.37 Other intervertebral disc degeneration, lumbosacral region* New Orders:* Intrepid Catracho Injections, Ordered: 06/04/21 * Follow up:* after Intrep. Catracho Injection with MKM. * M51.36 Other intervertebral disc degeneration, lumbar region * M50.30 Other cervical disc degeneration, unspecified cervical region Functional Status Description No Information Available Mental Status Description No Information Available Referrals Refer to Dr Reason for Referral Status Appt Date Doretha Kemp, SAP BI DEVELOPER ELDA INJ([id number]) # 2 PER SANAM Carlson AT [facility] IS APPROVED TO SURGERY NT Created [address] [address] [phone] Rodger Mehta, PA ELDA INJ ([id number]) PER EDWIGE Wagner AT [facility] APPROVAL FOR 1 INJ TO SURGERY NT Created [address] [facility] [address] [place] [address] [phone] Rodger Mehta, PA physical therapy approved 10 additional visits lumbar cervical authorization number [id number] nl Created 0 [address] [facility] [address] [place] [address] [phone]
--- OUTSIDE RECORDS SUMMARY | 2021-08-11 20:11 | CCD | Continuity of Care Document ---
Author Author Rosendo [facility] Organization Unknown Address [address] [address] Phone [phone] Care Team Providers Care Gun Repair Clerk Name Role Phone Mike Navarro MD AUTM [phone] [facility] [phone] AUTM [phone] Problems Active Problems Provider Date Essential hypertension [...] Negative Procedures Date Code Description Status 05/22/2021 20255 Manual Therapy Each 15 Minutes C ompleted 05/22/2021 35197 Re-Eval Of PT Establ ished Plan Of Care 20Mins Face To Face PT/Fam Completed 05/22/2021 65317 Therapeutic Procedure, Each 15 M inutes Completed 05/12/2021 15274 Manual Therapy Each 15 Minutes C ompleted 05/12/2021 92651 Therapeutic Procedure, Each 15 M inutes Completed 05/05/2021 64907 Manual Therapy Each 15 Minutes C ompleted 05/05/2021 15308 Therapeutic Procedure, Each 15 M inutes Completed 04/28/2021 06461 Manual Therapy Each 15 Minutes C ompleted 04/28/2021 56205 Therapeutic Procedure, Each 15 M inutes Completed 04/23/2021 38037 Manual Therapy Each 15 Minutes C ompleted 04/23/2021 01854 Therapeutic Procedure, Each 15 M inutes Completed 04/20/2021 84529 Manual Therapy Each 15 Minutes C ompleted 04/20/2021 77640 Therapeutic Procedure, Each 15 M inutes Completed 04/09/2021 90711 Office/Outpatient Established Mo d MDM 30-39 Min Completed 04/08/2021 02078 Manual Therapy Each 15 Minutes C ompleted 04/08/2021 73747 Therapeutic Procedure, Each 15 M inutes Completed 02/25/2021 47045 Manual Therapy Each 15 Minutes C ompleted 02/25/2021 62243 Therapeutic Procedure, Each 15 M inutes Completed 02/23/2021 39666 Manual Therapy Each 15 Minutes C ompleted 02/23/2021 48838 Therapeutic Procedure, Each 15 M inutes Completed 02/20/2021 52928 Physical Therapy Eval - Low Comp lexity Completed 01/23/2021 71745 Office/Outpatient Established Lo w MDM 20-29 Min Completed 01/14/2021 84492 Re-Eval Of PT Establ ished Plan Of Care 20Mins Face To Face PT/Fam Completed 01/14/2021 46102 Manual Therapy Each 15 Minutes C ompleted 01/07/2021 81048 Manual Therapy Each 15 Minutes C ompleted 01/07/2021 26806 Therapeutic Procedure, Each 15 M inutes Completed 12/30/2020 93279 Manual Therapy Each 15 Minutes C ompleted 12/30/2020 51731 Therapeutic Procedure, Each 15 M inutes Completed 12/24/2020 03380 Manual Therapy Each 15 Minutes C ompleted 12/24/2020 43689 Therapeutic Procedure, Each 15 M inutes Completed 12/22/2020 33697 Therapeutic Procedure, Each 15 M inutes Completed 12/22/2020 46540 Manual Therapy Each 15 Minutes C ompleted 12/16/2020 86937 Manual Therapy Each 15 Minutes C ompleted 12/16/2020 10562 Therapeutic Procedure, Each 15 M inutes Completed 12/12/2020 25650 Office/Outpatient Established Mo d MDM 30-39 Min Completed 12/10/2020 33940 Manual Therapy Each 15 Minutes C ompleted 12/10/2020 06126 Therapeutic Procedure, Each 15 M inutes Completed 12/05/2020 32540 Manual Therapy Each 15 Minutes C ompleted 12/05/2020 84793 Therapeutic Procedure, Each 15 M inutes Completed 12/03/2020 48539 Manual Therapy Each 15 Minutes C ompleted 12/03/2020 89403 Therapeutic Procedure, Each 15 M inutes Completed [...] ration, lumbosacral region Jarocho Pederson PT, DPT 05/20/2021 Z20.828 Contact with and (chambers spected) exposure to other viral communicable diseases Rodger Mehta, PTimothy 05/12/2021 M50.30 Other cervical disc degeneration , unspecified cervical region Doretha Kemp, CIRCULATION ASSISTANT 05/12/2021 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, lumbosacral region Doretha Kemp, CIRCULATION ASSISTANT 05/05/2021 M50.30 Other cervical disc degeneration , unspecified cervical region Danamarie Ortolano, CIRCULATION ASSISTANT 05/05/2021 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, lumbosacral region Danamarie Ortolano, CIRCULATION ASSISTANT 04/28/2021 M50.30 Other cervical disc degeneration , unspecified cervical region Jarocho Pederson, PT, DPT 04/28/2021 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, lumbosacral region Jarocho Pederson PT, DPT 04/23/2021 M50.30 Other cervical disc degeneration , unspecified cervical region Doretha Carly Kemp, CIRCULATION ASSISTANT 04/23/2021 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, lumbosacral region Doretha Kemp, CIRCULATION ASSISTANT 04/20/2021 M50.30 Other cervical disc degeneration , unspecified cervical region Doretha Carly Kemp, CIRCULATION ASSISTANT 04/20/2021 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, lumbosacral region Doretha Carly Kemp, CIRCULATION ASSISTANT 04/09/2021 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, [...] degeneration , unspecified cervical region Danamarie Ortolano, CIRCULATION ASSISTANT 02/25/2021 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, lumbosacral region Danamarie Ortolano, CIRCULATION ASSISTANT 02/23/2021 M50.30 Other cervical disc degeneration , unspecified cervical region Danamarie Ortolano, CIRCULATION ASSISTANT 02/23/2021 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, lumbosacral region Danamarie Ortolano, CIRCULATION ASSISTANT 02/20/2021 M50.30 Other cervical disc degeneration , [...] degeneration , unspecified cervical region Danamarie Ortolano, CIRCULATION ASSISTANT 12/24/2020 M50.30 Other cervical disc degeneration , unspecified cervical region Danamarie Ortolano, CIRCULATION ASSISTANT 12/22/2020 M50.30 Other cervical disc degeneration , unspecified cervical region Jarocho Pederson, PT, DPT 12/16/2020 M50.30 Other cervical disc degeneration , unspecified cervical region Danamarie Ortolano, CIRCULATION ASSISTANT 12/12/2020 M50.30 Other cervical disc degeneration , unspecified cervical region Rodger Mehta, P.A. 12/12/2020 M43.12 Spondylolisthesis, cervical nicolas on Rodger Mehta, P.A. 12/12/2020 M48.02 Spinal stenosis, cervical region Rodger Mehta, P.A. 12/12/2020 M43.17 Spondylolisthesis, lumbosacral r egion Rodger Mehta, P.A. 12/10/2020 M50.30 Other cervical disc degeneration , unspecified cervical region Danamarie Ortolano, CIRCULATION ASSISTANT 12/05/2020 M50.30 Other cervical disc degeneration , unspecified cervical region Danamarie Ortolano, CIRCULATION ASSISTANT 12/03/2020 M50.30 Other cervical disc degeneration , unspecified cervical region Danamarie Ortolano, CIRCULATION ASSISTANT Plan of Treatment Future Appointment(s):* 06/04/2021 9:15 am - Belinda Acevedo PA-C at [place] Functional Status Description No Information Available Mental Status Description No Information Available Referrals Refer to Reason for Referral Status Appt Date Doretha Kemp, DEBO ELDA INJ([id number]) # 2 PER SANAM Carlson AT [facility] IS APPROVED TO SURGERY NT Created [address] [facility], [address] [place], [place] [address] [phone] Rodger Mehta, PA ELDA INJ ([id number]) PER DEWIGE Wagner AT [facility] APPROVAL FOR 1 INJ TO SURGERY NT Created [address] [facility] [address] [place] [address] [phone] Rodger Mehta, PA physical therapy approved 10 additional visits lumbar cervical authorization number [id number] nlg Created 0 [address] [facility] [address] [place], [place] [id number] [phone]
--- OUTSIDE RECORDS SUMMARY | 2021-08-11 20:11 | CCD | Continuity of Care Document ---
Author Author Rosendo STEEN DPT Organization Unknown Address [address] [place] [address] Phone [phone] Care Team Providers Care Tobacco Conditioner Name Role Phone Mike Navarro MD AUTM [phone] [facility] [phone] AUTM [phone] Problems Active Problems Provider Date Essential hypertension [...] Negative Procedures Date Code Description Status 05/22/2021 73076 Manual Therapy Each 15 Minutes C ompleted 05/22/2021 60091 Re-Eval Of PT Establ ished Plan Of Care 20Mins Face To Face PT/Fam Completed 05/22/2021 18309 Therapeutic Procedure, Each 15 M inutes Completed 05/12/2021 42466 Manual Therapy Each 15 Minutes C ompleted 05/12/2021 60238 Therapeutic Procedure, Each 15 M inutes Completed 05/05/2021 49009 Manual Therapy Each 15 Minutes C ompleted 05/05/2021 85202 Therapeutic Procedure, Each 15 M inutes Completed 04/28/2021 30698 Manual Therapy Each 15 Minutes C ompleted 04/28/2021 93358 Therapeutic Procedure, Each 15 M inutes Completed 04/23/2021 41157 Manual Therapy Each 15 Minutes C ompleted 04/23/2021 21942 Therapeutic Procedure, Each 15 M inutes Completed 04/20/2021 81177 Manual Therapy Each 15 Minutes C ompleted 04/20/2021 46476 Therapeutic Procedure, Each 15 M inutes Completed 04/09/2021 50121 Office/Outpatient Established Mo d MDM 30-39 Min Completed 04/08/2021 83895 Manual Therapy Each 15 Minutes C ompleted 04/08/2021 91847 Therapeutic Procedure, Each 15 M inutes Completed 02/25/2021 07904 Manual Therapy Each 15 Minutes C ompleted 02/25/2021 11230 Therapeutic Procedure, Each 15 M inutes Completed 02/23/2021 11730 Manual Therapy Each 15 Minutes C ompleted 02/23/2021 00203 Therapeutic Procedure, Each 15 M inutes Completed 02/20/2021 78981 Physical Therapy Eval - Low Comp lexity Completed 01/23/2021 87051 Office/Outpatient Established Lo w MDM 20-29 Min Completed 01/14/2021 97288 Re-Eval Of PT Establ ished Plan Of Care 20Mins Face To Face PT/Fam Completed 01/14/2021 84566 Manual Therapy Each 15 Minutes C ompleted 01/07/2021 02833 Manual Therapy Each 15 Minutes C ompleted 01/07/2021 13841 Therapeutic Procedure, Each 15 M inutes Completed 12/30/2020 53942 Manual Therapy Each 15 Minutes C ompleted 12/30/2020 67898 Therapeutic Procedure, Each 15 M inutes Completed 12/24/2020 40043 Manual Therapy Each 15 Minutes C ompleted 12/24/2020 79104 Therapeutic Procedure, Each 15 M inutes Completed 12/22/2020 99296 Therapeutic Procedure, Each 15 M inutes Completed 12/22/2020 90222 Manual Therapy Each 15 Minutes C ompleted 12/16/2020 51804 Manual Therapy Each 15 Minutes C ompleted 12/16/2020 84515 Therapeutic Procedure, Each 15 M inutes Completed 12/12/2020 96757 Office/Outpatient Established Mo d MDM 30-39 Min Completed 12/10/2020 05628 Manual Therapy Each 15 Minutes C ompleted 12/10/2020 52444 Therapeutic Procedure, Each 15 M inutes Completed 12/05/2020 82448 Manual Therapy Each 15 Minutes C ompleted 12/05/2020 52941 Therapeutic Procedure, Each 15 M inutes Completed 12/03/2020 38606 Manual Therapy Each 15 Minutes C ompleted 12/03/2020 41705 Therapeutic Procedure, Each 15 M inutes Completed [...] disc degeneration , unspecified cervical region Jarocho Steen PT, DPT 05/22/2021 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, lumbosacral region Jarocho Steen PT, DPT 05/20/2021 Z20.828 Contact with and (chambers spected) exposure to other viral communicable diseases Rodger Mehta, PNavid. 05/12/2021 M50.30 Other cervical disc degeneration , unspecified cervical region Doretha Kemp, APPEALS ANALYST 05/12/2021 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, lumbosacral region Doretha Kemp, APPEALS ANALYST 05/05/2021 M50.30 Other cervical disc degeneration , unspecified cervical region Danamarie Ortolano, APPEALS ANALYST 05/05/2021 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, lumbosacral region Danamarie Ortolano, APPEALS ANALYST 04/28/2021 M50.30 Other cervical disc degeneration , unspecified cervical region Jarocho Steen, PT, DPT 04/28/2021 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, lumbosacral region Jarocho Steen PT, DPT 04/23/2021 M50.30 Other cervical disc degeneration , unspecified cervical region Doretha Kemp, APPEALS ANALYST 04/23/2021 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, lumbosacral region Doretha Kemp, APPEALS ANALYST 04/20/2021 M50.30 Other cervical disc degeneration , unspecified cervical region Doretha Carly Kemp, APPEALS ANALYST 04/20/2021 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, lumbosacral region Doretha Carly Kemp, APPEALS ANALYST 04/09/2021 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, lumbosacral region Rodger Mehta, P.A. 04/09/2021 M50.30 Other cervical disc degeneration , unspecified cervical region Rodger Mehta, P.A. 04/08/2021 M51.36 Other intervertebral disc degene ration, lumbar region Jarocho Steen, PT, DPT 04/08/2021 M50.30 Other cervical disc degeneration , unspecified cervical region Jarocho Steen, PT, DPT 02/27/2021 Z01.818 Encounter for other [...] degeneration , unspecified cervical region Danamarie Ortolano, APPEALS ANALYST 02/25/2021 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, lumbosacral region Danamarie Ortolano, APPEALS ANALYST 02/23/2021 M50.30 Other cervical disc degeneration , unspecified cervical region Danamarie Ortolano, APPEALS ANALYST 02/23/2021 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, lumbosacral region Danamarie Ortolano, APPEALS ANALYST 02/20/2021 M50.30 Other cervical disc degeneration , unspecified cervical region Jarocho Steen, PT, DPT 02/20/2021 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, lumbosacral region Jarocho Steen, PT, DPT 02/13/2021 Z20.828 Contact w and exposure to oth vi ral communicable diseases Rodger Mehta, P.A. 01/23/2021 M50.30 Other cervical disc degeneration , unspecified cervical region Rodger Mehta, P.A. 01/23/2021 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, lumbosacral region Rodger Mehta, P.A. 01/14/2021 M50.30 Other cervical disc degeneration , unspecified cervical region Jarocho Steen, PT, DPT 01/07/2021 M50.30 Other cervical disc degeneration , unspecified cervical region Glenda Bowen P.T.A. 12/30/2020 M50.30 Other cervical disc degeneration , unspecified cervical region Danamarie Ortolano, APPEALS ANALYST 12/24/2020 M50.30 Other cervical disc degeneration , unspecified cervical region Danamarie Ortolano, APPEALS ANALYST 12/22/2020 M50.30 Other cervical disc degeneration , unspecified cervical region Jarocho Steen, PT, DPT 12/16/2020 M50.30 Other cervical disc degeneration , unspecified cervical region Danamarie Ortolano, APPEALS ANALYST 12/12/2020 M50.30 Other cervical disc degeneration , unspecified cervical region Rodger Mehta, P.A. 12/12/2020 M43.12 Spondylolisthesis, cervical nicolas on Rodger Mehta, P.A. 12/12/2020 M48.02 Spinal stenosis, cervical region Rodger Mehta, P.A. 12/12/2020 M43.17 Spondylolisthesis, lumbosacral r egion Rodger Mehta, P.A. 12/10/2020 M50.30 Other cervical disc degeneration , unspecified cervical region Danamarie Ortolano, APPEALS ANALYST 12/05/2020 M50.30 Other cervical disc degeneration , unspecified cervical region Danamarie Ortolano, APPEALS ANALYST 12/03/2020 M50.30 Other cervical disc degeneration , unspecified cervical region Danamarie Ortolano, APPEALS ANALYST Plan of Treatment Future Appointment(s):* 06/04/2021 9:15 am - Belinda Acevedo PA-C at [place] Functional Status Description No Information Available Mental Status Description No Information Available Referrals Refer to Reason for Referral Status Appt Date Doretha Kemp, APPEALS ANALYST ELDA INJ([id number]) # 2 PER SANAM Carlson AT [facility] IS APPROVED TO SURGERY NT Created [address] [place] [address], [address] [place] [address] [phone] Rodger Mehta, PA ELDA INJ ([id number]) PER EDWIGE Wagner AT [facility] APPROVAL FOR 1 INJ TO SURGERY NT Created [address] [place] [address] [address] [place] [address] [phone] Rodger Mehta, PA physical therapy approved 10 additional visits lumbar cervical authorization number [id number] nlg Created [address] [facility] [address] [place] [address] [phone]
--- OUTSIDE RECORDS SUMMARY | 2021-08-11 20:11 | CCD | Continuity of Care Document ---
Author Author Rosendo MEHTA P.A. Organization Unknown Address [address] [place] [address], [address] [address] Phone [phone] Care Team Providers Care Fitness Worker Name Role Phone Mike Navarro MD AUTM [phone] [facility] - [phone] AUTM Problems Active Problems Provider Date Essential [...] Negative Procedures Date Code Description Status 05/22/2021 41727 Manual Therapy Each 15 Minutes C ompleted 05/22/2021 42418 Re-Eval Of PT Establ ished Plan Of Care 20Mins Face To Face PT/Fam Completed 05/22/2021 65218 Therapeutic Procedure, Each 15 M inutes Completed 05/12/2021 35748 Manual Therapy Each 15 Minutes C ompleted 05/12/2021 16857 Therapeutic Procedure, Each 15 M inutes Completed 05/05/2021 88358 Manual Therapy Each 15 Minutes C ompleted 05/05/2021 03535 Therapeutic Procedure, Each 15 M inutes Completed 04/28/2021 59423 Manual Therapy Each 15 Minutes C ompleted 04/28/2021 66870 Therapeutic Procedure, Each 15 M inutes Completed 04/23/2021 16235 Manual Therapy Each 15 Minutes C ompleted 04/23/2021 17009 Therapeutic Procedure, Each 15 M inutes Completed 04/20/2021 27013 Manual Therapy Each 15 Minutes C ompleted 04/20/2021 98186 Therapeutic Procedure, Each 15 M inutes Completed 04/09/2021 11732 Office/Outpatient Established Mo d MDM 30-39 Min Completed 04/08/2021 63526 Manual Therapy Each 15 Minutes C ompleted 04/08/2021 91653 Therapeutic Procedure, Each 15 M inutes Completed 02/25/2021 48847 Manual Therapy Each 15 Minutes C ompleted 02/25/2021 24822 Therapeutic Procedure, Each 15 M inutes Completed 02/23/2021 08378 Manual Therapy Each 15 Minutes C ompleted 02/23/2021 29770 Therapeutic Procedure, Each 15 M inutes Completed 02/20/2021 62735 Physical Therapy Eval - Low Comp lexity Completed 01/23/2021 39786 Office/Outpatient Established Lo w MDM 20-29 Min Completed 01/14/2021 20374 Re-Eval Of PT Establ ished Plan Of Care 20Mins Face To Face PT/Fam Completed 01/14/2021 81425 Manual Therapy Each 15 Minutes C ompleted 01/07/2021 81737 Manual Therapy Each 15 Minutes C ompleted 01/07/2021 85125 Therapeutic Procedure, Each 15 M inutes Completed 12/30/2020 79654 Manual Therapy Each 15 Minutes C ompleted 12/30/2020 96288 Therapeutic Procedure, Each 15 M inutes Completed 12/24/2020 98787 Manual Therapy Each 15 Minutes C ompleted 12/24/2020 22545 Therapeutic Procedure, Each 15 M inutes Completed 12/22/2020 83167 Therapeutic Procedure, Each 15 M inutes Completed 12/22/2020 24169 Manual Therapy Each 15 Minutes C ompleted 12/16/2020 43750 Manual Therapy Each 15 Minutes C ompleted 12/16/2020 54806 Therapeutic Procedure, Each 15 M inutes Completed 12/12/2020 21934 Office/Outpatient Established Mo d MDM 30-39 Min Completed 12/10/2020 19365 Manual Therapy Each 15 Minutes C ompleted 12/10/2020 52693 Therapeutic Procedure, Each 15 M inutes Completed 12/05/2020 24255 Manual Therapy Each 15 Minutes C ompleted 12/05/2020 24145 Therapeutic Procedure, Each 15 M inutes Completed 12/03/2020 47968 Manual Therapy Each 15 Minutes C ompleted 12/03/2020 68936 Therapeutic Procedure, Each 15 M inutes Completed [...] , unspecified cervical region Doretha Carly Kemp, PROCESS ARTIST 05/12/2021 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, lumbosacral region Doretha Carly Kemp, PROCESS ARTIST 05/05/2021 M50.30 Other cervical disc degeneration , unspecified cervical region Danamarie Ortolano, PROCESS ARTIST 05/05/2021 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, lumbosacral region Danamarie Ortolano, PROCESS ARTIST 04/28/2021 M50.30 Other cervical disc degeneration , unspecified cervical region Jarocho Pederson, PT, DPT 04/28/2021 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, lumbosacral region Jarocho Pederson, PT, DPT 04/23/2021 M50.30 Other cervical disc degeneration , unspecified cervical region Doretha Carly Kemp, PROCESS ARTIST 04/23/2021 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, lumbosacral region Doretha Carly Kemp, PROCESS ARTIST 04/20/2021 M50.30 Other cervical disc degeneration , unspecified cervical region Doretha Carlyjacklyn Kemp, PROCESS ARTIST 04/20/2021 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, lumbosacral region Doretha Carly Kemp, PROCESS ARTIST 04/09/2021 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, [...] degeneration , unspecified cervical region Danamarie Ortolano, PROCESS ARTIST 02/25/2021 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, lumbosacral region Danamarie Ortolano, PROCESS ARTIST 02/23/2021 M50.30 Other cervical disc degeneration , unspecified cervical region Danamarie Ortolano, PROCESS ARTIST 02/23/2021 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, lumbosacral region Danamarie Ortolano, PROCESS ARTIST 02/20/2021 M50.30 Other cervical disc degeneration , [...] disc degeneration , unspecified cervical region Glenda Andrés P.T.A. 12/30/2020 M50.30 Other cervical disc degeneration , unspecified cervical region Danamarie Ortolano, PROCESS ARTIST 12/24/2020 M50.30 Other cervical disc degeneration , unspecified cervical region Danamarie Ortolano, PROCESS ARTIST 12/22/2020 M50.30 Other cervical disc degeneration , unspecified cervical region Jarocho Pederson, PT, DPT 12/16/2020 M50.30 Other cervical disc degeneration , unspecified cervical region Danamarie Ortolano, PROCESS ARTIST 12/12/2020 M50.30 Other cervical disc degeneration , unspecified cervical region Rodger Mehta, P.A. 12/12/2020 M43.12 Spondylolisthesis, cervical nicolas on Rodger Mehta, P.A. 12/12/2020 M48.02 Spinal stenosis, cervical region Rodger Mehta, P.A. 12/12/2020 M43.17 Spondylolisthesis, lumbosacral r egion Rodger Mehta, P.A. 12/10/2020 M50.30 Other cervical disc degeneration , unspecified cervical region Danamarie Ortolano, PROCESS ARTIST 12/05/2020 M50.30 Other cervical disc degeneration , unspecified cervical region Danamarie Ortolano, PROCESS ARTIST 12/03/2020 M50.30 Other cervical disc degeneration , unspecified cervical region Danamarie Ortolano, PROCESS ARTIST Plan of Treatment Future Appointment(s):* 06/04/2021 9:15 am - Belinda Acevedo PA-C at [facility] Functional Status Description No Information Available Mental Status Description No Information Available Referrals Refer to Reason for Referral Status Appt Date Doretha Kemp, PROCESS ARTIST ELDA INJ([id number]) # 2 PER SANAM Carlson AT [facility] IS APPROVED TO SURGERY NT Created [address] [facility], [address] [place] [address] [phone] Rodger Mehta PA ELDA INJ ([id number]) PER EDWIGE Wagner AT [facility] APPROVAL FOR 1 INJ TO SURGERY NT Created [address] [id number] [phone] Rodger Mehta PA physical therapy approved 10 additional visits lumbar cervical authorization number [id number] nlg Created 0 [address] [id number] [phone]
--- OUTSIDE RECORDS SUMMARY | 2021-08-11 20:11 | CCD | Continuity of Care Document ---
Author Author Rosendo TRUONG MD Organization Unknown Address [address] [place] [address] Phone [phone] Care Team Providers Care Oncology Research Rn Name Role Phone Mike Navarro M.D. AUTM [phone] Placido Bazzi M.D. AUTM [phone] Problems Active Problems Provider Date Benign prostatic [...] M.D. Onset: 09/26/2017 Raised prostate specific antigen rTu Au MD Onse t: 11/21/2019 Social History Type Date Description Comments Sex Unknown Tobacco Use Reviewed: 11/26/19 Never Smoked Cigarettes Smoking Status Reviewed: 04/30/21 Never Smoked Cigarettes ETOH Use Patient denies [...] Date Facility Test Result H/L Range Note Urine Microscopy 04/30/2021 [facility] [place] [address] [phone] Urine WBC 0-2 /HPF 0 - 5 Urine RBC 3-5 /HPF 0-2 Bacteria NEG /HPF Neg Crystals CA OXY 2+ /HPF Neg Epithelial Cells RARE /HPF Neg Sperm NEG /HPF Neg Yeast NEG /HPF Neg UACast NEG /LPF Neg 230 Ua Routine 04/30/2021 [facility] REF TO DR ADDRESS ON ORDER FOR (539)- - Ua Glucose Negative Ua Protein Negative Ua Nitrite Negative Ua Leuko Negative Ua Blood Trace-intact Ua Color Not Entered Ua Ketones Negative Ua Clarity Not Entered Ua Specific [place] >=1.030 1.003-1.030 Ua PH 5.5 5.0-7.5 Ua Bilirubin Negative Ua Urobilinogen 0.2 E.U./dL 0.0-1.0 Laboratory test finding 02/16/2021 [facility] ([place] [address] [place] [address] [phone] PSA Total 3.54 Prostatic Specific Ag Monitor 3.54 NG/ML Normal < 4.00 1 1 The PSA assay is performed o n the Siemens [place] analyzer by [employer] sandwich chemiluminescent immunoassay and should not be compared interchangeably with other methods. It should not be used alone as a screening test or diagnosis for the presence or absence of malignant disease. Predictions of disease recurrence should not be based solely on values obtained from serial patient serum values. Procedures Date Code Description Status 05/13/[address] Abdomen/Pelvis With W/Wo Cont rast Completed 04/30/2021 66189 Office/Outpatient Established Mo d MDM 30-39 Min Completed Medical Devices Description No Information Available Encounters Type Date Location Provider Dx Diagnosis Office Visit 04/30/2021 3:30p [facility] Etelvina Maynard NP N40.1 Benign prostatic hyperplasia with lower urinary tract symp R35.1 Nocturia R31.29 Other microscopic hematuria R97.20 Elevated prostate specific a ntigen [PSA] Assessments Date Code Description Provider 05/13/2021 N20.0 Calculus of kidney Sourav Truogn MD 05/13/2021 N28.1 Cyst of kidney, acquired Sourav rice MD 05/13/2021 R31.29 Other microscopic hematuria Sharmila Truong MD 04/30/2021 N40.1 Benign prostatic hyperplasia wit h lower urinary tract symptoms Etelvina Maynard NP 04/30/2021 R35.1 Nocturia Etelvina Maynard NP 04/30/2021 R31.29 Other microscopic hematuria Sruthi Maynard NP 04/30/2021 R97.20 Elevated prostate specific antig en [PSA] Etelvina Maynard NP 04/30/2021 R31.29 Other microscopic hematuria Katina Valenzuela MD Plan of Treatment Future Appointment(s):* 06/10/2021 8:10 am - Xavier Gentile MD at [facility]/ [facility] * 04/30/2022 10:45 am - Etelvina Maynard NP at [facility]/ [facility] 04/30/2021 - Etelvina Maynard NP* N40.1 [...] Referral Status Appt Date Xavier Gentile M.D. Per [facility] e: CPT Code: 94580 Auth: [id number] Valid: 05/01/2021-06/15/2021 05/01/2021 [facility] Created [facility] [address] [address] [phone]
--- OUTSIDE RECORDS SUMMARY | 2021-08-11 20:11 | CCD | Continuity of Care Document ---
Author Author Rosendo BEARD MD Organization Unknown Address [address] [place] [address] [address] [place] [address] Phone [phone] Care Team Providers Care Professor Of Marketing Name Role Phone Mike Navarro M.D. AUTM [phone] Placido Bazzi M.D. AUTM [phone] Problems Active Problems Provider Date Benign prostatic [...] Negative Ua Clarity Not Entered Ua Specific [place] >=1.030 1.003-1.030 Ua PH 6.5 5.0-7.5 Ua Bilirubin Negative Ua Urobilinogen 0.2 E.U./dL 0.0-1.0 Urine Microscopy 04/30/2021 [facility] [address] [place] [address] [phone] Urine WBC 0-2 /HPF 0 - 5 Urine RBC 3-5 /HPF 0-2 Bacteria NEG /HPF Neg Crystals CA OXY 2+ /HPF Neg Epithelial Cells RARE /HPF Neg Sperm NEG /HPF Neg Yeast NEG /HPF Neg UACast NEG /LPF Neg 230 Ua Routine 04/30/2021 [facility] REF TO DR ADDRESS ON ORDER FOR (519)- - Ua Glucose Negative Ua Protein Negative Ua Nitrite Negative Ua Leuko Negative Ua Blood Trace-intact Ua Color Not Entered Ua Ketones Negative Ua Clarity Not Entered Ua Specific [place] >=1.030 1.003-1.030 Ua PH 5.5 5.0-7.5 Ua Bilirubin Negative Ua Urobilinogen 0.2 E.U./dL 0.0-1.0 Laboratory test finding 02/16/[address] [address] [phone] PSA Total 3.54 Prostatic Specific Ag Monitor 3.54 NG/ML Normal < 4.00 1 1 The PSA assay is performed o n the Siemens [place] analyzer by LOC[employer] sandwich chemiluminescent immunoassay and should not be compared interchangeably with other methods. It should not be used alone as a screening test or diagnosis for the presence or absence of malignant disease. Predictions of disease recurrence should not be based solely on values obtained from serial patient serum values. Procedures Date Code Description Status 06/10/2021 13966 Cystourethroscopy, Separate Proc edure Completed 05/13/[address] Abdomen/Pelvis With W/Wo Cont rast Completed 04/30/2021 86112 Office/Outpatient Established Mo d MDM 30-39 Min Completed Medical Devices Description No Information Available Encounters Type Date Location Provider Dx Diagnosis Office Visit 04/30/2021 3:30p [facility] Etelvina Maynard NP N40.1 [...] 10:45 am - Etelvina Maynard NP at [facility] Functional Status Description No Information Available Mental Status Description No Information Available Referrals Refer to Reason for Referral Status Appt Date Xavier Beard M.D. Per [facility] ([facility]: CPT Code: 96873 Auth: [id number] Valid: 05/01/2021-06/15/2021 05/01/2021 [facility]RO Created [facility] [address] [place] [address] [phone]
--- OUTSIDE RECORDS SUMMARY | 2021-08-11 20:13 | CCD ---
Author Author [facility] Address Unknown Phone Unavailable Care Team Providers Care Tile Mason Name Role Phone Stacy Acevedo, PASuze Unavailable Unavailabl e Fish, Stacy CHISHOLM, PA-C Unavailable Unavailabl e Fish, Stacy CHISHOLM, PA-C Unavailable Unavailabl e FishStacy, PA-C Unavailable Unavailabl e Fish, Stacy CHISHOLM, PA-C Unavailable Unavailabl e Fish, Stacy CHISHOLM, PA-C Unavailable Unavailabl e Fish, Stacy CHISHOLM, PA-C Unavailable Unavailabl e Fish, Stacy CHISHOLM, PA-C Unavailable Unavailabl e Fish, Stacy CHISHOLM, PA-C Unavailable Unavailabl e Fish, [facility], PA-C Unavailable Unavailabl e Fish, [facility], PA-C Unavailable Unavailabl e Fish, [facility], PA-C Unavailable Unavailabl e Fish, [facility], PA-C Unavailable Unavailabl e Fish, [facility], PA-C Unavailable Unavailabl e Fish, [facility], PA-C Unavailable Unavailabl e Fish, [facility], PA-C Unavailable Unavailabl e Fish, [facility], PA-C Unavailable Unavailabl e Fish, [facility], PA-C Unavailable Unavailabl e Fish, [facility], PA-C Unavailable Unavailabl e Fish, [facility], PA-C Unavailable Unavailabl e Fish, [facility], PA-C Unavailable Unavailabl e Fish, [facility], PA-C Unavailable Unavailabl e Fish, [facility], PA-C Unavailable Unavailabl e Fish, [facility], PA-C Unavailable Unavailabl e Fish, [facility], PA-C Unavailable Unavailabl e Fish, [facility], PA-C Unavailable Unavailabl e Fish, [facility], PA-C Unavailable Unavailabl e Fish, [facility], PA-C Unavailable Unavailabl e Fish, [facility], PA-C Unavailable Unavailabl e Fish, [facility], PA-C Unavailable Unavailabl e Fish, [facility], PA-C Unavailable Unavailabl e Fish, [facility], PA-C Unavailable Unavailabl e Fish, [facility], PA-C Unavailable Unavailabl e Fish, [facility], PA-C Unavailable Unavailabl e Fish, [facility], PA-C Unavailable Unavailabl e Fish, [facility], PA-C Unavailable Unavailabl e SymenoNkechi tenorio Unavailable Unavailable SymenoNkechi tenorio Unavailable Unavailable Symenow, Nkechi RIVAS Unavailable Unavailable SymenowNkechi Unavailable Unavailable Symenow, Nkechi RIVAS Unavailable Unavailable Symenow, Nkechi Bessy PA Unavailable Unavailable Symenow, Nkechi Bessy PA Unavailable Unavailable Symenow, Nkechi Bessy PA Unavailable Unavailable Symenow, Nkechi Bessy PA Unavailable Unavailable Symenow, Nkechi Bessy PA Unavailable Unavailable Symenow, Nkechi Bessy PA Unavailable Unavailable Symenow, Nkechi Bessy PA Unavailable Unavailable Symenow, Nkechi Bessy PA Unavailable Unavailable Symenow, Nkechi Bessy PA Unavailable Unavailable Symenow, Nkechi Bessy PA Unavailable Unavailable Symenow, Nkechi Bessy PA Unavailable Unavailable Symenow, Nkechi Bessy PA Unavailable Unavailable Symenow, Nkechi Bessy PA Unavailable Unavailable Symenow, Nkechi Bessy PA Unavailable Unavailable Symenow, Nkechi Bessy PA Unavailable Unavailable Symenow, Nkechi Bessy PA Unavailable Unavailable Symenow, Nkechi Bessy PA Unavailable Unavailable Symenow, Nkechi Bessy PA Unavailable Unavailable Symenow, Nkechi Bessy PA Unavailable Unavailable Symenow, Nkechi Bessy PA Unavailable Unavailable Symenow, Nkechi Bessy PA Unavailable Unavailable Symenow, Nkechi Bessy PA Unavailable Unavailable Symenow, Nkechi Bessy PA Unavailable Unavailable Symenow, Nkechi Bessy PA Unavailable Unavailable Symenow, Nkechi Bessy PA Unavailable Unavailable Symenow, Nkechi Bessy PA Unavailable Unavailable Symenow, Nkechi Bessy PA Unavailable Unavailable Symenow, Nkechi Bessy PA Unavailable Unavailable Symenow, Nkechi Bessy PA Unavailable Unavailable Flaco KURTZ MD Unavailable Unavailable Flaco KURTZ MD Unavailable Unavailable Flaco KURTZ MD Unavailable Unavailable Flaco KURTZ MD Unavailable Unavailable Flaco KURTZ MD Unavailable Unavailable Flaco KURTZ MD Unavailable Unavailable Flaco KURTZ MD Unavailable Unavailable Flaco KURTZ MD Unavailable Unavailable Flaco KURTZ MD Unavailable Unavailable Flaco KURTZ MD Unavailable Unavailable Flaco KURTZ MD Unavailable Unavailable Flaco KURTZ MD Unavailable Unavailable Flaco KURTZ MD Unavailable Unavailable Flaco KURTZ MD Unavailable Unavailable Flaco KURTZ MD Unavailable Unavailable Flaco KURTZ MD Unavailable Unavailable Flaco KURTZ MD Unavailable Unavailable JERARDO, H JALIL MD Unavailable Unavailable JERARDO, H JALIL POLLARD Unavailable Unavailable JERARDO, H JALIL POLLARD Unavailable Unavailable JERARDO, H JALIL MD Unavailable Unavailable JERARDO, H JALIL MD Unavailable Unavailable JERARDO, H JALIL MD Unavailable Unavailable JERARDO, H JALIL MD Unavailable Unavailable JERARDO, H JALIL MD Unavailable Unavailable JERARDO, H JALIL MD Unavailable Unavailable JERARDO, H JALIL MD Unavailable Unavailable JERARDO, H JALIL MD Unavailable Unavailable JERARDO, H JALIL MD Unavailable Unavailable JERARDO, H JALIL MD Unavailable Unavailable JERARDO, H JALIL MD Unavailable Unavailable JERARDO, H JALIL MD Unavailable Unavailable JERARDO, H JALIL MD Unavailable Unavailable JERARDO, H JALIL MD Unavailable Unavailable JERARDO, H JALIL MD Unavailable Unavailable JERARDO, H JALIL MD Unavailable Unavailable JERARDO, H JALIL MD Unavailable Unavailable JERARDO, H JALIL MD Unavailable Unavailable JERARDO, H JALIL MD Unavailable Unavailable JERARDO, H JALIL MD Unavailable Unavailable JERARDO, H JALIL MD Unavailable Unavailable JERARDO, H JALIL MD Unavailable Unavailable JERARDO, H JALIL MD Unavailable Unavailable JERARDO, H JALIL MD Unavailable Unavailable JERARDO, H JALIL MD Unavailable Unavailable JERARDO, H JALIL MD Unavailable Unavailable JERARDO, H JALIL MD Unavailable Unavailable JERARDO, H JALIL MD Unavailable Unavailable JERARDO, H JALIL MD Unavailable Unavailable JERARDO, H JALIL MD Unavailable Unavailable JERARDO, H JALIL MD Unavailable Unavailable JERARDO, H JALIL MD Unavailable Unavailable JERARDO, H JALIL MD Unavailable Unavailable JERARDO, H JALIL MD Unavailable Unavailable JERARDO, H JALIL MD Unavailable Unavailable JERARDO, H JALIL MD Unavailable Unavailable JERARDO, H JALIL MD Unavailable Unavailable JERARDO, H JALIL MD Unavailable Unavailable JERARDO, H JALIL MD Unavailable Unavailable JERARDO, H JALIL MD Unavailable Unavailable JERARDO, H JALIL MD Unavailable Unavailable JERARDO, H JALIL MD Unavailable Unavailable JERARDO, H JALIL MD Unavailable Unavailable JERARDO, H JALIL POLLARD Unavailable Unavailable JERARDO, H JALIL MD Unavailable Unavailable JERARDO, H JALIL MD Unavailable Unavailable JERARDO, H JALIL MD Unavailable Unavailable JERARDO, H JALIL MD Unavailable Unavailable JERARDO, H JALIL MD Unavailable Unavailable JERARDO, H JALIL MD Unavailable Unavailable JREARDO, H JALIL MD Unavailable Unavailable JERARDO, H JALIL MD Unavailable Unavailable JERARDO, H JALIL MD Unavailable Unavailable JERARDO, H JALIL MD Unavailable Unavailable JERRADO, H JALIL MD Unavailable Unavailable JERARDO, H JALIL MD Unavailable Unavailable Maynard, A Etelvina MANAGER SOFTWARE Unavailable Unavailable Maynard, A Etelvina MANAGER SOFTWARE Unavailable Unavailable Maynard, A Etelvina MANAGER SOFTWARE Unavailable Unavailable Maynard, A Etelvina MANAGER SOFTWARE Unavailable Unavailable Maynard, A Etelvina MANAGER SOFTWARE Unavailable Unavailable Maynard, A Etelvina MANAGER SOFTWARE Unavailable Unavailable Maynard, A Etelvina MANAGER SOFTWARE Unavailable Unavailable Maynard, A Etelvina MANAGER SOFTWARE Unavailable Unavailable Maynard, A Etelvina MANAGER SOFTWARE Unavailable Unavailable Maynard, A Etelvina MANAGER SOFTWARE Unavailable Unavailable Maynard, A Etelvina MANAGER SOFTWARE Unavailable Unavailable Maynard, A Etelvina MANAGER SOFTWARE Unavailable Unavailable Maynard, A Etelvina MANAGER SOFTWARE Unavailable Unavailable Maynard, A Etelvina MANAGER SOFTWARE Unavailable Unavailable Maynard, A Etelvina MANAGER SOFTWARE Unavailable Unavailable Maynard, A Etelvina MANAGER SOFTWARE Unavailable Unavailable Maynard, A Etelvina MANAGER SOFTWARE Unavailable Unavailable Maynard, A Etelvina MANAGER SOFTWARE Unavailable Unavailable Maynard, A Etelvina MANAGER SOFTWARE Unavailable Unavailable Maynard, A Etelvina MANAGER SOFTWARE Unavailable Unavailable Maynard, A Etelvina MANAGER SOFTWARE Unavailable Unavailable Maynard, A Etelvina MANAGER SOFTWARE Unavailable Unavailable Maynard, A Etelvina MANAGER SOFTWARE Unavailable Unavailable Maynard, A Etelvina MANAGER SOFTWARE Unavailable Unavailable Maynard, A Etelvina MANAGER SOFTWARE Unavailable Unavailable Maynard, A Etelvina MANAGER SOFTWARE Unavailable Unavailable Maynard, A Etelvina MANAGER SOFTWARE Unavailable Unavailable Maynard, A Etelvina MANAGER SOFTWARE Unavailable Unavailable Maynard, A Etelvina MANAGER SOFTWARE Unavailable Unavailable Maynard, A Etelvina MANAGER SOFTWARE Unavailable Unavailable Maynard, A Etelvina MANAGER SOFTWARE Unavailable Unavailable Maynard, A Etelvina MANAGER SOFTWARE Unavailable Unavailable Maynard, A Etelvina MANAGER SOFTWARE Unavailable Unavailable Maynard, A Etelvina MANAGER SOFTWARE Unavailable Unavailable Maynard, A Etelvina MANAGER SOFTWARE Unavailable Unavailable Maynard, A Etelvina MANAGER SOFTWARE Unavailable Unavailable Maynard, A Etelvina MANAGER SOFTWARE Unavailable Unavailable Maynard, A Etelvina MANAGER SOFTWARE Unavailable Unavailable Maynard, A Etelvina MANAGER SOFTWARE Unavailable Unavailable Maynard, A Etelvina MANAGER SOFTWARE Unavailable Unavailable Maynard, A Etelvina MANAGER SOFTWARE Unavailable Unavailable Maynard, A Etelvina MANAGER SOFTWARE Unavailable Unavailable Maynard, A Etelvina MANAGER SOFTWARE Unavailable Unavailable Maynard, A Etelvina MANAGER SOFTWARE Unavailable Unavailable Maynard, A Etelvina MANAGER SOFTWARE Unavailable Unavailable Maynard, A Etelvina MANAGER SOFTWARE Unavailable Unavailable Maynard, A Etelvina MANAGER SOFTWARE Unavailable Unavailable Maynard, A Etelvina MANAGER SOFTWARE Unavailable Unavailable Maynard, A Etelvina MANAGER SOFTWARE Unavailable Unavailable Maynard, A Etelvina MANAGER SOFTWARE Unavailable Unavailable MCELHERAN, SANTIAGO PA Unavailable Unavailable MCELHERAN, SANTIAGO PA Unavailable Unavailable MCELHERAN, SANTIAGO PA Unavailable Unavailable MCELHERAN, SANTIAGO PA Unavailable Unavailable MCELHERAN, SANTIAGO PA Unavailable Unavailable MCELHERAN, SANTIAGO PA Unavailable Unavailable MCELHERAN, SANTIAGO PA Unavailable Unavailable MCELHERAN, SANTIAGO PA Unavailable Unavailable MCELHERAN, SANTIAGO PA Unavailable Unavailable MCELHERAN, SANTIAGO PA Unavailable Unavailable MCELHERAN, SANTIAGO PA Unavailable Unavailable MCELHERAN, SANTIAGO PA Unavailable Unavailable MCELHERAN, SANTIAGO PA Unavailable Unavailable MCELHERAN, SANTIAGO PA Unavailable Unavailable MCELHERAN, SANTIAGO PA Unavailable Unavailable MCELHERAN, SANTIAGO PA Unavailable Unavailable MCELHERAN, SANTIAGO PA Unavailable Unavailable MCELHERAN, SANTIAGO PA Unavailable Unavailable MCELHERAN, SANTIAGO PA Unavailable Unavailable MCELHERAN, SANTIAGO PA Unavailable Unavailable MCELHERAN, SANTIAGO PA Unavailable Unavailable MCELHERAN, SANTIAGO PA Unavailable Unavailable MCELHERAN, SANTIAGO PA Unavailable Unavailable MCELHERAN, SANTIAGO PA Unavailable Unavailable MCELHERAN, SANTIAGO PA Unavailable Unavailable MCELHERAN, SANTIAGO PA Unavailable Unavailable MCELHERAN, SANTIAGO PA Unavailable Unavailable MCELHERAN, SANTIAGO PA Unavailable Unavailable MCELHERAN, SANTIAGO PA Unavailable Unavailable Dator JR, Guillermo POLLARD Unavailable Unavailable Dator JR, Guillermo POLLARD Unavailable Unavailable Dator JR, Guillermo POLLARD Unavailable Unavailable Dator JR, Guillermo POLLARD Unavailable Unavailable Dator JR, Guillermo POLLARD Unavailable Unavailable Dator JR, Guillermo POLLARD Unavailable Unavailable Dator JR, Guillermo POLLARD Unavailable Unavailable Dator JR, Guillermo POLLARD Unavailable Unavailable Dator JR, Guillermo POLLARD Unavailable Unavailable Dator JR, Guillermo POLLARD Unavailable Unavailable Dator JR, Guillermo POLLARD Unavailable Unavailable Dator JR, Guillermo POLLARD Unavailable Unavailable Dator JR, Guillermo POLLARD Unavailable Unavailable Dator JR, Guillermo POLLARD Unavailable Unavailable Dator JR, Guillermo POLLARD Unavailable Unavailable Dator JR, Guillermo POLLARD Unavailable Unavailable Dator JR, Guillermo POLLARD Unavailable Unavailable Dator JR, Guillermo POLLARD Unavailable Unavailable Dator JR, Guillermo POLLARD Unavailable Unavailable Dator JR, Guillermo POLLARD Unavailable Unavailable Dator JR, Guillermo POLLARD Unavailable Unavailable Dator JR, Guillermo POLLARD Unavailable Unavailable Dator JR, Guillermo POLLARD Unavailable Unavailable Dator JR, Guillermo POLLARD Unavailable Unavailable Dator JR, Guillermo POLLARD Unavailable Unavailable Dator JR, Guillermo POLLARD Unavailable Unavailable Dator JR, Guillermo POLLARD Unavailable Unavailable Dator JR, Guillermo POLLARD Unavailable Unavailable Dertiburcioia, Felecia Park MD Unavailable Unavailable Derosalia, Felecia Park MD Unavailable Unavailable Derosalia, Felecia Park MD Unavailable Unavailable Derosalia, Felecia Park MD Unavailable Unavailable Derosalia, Felecia Park MD Unavailable Unavailable Derosalia, Felecia Park MD Unavailable Unavailable Derosalia, Felecia Park MD Unavailable Unavailable Derosalia, Felecia Park MD Unavailable Unavailable Derosalia, Felecia Park MD Unavailable Unavailable Derosalia, Felecia Park MD Unavailable Unavailable Derosalia, Felecia Park MD Unavailable Unavailable Derosalia, Felecia Park MD Unavailable Unavailable Derosalia, Felecia Park MD Unavailable Unavailable Derosalia, Felecia Park MD Unavailable Unavailable Derosalia, Felecia Park MD Unavailable Unavailable Derosalia, Felecia Park MD Unavailable Unavailable Derosalia, Felecia Park MD Unavailable Unavailable Derosalia, Felecia Park MD Unavailable Unavailable Derosalia, R Xavier POLLARD Unavailable Unavailable Derosalia, R Xavier POLLARD Unavailable Unavailable Derosalia, R Xavier POLLARD Unavailable Unavailable Derosalia, R Xavier POLLARD Unavailable Unavailable Derosalia, R Xavier POLLARD Unavailable Unavailable Derosalia, R Xavier POLLARD Unavailable Unavailable Derosalia, R Xavier POLLARD Unavailable Unavailable Derosalia, R Xavier POLLARD Unavailable Unavailable Derosalia, R Xavier POLLARD Unavailable Unavailable Derosalia, R Xavier POLLARD Unavailable Unavailable Derosalia, R Xavier POLLARD Unavailable Unavailable Derosalia, R Xavier POLLARD Unavailable Unavailable Derosalia, R Xavier POLLARD Unavailable Unavailable Derosalia, R Xavier POLLARD Unavailable Unavailable Derosalia, R Xavier POLLARD Unavailable Unavailable Derosalia, R Xavier POLLARD Unavailable Unavailable Derosalia, R Xavier POLLARD Unavailable Unavailable Derosalia, R Xavier POLLARD Unavailable Unavailable Derosalia, R Xavier POLLARD Unavailable Unavailable Derosalia, R Xavier POLLARD Unavailable Unavailable Derosalia, R Xavier POLLARD Unavailable Unavailable Derosalia, R Xavier POLLARD Unavailable Unavailable Derosalia, R Xavier POLLARD Unavailable Unavailable Derosalia, R Xavier POLLARD Unavailable Unavailable Derosalia, R Xavier POLLARD Unavailable Unavailable Derosalia, R Xavier POLLARD Unavailable Unavailable Derosalia, R Xavier POLLARD Unavailable Unavailable Derosalia, R aXvier POLLARD Unavailable Unavailable Derosalia, R Xavier POLLARD Unavailable Unavailable Derosalia, R Xavier POLLARD Unavailable Unavailable Derosalia, R Xavier POLLARD Unavailable Unavailable Derosalia, R Xavier POLLARD Unavailable Unavailable Derosalia, R Xavier POLLARD Unavailable Unavailable Derosalia, R Xavier POLLARD Unavailable Unavailable Derosalia, R Xavier POLLARD Unavailable Unavailable Derosalia, R Xavier POLLARD Unavailable Unavailable Derosalia, R Xavier POLLARD Unavailable Unavailable Derosalia, R Xavier POLLARD Unavailable Unavailable Derosalia, R Xavier POLLARD Unavailable Unavailable Derosalia, R Xavier POLLARD Unavailable Unavailable Derosalia, R Xavier POLLARD Unavailable Unavailable Derosalia, R Xavier POLLARD Unavailable Unavailable Derosalia, R Xavier POLLARD Unavailable Unavailable Derosalia, R Xavier POLLARD Unavailable Unavailable Derosalia, R Xavier POLLARD Unavailable Unavailable Derosalia, R Xavier POLLARD Unavailable Unavailable Derosalia, R Xavier POLLARD Unavailable Unavailable Derosalia, R Xavier POLLARD Unavailable Unavailable Derosalia, R Xavier POLLARD Unavailable Unavailable Ayon, Montpelier Dee Unavailable Unavailable Ayon, [place] Dee Unavailable Unavailable Ayon, [place] Dee Unavailable Unavailable Ayon, [place] Dee Unavailable Unavailable Ayon, [place] Dee Unavailable Unavailable Ayon, [place] Dee Unavailable Unavailable Ayon, [place] Dee Unavailable Unavailable Ayon, [place] Dee Unavailable Unavailable Ayon, [place] Dee Unavailable Unavailable Ayon, [place] Dee Unavailable Unavailable Ayon, [place] Dee Unavailable Unavailable Ayon, [place] Dee Unavailable Unavailable Ayon, [place] Dee Unavailable Unavailable Re-disclosure Warning The records that you are about to access may contain information from federally-assisted alcohol or drug abuse programs. If such information is present, then the following federally mandated warning applies: This information has been disclosed to you from records protected by federal confidentiality rules (42 CFR part 2). The federal rules prohibit you from making any further disclosure of this information unless further disclosure is expressly permitted by the written consent of the person to whom it pertains or as otherwise permitted by 42 CFR part 2. A general authorization for the release of medical or other information is NOT sufficient for this purpose. The Federal rules restrict any use of the information to criminally investigate or prosecute any alcohol or drug abuse patient.The records that you are about to access may contain highly sensitive health information, the redisclosure of which is protected by Article 27-F of the [facility] Public Health law. If you continue you may have access to information: Regarding HIV / AIDS; Provided by facilities licensed or operated by the [facility] Office of Mental Health; or Provided by the [facility] Office for People With Developmental Disabilities. If such information is present, then the following [facility] mandated warning applies: This information has been disclosed to you from confidential records which are protected by state law. State law prohibits you from making any further disclosure of this information without the specific written consent of the person to whom it pertains, or as otherwise permitted by law. Any unauthorized further disclosure in violation of state law may result in a fine or [place] health [facility] sentence or both. A general authorization for the release of medical or other information is NOT sufficient authorization for further disc losure. Allergies and Adverse Reactions Type Description Substance Reaction Status Data Source(s ) Propensity to adverse reactions OTHER Other Acti ve [facility] Propensity to adverse reactions CODEINE Codeine Acti ve [facility] Allergy to substance Allergy to substance Allergy to substance [facility] ([facility]) Allergy to substance Allergy to substance Allergy to substance [facility] ([facility]) Family History Family Member Name Family Member Gender Family Member Status Date o f Status Description Data Source(s) Unknown Unknown Problem [facility] ([facility]) Encounters Encounter Providers Location Date Indications Data Source(s ) Outpatient Referrer: Xavier Cervantes MD [id number] 09:00:33 AM EDT - 08/01/2021 09:00:36 AM EDT [facility] Outpatient Attender: JALIL KURTZ MD [place] Office 02:00:00 PM EDT [facility] ([facility] Inpatient Attender: Xavier Carlson DAttender: Guillermo Bermudez JRAdmitter: Xavier Cervantes MD [id number] 06/22/2021 11:24:14 AM EDT - 08/06/2021 01:43:00 PM EDT [facility] Patient discharged. OFFICE OUTPATIENT VISIT 15 MINUTES Attender: ROB Avelar-C Physical Therapy 06/04/2021 09:15:00 AM EDT [facility] ([facility]) Outpatient Attender: JALIL KURTZ MD [place] Office 11:00:00 AM EDT [facility] ([facility] Outpatient Attender: Etelvina Maynard NP [facility] 04/30/2021 03:30:00 PM EDT [facility] ([facility] [place] Outpatient Attender: SANTIAGO RIVAS Physical Therapy 04/09/2021 11:30:00 AM EDT [facility] ([facility]) Outpatient Attender: Bessy RIVAS Main Office 03/31/2021 08:45:00 AM EDT [facility] ([facility]) LAURENCE Tobar-C: [address] [place] [phone], Ph. Attender: Dee Ayon [facility] 02/17/2021 12:00:00 AM EDT [facility] ([facility]) OFFICE OUTPATIENT VISIT 15 MINUTES Attender: SANTIAGO RVIAS Physical Therapy 01/23/2021 04:00:00 PM EDT [facility] ([facility]) LAURENCE Tobar-C: [address] [place] [phone], Ph. Attender: Dee Ayon [facility] 01/20/2021 12:00:00 AM EDT [facility] ([facility]) LAURENCE Tobar-C: [address] [place] [phone], Ph. Attender: Dee Ayon [facility] 01/20/2021 12:00:00 AM EDT [facility] ([facility]) Outpatient Attender: SANTIAGO RIVAS Physical Therapy 12/12/2020 02:30:00 PM EST [facility] ([facility]) Outpatient Attender: SANTIAGO RIVAS Physical Therapy 11/05/2020 08:15:00 AM EST [facility] ([facility]) Outpatient Attender: JALIL KURTZ MD [place] Office 09:40:00 AM EST [facility] ([facility] Outpatient Attender: Bessy RIVAS Main Office 09/25/2020 07:45:00 AM EST [facility] ([facility]) OFFICE OUTPATIENT VISIT 15 MINUTES Attender: SANTIAGO RIVAS Physical Therapy 09/24/2020 01:15:00 PM EST [facility] ([facility]) OFFICE OUTPATIENT VISIT 15 MINUTES Attender: SANTIAGO RIVAS Physical Therapy 08/27/2020 12:15:00 PM EST [facility] ([facility]) OFFICE OUTPATIENT VISIT 15 MINUTES Attender: SANTIAGO RIVAS Physical Therapy 07/21/2020 09:00:00 AM EDT [facility] ([facility]) OFFICE OUTPATIENT VISIT 15 MINUTES Attender: SANTIAGO RIVAS Physical Therapy 06/18/2020 03:30:00 PM EDT [facility] Immunizations Vaccine Date Status Description Data Source(s) New in 2012. IIV4 07/06/2021 02:50:00 PM EDT completed [facility] ([facility] COVID-19, mRNA, LNP-S, PF, 100 mcg/0.5 mL dose 02/17/2021 05 :20:46 PM EDT completed .5 mL [facility] ([facility]) COVID-19 VACCINE Moderna 02/17/2021 12:00:00 AM EDT completed [facility] Vaccine Series Complete: YESThis Data wa s Submitted to [facility] Via [employer]. COVID-19, mRNA, LNP-S, PF, 100 mcg/0.5 mL dose 01/20/2021 05 :49:32 PM EDT completed .5 mL [facility] ([facility]) COVID-19, mRNA, LNP-S, PF, 100 mcg/0.5 mL dose 01/20/2021 05 :49:32 PM EDT completed .5 mL [facility] ([facility]) COVID-19 VACCINE Moderna 01/20/2021 12:00:00 AM EDT completed [facility] Vaccine Series Complete: NOThis Data was Submitted to [facility] Via [employer]. INFLUENZA VIRUS VACCINE QUADRIVALENT 2019- (6 MOS AN D UP) 08/06/2020 12:00:00 AM EDT completed [facility] Medications Medication Brand Name Start Date Product Form Dose Route Admi nistrative Instructions Pharmacy Instructions Status Indications Reaction Description Data Source(s) Aspirin 81 MG Delayed Release Oral Tablet aspirin EC 8 1 MG EC tablet aspirin EC 81 MG EC tablet 08/10/2021 12:00:00 AM EDT 81 mg Oral ac tive Take 1 tablet (81 mg total) by mouth daily [facility] Aspirin 81 MG Delayed Release Oral Tablet aspirin EC 8 1 MG EC tablet aspirin EC 81 MG EC tablet 08/09/2021 12:00:00 AM EDT 81 mg Oral ab orted Take 1 tablet (81 mg total) by mouth daily [facility] Chlorthalidone 25 MG Oral Tablet chlorthalidone (HYGRO TEN) tablet 12.5 mg chlorthalidone (HYGROTEN) tablet 12.5 mg 08/06/2021 09:00:00 AM EDT 12.5 mg Oral active 12.5 mg, Oral, Every other day, First dose on Tue08/06/21 at 0900
Hold for SBP<110 and HR <60 and please call the PA
[facility] Medication administered onsite Docusate Sodium 100 MG Oral Capsule docusate sodium (C OLACE) 100 MG capsule docusate sodium (COLACE) 100 MG capsule 08/06/2021 12:00:00 AM EDT 100 mg Oral active Take 1 capsule (100 mg total) by mouth 2 (two) times a day [facility] POLYETHYLENE GLYCOL 3350 142 MG/ML Oral Solution polyethylene glycol (GLYCOLAX) 17 g packet polyethylene glycol (GLYCOLAX) 17 g packet 08/06/2021 12:00:00 AM EDT 17 g Oral active Take 17 g by mout h daily as needed [facility] 17 gram 08/06/2021 12:00:00 AM EDT powder in packet 14 MIX 1 CAPFUL (17 GRAMS) IN LIQUID AND TAKE BY MOUTH ONCE DAILY NEEDED MIX 1 CAPFUL (17 GRAMS) IN LIQUID AND TAKE BY MOUTH ONCE DAILY NEEDED SOLD: 08/06/2021 [facility] Famotidine 20 MG Oral Tablet famotidine (PEPCID) table t 20 mg famotidine (PEPCID) tablet 20 mg 08/05/2021 09:00:00 PM EDT 20 mg Oral active 20 mg, Oral, Nightly, First dose on Tue08/05/21 at 2100 [facility] Medication administered onsite Sertraline 50 MG Oral Tablet sertraline (ZOLOFT) table t 50 mg sertraline (ZOLOFT) tablet 50 mg 08/05/2021 09:00:00 PM EDT 50 mg Oral active 50 mg, Oral, Nightly, First dose on Tue08/05/21 at 2100 [facility] Medication administered onsite Cefazolin 1000 MG Injection ceFAZolin (ANCEF) injectio n 1 g ceFAZolin (ANCEF) injection 1 g 08/05/2021 07:00:00 PM EDT 1 g Intravenous completed 1 g, Intravenous, Every 8 hours (relative), First dose on Tue08/05/21 at 1900, For 2 doses, Post-op
Reconstitute with 10 ml sterile water for injection. Administer IV push over 3 minutes. Use within 1 hour of reconstitution
[facility] Medication administered onsite valsartan 80 MG Oral Tablet valsartan (DIOVAN) tablet 320 mg valsartan (DIOVAN) tablet 320 mg 08/05/2021 05:00:00 PM EDT 320 mg Oral acti ve 320 mg, Oral, Daily, First dose on Tue08/05/21 at 1700
Hold for SBP<110 and HR <60 and please call the PA
[facility] Medication administered onsite eplerenone 25 MG Oral Tablet eplerenone (INSPRA) table t 25 mg eplerenone (INSPRA) tablet 25 mg 08/05/2021 04:30:00 PM EDT 25 mg Oral active 25 mg, Oral, Every evening, First dose on Tue08/05/21 at 1630
Hold for SBP<110 and HR <60 and please call the PA
[facility] Medication administered onsite heparin (porcine) injection 5,000 Units 25504-727-03 08/05/20 03:00:00 PM EDT 5000 U Subcutaneous active 5,000 Units , Subcutaneous, Every 8 hours (scheduled), First dose on Tue08/05/21 at 1500
If platelet count is less than 100,000 or hematocrit is less than 25, or if there is a 5 point decrease in hematocrit, do not give the dose and call physician/designee.
[facility] Medication administered onsite POLYETHYLENE GLYCOL 3350 142 MG/ML Oral Solution polyethylene glycol (GLYCOLAX) packet 17 g polyethylene glycol (GLYCOLAX) packet 17 g 08/05/2021 03:00:00 PM EDT 17 g Oral active 17 g, Or al, Daily, First dose on Tue08/05/21 at 1500, Post-op
hold for loose stools
[facility] Medication administered onsite Docusate Sodium 100 MG Oral Capsule docusate sodium (C OLACE) capsule 100 mg docusate sodium (COLACE) capsule 100 mg 08/05/2021 03:00:00 PM EDT 100 mg Oral active 100 mg, Oral, 2 times daily, First dose on Tue08/05/21 at 1500, Post-op
hold for loose stools
[facility] Medication administered onsite sodium chloride 0.9% (NS) infusion 2176-9067-68 08/05/2021 03:00:00 PM EDT 100 mL/h Intravenous active at 100 m L/hr, 100 mL/hr, Intravenous, Continuous, Starting on Tue08/05/21 at 1500, Post-op [facility] Medication administered onsite Oxybutynin chloride 5 MG Oral Tablet oxybutynin (DITRO TSAI) tablet 5 mg oxybutynin (DITROPAN) tablet 5 mg 08/05/2021 02:01:04 PM EDT 5 mg Oral active 5 mg, Oral, Every 8 hours PRN, for bladder spasms, Starting on Tue08/05/21 at 1401, Post-op
Discontinue 24 hours prior to anticipated garg removal.
[facility] Medication administered onsite Calcium Carbonate 500 MG Chewable Tablet calcium carbonate (TUMS) chewable tablet 750 mg calcium carbonate (TUMS) chewable tablet 750 mg 2020 02:01:04 PM EDT 750 mg Oral active 750 mg, Oral, As needed, heartburn, Starting on Tue08/05/21 at 1401 [facility] Medication administered onsite Bacitracin 0.5 UNT/MG / Neomycin 0.0035 MG/MG / Polymyxin B 10 UNT/MG Topical Ointment ebkathjz-ipzzdvgsvd-mgtpyebai (NEOSPORIN) ointment 1 application wxiyasjz-kqzzsbhkmq-imgvjyihm (NEOSPORIN) ointment 1 application 08/05/2021 02:01:04 PM EDT 1 {application} Topical active Post-op, 1 application, Topical, Every 2 hour PRN, Starting on Tue08/05/21 at 1401, Until Discontinued [facility] Medication administered onsite ondansetron (ZOFRAN) injection 4 mg [id number] 08/05/2021 02:01:0 4 PM EDT 4 mg Intravenous active 4 mg, In travenous, Every 6 hours PRN, nausea, vomiting, Starting on Tue08/05/21 at 1401, Post-op [facility] Medication administered onsite Acetaminophen 325 MG Oral Tablet acetaminophen (TYLENO L) 325 MG tablet 650 mg acetaminophen (TYLENOL) 325 MG tablet 650 mg 08/05/2021 02:01:03 PM EDT 650 mg Oral active 650 mg, Or al, Every 6 hours PRN, mild pain (1-3), for mild pain and / or temperature > 101.5, Starting on Tue08/05/21 at 1401, Post-op
"Maximum dose of acetaminophen is 4,000 mg from all sources in 24 hours."
[facility] Medication administered onsite Magnesium Chloride 0.54012 MEQ/ML / Pota ssium Chloride 0.0497 MEQ/ML / Sodium Acetate 0.0163 MEQ/ML / Sodium Chloride 0.0899 MEQ/ML / Sodium gluconate 5.02 MG/ML Injectable Solution [Normosol-R] electrolyte-R (NORMOSOL-R/PLASMALYTE-R) solution electrolyte-R (NORMOSOL-R/PLASMALYTE-R) solution 08/05 01:00:00 PM EDT Intravenous active at 1 00 mL/hr, Intravenous, Continuous, Starting on Tue08/05/21 at 1300, PACU & Post-op [facility] Medication administered onsite Magnesium Chloride 0.17433 MEQ/ML / Pota ssium Chloride 0.0497 MEQ/ML / Sodium Acetate 0.0163 MEQ/ML / Sodium Chloride 0.0899 MEQ/ML / Sodium gluconate 5.02 MG/ML Injectable Solution [Normosol-R] electrolyte-R (NORMOSOL-R/PLASMALYTE-R) solution electrolyte-R (NORMOSOL-R/PLASMALYTE-R) solution 08/05 11:00:00 AM EDT Intravenous aborted at 1 00 mL/hr, Intravenous, Continuous, Starting on Tue08/05/21 at 1100 [facility] Medication administered onsite Ciprofloxacin 250 MG Oral Tablet Ciprofloxacin HCL 06/10/2021 12:00 :00 AM EDT ORAL completed [facility] ([facility] [place]) 320 mg 05/17/2021 12:00:00 AM EDT tablet 90 TAKE ONE TABLET BY MOUTH AT BEDTIME TAKE ONE TABLET BY MOUTH AT BEDTIME SOLD: 05/21/2021 [facility] Famotidine 40 MG Oral Tablet FAMOTIDINE 05/09/2021 12:00:00 AM EDT tab let 90 TAKE ONE TABLET BY MOUTH EVERY DAY TAKE ONE TABLET BY MOUTH EVERY DAY SOLD: 05/12/2021 [facility] eplerenone 25 MG Oral Tablet EPLERENONE 05/05/2021 12:00:00 AM EDT tab let 90 TAKE ONE TABLET BY MOUTH EVERY DAY TAKE ONE TABLET BY MOUTH EVERY DAY SOLD: 05/08/2021 [facility] eplerenone 25 MG Oral Tablet EPLERENONE 05/05/2021 12:00:00 AM EDT tab let 90 TAKE ONE TABLET BY MOUTH EVERY DAY TAKE ONE TABLET BY MOUTH EVERY DAY SOLD: 08/06/2021 [facility] 50 mg 03/06/2021 12:00:00 AM EDT tablet 90 TAKE ONE TABLET BY MOUTH EVERY DAY TAKE ONE TABLET BY MOUTH EVERY DAY SOLD: 03/14/2021 [facility] 50 mg 03/06/2021 12:00:00 AM EDT tablet 90 TAKE ONE TABLET BY MOUTH EVERY DAY TAKE ONE TABLET BY MOUTH EVERY DAY SOLD: 06/12/2021 [facility] 50 mg 09/11/2020 12:00:00 AM EST tablet 90 TAKE ONE TABLET BY MOUTH EVERY DAY TAKE ONE TABLET BY MOUTH EVERY DAY SOLD: 12/08/2020 [facility] 50 mg 09/11/2020 12:00:00 AM EST tablet 90 TAKE ONE TABLET BY MOUTH EVERY DAY TAKE ONE TABLET BY MOUTH EVERY DAY SOLD: 09/12/2020 [facility] 25 mg 08/14/2020 12:00:00 AM EST tablet 23 TAKE 1/2 TABLET BY MOUTH EVERY SECOND DAY TAKE 1/2 TABLET BY MOUTH EVERY SECOND DAY SOLD: 08/21/2020 [facility] 25 mg 08/14/2020 12:00:00 AM EST tablet 23 TAKE 1/2 TABLET BY MOUTH EVERY SECOND DAY TAKE 1/2 TABLET BY MOUTH EVERY SECOND DAY SOLD: 11/22/2020 [facility] 25 mg 08/14/2020 12:00:00 AM EST tablet 23 TAKE 1/2 TABLET BY MOUTH EVERY SECOND DAY TAKE 1/2 TABLET BY MOUTH EVERY SECOND DAY SOLD: 05/21/2021 [facility] 25 mg 08/14/2020 12:00:00 AM EST tablet 23 TAKE 1/2 TABLET BY MOUTH EVERY SECOND DAY TAKE 1/2 TABLET BY MOUTH EVERY SECOND DAY SOLD: 02/19/2021 [facility] 320 mg 05/14/2020 12:00:00 AM EDT tablet 90 TAKE ONE TABLET BY MOUTH AT BEDTIME TAKE ONE TABLET BY MOUTH AT BEDTIME SOLD: 08/21/2020 [facility] 320 mg 05/14/2020 12:00:00 AM EDT tablet 90 TAKE ONE TABLET BY MOUTH AT BEDTIME TAKE ONE TABLET BY MOUTH AT BEDTIME SOLD: 02/19/2021 [facility] 320 mg 05/14/2020 12:00:00 AM EDT tablet 90 TAKE ONE TABLET BY MOUTH AT BEDTIME TAKE ONE TABLET BY MOUTH AT BEDTIME SOLD: 11/21/2020 [facility] eplerenone 25 MG Oral Tablet EPLERENONE 05/07/2020 12:00:00 AM EDT tab let 90 TAKE ONE TABLET BY MOUTH EVERY DAY TAKE ONE TABLET BY MOUTH EVERY DAY SOLD: 11/08/2020 [facility] eplerenone 25 MG Oral Tablet EPLERENONE 05/07/2020 12:00:00 AM EDT tab let 90 TAKE ONE TABLET BY MOUTH EVERY DAY TAKE ONE TABLET BY MOUTH EVERY DAY SOLD: 08/06/2020 [facility] 20 mg 03/26/2020 12:00:00 AM EDT tablet 90 TAKE ONE TABLET BY MOUTH AT BEDTIME TAKE ONE TABLET BY MOUTH AT BEDTIME SOLD: 06/27/2020 [facility] 50 mg 03/17/2020 12:00:00 AM EDT tablet 90 TAKE ONE TABLET BY MOUTH EVERY DAY TAKE ONE TABLET BY MOUTH EVERY DAY SOLD: 06/15/2020 [facility] Aspirin 81 MG Delayed Release Oral Tablet aspirin EC 8 1 MG EC tablet aspirin EC 81 MG EC tablet 81 mg Oral aborted Take 81 mg by mouth daily [facility] Insurance Providers Payer name Policy type / Coverage type Policy ID Covered democrat ID Covered democrat's relationship to everett Policy Everett Plan Information [facility] Commercial [id number] Self [facility] Commercial [id number] Self [facility] [id number] .[id number] Self [id number] BCBS [place] Med[employer] Part B [id number] 2.0.1.433908.3.227.99 .572.91860.0 Self [id number] BCBS [place] Medigap Part B [id number] Self BCBS [place] Med[employer] Part B [id number] 2.0.1.811951.3.227.99 .572.75774.0 Self [id number] BCBS [place] Medig[employer] Part B [id number] 2.0.1.529404.3.227.99 .572.37451.0 Self [id number] BCBS [place] Med[employer] Part B [id number] 2..1.494715.3.227.99 .572.64370.0 Self [id number] BCBS [place] Medigap Part B [id number] Self [id number] BCBS [place] Medigap Part B [id number] 2..1.301842.3.227.99 .572.22370.0 Self [id number] BCBS [place] Medigap Part B [id number] 2..1.746528.3.227.99 .572.41160.0 Self [id number] BCBS [place] Medigap Part B [id number] 2.0.1.961324.3.227.99 .572.30136.0 Self [id number] BCBS [place] Medigap Part B [id number] 2..1.356551.3.227.99 .572.07820.0 Self [id number] BCBS [place] Medigap Part B [id number] Self BCBS [place] Medigap Part B [id number] 2.16.840.1.556701.3.227.99 .572.02985.0 Self [id number] BCBS [place] Medigap Part B [id number] Self [id number] BCBS [place] Medigap Part B [id number] 2.840.1.011610.3.227.99 .572.15758.0 Self [id number] BCBS [place] Medigap Part B [id number] 2.0.1.327521.3.227.99 .572.17592.0 Self [id number] BCBS [place] Medigap Part B [id number] 2.0.1.643042.3.227.99 .572.21906.0 Self [id number] BCBS [place] Medigap Part B [id number] 2.0.1.120879.3.227.99 .572.26591.0 Self [id number] BCBS [place] PPO 302/307 [id number] SP [id number] Blue Epo Medigap Part B [id number] Self [id number] Blue Epo Medigap Part B [id number] 2.840.1.271818.3.227.99 .572.86338.0 Self [id number] BCBS [place] Medigap Part [place] [id number] 2.0.1.902488.3.227.99 .802.987464.0 Self [id number] Blue Epo Medigap Part B [id number] 2.840.1.799286.3.227.99 .572.20688.0 Self [id number] Blue Epo Medigap Part B [id number] 2.840.1.715868.3.227.99 .572.83404.0 Self [id number] Blue Epo Medigap Part B [id number] 2.16840.1.734480.3.227.99 .572.47377.0 Self [id number] Blue Epo Medigap Part B [id number] 2.0.1.065176.3.227.99 .572.47428.0 Self [id number] BCBS [place] PPO 302/307 [id number] SP [id number] [facility] [id number] SP [id number] Blue Epo Medigap Part B [id number] 2.0.1.408879.3.227.99 .572.53240.0 Self [id number] BCBS [place] Medigap Part B [id number] 2.0.1.307851.3.227.99 .802.743819.0 Self [id number] Blue Epo Medigap Part B [id number] 2.0.1.289009.3.227.99 .572.86392.0 Self [id number] BCBS [place] PPO 302/307 [id number] SP [id number] Blue Epo Medigap Part B [id number] Self BCBS [place] Medigap Part B [id number] Self BCBS Of [place] Medigap Part B [id number] Self [facility] [id number] SP [id number] [facility] PHY [id number] SP [id number] MVP/Preferred Care/Cigna Medigap Part B [id number] 2.840.1.899434.3.227.99.802.964066.0 Self [id number] MVP/Preferred Care/Cigna Medigap Part B [id number] Self MVP Commercial [id number] Self [id number] MVP Commercial [id number] Self MVP Health Plan Health Maintenance Organization (HMO) [id number] 2.16.840.1.030485.3.227.99.802.372217.0 Self [id number] MVP Health Plan Health Maintenance Organization (O) [id number] 2.16.840.1.266837.3.227.99.802.823612.0 Self [id number] MVP Health Plan,Hmo/Pos Health Maintenance Organization (HMO) [id number] Self MVP Health Plan Health Maintenance Organization (O) [id number] Self BCBS Of [place] Medigap Part B [id number] Self [employer] Simply Blue Ppo Medigap Part B [id number] 2.0.1.249975.3.227.99.572.67862.0 Self V [id number] [employer] Simply Blue Ppo Medigap Part B [id number] Self [id number] [employer] Simply Blue Ppo Medigap Part B [id number] 2.840.1.772878.3.227.99.572.24437.0 Self V [id number] BCBS [place] Medigap Part [place] [id number] 2.16840.1.690743.3.227.99 .802.685264.0 Self [id number] [employer] Simply Blue Ppo Medigap Part B 2.16840.1.256590.3.227.99.572.57976.0 Self V [id number] [employer] Ppo Commercial [id number] Self BCBS [place] Medigap Part B [id number] Self BCBS [place] Medigap Part B [id number] 2.16840.1.337874.3.227.99 .802.739853.0 Self [id number] [employer] Simply Blue Ppo Medigap Part B [id number] 2.16840.1.800844.3.227.99.572.55560.0 Self V [id number] [employer] Simply Blue Ppo Medigap Part B [id number] 2.160.1.868466.3.227.99.572.12862.0 Self V [id number] [employer] Simply Blue Ppo Medigap Part B [id number] 2.0.1.614426.3.227.99.572.19120.0 Self V [id number] [employer] Blue Ppo Medigap Part B [id number] 2.0.1.807977.3.227.99.572.87056.0 Self V [id number] BCBS [employer] U/W Commercial [id number] 2.0.1.113 883.3.227.99.572.83865.0 Self [id number] BCBS [employer] Ppo U/W Commercial [id number] 2.0.1.992993.3.227.99.572.56343.0 Self V [id number] BCBS [employer] U/[employer] Commercial [id number] 2..1.113 883.3.227.99.572.49490.0 Self [id number] BCBS [employer] Ppo U/W Commercial [id number] Self BCBS [employer] U/W Commercial [id number] 2.0.1.113 883.3.227.99.572.38126.0 Self [id number] BCBS [employer] U/[employer] Commercial [id number] 2.0.1.113 883.3.227.99.572.03475.0 Self [id number] BCBS [employer] U/[employer] Commercial [id number] 2.0.1.113 883.3.227.99.572.93939.0 Self [id number] BCBS [employer] Ppo U/W Commercial [id number] 2.0.1.533313.3.227.99.572.53749.0 Self V [id number] BCBS [employer] U/W Commercial [id number] Self [id number] Excell[employer] BCBS Health Maintenance Organization ([facility]) [id number] 2..840.1.120859.3.227.99.8646.2458.0 Self V [id number] BCBS [place] PPO 302/307 [id number] SP [id number] [employer] BCBS Health Maintenance Organization (O) [id number] [id number] Self V [id number] [employer] BCBS [id number] EXCE[employer] BCBS [id number] Silva VYA [id number] [employer] BCBS [id number] Silva VYA [id number] INSURANCE COVID-19 COVID Silva C OVID INSURANCE COVID-19 [id number] xOVID [id number] BCBS [place] PPO 302/307 [id number] SP [id number] [facility] Commercial [id number] Self [id number] [facility] Adminstrative Ser Commercial [id number] Self BCBS [place] PPO 302/307 [id number] SP [id number] [employer] BCBS B [id number] S [id number] [id number] BCBS/[employer] Commercial [id number] 2.840.1.863271.3.227.99. 1767.81073.0 Self [id number] [employer] BCBS B [id number] S VYA [id number] [employer] BCBS B [id number] S VYS [id number] Problems, Conditions, and Diagnoses Code Display Name Description Problem Type Effective Dates Data Source(s) N40.1 Benign prostatic hyperplasia with lower urinary tract symptoms Benign prostatic hyperplasia with lower Diagnosis 08/05/2021 09:19:00 AM EDT [facility] U07.1 COVID-19 COVID-19 Diagnosis 08/01/2021 09:00:33 AM ED T [facility] [id number] Peripheral venous insufficiency Peripheral venou s insufficiency Problem 05/26/2021 12:00:00 AM EDT [facility] [id number] Varicose veins of lower extremity Varicose veins of lower extremity Problem 05/26/2021 12:00:00 AM EDT [facility]) 28073734 Essential hypertension Essential hypertension Problem 05/26/2021 12:00:00 AM EDT [facility] ([facility]) [id number] Anxiety state Anxiety state Problem 05/26/2021 12:00:00 AM EDT [facility] ([facility]) 99317749 Atrial fibrillation Atrial fibrillation Problem 0 05/22/2021 12:00:00 AM EDT [facility] ([facility]) [id number] Deep venous thrombosis of lower extremit y Deep venous thrombosis of lower extremity Problem 05/22/2021 12:00:00 AM EDT [facility] Surgeries/Procedures Procedure Description Date Indications Data Source(s) BLOOD COUNT COMPLETE AUTOMATED <td>CBC</td><td>Routine </td><td>08/06/2021 4:16 AM EDT</td><td></td><td> </td> 08/06/2021 04:16:00 AM EDT [facility] BASIC METABOLIC PANEL CALCIUM TOTAL <td>BASIC METABOLI C PANEL</td><td>Routine</td><td>08/06/2021 4:16 AM EDT</td><td></td><td> </td> 08/06/2021 04:16:00 AM EDT [facility] TRURL ELECTROSURG RESCJ PROSTATE BLEED COMPLETE <td>TR ANSURETHRAL RESECTION PROSTATECTOMY (TURP), USING GREEN LIGHT LASER, HOLMIUM LASER, BUTTON ELECTRODE, OR RESECTOSCOPE</td><td></td><td>08/05/2021 11:14 AM EDT</td><td> Benign prostatic hyperplasia with lower urinary tract symptoms</td><td></td> 08/05/2021 11:14:00 AM EDT - 08/05/2021 12:57:00 PM EDT Benign prostatic hyperplasia with lower urinary tract symptoms [facility] Benign prostatic hyperplasia with lower urinary tract symptoms BLOOD TYPING ABO <td>TYPE AND SCREEN</td><td> Routine</td><td>08/05/2021 10:22 AM EDT</td><td></td><td> </td> 08/05/2021 10:22:00 AM EDT [facility] Electrocardiogram Complete 07/06/2021 12:00:00 AM EDT [facility] ([facility] OFFICE OUTPATIENT VISIT 25 MINUTES 07/06/2021 12:00:00 AM EDT [facility] ([facility] CYSTOURETHROSCOPY 06/10/2021 12:00:00 AM EDT [facility] ([facility]) OFFICE OUTPATIENT VISIT 15 MINUTES 06/04/2021 12:00:00 AM EDT [facility] ([facility]) THERAPEUTIC PX 1/> AREAS EACH 15 MIN EXERCISES 021 12:00:00 AM EDT [facility] ([facility] MANUAL THERAPY TQS 1/> REGIONS EACH 15 MINUTES 021 12:00:00 AM EDT [facility] ([facility]) Re-Eval Of PT Established Plan Of Care 20Mins Face To Face P T/Fam 05/22/2021 12:00:00 AM EDT [facility] ([facility]) CT ABDOMEN & PELVIS W/O CONTRST 1/> BODY REGIONS 05/13 12:00:00 AM EDT [facility] ([facility] [place]) THERAPEUTIC PX 1/> AREAS EACH 15 MIN EXERCISES 12:00:00 AM EDT [facility] ([facility]) MANUAL THERAPY TQS 1/> REGIONS EACH 15 MINUTES 021 12:00:00 AM EDT [facility] ([facility] OFFICE OUTPATIENT VISIT 25 MINUTES 05/08/2021 12:00:00 AM EDT [facility] ([facility] THERAPEUTIC PX 1/> AREAS EACH 15 MIN EXERCISES 021 12:00:00 AM EDT [facility] ([facility] MANUAL THERAPY TQS 1/> REGIONS EACH 15 MINUTES 021 12:00:00 AM EDT [facility] ([facility] OFFICE OUTPATIENT VISIT 25 MINUTES 04/30/2021 12:00:00 AM EDT [facility] ([facility] [place]) THERAPEUTIC PX 1/> AREAS EACH 15 MIN EXERCISES 12:00:00 AM EDT [facility] ([facility] MANUAL THERAPY TQS 1/> REGIONS EACH 15 MINUTES 021 12:00:00 AM EDT [facility] ([facility] MANUAL THERAPY TQS 1/> REGIONS EACH 15 MINUTES 12:00:00 AM EDT [facility] ([facility] THERAPEUTIC PX 1/> AREAS EACH 15 MIN EXERCISES 12:00:00 AM EDT [facility] ([facility]) THERAPEUTIC PX 1/> AREAS EACH 15 MIN EXERCISES 021 12:00:00 AM EDT [facility] ([facility] MANUAL THERAPY TQS 1/> REGIONS EACH 15 MINUTES 021 12:00:00 AM EDT [facility] ([facility] OFFICE OUTPATIENT VISIT 25 MINUTES 04/09/2021 12:00:00 AM EDT [facility] ([facility] THERAPEUTIC PX 1/> AREAS EACH 15 MIN EXERCISES 021 12:00:00 AM EDT [facility] ([facility] ) MANUAL THERAPY TQS 1/> REGIONS EACH 15 MINUTES 021 12:00:00 AM EDT [facility] ([facility] ECG ROUTINE ECG W/LEAST 12 LDS W/I&R 03/31/2021 12:00: 00 AM EDT [facility] ([facility]) OFFICE OUTPATIENT VISIT 25 MINUTES 03/31/2021 12:00:00 AM EDT [facility] ([facility]) THERAPEUTIC PX 1/> AREAS EACH 15 MIN EXERCISES 12:00:00 AM EDT [facility] ([facility]) MANUAL THERAPY TQS 1/> REGIONS EACH 15 MINUTES 12:00:00 AM EDT [facility] ([facility]) THERAPEUTIC PX 1/> AREAS EACH 15 MIN EXERCISES 12:00:00 AM EDT [facility] ([facility]) MANUAL THERAPY TQS 1/> REGIONS EACH 15 MINUTES 12:00:00 AM EDT [facility] ([facility]) Physical Therapy Eval - Low Complexity 02/20/2021 12:0 0:00 AM EDT [facility] ([facility]) OFFICE OUTPATIENT VISIT 15 MINUTES 01/23/2021 12:00:00 AM EDT [facility] ([facility]) MANUAL THERAPY TQS 1/> REGIONS EACH 15 MINUTES 12:00:00 AM EDT [facility] ([facility]) Re-Eval Of PT Established Plan Of Care 20Mins Face To Face P T/Fam 01/14/2021 12:00:00 AM EDT [facility] ([facility]) THERAPEUTIC PX 1/> AREAS EACH 15 MIN EXERCISES 12:00:00 AM EDT [facility] ([facility]) MANUAL THERAPY TQS 1/> REGIONS EACH 15 MINUTES 021 12:00:00 AM EDT MEDENT ([facility]) THERAPEUTIC PX 1/> AREAS EACH 15 MIN EXERCISES 12:00:00 AM EDT MED[facility] ([facility]) MANUAL THERAPY TQS 1/> REGIONS EACH 15 MINUTES 021 12:00:00 AM EDT MED[facility] ([facility]) THERAPEUTIC PX 1/> AREAS EACH 15 MIN EXERCISES 12:00:00 AM EDT [facility] ([facility]) MANUAL THERAPY TQS 1/> REGIONS EACH 15 MINUTES 021 12:00:00 AM EDT MED[facility] ([facility]) THERAPEUTIC PX 1/> AREAS EACH 15 MIN EXERCISES 12:00:00 AM EDT MED[facility] ([facility]) MANUAL THERAPY TQS 1/> REGIONS EACH 15 MINUTES 12:00:00 AM EDT [facility] ([facility] THERAPEUTIC PX 1/> AREAS EACH 15 MIN EXERCISES 12:00:00 AM EST [facility] ([facility] MANUAL THERAPY TQS 1/> REGIONS EACH 15 MINUTES 12:00:00 AM EST [facility] ([facility] OFFICE OUTPATIENT VISIT 25 MINUTES 12/12/2020 12:00:00 AM EST [facility] ([facility] THERAPEUTIC PX 1/> AREAS EACH 15 MIN EXERCISES 12:00:00 AM EST [facility] ([facility] MANUAL THERAPY TQS 1/> REGIONS EACH 15 MINUTES 12:00:00 AM EST [facility] ([facility] THERAPEUTIC PX 1/> AREAS EACH 15 MIN EXERCISES 12:00:00 AM EST [facility] ([facility] MANUAL THERAPY TQS 1/> REGIONS EACH 15 MINUTES 12:00:00 AM EST [facility] ([facility] THERAPEUTIC PX 1/> AREAS EACH 15 MIN EXERCISES 12:00:00 AM EST [facility] ([facility] MANUAL THERAPY TQS 1/> REGIONS EACH 15 MINUTES 12:00:00 AM EST [facility] ([facility] MANUAL THERAPY TQS 1/> REGIONS EACH 15 MINUTES 12:00:00 AM EST [facility] ([facility] Physical Therapy Eval - Low Complexity 11/24/2020 12:0 0:00 AM EST [facility] ([facility] ) RADEX SPINE CRV COMPL W/OBLQ&FLEX&/XTN STDS 11/05/2020 12:00:00 AM EST [facility] ([facility] OFFICE OUTPATIENT VISIT 25 MINUTES 11/05/2020 12:00:00 AM EST [facility] ([facility] THERAPEUTIC PX 1/> AREAS EACH 15 MIN EXERCISES 12:00:00 AM EST [facility] ([facility] MANUAL THERAPY TQS 1/> REGIONS EACH 15 MINUTES 12:00:00 AM EST [facility] ([facility] Re-Eval Of PT Established Plan Of Care 20Mins Face To Face P T/Fam 10/14/2020 12:00:00 AM EST [facility] ([facility]) THERAPEUTIC PX 1/> AREAS EACH 15 MIN EXERCISES 12:00:00 AM EST [facility] ([facility]) MANUAL THERAPY TQS 1/> REGIONS EACH 15 MINUTES 12:00:00 AM EST [facility] ([facility]) MANUAL THERAPY TQS 1/> REGIONS EACH 15 MINUTES 12:00:00 AM EST [facility] ([facility]) THERAPEUTIC PX 1/> AREAS EACH 15 MIN EXERCISES 12:00:00 AM EST [facility] ([facility]) MANUAL THERAPY TQS 1/> REGIONS EACH 15 MINUTES 12:00:00 AM EST [facility] ([facility]) THERAPEUTIC PX 1/> AREAS EACH 15 MIN EXERCISES 12:00:00 AM EST [facility] ([facility] MANUAL THERAPY TQS 1/> REGIONS EACH 15 MINUTES 12:00:00 AM EST [facility] ([facility]) ECG ROUTINE ECG W/LEAST 12 LDS W/I&R 09/25/2020 12:00: 00 AM EST MED[facility] ([facility]) THERAPEUTIC PX 1/> AREAS EACH 15 MIN EXERCISES 12:00:00 AM EST MED[facility] ([facility]) MANUAL THERAPY TQS 1/> REGIONS EACH 15 MINUTES 12:00:00 AM EST [facility] ([facility]) THERAPEUTIC PX 1/> AREAS EACH 15 MIN EXERCISES 12:00:00 AM EST MED[facility] ([facility]) MANUAL THERAPY TQS 1/> REGIONS EACH 15 MINUTES 12:00:00 AM EST [facility] ([facility]) THERAPEUTIC PX 1/> AREAS EACH 15 MIN EXERCISES 12:00:00 AM EST [facility] ([facility]) MANUAL THERAPY TQS 1/> REGIONS EACH 15 MINUTES 12:00:00 AM EST [facility] ([facility]) THERAPEUTIC PX 1/> AREAS EACH 15 MIN EXERCISES 12:00:00 AM EST [facility] ([facility]) MANUAL THERAPY TQS 1/> REGIONS EACH 15 MINUTES 12:00:00 AM EST [facility] ([facility]) THERAPEUTIC PX 1/> AREAS EACH 15 MIN EXERCISES 12:00:00 AM EST [facility] ([facility]) MANUAL THERAPY TQS 1/> REGIONS EACH 15 MINUTES 12:00:00 AM EST [facility] ([facility]) THERAPEUTIC PX 1/> AREAS EACH 15 MIN EXERCISES 12:00:00 AM EST [facility] ([facility]) MANUAL THERAPY TQS 1/> REGIONS EACH 15 MINUTES 12:00:00 AM EST [facility] ([facility]) Re-Eval Of PT Established Plan Of Care 20Mins Face To Face P T/Fam 08/18/2020 12:00:00 AM EST [facility] ([facility]) THERAPEUTIC PX 1/> AREAS EACH 15 MIN EXERCISES 12:00:00 AM EST [facility] ([facility]) MANUAL THERAPY TQS 1/> REGIONS EACH 15 MINUTES 12:00:00 AM EST [facility] ([facility]) THERAPEUTIC PX 1/> AREAS EACH 15 MIN EXERCISES 12:00:00 AM EST [facility] ([facility]) MANUAL THERAPY TQS 1/> REGIONS EACH 15 MINUTES 12:00:00 AM EST [facility] ([facility]) THERAPEUTIC PX 1/> AREAS EACH 15 MIN EXERCISES 12:00:00 AM EDT MED[facility] ([facility]) MANUAL THERAPY TQS 1/> REGIONS EACH 15 MINUTES 12:00:00 AM EDT MED[facility] ([facility]) THERAPEUTIC PX 1/> AREAS EACH 15 MIN EXERCISES 12:00:00 AM EDT MED[facility] ([facility]) MANUAL THERAPY TQS 1/> REGIONS EACH 15 MINUTES 12:00:00 AM EDT MED[facility] ([facility]) THERAPEUTIC PX 1/> AREAS EACH 15 MIN EXERCISES 12:00:00 AM EDT MED[facility] ([facility]) MANUAL THERAPY TQS 1/> REGIONS EACH 15 MINUTES 12:00:00 AM EDT MED[facility] ([facility]) THERAPEUTIC PX 1/> AREAS EACH 15 MIN EXERCISES 12:00:00 AM EDT [facility] ([facility]) MANUAL THERAPY TQS 1/> REGIONS EACH 15 MINUTES 12:00:00 AM EDT MED[facility] ([facility]) THERAPEUTIC PX 1/> AREAS EACH 15 MIN EXERCISES 12:00:00 AM EDT [facility] ([facility]) MANUAL THERAPY TQS 1/> REGIONS EACH 15 MINUTES 12:00:00 AM EDT MED[facility] ([facility]) THERAPEUTIC PX 1/> AREAS EACH 15 MIN EXERCISES 12:00:00 AM EDT MED[facility] ([facility]) MANUAL THERAPY TQS 1/> REGIONS EACH 15 MINUTES 12:00:00 AM EDT MED[facility] ([facility]) Physical Therapy Eval - Low Complexity 07/03/2020 12:0 0:00 AM EDT MED[facility] ([facility]) Results ID Date Data Source [id number] 08/10/2021 07:13:08 AM EDT [facility] NT INFORMATIONPatient MRN Name Date of Age Gend*PT [id number] [place] Castillo 1955 65 years M SDCXPT Location Admission Date/Time Visit ID Attending [id number] 08/05/21918 --- --- EPI ID CSN Admitting Provider [id number] Xavier Cervantes MD([id number]) Attestation signed by Xavier Cervantes MD at 08/10/2021 7:13 AMagree -------Surgical Discharge Junito PaniaguahlawMRN: [id number] date: 08/05/2021dmitting Physician: Xvaier Cervantes MDDischarge date and time:Discharge Orders Placed(From admission, onward) Start Ordered 08/06/21743 Discharge patient OnceComments: After garg teachingExpected Discharge Date: 08/06/21Discharge Disposition: Home or Self Care 08/06/21743Discharge Physician: Dr Smith Diagnosis: BPHSecondary Diagnoses: There are no hospital problems to display for this patient.Discharge Medications:Your medication listSTART taking these medications Instructions Last Dose Given Morning Afternoon Evening Bedtime As Neededdocusate sodium 100 MG capsuleCommonly known as: COLACE Take 1 capsule (100 mg total) by mouth 2 (two) times a daypolyethylene glycol 17 g packetCommonly known as: GLYCOLAX Take 17 g by mouth daily as neededCHANGE how you take these medications Instructions Last Dose Given Morning Afternoon Evening Bedtime As Neededaspirin EC 81 MG EC tabletStart taking on: August 10, 2021What changed: These instructions start on August 10, 2021. If you are unsurewhat to do until then, ask your doctor or other care provider. Take 1 tablet (81 mg total) by mouth dailyCONTINUE taking these medications Instructions Last Dose Given Morning Afternoon Evening Bedtime As Neededacetaminophen 325 MG tabletCommonly known as: TYLENOL Take 500 mg by mouth as needed for paincalcium carbonate 500 MG chewable tabletCommonly known as: TUMS Chew 750 mg as needed for heartburnchlorthalidone 25 MG tabletCommonly known as: HYGROTEN Take 12.5 mg by mouth every other dayDaily Gina per tablet Take 1 tablet by mouth dailyeplerenone 25 MG tabletCommonly known as: INSPRA Take 25 mg by mouth every eveningfamotidine 20 MG tabletCommonly known as: PEPCID Take by mouth as needed for heartburnNON FORMULARY Take 250 mg by mouth MAGNESIUMsertraline 50 MG tabletCommonly known as: ZOLOFT Take 50 mg by mouth nightlyASK your doctor about these medications Instructions Last Dose Given Morning Afternoon Evening Bedtime As Neededvalsar watson 320 MG tabletCommonly known as: DIOVAN Take 320 mg by mouth nightlyWhere to Get Your MedicationsThese medications were sent to [facility] - [place] - [address] [id number], [place] [address] docusate sodium 100 MG capsule polyethylene glycol 17 g packetInformation about where to get these medications is not yet availableAsk your nurse or doctor about these medications aspirin EC 81 MG EC tabletIndication for Admission:BPH For full course of events leading up to the patient's admission please referto full admitting H&P.Hospital Course & Complications:This is a 65 years male who presented to the hospital on 08/05/2021 for surgicalintervention for BPH. For full course of events leading up to the patient'sadmission please refer to full admitting H&P. [place] Castillo underwent a TURP on08/05/[address] Cervantes. Aggressive pulmonary toileting wasinitiated immediately post-operatively. CBI was initiated immediately after thecase and then turned off post operatively when deemed appropriate by theAttending. Nursing driven garg catheter teaching was performed prior todischarge. Fluids and electrolytes were repleted appropr iately through outhospital stay. [place] Castillo was tolerating a regular diet with positive bowelfunction and pain well controlled. Vital signs remained stable and [place] Alves was discharged home in stable condition per Attending's request.Surgical Procedures:Procedure(s):TRANSURETHRAL RESECTION PROSTATECTOMY (TURP), USING RESECTOSCOPE (N/A)Significant Diagnostic Studies: labsTreatments: IV hydration and abx anagesicsDischarge Exam:Vitals: Temp: [97.8 F-98.5 F] 98 FHeart Rate: [60-98] 63Resp: [9-18] 17BP: (99-153)/(60-86) 113/68Discharge Exam: Please refer to exam conducted by Attending or clinicalaffiliate on the day of discharge.Items needing special attention:Maintain garg catheter to gravity and empty bag as needed. May use leg bagupon discharge home. Routine garg care as instructed by nursing.Discharged Condition:goodDisposition: Home or Self CareSignature: Eric Puente: August 06, 2021Time: 7:46 AM Name Value Range Interpretation Code Description Data [facility]) Supporting Document(s) ID Date Data Source [id number] 08/06/2021 07:36:17 AM EDT [facility] Name Value Range Interpretation Code Description Data [facility] Supporting Document(s) SODIUM 139 mmol/L (136-145) [facility] POTASSIUM 4.6 mmol/L (3.6-5.2) [facility] CHLORIDE 108 mmol/L (100-108) [facility] CO2 26 mmol/L (22-31) [facility] ANION GAP 5 mmol/L (7-16) L [facility] UREA NITROGEN 17 mg/dL (7-24) [facility] CREATININE 0.88 mg/dL (0.80-1.30) [facility] BUN/CREAT RATIO 19.3 RATIO (10.0-20.0) [facility] GLUCOSE 124 mg/dL (70-99) H [facility] CALCIUM 8.2 mg/dL (8.4-10.2) L [facility] GFR >60 ml/min/1.73m2 (>59) [facility] GFR ( AMER) >60 ml/min/1.73m2 (>59) [facility] GFR INTERPRETATION [facility] --NORMAL KIDNEY FUNCTION OR MILD DISEASE - GFR >OR= 60CHRONIC KIDNEY DISEASE - GFR 15 - 59RENAL FAILURE - GFR <15 Est. GFR calculation based on the MDRDstudy equation, which assumes a steadystate for creatinine. Est. GFR should notbe used for medication dosing. ID Date Data Source [id number] 08/06/2021 06:52:10 AM EDT [facility] Name Value Range Interpretation Code Description Data [facility](s) Supporting Document(s) WBC 9.0 10*3/uL (4.1-11.0) [facility] RBC 4.65 10*6/uL (4.60-6.10) [facility] HGB 12.9 g/dL (13.5-18.0) L [facility] HCT 38.8 % (41.0-53.0) L [facility] PERFORMED AT [address] [place] [address] [address] [place] [address] MCV 83.4 fL (80.0-95.0) [facility] MCH 27.7 pg (27.0-32.0) [facility] MCHC 33.3 g/dL (32.0-36.0) [facility] RDW 14.9 % (10.5-14.5) H [facility] PLT 123 10*3/uL (150-450) L [facility] MPV 8.1 fL (7.1-10.7) [facility] ID Date Data Source [id number] 08/10/2021 12:26:56 PM EDT [facility] [address] [id number]# Surgical Pathology ReportPatient Name: FLOR[place] CASTILLO: 7Accession #:[id number](s) ReceivedA: Prostate chipsClinical Diagnosis and HistoryBenign prostate hyperplasia with symptomsDIAGNOSISPROSTATE, TRANSURETHRAL RESECTION: NODULAR HYPERPLASIA WITH FOCAL ACUTE AND CHRONIC INFLAMMATION NO EVIDENCE OF MALIGNANCYCommentsTriple prostate immunohistochemical stain (34Beta E12, p63, racemase) isperformed on block A2 and is confirmatory. Gross DescriptionReceived in formalin labeled "prostate chips" is a 30 gram, 6.2 x 6.2 x3.4 cm aggregate of watson-pink rubbery focally cauterized fragments of softtissue. The specimen is entirely submitted as A1-A15. [email or web address] Reported: 08/10/2021 12:25Electronically Signed Out By Eileen Patel M.D. [facility] [place] [id number] compone nt performed at [facility] [employer] [facility], [facility], [address] [place] [address], [id number].Reported at [facility], [address] [place] [address], [id number]. This report may includeimmunohistochemical or in-situ hybridization results. Testing wasdeveloped and the performance characteristics determined by [employer] [facility] [employer] [facility] as required by CLIA '88. The FDA hasdetermined that approval for specific use is not necessary for clinicaluse. The quality of Hematoxylin and Eosin stains and as applicable, forall immunohistochemical and/or special stains, including positive andnegative controls, were reviewed and considered appropriate.ICD codes N40.1CPT codesA: 99581I, 95420Q Name Value Range Interpretation Code Description Data [facility] r[facility](s) Supporting Document(s) ID Date Data Source [id number] 08/05/2021 12:27:15 PM EDT [facility] INFORMATIONPatient MRN Name Date of Age Gend*PT [id number] [place] Castillo 1955 65 years M SDCXPT Location Admission Date/Time Visit ID Attending ProviderPERIOP POOL 08/05/21 0919 --- Xavier Cervantes MD([id number]) EPI ID CSN Admitting Provider [id number] Xavier Cervantes MD([id number])OPERATIVE NOTEPatient Name: [place] CastilloMedical Record Number: [id number] of Procedure: 08/05/2021urgeon: Xavier Cervantes M.D.Software Engineering Associate Manager: NonePre- operative diagnosis: Benign prostatic hyperplasiaPost-operative diagnosis: SameProcedure: Cystourethroscopy, transurethral resection of prostateAnesthesia: GABlood/fluids administered: crystalloidEstimated blood loss: 200 mLCom plications: NoneSpecimens: Prostate chipsDrains: 22 Ukrainian 3-way Coude' garg to continuous bladder irrigationProcedure:Informed consent was obtained. Antibiotics were given. The patient was broughtto the operating room and general anesthesia was administered. He was preppedand draped in the lithotomy position with the appropriate positioningprecautions. A time-out procedure was completed including intraoperativeverification of patient identity and procedure.Cystourethroscopy was performed a very large prostate with a narrowing in theprostatic urethra that I was able to traverse with the scope. The bilateralureteral orifices were identified effluxing clear, yellow urine and were avoidedthroughout the case. Using the resectoscope with a loop electrode and glycineas an irrigant, a transurethral resection of the prostate was performedextending from the bladder neck to the verumontanum, but never beyond theverumontanum. I started with the 7 o'clock to 11 o'clock resecting, down to thelevel of the capsule. I then resected from the 5 o'clock to 1 o'clock position,followed by resection of the roof between 11 o'clock and 1 o'clock, and then thefloor between 5 o'clock and 7 o'clock. Again, the resection never extendedbeyond the verumontanum and the ureteral orifices were avoided throughout thecase.Prostate chips were removed using an A [place] evacuator and sent to pathology foranalysis. The bladder and urethra were re-inspected and hemostasis wasobtained.A 22 Fr 3-way Coude' garg catheter was placed to continuous bladder irrigationusing saline as an irrigant and was running clearly.There were no surgical complications.Xavier Cervantes M.D.Date: 08/05/2021Time: 12:26 PM Name Value Range Interpretation Code Description Data Hil[facility] rce(s) Supporting Document(s) ID Date Data Source [id number] 08/05/2021 10:40:36 AM EDT [facility] NT INFORMATIONPatient MRN Name Date of Age Gend*PT [id number] [place] Castillo 1955 65 years M SDCXPT Location Admission Date/Time Visit ID Attending ProviderPERIOP KENOSHA 08/05/21918 --- Xavier Cervantes MD([id number]) EPI ID CSN Admitting Provider [id number] Xavier Cervantes MD([id number])Pre-Procedure History and Physical:The history and physical were reviewed and the patient was examined.Reviewed and updated. No changes.Xavier Cervantes MD0:40 AM Name Value Range Interpretation Code Description Data Hil[facility] rce(s) Supporting Document(s) ID Date Data Source [id number] 08/05/2021 01:24:56 PM EDT [facility] SPEC EXP DATE 08/08/2021ATI ENT ABO/Rh A NEGATIVEANTIBODY SCREEN NEGATIVETESTING SITE PERFORMED AT [address] [place] [id number] Name Value Range Interpretation Code Description Data Hilary rce(s) Supporting Document(s) TYPE AND SCREEN [facility] ID Date Data Source [id number] 08/01/2021 09:00:00 AM EDT [facility] Name Value Range Interpretation Code Description Data Hilary rce(s) Supporting Document(s) SARS coronavirus 2 RNA [Presence] in Res piratory specimen by MUMTAZ with probe detection NOT DETECTED [facility] This lab was reported by [facility]. ID Date Data Source [id number] 08/02/2021 10:39:32 AM EDT [facility] Name Value Range Interpretation Code Description Data Hilary rce(s) Supporting Document(s) SPECIMEN DESCRIPTION [facility] COVID 19 RESULT (NDET) [facility] NEGATIVE COVID-19 RESULTS DONOT PRECLUDE COVID-2019 INFECTION ANDSHOULD NOT BE USED THE SOLE BASISFOR PATIENT MANAGEMENT DECISIONS. COMMENT [facility] THE [place] FDA HAS MADE THIS TEST AVAILABL EUNDER AN EMERGENCY USE AUTHORIZATION(EUA) FOR THE DETECTION AND/OR DIAGNOSISOF THE VIRUS THAT CAUSES COVID-19.THIS ASSAY AMPLIFIES AND DETECTS TARGETDNA USING HEATER ROOM HELPER- MEDIATEDAMPLIFICATIONTESTING PERFORMED ON Gertrude FIRST TEST [facility] EMPLOYED IN HLTHCARE [facility] SYMPTOMATIC [facility] DATE OF SYMPT ONSET [facility] HOSPITALIZED [facility] [place] [facility] ICU [facility] CONGREGATE CARE SET [facility] ID Date Data Source [id number] 07/29/2021 04:51:00 PM EDT [facility] ([facility] Name Value Range Interpretation Code Description Data Hilary rce(s) Supporting Document(s) Urine Culture Laboratory test result Normal (applies t o non-numeric results) [facility] ([facility] FULL REPORT IN LAB NOTES (eCW and [facility] ). NO GROWTH ID Date Data Source [id number] 07/29/2021 04:51:00 PM EDT [facility] ([facility] Name Value Range Interpretation Code Description Data Hilary rce(s) Supporting Document(s) Appearance, Urine Laboratory test result Normal (applies to non-numeric results) [facility] ([facility] ) Color, Urine Laboratory test result Normal (applies to non -numeric results) [facility] ([facility] PH,Urine 5.0 units 5.0-9.0 Normal (applies to non-numeric resul ts) [facility] ([facility] Specific [place] Urine Auto 1.018 1.002-1.035 Norm al (applies to non-numeric results) [facility] ([facility] ) Protein, Urine Auto Laboratory test result Letty l (applies to non-numeric results) [facility] ([facility] ) Glucose, Urine (Ua) Auto Laboratory test result Normal (applies to non-numeric results) [facility] ([facility] ) Urobilinogen, Urine Auto 0.2 mg/dL 0.0-2.0 Normal (applies to non-numeric results) [facility] ([facility] ) Ketone, Urine Auto Laboratory test result Normal (applies to non-numeric results) [facility] ([facility] ) Bilirubin, Urine Auto Laboratory test result Nor mal (applies to non-numeric results) [facility] ([facility] ) Blood, Urine Blood Laboratory test result Normal (applies to non-numeric results) [facility] ([facility] ) Leukocyte Esterase, Urine Auto Laboratory test result Normal (applies to non- numeric results) [facility] ([facility] ) Nitrite, Urine Auto Laboratory test result Letty l (applies to non-numeric results) [facility] ([facility] WBC, Urine Auto 0 /HPF 0-3 Normal (applies to non-numeric results) [facility] ([facility] RBC, Urine Auto 0 /HPF 0-3 Normal (applies to non-numeric results) [facility] ([facility] Mucus, Urine Laboratory test result Normal (applies to non -numeric results) [facility] ([facility] Squamous Epithelial Cell Ur AU 0 /HPF 0-6 N ormal (applies to non-numeric results) [facility] ([facility] ) Bacteria, Urine Auto Laboratory test result Norm al (applies to non-numeric results) [facility] ([facility] [facility] ) Hyaline Cast, Urine Auto 0 /LPF 0-1 Normal (applies to non -numeric results) [facility] ([facility] ID Date Data Source [id number] 07/15/2021 02:41:00 PM EDT [facility] ([facility]) Name Value Range Interpretation Code Description Data Hilary rce(s) Supporting Document(s) Covid Rapid Testing Laboratory test result [facility] ([facility]) CareStart Covid-19 Antigen Lot# [id number] 07/15/21 at 2:50pm ID Date Data Source [id number] 07/15/2021 12:00:00 AM EDT [facility] Name Value Range Interpretation Code Description Data Hilary rce(s) Supporting Document(s) Covid Rapid Testing Negative [facility] This lab was ordered by [place] and re ported by [facility]. ID Date Data Source [id number] 07/07/2021 12:00:00 AM EDT [facility] Name Value Range Interpretation Code Description Data Hilary rce(s) Supporting Document(s) Covid Rapid Testing Negative [facility] This lab was ordered by [place] and re ported by [facility]. ID Date Data Source [id number] 07/06/2021 02:24:00 PM EDT [facility] ([facility] Name Value Range Interpretation Code Description Data Hilary rce(s) Supporting Document(s) Glu 80 mg/dL 70-110 [facility] ([facility] NORMAL RANGES Age WBC RBC HGB HCT [...] HCT IS 5% LESS SOURCE FOR DATA: [employer] SA DYN 1800 OPERATION MANUAL( AUTOMATED BLOOD COUNTS [...] Normal 80 and above >32 mL/min Normal BUN 14 mg/dL 8- [facility] NORMAL RANGES Age WBC RBC HGB HCT [...] HCT IS 5% LESS SOURCE FOR DATA: [employer] 1800 OPERATION MANUAL( AUTOMATED BLOOD COUNTS AND [...] Normal 80 and above >32 mL/min Normal BUN/Creatinine Ratio 16.2 [facility] ([facility] NORMAL RANGES Age WBC RBC HGB HCT [...] HCT IS 5% LESS SOURCE FOR DATA: [employer] 1800 OPERATION MANUAL( AUTOMATED BLOOD COUNTS AND [...] Normal 80 and above >32 mL/min Normal Na 137 mmol/L 136-145 [facility] ([facility] NORMAL RANGES Age WBC RBC HGB HCT [...] Normal 80 and above >32 mL/min Normal Creat 0.9 mg/dL 0.7-1.2 [facility] ([facility] NORMAL RANGES Age WBC RBC HGB HCT [...] HCT IS 5% LESS SOURCE FOR DATA: [employer] 1800 OPERATION MANUAL( AUTOMATED BLOOD COUNTS AND [...] Normal 80 and above >32 mL/min Normal K 4.2 mmol/L 3.5-5.1 [facility] ([facility] NORMAL RANGES Age WBC RBC HGB HCT [...] HCT IS 5% LESS SOURCE FOR DATA: [employer] 1800 OPERATION MANUAL( AUTOMATED BLOOD COUNTS AND [...] Normal 80 and above >32 mL/min Normal Co2 22.8 mmol/L 22.0-29.0 [facility] ([facility] NORMAL RANGES Age WBC RBC HGB HCT [...] HCT IS 5% LESS SOURCE FOR DATA: [employer] 1800 OPERATION MANUAL( AUTOMATED BLOOD COUNTS AND [...] Normal 80 and above >32 mL/min Normal CL 101.8 mmol/L 98.0-107.0 [facility] ([facility] NORMAL RANGES Age WBC RBC HGB HCT [...] HCT IS 5% LESS SOURCE FOR DATA: [employer] 1800 OPERATION MANUAL( AUTOMATED BLOOD COUNTS AND [...] Normal 80 and above >32 mL/min Normal TP 6.4 g/dL 6.6-8.7 Below low normal [facility] ( [facility] NORMAL RANGES Age WBC RBC HGB HCT [...] HCT IS 5% LESS SOURCE FOR DATA: [employer] 1800 OPERATION MANUAL( AUTOMATED BLOOD COUNTS AND [...] Normal 80 and above >32 mL/min Normal CA 9.2 mg/dL 8.6-10.2 [facility] ([facility] NORMAL RANGES Age WBC RBC HGB HCT [...] HCT IS 5% LESS SOURCE FOR DATA: [employer] 1800 OPERATION MANUAL( AUTOMATED BLOOD COUNTS AND [...] Normal 80 and above >32 mL/min Normal Alb 4.4 g/dL 3.5-5.2 [facility] ([facility] NORMAL RANGES Age WBC RBC HGB HCT [...] HCT IS 5% LESS SOURCE FOR DATA: [employer] 1800 OPERATION MANUAL( AUTOMATED BLOOD COUNTS AND [...] Normal 80 and above >32 mL/min Normal Globulin 2.0 Calc [facility] NORMAL RANGES Age WBC RBC HGB HCT [...] HCT IS 5% LESS SOURCE FOR DATA: [employer] 1800 OPERATION MANUAL( AUTOMATED BLOOD COUNTS AND [...] Normal 80 and above >32 mL/min Normal Alp 71.4 U/L 40-129 [facility] NORMAL RANGES Age WBC RBC HGB HCT [...] Normal 80 and above >32 mL/min Normal A/G Ratio 2.2 Calc [employer] ([facility] NORMAL RANGES Age WBC RBC HGB HCT MCV PLT Adult M 4.1-10.9 4.20-6.30 12.0-18.0 37.0-51.0 80- 140-440 Adult F 4.1-10.9 4.04-5.48 12.0-18.0 37.0-51.0 80- 140-440 0 -1 Yr 5.0-20.0 3.9-5.9 15-18 [...] HCT IS 5% LESS SOURCE FOR DATA: [employer] SA DYN 1800 OPERATION MANUAL( AUTOMATED BLOOD COUNTS [...] Normal 80 and above >32 mL/min Normal Ast (Sgot) 16 U/L 0-40 [facility] ([facility] NORMAL RANGES Age WBC RBC HGB HCT [...] HCT IS 5% LESS SOURCE FOR DATA: [employer] 1800 OPERATION MANUAL( AUTOMATED BLOOD COUNTS AND [...] Normal 80 and above >32 mL/min Normal Tbili 0.31 mg/dL 0.0-1.2 [facility] ([facility] NORMAL RANGES Age WBC RBC HGB HCT [...] HCT IS 5% LESS SOURCE FOR DATA: [employer] 1800 OPERATION MANUAL( AUTOMATED BLOOD COUNTS AND [...] Normal 80 and above >32 mL/min Normal Alt (SGPT) 15 U/L 0-41 [facility] ([facility] NORMAL RANGES Age WBC RBC HGB HCT [...] HCT IS 5% LESS SOURCE FOR DATA: [employer] 1800 OPERATION MANUAL( AUTOMATED BLOOD COUNTS AND [...] Normal 80 and above >32 mL/min Normal Anion Gap 17 mmol/L [facility] ([facility] NORMAL RANGES Age WBC RBC HGB HCT [...] HCT IS 5% LESS SOURCE FOR DATA: [employer] SA DYN 1800 OPERATION MANUAL( AUTOMATED BLOOD COUNTS [...] Normal 80 and above >32 mL/min Normal Osmolality-Calculated 273.4 Calc [facility] ([facility] NORMAL RANGES Age WBC RBC HGB HCT [...] HCT IS 5% LESS SOURCE FOR DATA: [employer] 1800 OPERATION MANUAL( AUTOMATED BLOOD COUNTS AND [...] Normal 80 and above >32 mL/min Normal eGFR 104 # [facility] ( [facility] NORMAL RANGES Age WBC RBC HGB HCT [...] HCT IS 5% LESS SOURCE FOR DATA: [employer] 1800 OPERATION MANUAL( AUTOMATED BLOOD COUNTS AND [...] Normal 80 and above >32 mL/min Normal eGFR Non-Afr. Liberian 90 # [facility] ([facility] NORMAL RANGES Age WBC RBC HGB HCT [...] HCT IS 5% LESS SOURCE FOR DATA: [employer] 1800 OPERATION MANUAL( AUTOMATED BLOOD COUNTS AND [...] Normal 80 and above >32 mL/min Normal ID Date Data Source [id number] 07/06/2021 02:24:00 PM EDT [facility] ([facility] Name Value Range Interpretation Code Description Data Hilary rce(s) Supporting Document(s) WBC 4.8 10E3/uL 4.1-10.9 [facility] ([facility] NORMAL RANGES Age WBC RBC HGB HCT [...] Normal 80 and above >32 mL/min Normal RBC 4.93 10E6/uL 4.20-6.30 [employer] [facility] NORMAL RANGES Age WBC RBC HGB HCT [...] HCT IS 5% LESS SOURCE FOR DATA: [employer] 1800 OPERATION MANUAL( AUTOMATED BLOOD COUNTS AND [...] Normal 80 and above >32 mL/min Normal HGB 13.6 g/dL 12.0-18.0 [facility] ([facility] NORMAL RANGES Age WBC RBC HGB HCT [...] HCT IS 5% LESS SOURCE FOR DATA: [employer] 1800 OPERATION MANUAL( AUTOMATED BLOOD COUNTS AND [...] Normal 80 and above >32 mL/min Normal MCV 83.0 fL 80.0-97.0 [facility] ([facility] NORMAL RANGES Age WBC RBC HGB HCT [...] HCT IS 5% LESS SOURCE FOR DATA: [employer] 1800 OPERATION MANUAL( AUTOMATED BLOOD COUNTS AND [...] Normal 80 and above >32 mL/min Normal HCT 40.9 % 37.0-51.0 [facility] ([facility] NORMAL RANGES Age WBC RBC HGB HCT [...] HCT IS 5% LESS SOURCE FOR DATA: [employer] 1800 OPERATION MANUAL( AUTOMATED BLOOD COUNTS AND [...] Normal 80 and above >32 mL/min Normal PLT 145 10E3/uL 140-440 [facility] ([facility] NORMAL RANGES Age WBC RBC HGB HCT [...] HCT IS 5% LESS SOURCE FOR DATA: [employer] 1800 OPERATION MANUAL( AUTOMATED BLOOD COUNTS AND [...] Normal 80 and above >32 mL/min Normal MCHC 33.3 g/dL 31.0-36.0 [facility] ([facility] NORMAL RANGES Age WBC RBC HGB HCT [...] HCT IS 5% LESS SOURCE FOR DATA: [employer] 1800 OPERATION MANUAL( AUTOMATED BLOOD COUNTS AND [...] Normal 80 and above >32 mL/min Normal MCH 27.6 pg 26.0-32.0 [facility] ([facility] NORMAL RANGES Age WBC RBC HGB HCT [...] HCT IS 5% LESS SOURCE FOR DATA: [employer] 1800 OPERATION MANUAL( AUTOMATED BLOOD COUNTS AND [...] Normal 80 and above >32 mL/min Normal RDW-CV 13.2 % 11.5-14.5 [facility] NORMAL RANGES Age WBC RBC HGB HCT [...] HCT IS 5% LESS SOURCE FOR DATA: [employer] 1800 OPERATION MANUAL( AUTOMATED BLOOD COUNTS AND [...] Normal 80 and above >32 mL/min Normal Neut% 67.1 % 37.0-92.0 [facility] ([facility] NORMAL RANGES Age WBC RBC HGB HCT [...] HCT IS 5% LESS SOURCE FOR DATA: [employer] 1800 OPERATION MANUAL( AUTOMATED BLOOD COUNTS AND [...] Normal 80 and above >32 mL/min Normal Lym% 20.7 % 10.0-58.5 [facility] ([facility] NORMAL RANGES Age WBC RBC HGB HCT MCV PLT Adult M 4.1-10.9 4.20-6.30 12.0-18.0 37.0-51.0 80- 140-440 Adult F 4.1-10.9 4.04-5.48 12.0-18.0 37.0-51.0 80- 140-440 0 -1 Yr 5.0-20.0 3.9-5.9 15-18 [...] HCT IS 5% LESS SOURCE FOR DATA: [employer] SA DYN 1800 OPERATION MANUAL( AUTOMATED BLOOD COUNTS [...] Normal 80 and above >32 mL/min Normal Neut# 3.2 % 2.0-7.8 [facility] ([facility] NORMAL RANGES Age WBC RBC HGB HCT [...] HCT IS 5% LESS SOURCE FOR DATA: [employer] 1800 OPERATION MANUAL( AUTOMATED BLOOD COUNTS AND [...] Normal 80 and above >32 mL/min Normal Lym# 1.0 10E3/uL 0.6-4.1 [facility] ([facility] NORMAL RANGES Age WBC RBC HGB HCT [...] HCT IS 5% LESS SOURCE FOR DATA: [employer] 1800 OPERATION MANUAL( AUTOMATED BLOOD COUNTS AND [...] Normal 80 and above >32 mL/min Normal MXD% 12.2 % 0.1-24.0 [facility] ([facility] NORMAL RANGES Age WBC RBC HGB HCT [...] HCT IS 5% LESS SOURCE FOR DATA: [employer] 1800 OPERATION MANUAL( AUTOMATED BLOOD COUNTS AND [...] Normal 80 and above >32 mL/min Normal MPV 10.7 fL 9.0-13.0 [facility] ([facility] NORMAL RANGES Age WBC RBC HGB HCT [...] HCT IS 5% LESS SOURCE FOR DATA: [employer] 1800 OPERATION MANUAL( AUTOMATED BLOOD COUNTS AND [...] Normal 80 and above >32 mL/min Normal MXD# 0.6 10E3/uL 0.0-1.8 [facility] ([facility] NORMAL RANGES Age WBC RBC HGB HCT [...] HCT IS 5% LESS SOURCE FOR DATA: [employer] 1800 OPERATION MANUAL( AUTOMATED BLOOD COUNTS AND [...] Normal 80 and above >32 mL/min Normal ID Date Data Source [id number] 06/22/2021 09:42:00 AM EDT [facility] ([facility] ) Name Value Range Interpretation Code Description Data Hilary rce(s) Supporting Document(s) Covid Rapid Testing Laboratory test result [facility] ([facility]) CARE START COVID-19 ANTIGEN LOT #[id number] 07/07/21 8:56A.M. ID Date Data Source [id number] 06/10/2021 08:08:00 AM EDT [facility] ([facility] Name Value Range Interpretation Code Description Data Hilary rce(s) Supporting Document(s) pH of Urine by Test strip 6.5 5.0-7.5 [facility] ([facility] Urobilinogen [Mass/volume] in Urine by Test strip 0.2 E.U./dL 0.0-1.0 [facility] ([facility] ID Date Data Source [id number] 06/10/2021 08:08:00 AM EDT [facility] ([facility] Name Value Range Interpretation Code Description Data Hilary rce(s) Supporting Document(s) Glucose [Presence] in Urine Laboratory test result [facility] ([facility]) Protein [Presence] in Urine by Test strip Laboratory test result [facility] ([facility]) Ua Nitrite Laboratory test result [facility] ([facility]) Blood [Presence] in Urine by Visual Laboratory test result [facility] ([facility]) Ua Leuko Laboratory test result [facility] ([facility]) Color of Urine Laboratory test result [facility] ([facility]) Ketones [Presence] in Urine by Test strip Laboratory test result [facility] ([facility] Clarity of Urine Laboratory test result [facility] ([facility]) Bilirubin.total [Presence] in Urine by Test strip Laboratory test res ult [facility] ([facility] [place]) Ua Specific [place] Laboratory test result 1.003-1.030 [facility] ([facility]) pH of Urine by Test strip 6.5 5.0-7.5 [facility] ([facility]) Urobilinogen [Mass/volume] in Urine by Test strip 0.2 E.U./dL 0.0-1.0 [facility] ([facility]) ID Date Data Source [id number] 05/20/2021 01:48:00 PM EDT [facility] ([facility]) Name Value Range Interpretation Code Description Data Hilary rce(s) Supporting Document(s) Covid Rapid Testing Laboratory test result [facility] ([facility] ) ID Date Data Source [id number] 05/20/2021 12:00:00 AM EDT [facility] Name Value Range Interpretation Code Description Data Hilary rce(s) Supporting Document(s) Covid Rapid Testing Negative [facility] This lab was ordered by [place] and re ported by [facility]. ID Date Data Source [id number] 05/05/2021 08:54:00 AM EDT [facility] ([facility] Name Value Range Interpretation Code Description Data Hilary rce(s) Supporting Document(s) Chol 211 mg/dL 0-200 Above high normal [facility] ([facility] NORMAL RANGES Age WBC RBC HGB HCT [...] HCT IS 5% LESS SOURCE FOR DATA: [employer] 1800 OPERATION MANUAL( AUTOMATED BLOOD COUNTS AND [...] ADOLESCENTS REPRESENTS INDIVIDUALA AGED 2-19 YEARS EXCLUSIVE. Trig 186 mg/dL 35-200 [facility] ([facility] NORMAL RANGES Age WBC RBC HGB HCT [...] HCT IS 5% LESS SOURCE FOR DATA: [employer] 1800 OPERATION MANUAL( AUTOMATED BLOOD COUNTS AND [...] ADOLESCENTS REPRESENTS INDIVIDUALA AGED 2-19 YEARS EXCLUSIVE. Cho/HDL Ratio 5.5 CALC [facility] ([facility] NORMAL RANGES Age WBC RBC HGB HCT [...] HCT IS 5% LESS SOURCE FOR DATA: [employer] 1800 OPERATION MANUAL( AUTOMATED BLOOD COUNTS AND [...] ADOLESCENTS REPRESENTS INDIVIDUALA AGED 2-19 YEARS EXCLUSIVE. LDL_C 136 Calc 75-129 Above high normal [facility] ([facility] NORMAL RANGES Age WBC RBC HGB HCT [...] HCT IS 5% LESS SOURCE FOR DATA: [employer] DYN 1800 OPERATION MANUAL( AUTOMATED BLOOD COUNTS [...] ADOLESCENTS REPRESENTS INDIVIDUALA AGED 2-19 YEARS EXCLUSIVE. Cholesterol in HDL [Mass/volume] in Serum or Plasma 38 mg/dL 35-55 [facility] ([facility] NORMAL RANGES Age WBC RBC HGB HCT [...] HCT IS 5% LESS SOURCE FOR DATA: [employer] 1800 OPERATION MANUAL( AUTOMATED BLOOD COUNTS AND [...] ADOLESCENTS REPRESENTS INDIVIDUALA AGED 2-19 YEARS EXCLUSIVE. ID Date Data Source [id number] 05/05/2021 08:54:00 AM EDT [facility] ([facility] Name Value Range Interpretation Code Description Data Hilary rce(s) Supporting Document(s) Glu 102 mg/dL 70-110 [facility] ([facility] NORMAL RANGES Age WBC RBC HGB HCT [...] HCT IS 5% LESS SOURCE FOR DATA: [employer] 1800 OPERATION MANUAL( AUTOMATED BLOOD COUNTS AND [...] ADOLESCENTS REPRESENTS INDIVIDUALA AGED 2-19 YEARS EXCLUSIVE. BUN 15 mg/dL 8-23 [facility] ([facility] NORMAL RANGES Age WBC RBC HGB HCT [...] HCT IS 5% LESS SOURCE FOR DATA: [employer] 1800 OPERATION MANUAL( AUTOMATED BLOOD COUNTS AND [...] ADOLESCENTS REPRESENTS INDIVIDUALA AGED 2-19 YEARS EXCLUSIVE. Creat 1.0 mg/dL 0.7-1.2 [facility] ([facility] NORMAL RANGES Age WBC RBC HGB HCT [...] HCT IS 5% LESS SOURCE FOR DATA: [employer] 1800 OPERATION MANUAL( AUTOMATED BLOOD COUNTS AND [...] ADOLESCENTS REPRESENTS INDIVIDUALA AGED 2-19 YEARS EXCLUSIVE. Na 137 mmol/L 136-145 [facility] NORMAL RANGES Age WBC RBC HGB HCT [...] HCT IS 5% LESS SOURCE FOR DATA: [employer] 1800 OPERATION MANUAL( AUTOMATED BLOOD COUNTS AND [...] ADOLESCENTS REPRESENTS INDIVIDUALA AGED 2-19 YEARS EXCLUSIVE. BUN/Creatinine Ratio 14.7 Calc [facility] ([facility] NORMAL RANGES Age WBC RBC HGB HCT [...] HCT IS 5% LESS SOURCE FOR DATA: [employer] 1800 OPERATION MANUAL( AUTOMATED BLOOD COUNTS AND [...] ADOLESCENTS REPRESENTS INDIVIDUALA AGED 2-19 YEARS EXCLUSIVE. CL 103.3 mmol/L 98.0-107.0 [facility] ([facility] NORMAL RANGES Age WBC RBC HGB HCT [...] HCT IS 5% LESS SOURCE FOR DATA: [employer] 1800 OPERATION MANUAL( AUTOMATED BLOOD COUNTS AND [...] ADOLESCENTS REPRESENTS INDIVIDUALA AGED 2-19 YEARS EXCLUSIVE. K 4.2 mmol/L 3.5-5.1 [facility] NORMAL RANGES Age WBC RBC HGB HCT [...] HCT IS 5% LESS SOURCE FOR DATA: [employer] SA DYN 1800 OPERATION MANUAL( AUTOMATED BLOOD COUNTS [...] ADOLESCENTS REPRESENTS INDIVIDUALA AGED 2-19 YEARS EXCLUSIVE. CA 9.6 mg/dL 8.6-10.2 [facility] ([facility] NORMAL RANGES Age WBC RBC HGB HCT [...] HCT IS 5% LESS SOURCE FOR DATA: [employer] 1800 OPERATION MANUAL( AUTOMATED BLOOD COUNTS AND [...] ADOLESCENTS REPRESENTS INDIVIDUALA AGED 2-19 YEARS EXCLUSIVE. Co2 22.6 mmol/L 22.0-29.0 [facility] ([facility] NORMAL RANGES Age WBC RBC HGB HCT [...] HCT IS 5% LESS SOURCE FOR DATA: [employer] 1800 OPERATION MANUAL( AUTOMATED BLOOD COUNTS AND [...] ADOLESCENTS REPRESENTS INDIVIDUALA AGED 2-19 YEARS EXCLUSIVE. TP 6.5 g/dL 6.6-8.7 Below low normal [facility] ( [facility] NORMAL RANGES Age WBC RBC HGB HCT [...] HCT IS 5% LESS SOURCE FOR DATA: [employer] DYN 1800 OPERATION MANUAL( AUTOMATED BLOOD COUNTS [...] ADOLESCENTS REPRESENTS INDIVIDUALA AGED 2-19 YEARS EXCLUSIVE. Alb 4.2 g/dL 3.5-5.2 [facility] ([facility] NORMAL RANGES Age WBC RBC HGB HCT [...] HCT IS 5% LESS SOURCE FOR DATA: [employer] 1800 OPERATION MANUAL( AUTOMATED BLOOD COUNTS AND [...] ADOLESCENTS REPRESENTS INDIVIDUALA AGED 2-19 YEARS EXCLUSIVE. A/G Ratio 1.9 Calc [facility] NORMAL RANGES Age WBC RBC HGB HCT [...] HCT IS 5% LESS SOURCE FOR DATA: [employer] 1800 OPERATION MANUAL( AUTOMATED BLOOD COUNTS AND [...] ADOLESCENTS REPRESENTS INDIVIDUALA AGED 2-19 YEARS EXCLUSIVE. Alt (SGPT) 15 U/L 0-41 [facility] ([facility] NORMAL RANGES Age WBC RBC HGB HCT [...] HCT IS 5% LESS SOURCE FOR DATA: [employer] DYN 1800 OPERATION MANUAL( AUTOMATED BLOOD COUNTS [...] ADOLESCENTS REPRESENTS INDIVIDUALA AGED 2-19 YEARS EXCLUSIVE. Alp 61.9 U/L 40-129 [facility] ([facility] NORMAL RANGES Age WBC RBC HGB HCT [...] HCT IS 5% LESS SOURCE FOR DATA: [employer] 1800 OPERATION MANUAL( AUTOMATED BLOOD COUNTS AND [...] ADOLESCENTS REPRESENTS INDIVIDUALA AGED 2-19 YEARS EXCLUSIVE. Globulin 2.2 Calc [facility] ([facility] NORMAL RANGES Age WBC RBC HGB HCT [...] HCT IS 5% LESS SOURCE FOR DATA: [employer] 1800 OPERATION MANUAL( AUTOMATED BLOOD COUNTS AND [...] ADOLESCENTS REPRESENTS INDIVIDUALA AGED 2-19 YEARS EXCLUSIVE. Tbili 0.60 mg/dL 0.0-1.2 [facility] ([facility] NORMAL RANGES Age WBC RBC HGB HCT [...] HCT IS 5% LESS SOURCE FOR DATA: [employer] 1800 OPERATION MANUAL( AUTOMATED BLOOD COUNTS AND [...] ADOLESCENTS REPRESENTS INDIVIDUALA AGED 2-19 YEARS EXCLUSIVE. Ast (Sgot) 14 U/L 0-40 [facility] ([facility] NORMAL RANGES Age WBC RBC HGB HCT [...] HCT IS 5% LESS SOURCE FOR DATA: [employer] 1800 OPERATION MANUAL( AUTOMATED BLOOD COUNTS AND [...] ADOLESCENTS REPRESENTS INDIVIDUALA AGED 2-19 YEARS EXCLUSIVE. Osmolality-Calculated 274.6 Calc [facility] ([facility] NORMAL RANGES Age WBC RBC HGB HCT [...] HCT IS 5% LESS SOURCE FOR DATA: [employer] 1800 OPERATION MANUAL( AUTOMATED BLOOD COUNTS AND [...] ADOLESCENTS REPRESENTS INDIVIDUALA AGED 2-19 YEARS EXCLUSIVE. Anion Gap 15 mmol/L [facility] ([facility] NORMAL RANGES Age WBC RBC HGB HCT [...] HCT IS 5% LESS SOURCE FOR DATA: [employer] SA DYN 1800 OPERATION MANUAL( AUTOMATED BLOOD COUNTS [...] ADOLESCENTS REPRESENTS INDIVIDUALA AGED 2-19 YEARS EXCLUSIVE. eGFR 92 # [facility] ( [facility] NORMAL RANGES Age WBC RBC HGB HCT [...] HCT IS 5% LESS SOURCE FOR DATA: [employer] 1800 OPERATION MANUAL( AUTOMATED BLOOD COUNTS AND [...] ADOLESCENTS REPRESENTS INDIVIDUALA AGED 2-19 YEARS EXCLUSIVE. eGFR Non-Afr. Liberian 79 # [facility] ([facility] NORMAL RANGES Age WBC RBC HGB HCT [...] HCT IS 5% LESS SOURCE FOR DATA: [employer] 1800 OPERATION MANUAL( AUTOMATED BLOOD COUNTS AND [...] ADOLESCENTS REPRESENTS INDIVIDUALA AGED 2-19 YEARS EXCLUSIVE. ID Date Data Source [id number] 05/05/2021 08:54:00 AM EDT [facility] ([facility] Name Value Range Interpretation Code Description Data Hilary rce(s) Supporting Document(s) WBC 4.1 10E3/uL 4.1-10.9 [facility] ([facility] NORMAL RANGES Age WBC RBC HGB HCT [...] HCT IS 5% LESS SOURCE FOR DATA: [employer] 1800 OPERATION MANUAL( AUTOMATED BLOOD COUNTS AND [...] ADOLESCENTS REPRESENTS INDIVIDUALA AGED 2-19 YEARS EXCLUSIVE. RBC 4.95 10E6/uL 4.20-6.30 [facility] ([facility] NORMAL RANGES Age WBC RBC HGB HCT [...] HCT IS 5% LESS SOURCE FOR DATA: [employer] 1800 OPERATION MANUAL( AUTOMATED BLOOD COUNTS AND [...] ADOLESCENTS REPRESENTS INDIVIDUALA AGED 2-19 YEARS EXCLUSIVE. HGB 13.5 g/dL 12.0-18.0 [facility] ([facility] NORMAL RANGES Age WBC RBC HGB HCT [...] HCT IS 5% LESS SOURCE FOR DATA: [employer] DYN 1800 OPERATION MANUAL( AUTOMATED BLOOD COUNTS [...] ADOLESCENTS REPRESENTS INDIVIDUALA AGED 2-19 YEARS EXCLUSIVE. HCT 41.0 % 37.0-51.0 [facility] ([facility] NORMAL RANGES Age WBC RBC HGB HCT [...] HCT IS 5% LESS SOURCE FOR DATA: [employer] 1800 OPERATION MANUAL( AUTOMATED BLOOD COUNTS AND [...] ADOLESCENTS REPRESENTS INDIVIDUALA AGED 2-19 YEARS EXCLUSIVE. MCH 27.3 pg 26.0-32.0 [facility] ([facility] NORMAL RANGES Age WBC RBC HGB HCT [...] HCT IS 5% LESS SOURCE FOR DATA: [employer] 1800 OPERATION MANUAL( AUTOMATED BLOOD COUNTS AND [...] ADOLESCENTS REPRESENTS INDIVIDUALA AGED 2-19 YEARS EXCLUSIVE. MCV 82.8 fL 80.0-97.0 [facility] ([facility] NORMAL RANGES Age WBC RBC HGB HCT [...] HCT IS 5% LESS SOURCE FOR DATA: [employer] 1800 OPERATION MANUAL( AUTOMATED BLOOD COUNTS AND [...] ADOLESCENTS REPRESENTS INDIVIDUALA AGED 2-19 YEARS EXCLUSIVE. MCHC 32.9 g/dL 31.0-36.0 [facility] ([facility] NORMAL RANGES Age WBC RBC HGB HCT [...] HCT IS 5% LESS SOURCE FOR DATA: [employer] 1800 OPERATION MANUAL( AUTOMATED BLOOD COUNTS AND [...] ADOLESCENTS REPRESENTS INDIVIDUALA AGED 2-19 YEARS EXCLUSIVE. PLT 130 10E3/uL 140-440 Below low normal [facility] ([facility] NORMAL RANGES Age WBC RBC HGB HCT [...] HCT IS 5% LESS SOURCE FOR DATA: [employer] 1800 OPERATION MANUAL( AUTOMATED BLOOD COUNTS AND [...] ADOLESCENTS REPRESENTS INDIVIDUALA AGED 2-19 YEARS EXCLUSIVE. Lym% 21.2 % 10.0-58.5 [facility] ([facility] NORMAL RANGES Age WBC RBC HGB HCT [...] HCT IS 5% LESS SOURCE FOR DATA: [employer] 1800 OPERATION MANUAL( AUTOMATED BLOOD COUNTS AND [...] ADOLESCENTS REPRESENTS INDIVIDUALA AGED 2-19 YEARS EXCLUSIVE. RDW-CV 14.0 % 11.5-14.5 [facility] ([facility] NORMAL RANGES Age WBC RBC HGB HCT [...] HCT IS 5% LESS SOURCE FOR DATA: [employer] 1800 OPERATION MANUAL( AUTOMATED BLOOD COUNTS AND [...] ADOLESCENTS REPRESENTS INDIVIDUALA AGED 2-19 YEARS EXCLUSIVE. MXD% 15.9 % 0.1-24.0 [facility] ([facility] NORMAL RANGES Age WBC RBC HGB HCT [...] HCT IS 5% LESS SOURCE FOR DATA: [employer] 1800 OPERATION MANUAL( AUTOMATED BLOOD COUNTS AND [...] ADOLESCENTS REPRESENTS INDIVIDUALA AGED 2-19 YEARS EXCLUSIVE. Neut% 62.9 % 37.0-92.0 [facility] ([facility] NORMAL RANGES Age WBC RBC HGB HCT [...] HCT IS 5% LESS SOURCE FOR DATA: [employer] 1800 OPERATION MANUAL( AUTOMATED BLOOD COUNTS AND [...] ADOLESCENTS REPRESENTS INDIVIDUALA AGED 2-19 YEARS EXCLUSIVE. Lym# 0.9 10E3/uL 0.6-4.1 [facility] ([facility] NORMAL RANGES Age WBC RBC HGB HCT [...] HCT IS 5% LESS SOURCE FOR DATA: [employer] 1800 OPERATION MANUAL( AUTOMATED BLOOD COUNTS AND [...] ADOLESCENTS REPRESENTS INDIVIDUALA AGED 2-19 YEARS EXCLUSIVE. Neut# 2.5 % 2.0-7.8 [facility] ([facility] NORMAL RANGES Age WBC RBC HGB HCT [...] HCT IS 5% LESS SOURCE FOR DATA: [employer] 1800 OPERATION MANUAL( AUTOMATED BLOOD COUNTS AND [...] ADOLESCENTS REPRESENTS INDIVIDUALA AGED 2-19 YEARS EXCLUSIVE. MXD# 0.7 10E3/uL 0.0-1.8 [facility] ([facility] NORMAL RANGES Age WBC RBC HGB HCT [...] HCT IS 5% LESS SOURCE FOR DATA: [employer] 1800 OPERATION MANUAL( AUTOMATED BLOOD COUNTS AND [...] ADOLESCENTS REPRESENTS INDIVIDUALA AGED 2-19 YEARS EXCLUSIVE. MPV 10.0 fL 9.0-13.0 [facility] ([facility] NORMAL RANGES Age WBC RBC HGB HCT [...] HCT IS 5% LESS SOURCE FOR DATA: [employer] 1800 OPERATION MANUAL( AUTOMATED BLOOD COUNTS AND [...] ADOLESCENTS REPRESENTS INDIVIDUALA AGED 2-19 YEARS EXCLUSIVE. ID Date Data Source [id number] 04/30/2021 03:44:00 PM EDT [facility] ([facility] Name Value Range Interpretation Code Description Data Hilary rce(s) Supporting Document(s) Urine WBC Laboratory test result 0-5 [facility] ([facility]) Urine RBC Laboratory test result 0-2 [facility] ([facility]) Bacteria Laboratory test result [facility] ([facility]) Crystals Laboratory test result [facility] ([facility]) Epithelial Cells Laboratory test result [facility] ([facility]) Yeast Laboratory test result [facility] ([facility]) Sperm Laboratory test result [facility] ([facility]) Hyaline casts [Presence] in Urine sediment by Light mi croscopy Laboratory test result [facility] ([facility]) ID Date Data Source [id number] 04/30/2021 03:28:00 PM EDT [facility] ([facility]) Name Value Range Interpretation Code Description Data Hilary rce(s) Supporting Document(s) Protein [Presence] in Urine by Test strip Laboratory test result [facility] ([facility]) Glucose [Presence] in Urine Laboratory test result [facility] ([facility]) Ua Nitrite Laboratory test result [facility] ([facility]) Ua Leuko Laboratory test result [facility] ([facility]) Blood [Presence] in Urine by Visual Laboratory test result [facility] ([facility]) Ketones [Presence] in Urine by Test strip Laboratory test result [facility] ([facility]) Color of Urine Laboratory test result [facility] ([facility]) Ua Specific [place] Laboratory test result 1.003-1.030 [facility] ([facility]) Clarity of Urine Laboratory test result [facility] ([facility]) Bilirubin.total [Presence] in Urine by Test strip Laboratory test res ult [facility] ([facility]) Urobilinogen [Mass/volume] in Urine by Test strip 0.2 E.U./dL 0.0-1.0 [facility] ([facility]) pH of Urine by Test strip 5.5 5.0-7.5 [facility] ([facility]) ID Date Data Source [id number] 03/04/2021 08:30:00 AM EDT [facility] ([facility]) Name Value Range Interpretation Code Description Data Hilary rce(s) Supporting Document(s) Laboratory test finding (navigational concept) Laboratory test result [facility] ([facility]) ID Date Data Source [id number] 02/16/2021 03:15:00 PM EDT [facility] ([facility]) Name Value Range Interpretation Code Description Data Hilary rce(s) Supporting Document(s) Prostate specific Ag [Mass/volume] in Serum or Plasma 3.54 [facility] ([facility]) Prostatic Specific Ag Monitor 3.54 ng/mL [facility] ([facility]) The PSA assay is performed on the [employer] s Dime Box analyzer by [employer] sandwich chemiluminescent immunoassay and should not be compared interchangeably with other methods. It should not be used alone as a screening test or diagnosis for the presence or absence of malignant disease. Predictions of disease recurrence should not be based solely on values obtained from serial patient serum values. ID Date Data Source [id number] 02/16/2021 12:55:00 PM EDT [facility] ([facility] Name Value Range Interpretation Code Description Data Hilary rce(s) Supporting Document(s) Prostate specific Ag [Mass/volume] in Serum or Plasma 3.54 ng/mL Normal (applies to non-numeric results) [facility] ([facility] The PSA assay is performed on the [employer] s Dime Box analyzer by [employer] sandwich chemiluminescent immunoassay and should not be compared interchangeably with other methods. It should not be used alone as a screening test or diagnosis for the presence or absence of malignant disease. Predictions of disease recurrence should not be based solely on values obtained from serial patient serum values. ID Date Data Source [id number] 02/13/2021 03:05:00 PM EDT [facility] ([facility]) Name Value Range Interpretation Code Description Data Hilary rce(s) Supporting Document(s) Covid Rapid Testing Laboratory test result [facility] ([facility] ) ID Date Data Source [id number] 02/13/2021 12:00:00 AM EDT [facility] Name Value Range Interpretation Code Description Data Hilary rce(s) Supporting Document(s) Covid Rapid Testing Negative [facility] This lab was ordered by [place] and re ported by [facility]. ID Date Data Source [id number] 2020 12:00:00 AM EST [facility] Patient Name: FLORIDA CASTILLO [id number] [facility] Date of : 1955[address] Date of Exam: [id number] [id number]#: Fax: [phone] EXAM: MRI CERVICAL SPINE WITHOUT CONTRASTPROCEDURE INFORMATION:Exam: MR Cervical Spine Without ContrastExam date and time: 2020 11:22 AM Age: 65 years oldClinical indication: Neck pain and other: HeadachesTECHNIQUE: Imaging protocol: Multiplanar magnetic resonance images of thecervical spine without contrast.COMPARISON: CR CERVICAL SPINE COMPLETE XRAY 09/02/2015 4:47 PMFINDINGS:Vertebrae: There is 3 mm of grade 1 retrolisthesis of C3 with respect toC4. Normal vertebral body alignment is otherwise preserved. Vertebral bodyheights are within normal limits.Spinal cord: Normal signal. No cord compression.C2-C3: There is a shallow disc osteophyte complex. There is mild facethypertrophy. There is mild bilateral neural foraminal narrowing.C3-C4: There is a diffuse disc osteophyte complex/uncovering related tolisthesis. There is moderate facet hypertrophy asymmetric to the left.There is moderate to severe right and severe left neural foraminalnarrowing. There is moderate canal stenosis.C4-C5: There is a diffuse disc osteophyte complex. There is mild right andmoderate left facet hypertrophy. There is moderate to severe right andsevere left neural foraminal narrowing. There is mild canal stenosis.C5-C6: There is a diffuse disc osteophyte complex. There is moderate facethypertrophy. There is severe bilateral neural foraminal narrowing, leftgreater than right. There is mild canal stenosis. C6-C7: There is a diffusedisc osteophyte complex. There is moderate facet hypertrophy. There issevere bilateral neural foraminal narrowing. There is mild canal stenosis.C7-T1: There is a shallow disc osteophyte complex. There is moderate facethypertrophy. There is mild left neural foraminal narrowing.Soft tissues: Unremarkable.Vertebral arteries: Expected flow voids in the vertebral arteries.IMPRESSION:Degenerative disc disease and spondylosis. Changes contribute to multilevelmoderate to severe neural foraminal narrowing.Thank you for allowing us to participate in the care of your patient.Dictated and Authenticated by: Paulina Todd MD 2020 2:19 PMEastern Time ([place] & [place])FamadV/franchescacTtorok you for referring FLORIDA CASTILLO to our office. Electronically Signed - MAXIME 12/02/20 14:40 Name Value Range Interpretation Code Description Data Hilary rce(s) Supporting Document(s) ID Date Data Source [id number] 10/27/2020 09:34:00 AM EST [facility] ([facility] Name Value Range Interpretation Code Description Data Hilary rce(s) Supporting Document(s) Chol 193 mg/dL 0-200 [facility] ([facility] NORMAL RANGES Age WBC RBC HGB HCT [...] HCT IS 5% LESS SOURCE FOR DATA: [employer] 1800 OPERATION MANUAL( AUTOMATED BLOOD COUNTS AND [...] ADOLESCENTS REPRESENTS INDIVIDUALA AGED 2-19 YEARS EXCLUSIVE. Trig 186 mg/dL 35-200 [facility] ([facility] NORMAL RANGES Age WBC RBC HGB HCT [...] HCT IS 5% LESS SOURCE FOR DATA: [employer] 1800 OPERATION MANUAL( AUTOMATED BLOOD COUNTS [...] ADOLESCENTS REPRESENTS INDIVIDUALA AGED 2-19 YEARS EXCLUSIVE. Cholesterol in HDL [Mass/volume] in Serum or Plasma 38 mg/dL 35-55 [facility] ([facility] NORMAL RANGES Age WBC RBC HGB HCT [...] HCT IS 5% LESS SOURCE FOR DATA: [employer] 1800 OPERATION MANUAL( AUTOMATED BLOOD COUNTS AND [...] ADOLESCENTS REPRESENTS INDIVIDUALA AGED 2-19 YEARS EXCLUSIVE. Cho/HDL Ratio 5.0 CALC [facility] ([facility] NORMAL RANGES Age WBC RBC HGB HCT [...] HCT IS 5% LESS SOURCE FOR DATA: [employer] 1800 OPERATION MANUAL( AUTOMATED BLOOD COUNTS AND [...] ADOLESCENTS REPRESENTS INDIVIDUALA AGED 2-19 YEARS EXCLUSIVE. LDL_C 117 Calc 75-129 [facility] ([facility] NORMAL RANGES Age WBC RBC HGB HCT [...] HCT IS 5% LESS SOURCE FOR DATA: [employer] 1800 OPERATION MANUAL( AUTOMATED BLOOD COUNTS AND [...] ADOLESCENTS REPRESENTS INDIVIDUALA AGED 2-19 YEARS EXCLUSIVE. ID Date Data Source [id number] 10/27/2020 09:34:00 AM EST [facility] ([facility] Name Value Range Interpretation Code Description Data Hilary rce(s) Supporting Document(s) Glu 103 mg/dL 70-110 [facility] ([facility] NORMAL RANGES Age WBC RBC HGB HCT [...] HCT IS 5% LESS SOURCE FOR DATA: [employer] 1800 OPERATION MANUAL( AUTOMATED BLOOD COUNTS AND [...] ADOLESCENTS REPRESENTS INDIVIDUALA AGED 2-19 YEARS EXCLUSIVE. BUN 15 mg/dL 8-23 [facility] NORMAL RANGES Age WBC RBC HGB HCT [...] HCT IS 5% LESS SOURCE FOR DATA: [employer] 1800 OPERATION MANUAL( AUTOMATED BLOOD COUNTS AND [...] ADOLESCENTS REPRESENTS INDIVIDUALA AGED 2-19 YEARS EXCLUSIVE. Creat 0.9 mg/dL 0.7-1.2 [facility] ([facility] NORMAL RANGES Age WBC RBC HGB HCT [...] HCT IS 5% LESS SOURCE FOR DATA: [employer] 1800 OPERATION MANUAL( AUTOMATED BLOOD COUNTS AND [...] ADOLESCENTS REPRESENTS INDIVIDUALA AGED 2-19 YEARS EXCLUSIVE. BUN/Creatinine Ratio 16.5 CALC [facility] ([facility] NORMAL RANGES Age WBC RBC HGB HCT [...] HCT IS 5% LESS SOURCE FOR DATA: [employer] 1800 OPERATION MANUAL( AUTOMATED BLOOD COUNTS AND [...] ADOLESCENTS REPRESENTS INDIVIDUALA AGED 2-19 YEARS EXCLUSIVE. K 4.2 mmol/L 3.5-5.1 [facility] ([facility] NORMAL RANGES Age WBC RBC HGB HCT [...] HCT IS 5% LESS SOURCE FOR DATA: [employer] 1800 OPERATION MANUAL( AUTOMATED BLOOD COUNTS AND [...] ADOLESCENTS REPRESENTS INDIVIDUALA AGED 2-19 YEARS EXCLUSIVE. Na 138 mmol/L 136-145 [facility] ([facility] NORMAL RANGES Age WBC RBC HGB HCT [...] HCT IS 5% LESS SOURCE FOR DATA: [employer] 1800 OPERATION MANUAL( AUTOMATED BLOOD COUNTS AND [...] ADOLESCENTS REPRESENTS INDIVIDUALA AGED 2-19 YEARS EXCLUSIVE. CL 102.1 mmol/L 98.0-107.0 [facility] ([facility] NORMAL RANGES Age WBC RBC HGB HCT [...] HCT IS 5% LESS SOURCE FOR DATA: [employer] 1800 OPERATION MANUAL( AUTOMATED BLOOD COUNTS AND [...] ADOLESCENTS REPRESENTS INDIVIDUALA AGED 2-19 YEARS EXCLUSIVE. Co2 26.0 mmol/L 22.0-29.0 [facility] ([facility] NORMAL RANGES Age WBC RBC HGB HCT [...] HCT IS 5% LESS SOURCE FOR DATA: [employer] 1800 OPERATION MANUAL( AUTOMATED BLOOD COUNTS AND [...] ADOLESCENTS REPRESENTS INDIVIDUALA AGED 2-19 YEARS EXCLUSIVE. CA 9.9 mg/dL 8.6-10.2 [facility] ([facility] NORMAL RANGES Age WBC RBC HGB HCT [...] HCT IS 5% LESS SOURCE FOR DATA: [employer] 1800 OPERATION MANUAL( AUTOMATED BLOOD COUNTS AND [...] ADOLESCENTS REPRESENTS INDIVIDUALA AGED 2-19 YEARS EXCLUSIVE. TP 6.7 g/dL 6.6-8.7 [facility] ([facility] NORMAL RANGES Age WBC RBC HGB HCT [...] HCT IS 5% LESS SOURCE FOR DATA: [employer] 1800 OPERATION MANUAL( AUTOMATED BLOOD COUNTS AND [...] ADOLESCENTS REPRESENTS INDIVIDUALA AGED 2-19 YEARS EXCLUSIVE. Alb 4.4 g/dL 3.5-5.2 [facility] ([facility] NORMAL RANGES Age WBC RBC HGB HCT [...] HCT IS 5% LESS SOURCE FOR DATA: [employer] 1800 OPERATION MANUAL( AUTOMATED BLOOD COUNTS [...] ADOLESCENTS REPRESENTS INDIVIDUALA AGED 2-19 YEARS EXCLUSIVE. Globulin 2.2 CALC [facility] ([facility] NORMAL RANGES Age WBC RBC HGB HCT [...] HCT IS 5% LESS SOURCE FOR DATA: [employer] 1800 OPERATION MANUAL( AUTOMATED BLOOD COUNTS AND [...] ADOLESCENTS REPRESENTS INDIVIDUALA AGED 2-19 YEARS EXCLUSIVE. A/G Ratio 2.0 CALC [facility] ([facility] NORMAL RANGES Age WBC RBC HGB HCT [...] HCT IS 5% LESS SOURCE FOR DATA: [employer] 1800 OPERATION MANUAL( AUTOMATED BLOOD COUNTS AND [...] ADOLESCENTS REPRESENTS INDIVIDUALA AGED 2-19 YEARS EXCLUSIVE. Alp 67.8 U/L 40-129 [facility] ([facility] NORMAL RANGES Age WBC RBC HGB HCT [...] HCT IS 5% LESS SOURCE FOR DATA: [employer] 1800 OPERATION MANUAL( AUTOMATED BLOOD COUNTS [...] ADOLESCENTS REPRESENTS INDIVIDUALA AGED 2-19 YEARS EXCLUSIVE. Alt (SGPT) 17 U/L 0-41 [facility] NORMAL RANGES Age WBC RBC HGB HCT [...] HCT IS 5% LESS SOURCE FOR DATA: [employer] 1800 OPERATION MANUAL( AUTOMATED BLOOD COUNTS AND [...] ADOLESCENTS REPRESENTS INDIVIDUALA AGED 2-19 YEARS EXCLUSIVE. Tbili 0.37 mg/dL 0.0-1.2 [facility] ([facility] NORMAL RANGES Age WBC RBC HGB HCT [...] HCT IS 5% LESS SOURCE FOR DATA: [employer] 1800 OPERATION MANUAL( AUTOMATED BLOOD COUNTS AND [...] ADOLESCENTS REPRESENTS INDIVIDUALA AGED 2-19 YEARS EXCLUSIVE. Ast (Sgot) 18 U/L 0-40 [facility] NORMAL RANGES Age WBC RBC HGB HCT [...] HCT IS 5% LESS SOURCE FOR DATA: [employer] 1800 OPERATION MANUAL( AUTOMATED BLOOD COUNTS AND [...] ADOLESCENTS REPRESENTS INDIVIDUALA AGED 2-19 YEARS EXCLUSIVE. Anion Gap 14 mmol/L [facility] ([facility] NORMAL RANGES Age WBC RBC HGB HCT [...] HCT IS 5% LESS SOURCE FOR DATA: [employer] 1800 OPERATION MANUAL( AUTOMATED BLOOD COUNTS AND [...] ADOLESCENTS REPRESENTS INDIVIDUALA AGED 2-19 YEARS EXCLUSIVE. Osmolality-Calculated 277.2 CALC [facility] ([facility] NORMAL RANGES Age WBC RBC HGB HCT [...] HCT IS 5% LESS SOURCE FOR DATA: [employer] 1800 OPERATION MANUAL( AUTOMATED BLOOD COUNTS AND [...] ADOLESCENTS REPRESENTS INDIVIDUALA AGED 2-19 YEARS EXCLUSIVE. eGFR 104 # [facility] ( [facility] NORMAL RANGES Age WBC RBC HGB HCT [...] HCT IS 5% LESS SOURCE FOR DATA: [employer] 1800 OPERATION MANUAL( AUTOMATED BLOOD COUNTS AND [...] ADOLESCENTS REPRESENTS INDIVIDUALA AGED 2-19 YEARS EXCLUSIVE. eGFR Non-Afr. Liberian 90 # [facility] ([facility] NORMAL RANGES Age WBC RBC HGB HCT [...] HCT IS 5% LESS SOURCE FOR DATA: [employer] 1800 OPERATION MANUAL( AUTOMATED BLOOD COUNTS AND [...] ADOLESCENTS REPRESENTS INDIVIDUALA AGED 2-19 YEARS EXCLUSIVE. ID Date Data Source [id number] 10/27/2020 09:34:00 AM EST [facility] ([facility] Name Value Range Interpretation Code Description Data Hilary rce(s) Supporting Document(s) WBC 5.0 10E3/uL 4.1-10.9 [facility] ([facility] NORMAL RANGES Age WBC RBC HGB HCT [...] HCT IS 5% LESS SOURCE FOR DATA: [employer] 1800 OPERATION MANUAL( AUTOMATED BLOOD COUNTS AND [...] ADOLESCENTS REPRESENTS INDIVIDUALA AGED 2-19 YEARS EXCLUSIVE. RBC 5.10 10E6/uL 4.20-6.30 [facility] ([facility] NORMAL RANGES Age WBC RBC HGB HCT [...] HCT IS 5% LESS SOURCE FOR DATA: [employer] 1800 OPERATION MANUAL( AUTOMATED BLOOD COUNTS AND [...] ADOLESCENTS REPRESENTS INDIVIDUALA AGED 2-19 YEARS EXCLUSIVE. HCT 42.2 % 37.0-51.0 [facility] ([facility] NORMAL RANGES Age WBC RBC HGB HCT [...] HCT IS 5% LESS SOURCE FOR DATA: [employer] 1800 OPERATION MANUAL( AUTOMATED BLOOD COUNTS AND [...] ADOLESCENTS REPRESENTS INDIVIDUALA AGED 2-19 YEARS EXCLUSIVE. HGB 13.7 g/dL 12.0-18.0 [facility] ([facility] NORMAL RANGES Age WBC RBC HGB HCT [...] ADOLESCENTS REPRESENTS INDIVIDUALA AGED 2-19 YEARS EXCLUSIVE. MCH 26.9 pg 26.0-32.0 [facility] ([facility] NORMAL RANGES Age WBC RBC HGB HCT [...] HCT IS 5% LESS SOURCE FOR DATA: [employer] 1800 OPERATION MANUAL( AUTOMATED BLOOD COUNTS AND [...] ADOLESCENTS REPRESENTS INDIVIDUALA AGED 2-19 YEARS EXCLUSIVE. MCV 82.7 fL 80.0-97.0 [facility] ([facility] NORMAL RANGES Age WBC RBC HGB HCT [...] HCT IS 5% LESS SOURCE FOR DATA: [employer] 1800 OPERATION MANUAL( AUTOMATED BLOOD COUNTS AND [...] ADOLESCENTS REPRESENTS INDIVIDUALA AGED 2-19 YEARS EXCLUSIVE. MCHC 32.5 g/dL 31.0-36.0 [facility] ([facility] NORMAL RANGES Age WBC RBC HGB HCT [...] HCT IS 5% LESS SOURCE FOR DATA: [employer] 1800 OPERATION MANUAL( AUTOMATED BLOOD COUNTS [...] ADOLESCENTS REPRESENTS INDIVIDUALA AGED 2-19 YEARS EXCLUSIVE. PLT 125 10E3/uL 140-440 Below low normal [facility] ([facility] NORMAL RANGES Age WBC RBC HGB HCT [...] HCT IS 5% LESS SOURCE FOR DATA: [employer] 1800 OPERATION MANUAL( AUTOMATED BLOOD COUNTS AND [...] ADOLESCENTS REPRESENTS INDIVIDUALA AGED 2-19 YEARS EXCLUSIVE. RDW-CV 13.4 % 11.5-14.5 [facility] ([facility] NORMAL RANGES Age WBC RBC HGB HCT [...] HCT IS 5% LESS SOURCE FOR DATA: [employer] 1800 OPERATION MANUAL( AUTOMATED BLOOD COUNTS AND [...] ADOLESCENTS REPRESENTS INDIVIDUALA AGED 2-19 YEARS EXCLUSIVE. Neut% 71.1 % 37.0-92.0 [facility] ([facility] NORMAL RANGES Age WBC RBC HGB HCT [...] HCT IS 5% LESS SOURCE FOR DATA: [employer] 1800 OPERATION MANUAL( AUTOMATED BLOOD COUNTS AND [...] ADOLESCENTS REPRESENTS INDIVIDUALA AGED 2-19 YEARS EXCLUSIVE. Lym% 19.3 % 10.0-58.5 [facility] ([facility] NORMAL RANGES Age WBC RBC HGB HCT [...] HCT IS 5% LESS SOURCE FOR DATA: [employer] 1800 OPERATION MANUAL( AUTOMATED BLOOD COUNTS AND [...] ADOLESCENTS REPRESENTS INDIVIDUALA AGED 2-19 YEARS EXCLUSIVE. MXD% 9.6 % 0.1-24.0 [facility] ([facility] NORMAL RANGES Age WBC RBC HGB HCT [...] HCT IS 5% LESS SOURCE FOR DATA: [employer] 1800 OPERATION MANUAL( AUTOMATED BLOOD COUNTS AND [...] ADOLESCENTS REPRESENTS INDIVIDUALA AGED 2-19 YEARS EXCLUSIVE. Neut# 3.5 % 2.0-7.8 [facility] ([facility] NORMAL RANGES Age WBC RBC HGB HCT [...] HCT IS 5% LESS SOURCE FOR DATA: [employer] 1800 OPERATION MANUAL( AUTOMATED BLOOD COUNTS AND [...] ADOLESCENTS REPRESENTS INDIVIDUALA AGED 2-19 YEARS EXCLUSIVE. Lym# 1.0 10E3/uL 0.6-4.1 [facility] ([facility] NORMAL RANGES Age WBC RBC HGB HCT [...] HCT IS 5% LESS SOURCE FOR DATA: [employer] 1800 OPERATION MANUAL( AUTOMATED BLOOD COUNTS AND [...] ADOLESCENTS REPRESENTS INDIVIDUALA AGED 2-19 YEARS EXCLUSIVE. MXD# 0.5 10E3/uL 0.0-1.8 [facility] ([facility] NORMAL RANGES Age WBC RBC HGB HCT [...] HCT IS 5% LESS SOURCE FOR DATA: [employer] 1800 OPERATION MANUAL( AUTOMATED BLOOD COUNTS AND [...] ADOLESCENTS REPRESENTS INDIVIDUALA AGED 2-19 YEARS EXCLUSIVE. MPV 9.8 fL 9.0-13.0 [facility] ([facility] NORMAL RANGES Age WBC RBC HGB HCT [...] HCT IS 5% LESS SOURCE FOR DATA: [employer] 1800 OPERATION MANUAL( AUTOMATED BLOOD COUNTS AND [...] ADOLESCENTS REPRESENTS INDIVIDUALA AGED 2-19 YEARS EXCLUSIVE. ID Date Data Source [id number] 10/23/2020 10:28:00 AM EST [facility] ([facility]) Name Value Range Interpretation Code Description Data Hilary rce(s) Supporting Document(s) Triglycerides 186 [facility] ([facility]) Cholesterol 193 [facility] ([facility] Chol/HDL Ratio 5.0 [facility] ([facility]) Cholesterol in LDL [Mass/volume] in Serum or Plasma by calculation 11 7 [facility] ([facility] HDL 38 [facility] ([facility] ID Date Data Source [id number] 10/23/2020 10:28:00 AM EST [facility] ([facility] Name Value Range Interpretation Code Description Data Hilary rce(s) Supporting Document(s) Alanine aminotransferase [Enzymatic activity/volume] in Serum or Pl asma 17 [facility] ([facility] Albumin [Mass/volume] in Serum or Plasma 4.4 [facility] ([facility] Carbon dioxide, total [Moles/volume] in Serum or Plasma 26.0 [facility] ([facility] Calcium [Mass/volume] in Serum or Plasma 9.9 [facility] ([facility] Alkaline phosphatase [Enzymatic activity/volume] in Serum or Plasma 6 7.8 [facility] ([facility] Chloride [Moles/volume] in Serum or Plasma 102.1 [facility] ([facility] Potassium [Moles/volume] in Serum or Plasma 4.2 [facility] ([facility] Protein [Mass/volume] in Serum or Plasma 6.7 [facility] ([facility] Sodium 138 [facility] ([facility] Aspartate aminotransferase [Enzymatic activity/volume] in Serum or Plasma 18 [facility] ([facility] Urea nitrogen [Mass/volume] in Serum or Plasma 15 [facility] ([facility]ucose 103 [facility] ([facility] Creatinine For GFR 0.9 [facility] ([facility] ID Date Data Source [id number] 10/23/2020 10:28:00 AM EST [facility] ([facility] Name Value Range Interpretation Code Description Data Hilary rce(s) Supporting Document(s) White Blood Count 5.0 [facility] ([facility] Platelets 125 [facility] ([facility] Hemoglobin 13[facility]7 [facility] ([facility] Red Blood Count 5.10 [facility] ([facility] Hematocrit 42.2 [facility] ([facility] Procedure Social History Code Duration Value Status Description Data Source(s ) Alcohol intake 08/06/2021 12:00:00 AM EDT Ex-drinker (finding) comp leted Ex- drinker (finding) [facility] Tobacco use and exposure 07/28/2021 12:00:00 AM EDT Never used co mpleted Never used [facility] Smoking 07/28/2021 12:00:00 AM EDT Never smoker completed Never s moker [facility] Smoking 06/08/2021 12:00:00 AM EDT Never Smoked Cigarettes com pleted Never Smoked Cigarettes [facility] ([facility]) Smoking 05/26/2021 12:00:00 AM EDT Patient has never smoked co mpleted Patient has never smoked [facility] ([facility]) Smoking 03/31/2021 12:00:00 AM EDT Patient has never smoked co mpleted Patient has never smoked [facility] ([facility] Smoking 12/12/2020 12:00:00 AM EST Patient has never smoked co mpleted Patient has never smoked [facility] ([facility]) Vital Signs ID Date Data Source UNK Name Value Range Interpretation Code Description Data Source(s) Systolic blood pressure 114 mm[Hg] 114 mm[Hg] S [facility] Diastolic blood pressure 69 mm[Hg] 69 mm[Hg] [facility] Heart rate 68 /min 68 /min [facility] Body temperature 36.56 [place] 36.56 [place] [facility] Respiratory rate 17 /min 17 /min [facility] Oxygen saturation in Arterial blood by Pulse oximetry 94 % 94 % [facility] Body height 182.9 cm 182.9 cm [facility] Body weight 113.4 kg 113.4 kg [facility] Body mass index (BMI) [Ratio] 33.91 kg/m2 33.91 kg/m2 [facility] Body temperature 97.5 [degF] 97.5 [degF] [facility] ([facility]) Systolic blood pressure 116 mm[Hg] 116 mm[Hg] M [facility] ([facility] Diastolic blood pressure 74 mm[Hg] 74 mm[Hg] [facility] ([facility] Respiratory rate 14 /min 14 /min [facility] ( [facility] Body height 72 [in_i] 72 [in_i] [facility] ([facility] 6'0" Body weight 273.00 [lb_av] 273.00 [lb_av] MEDEN T ([facility] [place] body weight 178 [lb_av] 178 [lb_av] MEDEN T ([facility] Body temperature 99.2 [degF] 99.2 [degF] [facility] ([facility] Heart rate 72 /min 72 /min [facility] ([facility] Body mass index (BMI) [Ratio] 37.0 kg/m2 37.0 k g/m2 [facility] ([facility] Oxygen saturation in Arterial blood by Pulse oximetry 96 % 96 % [facility] ([facility] Body height 71 [in_i] 71 [in_i] [facility] ([facility]) 5'11" Body weight 268.50 [lb_av] 268.50 [lb_av] [facility] T ([facility] Body temperature 97.3 [degF] 97.3 [degF] [facility] ([facility] Body mass index (BMI) [Ratio] 37.4 kg/m2 37.4 k g/m2 [facility] ([facility] Systolic blood pressure 174 mm[Hg] 174 mm[Hg] M [facility] ([facility] Diastolic blood pressure 100 mm[Hg] 100 mm[Hg] [facility] ([facility] Systolic blood pressure 170 mm[Hg] 170 mm[Hg] M [facility] ([facility] Diastolic blood pressure 98 mm[Hg] 98 mm[Hg] [facility] ([facility] Heart rate 72 /min 72 /min [facility] Body temperature 97.2 [degF] 97.2 [degF] [facility] Body height 72 [in_i] 72 [in_i] [facility] 6'0" Body weight 250.00 [lb_av] 250.00 [lb_av] MEDEN T ([facility]) Body weight 113.400 kg 113.400 kg [facility] ([facility] Body mass index (BMI) [Ratio] 33.9 kg/m2 33.9 k g/m2 [facility] ([facility]) Body temperature 96.3 [degF] 96.3 [degF] [facility] ([facility]) Body weight 265.00 [lb_av] 265.00 [lb_av] MEDEN T ([facility] [place] body weight 178 [lb_av] 178 [lb_av] [facility] T ([facility] Respiratory rate 14 /min 14 /min [facility] ( [facility] Body height 72 [in_i] 72 [in_i] [facility] ([facility] 6'0" Diastolic blood pressure 80 mm[Hg] 80 mm[Hg] [facility] ([facility] Body temperature 98.1 [degF] 98.1 [degF] [facility] ([facility] Heart rate 78 /min 78 /min [facility] ([facility] Systolic blood pressure 126 mm[Hg] 126 mm[Hg] M EDENT ([facility] Body mass index (BMI) [Ratio] 35.9 kg/m2 35.9 k g/m2 [facility] ([facility] Oxygen saturation in Arterial blood by Pulse oximetry 96 % 96 % [facility] ([facility] Body weight 113.400 kg 113.400 kg [facility] ([facility] [place] Body mass index (BMI) [Ratio] 33.9 kg/m2 33.9 k g/m2 [facility] ([facility]) Systolic blood pressure 128 mm[Hg] 128 mm[Hg] M EDENT ([facility]) Diastolic blood pressure 72 mm[Hg] 72 mm[Hg] [facility] ([facility]) Body height 72 [in_i] 72 [in_i] [facility] ([facility] 6'0" Body weight 250.00 [lb_av] 250.00 [lb_av] MED[facility] T ([facility]) Heart rate 80 /min 80 /min [facility] ([facility] Body weight 261.00 [lb_av] 261.00 [lb_av] [facility] T ([facility]) Body height 72 [in_i] 72 [in_i] [facility] ([facility]) 6'0" Body mass index (BMI) [Ratio] 35.4 kg/m2 35.4 k g/m2 [facility] ([facility]) Heart rate 72 /min 72 /min [facility] ([facility]) Regular Respiratory rate 16 /min 16 /min [facility] ( [facility]) Systolic blood pressure 126 mm[Hg] 126 mm[Hg] M EDENT ([facility]) sitting, large cuff Diastolic blood pressure 70 mm[Hg] 70 mm[Hg] [facility] ([facility]) sitting, large cuff Systolic blood pressure 130 mm[Hg] 130 mm[Hg] M ED[facility] ([facility]) sittting Diastolic blood pressure 70 mm[Hg] 70 mm[Hg] [facility] ([facility]) sittting Body temperature 97.8 [degF] 97.8 [degF] [facility] ([facility]) Body temperature 96.8 [degF] 96.8 [degF] [facility] ([facility]) Body height 70.5 [in_i] 70.5 [in_i] [facility] ([facility]) 5'10.50" Body weight 262.25 [lb_av] 262.25 [lb_av] MEDEN T ([facility]) Body mass index (BMI) [Ratio] 37.1 kg/m2 37.1 k g/m2 [facility] ([facility]) Systolic blood pressure 136 mm[Hg] 136 mm[Hg] M ED[facility] ([facility] Body mass index (BMI) [Ratio] 36.2 kg/m2 36.2 k g/m2 [facility] ([facility] Oxygen saturation in Arterial blood by Pulse oximetry 96 % 96 % [facility] ([facility] Body temperature 98.6 [degF] 98.6 [degF] [facility] ([facility] Heart rate 74 /min 74 /min [facility] ([facility] Respiratory rate 16 /min 16 /min [facility] ( [facility] Body height 72 [in_i] 72 [in_i] [facility] ([facility] 6'0" Body weight 267.00 [lb_av] 267.00 [lb_av] MEDEN T ([facility] [place] body weight 178 [lb_av] 178 [lb_av] MED[facility] T ([facility] Diastolic blood pressure 76 mm[Hg] 76 mm[Hg] [facility] ([facility] Diastolic blood pressure 76 mm[Hg] 76 mm[Hg] [facility] ([facility] sitting, regular cuff Systolic blood pressure 126 mm[Hg] 126 mm[Hg] M ED[facility] ([facility]) sitting Diastolic blood pressure 76 mm[Hg] 76 mm[Hg] [facility] ([facility] sitting Body weight 261.00 [lb_av] 261.00 [lb_av] MEDEN T ([facility] Body height 72 [in_i] 72 [in_i] [facility] ([facility] 6'0" Body mass index (BMI) [Ratio] 35.4 kg/m2 35.4 k g/m2 [facility] ([facility] Heart rate 68 /min 68 /min [facility] ([facility] Regular Respiratory rate 16 /min 16 /min [facility] ( [facility] Systolic blood pressure 122 mm[Hg] 122 mm[Hg] M [facility] ([facility] sitting, regular cuff Body temperature 97.3 [degF] 97.3 [degF] [facility] ([facility]) Patient Treatment Plan of Care Planned Activity Planned Date Details Description Data Source (s) Aspirin 81 MG Delayed Release Oral Tablet 08/10/2021 12:00:00 AM ED [facility] Aspirin 81 MG Delayed Release Oral Tablet 08/09/2021 12:00:00 AM [facility] POLYETHYLENE GLYCOL 3350 142 MG/ML Oral Solution 08/06/2021 12:00:0 0 AM EDT [facility] Docusate Sodium 100 MG Oral Capsule 08/06/2021 12:00:00 AM EDT [facility] valsartan 80 MG Oral Tablet 08/05/2021 05:00:00 PM EDT [facility] eplerenone 25 MG Oral Tablet 08/05/2021 04:30:00 PM EDT [facility] Calcium Carbonate 500 MG Chewable Tablet 08/05/2021 02:01:04 PM EDT [facility] ondansetron (ZOFRAN) injection 4 mg 08/05/2021 02:01:04 PM EDT [facility] Bacitracin 0.5 UNT/MG / Neomycin 0.0035 MG/MG / Polymyxin B 10 UNT/MG Topical Ointment 08/05/2021 02:01:04 PM EDT [facility] Oxybutynin chloride 5 MG Oral Tablet 08/05/2021 02:01:04 PM EDT [facility] Acetaminophen 325 MG Oral Tablet 08/05/2021 02:01:03 PM EDT [facility] Magnesium Chloride 0.38173 MEQ/ML / Pota ssium Chloride 0.0497 MEQ/ML / Sodium Acetate 0.0163 MEQ/ML / Sodium Chloride 0.0899 MEQ/ML / Sodium gluconate 5.02 MG/ML Injectable Solution [Normosol-R] 08/05/2021 01:00:00 PM EDT [facility] Aspirin 81 MG Delayed Release Oral Tablet [facility]
--- NOTE | 2021-08-11 20:23 | REPVR ---
PROCEDURE INFORMATION: Exam: CT Head Without Contrast Exam date and time: 08/11/2021 7:43 PM Age: 65 years old Clinical indication: Injury or trauma; Fall; Blunt trauma (contusions or hematomas) TECHNIQUE: Imaging protocol: Computed tomography of the head without contrast. Radiation optimization: All CT scans at this facility use at least one of these dose optimization techniques: automated exposure control; mA and/or kV adjustment per patient size (includes targeted exams where dose is matched to clinical indication); or iterative reconstruction. COMPARISON: CT Head without contrast 01/25/2017 2:19 PM FINDINGS: Brain: There is minimal patchy low attenuation of deep white matter. The sulci are upper normal. No intracranial hemorrhage or mass effect. Cerebral ventricles: No ventriculomegaly. Paranasal sinuses: Rounded mucosal thickening in the maxillary sinuses bilaterally. Mastoid air cells: Visualized mastoid air cells are well aerated. Bones/joints: Unremarkable. No acute fracture. Soft tissues: Slight right forehead soft tissue swelling. IMPRESSION: 1. Minimal chronic ischemic white matter change. 2. Slight right forehead soft tissue swelling. 3. Minimal bilateral maxillary sinus disease. 4. Otherwise negative noncontrast head CT which is similar to 01/25/2017. Electronically signed by: Tru Navarro On 08/11/2021 20:23:20 PM
--- NOTE | 2021-08-11 20:29 | REPVR ---
PROCEDURE INFORMATION: Exam: CT Cervical Spine Without Contrast Exam date and time: 08/11/2021 7:43 PM Age: 65 years old Clinical indication: Injury or trauma; Fall; Blunt trauma TECHNIQUE: Imaging protocol: Computed tomography images of the cervical spine without contrast. Radiation optimization: All CT scans at this facility use at least one of these dose optimization techniques: automated exposure control; mA and/or kV adjustment per patient size (includes targeted exams where dose is matched to clinical indication); or iterative reconstruction. COMPARISON: CT Head without contrast 01/25/2017 2:19 PM FINDINGS: Vertebrae: No acute fracture. Normal alignment. C2-C3: Mild interspace narrowing with minimal posterior paracentral osteophytes and degenerative changes of apophyseal joints with no significant spinal or foraminal stenosis. C3-C4: Moderate interspace narrowing with mild retrolisthesis and minimal posterior paracentral osteophytes with bilateral degenerative changes of uncovertebral and apophyseal joints. There is moderate right neural foraminal stenosis. C4-C5: Moderate interspace narrowing with slight retrolisthesis and minimal posterior osteophytes and minimal degenerative changes with mild left and borderline right neural foraminal stenosis. C5-C6: Moderate interspace narrowing with mild retrolisthesis and minimal broad-based posterior osteophytes and bilateral degenerative changes. No spinal stenosis. There is borderline right neural foraminal stenosis. C6-C7: Moderate interspace narrowing with posterior osteophytes and degenerative changes of uncovertebral joints. There is mild left and borderline right neural foraminal stenosis. C7-T1: Degenerative changes of apophyseal joints with no spinal or foraminal stenosis. Soft tissues: Unremarkable. Sinuses: Minimal bilateral maxillary sinus rounded mucosal thickening. Lungs: Lung apices are normal. IMPRESSION: 1. Minimal bilateral maxillary sinus disease. 2. Multilevel degenerative changes with no significant spinal stenosis but varying degrees of multilevel neural foraminal stenosis. 3. Otherwise negative CT cervical spine. No acute fracture or subluxation. Electronically signed by: Tru Navarro On 08/11/2021 20:28:56 PM
[2021-08-11 20:31] LABS: PLATELET COUNT, AUTOMATED 71 10^3/uL (150-450)
[2021-08-11] MEDS ORDERED: DIGOXIN INJ 0.5 MG/2 ML AMP (J1160) IV STA ×2 (20:33→22:34)
--- NOTE | 2021-08-11 20:35 | REPVR ---
PROCEDURE INFORMATION: Exam: CT Abdomen And Pelvis Without Contrast Exam date and time: 08/11/2021 7:43 PM Age: 65 years old Clinical indication: Other: Syncope, recent surgery (turp); Additional info: Syncope, recent surgery (turp) TECHNIQUE: Imaging protocol: Computed tomography of the abdomen and pelvis without contrast. Radiation optimization: All CT scans at this facility use at least one of these dose optimization techniques: automated exposure control; mA and/or kV adjustment per patient size (includes targeted exams where dose is matched to clinical indication); or iterative reconstruction. COMPARISON: CT ABD PELVIS W/O FOL BY WIT 09/27/2018 4:27 PM FINDINGS: Liver: Normal. No mass. Gallbladder and bile ducts: Normal. No calcified stones. No ductal dilation. Pancreas: There are punctate pancreatic parenchymal calcifications, consistent with chronic pancreatitis. No acute inflammation demonstrated. Spleen: Normal. No splenomegaly. Adrenal glands: 1.7 cm right adrenal nodule likely represents an adenoma, possibly lipid poor variety. Correlation with opposed phase MRI could be obtained if clinically desired. No significant interval change. Kidneys and ureters: 3 cm simple appearing left renal cyst increased in size in comparison to the 2018 examination. Follow-up suggested. Punctate nonobstructive calculus left kidney. Stomach and bowel: Mild diverticulosis is present in the distal colon. No diverticulitis. Appendix: No evidence of appendicitis. Intraperitoneal space: Unremarkable. No free air. No significant fluid collection. Vasculature: Unremarkable. No abdominal aortic aneurysm. Lymph nodes: Unremarkable. No enlarged lymph nodes. Urinary bladder: Trinidad catheter within the urinary bladder. Inflammatory changes demonstrated surrounding the urinary bladder associated with bladder wall thickening. Findings consistent with cystitis. Reproductive: The prostate gland demonstrates moderate hyperplasia. Bones/joints: Moderate to severe central spinal stenosis L2-L3, L3-L4 and L4-L5. Soft tissues: There is a small umbilical hernia. There is no evidence of incarceration. IMPRESSION: 1. There are punctate pancreatic parenchymal calcifications, consistent with chronic pancreatitis. No acute inflammation demonstrated. 2. 1.7 cm right adrenal nodule likely represents an adenoma, possibly lipid poor variety. Correlation with opposed phase MRI could be obtained if clinically desired. No significant interval change. 3. Trinidad catheter within the urinary bladder. Inflammatory changes demonstrated surrounding the urinary bladder associated with bladder wall thickening. Findings consistent with cystitis. 4. Moderate prostatic hyperplasia. 5. Mild diverticulosis is present in the distal colon. No diverticulitis. 6. Nonobstructive calculus left kidney. COMMENTS: 1. Consistent with the [employer]'s Incidental Findings Committee white paper (J Am Austyn Radiol 2017): For any incidental adrenal lesion greater than 1 cm but less than 4 cm classified in this report as benign, likely benign, or containing fat (including classification as an adenoma or myelolipoma), no follow-up imaging is recommended per consensus recommendations based on imaging criteria. Further lab evaluation could be pursued if warranted based on clinical findings. 2. Consistent with the [employer]'s Incidental Findings Committee white paper (J Am Austyn Radiol 2018): Any incidental renal lesion less than 1 cm or classified as too small to characterize, or any incidental cystic renal lesion characterized as simple-appearing, is likely benign. No follow-up imaging is recommended for these lesions per consensus recommendations based on imaging criteria. Electronically signed by: Roman Jarquin On 08/11/2021 20:35:04 PM
[2021-08-11] MEDS ORDERED: ENOXAPARIN 100MG/1ML SYRINGE (J1650 PER 10MG) SC ONE (21:05)
--- NOTE | 2021-08-11 21:33 | ECGEPIP ---
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
[2021-08-11] MEDS ORDERED: METOPROLOL TART 50 MG TAB PO ONE (22:35)
[2021-08-11 23:54] LABS: APPEARANCE, URINE CLOUDY (CLEAR); BACTERIA, URINE AUTO NEGATIVE (NEGATIVE); BILIRUBIN, URINE AUTO NEGATIVE (NEGATIVE); BLOOD, URINE BLOOD 3+ (NEGATIVE); COLOR, URINE AMBER (YELLOW); GLUCOSE, URINE (UA) AUTO NEGATIVE (NEGATIVE); KETONE, URINE AUTO NEGATIVE (NEGATIVE); LEUKOCYTE ESTERASE, URINE AUTO TRACE (NEGATIVE); MUCUS, URINE LARGE (NEGATIVE); NITRITE, URINE AUTO NEGATIVE (NEGATIVE); PROTEIN, URINE AUTO 2+ mg/dL (NEGATIVE); RBC, URINE AUTO TNTC /HPF (0-3); SPECIFIC GRAVITY URINE AUTO 1.017 (1.002-1.035); SQUAMOUS EPITHELIAL CELL UR AU 1 /HPF (0-6); UROBILINOGEN, URINE AUTO 0.2 mg/dL (0.0-2.0); WBC, URINE AUTO 49 /HPF (0-3)
[2021-08-12 00:21] LABS: CK-MB VALUE MASS 1.1 NG/ML (<3.6); CPK CREATINE PHOSPHOKINASE 49 U/L (39-308); CREATININE FOR GFR 0.94 MG/DL (0.70-1.30); GLOMERULAR FILTRATION RATE > 60.0 (>49); MB/CK RELATIVE INDEX 2.24 (< OR =4); TROPONIN I 0.12 NG/ML (< 0.10)
[2021-08-12 03:41] LABS: CK-MB VALUE MASS 1.5 NG/ML (<3.6); MB/CK RELATIVE INDEX 2.83 (< OR =4); TROPONIN I 0.1 NG/ML (< 0.10)
[2021-08-12] MEDS: NS 1,000 ML IV SCH ×3 (04:33→20:55)
--- OUTSIDE RECORDS SUMMARY | 2021-08-12 05:16 | CCD ---
Author Author [facility] Address Unknown Phone Unavailable Care Team Providers Care Ski Molder Name Role Phone Stacy Acevedo, PASuze Unavailable [...] Stacy CHISHOLM, PA-C Unavailable Unavailabl e Fish, [facility], PA-C Unavailable Unavailabl e Fish, [facility], PA-C Unavailable Unavailabl e Fish, [facility], PA-C Unavailable Unavailabl e Fish, [facility], PA-C Unavailable Unavailabl e Fish, [facility], PA-C Unavailable Unavailabl e Fish, [facility], PA-C Unavailable Unavailabl e Fish, [facility], PA-C Unavailable Unavailabl e Fish, [facility], PA-C Unavailable Unavailabl e Fish, [facility], PA-C Unavailable Unavailabl e Fish, [facility], PA-C Unavailable Unavailabl e Fish, [facility], PA-C Unavailable Unavailabl e Fish, [facility], PA-C Unavailable Unavailabl e Fish, [facility], PA-C Unavailable Unavailabl e Fish, [facility], PA-C Unavailable Unavailabl e Fish, [facility], PA-C Unavailable Unavailabl e Fish, [facility], PA-C Unavailable Unavailabl e Fish, [facility], PA-C Unavailable Unavailabl e Fish, [facility], PA-C Unavailable Unavailabl e Fish, [facility], PA-C Unavailable Unavailabl e Fish, [facility], PA-C Unavailable Unavailabl e Fish, [facility], PA-C Unavailable Unavailabl e Fish, [facility], PA-C Unavailable Unavailabl e Fish, [facility], PA-C Unavailable Unavailabl e Fish, [facility], PA-C Unavailable Unavailabl e Fish, [facility], PA-C Unavailable Unavailabl e Fish, [facility], PA-C Unavailable Unavailabl e Fish, [facility], PA-C Unavailable Unavailabl e SymenoNkechi tenorio [...] JALIL MD Unavailable Unavailable Maynard, A [employer] Unavailable Unavailable Maynard, A [employer] Unavailable Unavailable Maynard, A [employer] Unavailable Unavailable Maynard, A [employer] Unavailable Unavailable Maynard, A [employer] Unavailable Unavailable Maynard, A [employer] Unavailable Unavailable Maynard, A [employer] Unavailable Unavailable Maynard, A [employer] Unavailable Unavailable Maynard, A [employer] Unavailable Unavailable Maynard, A [employer] Unavailable Unavailable Maynard, A [employer] Unavailable Unavailable Maynard, A [employer] Unavailable Unavailable Maynard, A [employer] Unavailable Unavailable Maynard, A [employer] Unavailable Unavailable Maynard, A [employer] Unavailable Unavailable Maynard, A [employer] Unavailable Unavailable Maynard, A [employer] Unavailable Unavailable Maynard, A [employer] Unavailable Unavailable Maynard, A [employer] Unavailable Unavailable Maynard, A [employer] Unavailable Unavailable Maynard, A [employer] Unavailable Unavailable Maynard, A [employer] Unavailable Unavailable Maynard, A [employer] Unavailable Unavailable Maynard, A [employer] Unavailable Unavailable Maynard, A [employer] Unavailable Unavailable Maynard, A [employer] Unavailable Unavailable Maynard, A [employer] Unavailable Unavailable Maynard, A [employer] Unavailable Unavailable Maynard, A [employer] Unavailable Unavailable Maynard, A [employer] Unavailable Unavailable Maynard, A [employer] Unavailable Unavailable Maynard, A [employer] Unavailable Unavailable Maynard, A [employer] Unavailable Unavailable Maynard, A [employer] Unavailable Unavailable Maynard, A [employer] Unavailable Unavailable Maynard, A [employer] Unavailable Unavailable Maynard, A [employer] Unavailable Unavailable Maynard, A [employer] Unavailable Unavailable Maynard, A [employer] Unavailable Unavailable Maynard, A [employer] Unavailable Unavailable Maynard, A [employer] Unavailable Unavailable Maynard, A [employer] Unavailable Unavailable Maynard, A [employer] Unavailable Unavailable Maynard, A [employer] Unavailable Unavailable Maynard, A [employer] Unavailable Unavailable Maynard, A [employer] Unavailable Unavailable Maynard, A [employer] Unavailable Unavailable Maynard, A [employer] Unavailable Unavailable Maynard, A [employer] Unavailable Unavailable Maynard, A [employer] Unavailable Unavailable MCELHERAN, SANTIAGO PA Unavailable Unavailable [...] Xavier POLLARD Unavailable Unavailable Derosalia, R Xavier POLLADR Unavailable Unavailable Derosalia, R Xavier POLLARD Unavailable [...] Derosalia, R Xavier POLLARD Unavailable Unavailable Ayon, [place] Unavailable Unavailable Ayon, [place] Unavailable Unavailable Ayon, [place] Unavailable Unavailable Ayon, [place] Unavailable Unavailable Ayon, [place] Unavailable Unavailable Ayon, [place] Unavailable Unavailable Ayon, [place] Unavailable Unavailable Ayon, [place] Unavailable Unavailable Ayon, [place] Unavailable Unavailable Ayon, [place] Unavailable Unavailable Ayon, [place] Unavailable Unavailable Ayon, [place] Unavailable Unavailable Ayon, [place] Unavailable Unavailable Re-disclosure Warning The records [...] is protected by Article 27-F of the [facility] Public Health law. If you continue you may have access to information: Regarding HIV / AIDS; Provided by facilities licensed or operated by the [facility] Office of Mental Health; or Provided by the [facility] Office for People With Developmental Disabilities. If such information is present, then the following [facility] mandated warning applies: This information has been [...] law may result in a fine or mcfp sentence or both. A general authorization for the release of medical or other information is NOT sufficient authorization for further disc losure. Allergies and Adverse Reactions Type Description Substance Reaction Status Data Source(s ) Propensity to adverse reactions OTHER Other Acti ve [facility] Propensity to adverse reactions CODEINE Codeine Acti ve [facility] Allergy to substance Allergy to substance Allergy to substance [facility] ([facility]) Allergy to substance Allergy to substance Allergy to substance [facility] ([facility]) Family History Family Member Name Family Member Gender Family Member Status Date o f Status Description Data Source(s) Unknown Unknown Problem [facility] ([facility]) Encounters Encounter Providers Location Date Indications Data Source(s ) Outpatient Referrer: Xavier Cervantes MD MOB-MOB.PAT 09:00:33 AM EDT - 08/01/2021 09:00:36 AM EDT [facility] Outpatient Attender: JALIL KURTZ MD [place] [facility] 02:00:00 PM EDT [facility] ([facility] Inpatient Attender: Xavier Carlson DAttender: Guillermo Bermudez JRAdmitter: Xavier Cervantes MD [id number] 06/22/2021 11:24:14 AM EDT - 08/06/2021 01:43:00 PM EDT [facility] Patient discharged. OFFICE OUTPATIENT VISIT 15 MINUTES Attender: ROB Avelar-C Physical Therapy 06/04/2021 09:15:00 AM EDT [facility] ([facility]) Outpatient Attender: JALIL KURTZ MD [place] [facility] 11:00:00 AM EDT [facility] ([facility] Outpatient Attender: Etelvina Maynard NP [facility] Urolog y 04/30/2021 03:30:00 PM EDT [facility] ([facility]) Outpatient Attender: SANTIAGO RIVAS Physical Therapy 04/09/2021 11:30:00 AM EDT [facility] ([facility]) Outpatient Attender: Bessy RIVAS Main Office 03/31/2021 08:45:00 AM EDT [facility] ([facility]) LAURENCE Tobar-C: [address] [place] [phone], Ph. Attender: Dee Ayon [facility] Medical 02/17/2021 12:00:00 AM EDT [facility]ONALI ([facility]) OFFICE OUTPATIENT VISIT 15 MINUTES Attender: SANTIAGO RIVAS Physical Therapy 01/23/2021 04:00:00 PM EDT [facility] ([facility]) LAURENCE Tobar-C: [address] [place] [phone], Ph. Attender: Dee Ayon [facility] Medical 01/20/2021 12:00:00 AM EDT [facility] ([facility]) LAURENCE Tobar-C: [address] [place] [phone], Ph. Attender: Dee Ayon [facility] Medical 01/20/2021 12:00:00 AM EDT [facility] ([facility]) Outpatient Attender: SANTIAGO RIVAS Physical Therapy 12/12/2020 02:30:00 PM EST [facility] ([facility]) Outpatient Attender: SANTIAGO RIVAS Physical Therapy 11/05/2020 08:15:00 AM EST [facility] ([facility]) Outpatient Attender: JALIL KURTZ MD [place] [facility] 09:40:00 AM EST [facility] ([facility] Outpatient Attender: Bessy RIVAS Main Office 09/25/2020 07:45:00 AM EST [facility] ([facility]) OFFICE OUTPATIENT VISIT 15 MINUTES Attender: SANTIAGO RIVAS Physical Therapy 09/24/2020 01:15:00 PM EST [facility] ([facility]) OFFICE OUTPATIENT VISIT 15 MINUTES Attender: SANTIAGO RIVAS Physical Therapy 08/27/2020 12:15:00 PM EST [facility] ([facility]) OFFICE OUTPATIENT VISIT 15 MINUTES Attender: SANTIAGO RIVAS Physical Therapy 07/21/2020 09:00:00 AM EDT [facility] ([facility]) OFFICE OUTPATIENT VISIT 15 MINUTES Attender: SANTIAGO RIVAS Physical Therapy 06/18/2020 03:30:[facility] Immunizations Vaccine Date Status Description Data Source(s) New in 2012. IIV4 07/06/2021 02:50:00 PM EDT completed [facility] ([facility] COVID-19, mRNA, LNP-S, PF, 100 mcg/0.5 mL dose 02/17/2021 05 :20:46 PM EDT completed .5 mL [facility] ([facility]) COVID-19 VACCINE Moderna 02/17/2021 12:00:00 AM EDT completed [facility] Vaccine Series Complete: YESThis Data wa s Submitted to [facility] [employer]. COVID-19, mRNA, LNP-S, PF, 100 mcg/0.5 mL dose 01/20/2021 05 :49:32 PM EDT completed .5 mL [facility] ([facility]) COVID-19, mRNA, LNP-S, PF, 100 mcg/0.5 mL dose 01/20/2021 05 :49:32 PM EDT completed .5 mL [facility] ([facility]) COVID-19 VACCINE Moderna 01/20/2021 12:00:00 AM EDT completed [facility] Vaccine Series Complete: NOThis Data was Submitted to [facility] [employer]. INFLUENZA VIRUS VACCINE QUADRIVALENT 2019- (6 MOS [...] tablet (81 mg total) by mouth daily [facility] Aspirin 81 MG Delayed Release Oral Tablet aspirin EC 8 1 MG EC tablet aspirin EC 81 MG EC tablet 08/09/2021 12:00:00 AM EDT 81 mg Oral ab orted Take 1 tablet (81 mg total) by mouth daily [facility] Chlorthalidone 25 MG Oral Tablet chlorthalidone (HYGRO TEN) tablet 12.5 mg chlorthalidone (HYGROTEN) tablet 12.5 mg 08/06/2021 09:00:00 AM EDT 12.5 mg Oral active 12.5 mg, Oral, Every other day, First dose on Tue08/06/21 at 0900
Hold for SBP<110 and HR <60 and please call the PA
[facility] Medication administered onsite Docusate Sodium 100 MG Oral Capsule docusate sodium (C OLACE) 100 MG capsule docusate sodium (COLACE) 100 MG capsule 08/06/2021 12:00:00 AM EDT 100 mg Oral active Take 1 capsule (100 mg total) by mouth 2 (two) times a day [facility] POLYETHYLENE GLYCOL 3350 142 MG/ML Oral Solution polyethylene glycol (GLYCOLAX) 17 g packet polyethylene glycol (GLYCOLAX) 17 g packet 08/06/2021 12:00:00 AM EDT 17 g Oral active Take 17 g by mout h daily as needed [facility] 17 gram 08/06/2021 12:00:00 AM EDT [...] Nightly, First dose on Tue08/05/21 at 2100 [facility] Medication administered onsite Sertraline 50 MG Oral Tablet sertraline (ZOLOFT) table t 50 mg sertraline (ZOLOFT) tablet 50 mg 08/05/2021 09:00:00 PM EDT 50 mg Oral active 50 mg, Oral, Nightly, First dose on Tue08/05/21 at 2100 [facility] Medication administered onsite Cefazolin 1000 MG [...] minutes. Use within 1 hour of reconstitution
[facility] Medication administered onsite valsartan 80 MG Oral Tablet valsartan (DIOVAN) tablet 320 mg valsartan (DIOVAN) tablet 320 mg 08/05/2021 05:00:00 PM EDT 320 mg Oral acti ve 320 mg, Oral, Daily, First dose on Tue08/05/21 at 1700
Hold for SBP<110 and HR <60 and please call the PA
[facility] Medication administered onsite eplerenone 25 MG Oral Tablet eplerenone (INSPRA) table t 25 mg eplerenone (INSPRA) tablet 25 mg 08/05/2021 04:30:00 PM EDT 25 mg Oral active 25 mg, Oral, Every evening, First dose on Tue08/05/21 at 1630
Hold for SBP<110 and HR <60 and please call the PA
[facility] Medication administered onsite heparin (porcine) injection 5,000 Units 06172-429-70 08/05/20 03:00:00 PM EDT 5000 U Subcutaneous active 5,000 Units , Subcutaneous, Every 8 hours (scheduled), First dose on Tue08/05/21 at 1500
If platelet count is less than 100,000 or hematocrit is less than 25, or if there is a 5 point decrease in hematocrit, do not give the dose and call physician/designee.
[facility] Medication administered onsite POLYETHYLENE GLYCOL 3350 142 MG/ML Oral Solution polyethylene glycol (GLYCOLAX) packet 17 g polyethylene glycol (GLYCOLAX) packet 17 g 08/05/2021 03:00:00 PM EDT 17 g Oral active 17 g, Or al, Daily, First dose on Tue08/05/21 at 1500, Post-op
hold for loose stools
[facility] Medication administered onsite Docusate Sodium 100 MG Oral Capsule docusate sodium (C OLACE) capsule 100 mg docusate sodium (COLACE) capsule 100 mg 08/05/2021 03:00:00 PM EDT 100 mg Oral active 100 mg, Oral, 2 times daily, First dose on Tue08/05/21 at 1500, Post-op
hold for loose stools
[facility] Medication administered onsite sodium chloride 0.9% (NS) infusion [id number] 08/05/2021 03:00:00 PM EDT 100 mL/h Intravenous active at 100 m L/hr, 100 mL/hr, Intravenous, Continuous, Starting on Tue08/05/21 at 1500, Post-op [facility] Medication administered onsite Oxybutynin chloride 5 MG Oral Tablet oxybutynin (DITRO TSAI) tablet 5 mg oxybutynin (DITROPAN) tablet 5 mg 08/05/2021 02:01:04 PM EDT 5 mg Oral active 5 mg, Oral, Every 8 hours PRN, for bladder spasms, Starting on Tue08/05/21 at 1401, Post-op
Discontinue 24 hours prior to anticipated garg removal.
[facility] Medication administered onsite Calcium Carbonate 500 MG Chewable Tablet calcium carbonate (TUMS) chewable tablet 750 mg calcium carbonate (TUMS) chewable tablet 750 mg 2020 02:01:04 PM EDT 750 mg Oral active 750 mg, Oral, As needed, heartburn, Starting on Tue08/05/21 at 1401 [facility] Medication administered onsite Bacitracin 0.5 UNT/MG / Neomycin 0.0035 MG/MG / Polymyxin B 10 UNT/MG Topical Ointment toljqmrp-yocqllefgx-xvoavdshk (NEOSPORIN) ointment 1 application nofxnkbz-gzpxwahmlw-cjrlgyijt (NEOSPORIN) ointment 1 application 08/05/2021 02:01:04 PM EDT 1 {application} Topical active Post-op, 1 application, Topical, Every 2 hour PRN, Starting on Tue08/05/21 at 1401, Until Discontinued [facility] Medication administered onsite ondansetron (ZOFRAN) injection 4 mg [id number] 08/05/2021 02:01:0 4 PM EDT 4 mg Intravenous active 4 mg, In travenous, Every 6 hours PRN, nausea, vomiting, Starting on Tue08/05/21 at 1401, Post-op [facility] Medication administered onsite Acetaminophen 325 MG [...] mg from all sources in 24 hours."
[facility] Medication administered onsite Magnesium Chloride 0.11597 MEQ/ML / Pota ssium Chloride 0.0497 MEQ/ML / Sodium Acetate 0.0163 MEQ/ML / Sodium Chloride 0.0899 MEQ/ML / Sodium gluconate 5.02 MG/ML Injectable Solution [Normosol-R] electrolyte-R (NORMOSOL-R/PLASMALYTE-R) solution electrolyte-R (NORMOSOL-R/PLASMALYTE-R) solution 08/05 01:00:00 PM EDT Intravenous active at 1 00 mL/hr, Intravenous, Continuous, Starting on Tue08/05/21 at 1300, PACU & Post-op [facility] Medication administered onsite Magnesium Chloride 0.62032 MEQ/ML / Pota ssium Chloride 0.0497 MEQ/ML / Sodium Acetate 0.0163 MEQ/ML / Sodium Chloride 0.0899 MEQ/ML / Sodium gluconate 5.02 MG/ML Injectable Solution [Normosol-R] electrolyte-R (NORMOSOL-R/PLASMALYTE-R) solution electrolyte-R (NORMOSOL-R/PLASMALYTE-R) solution 08/05 11:00:00 AM EDT Intravenous aborted at 1 00 mL/hr, Intravenous, Continuous, Starting on Tue08/05/21 at 1100 [facility] Medication administered onsite Ciprofloxacin 250 MG Oral Tablet Ciprofloxacin HCL 06/10/2021 12:00 :00 AM EDT ORAL completed [facility] ([facility] 320 mg 05/17/2021 12:00:00 AM EDT tablet [...] aborted Take 81 mg by mouth daily [facility] Insurance Providers Payer name Policy type / Coverage type Policy ID Covered republican ID Covered republican's relationship to everett Policy Eve[place] Plan Information [facility] [facility] Commercial [id number] Self [facility] Commercial [id number] Self [facility] [id number] .[id number] Self [id number] BCBS [place] [employer] Part B [id number] 2.0.1.465779.3.227.99 .572.18434.0 Self [id number] [employer]BS [place] Medigap Part B [id number] Self [employer]BS [place] Med[employer] Part B [id number] 2.0.1.636456.3.227.99 .572.42568.0 Self [id number] [employer] [place] Med[employer] Part B [id number] 2.0.1.538235.3.227.99 .572.40834.0 Self [id number] [employer] [place] Med[employer] Part B [id number] 2..1.572669.3.227.99 .572.88940.0 Self [id number] [employer] [place] Medigap Part B [id number] Self [id number] [employer] [place] Med[employer] Part B [id number] 2..1.672008.3.227.99 .572.94726.0 Self [id number] [employer] Med[employer] Part B [id number] 2..1.571411.3.227.99 .572.91629.0 Self [id number] [employer] Med[employer] Part B [id number] 2.0.1.830953.3.227.99 .572.20369.0 Self [id number] [employer] [place] Medig[employer] Part B [id number] 2..1.149257.3.227.99 .572.43728.0 Self [id number] [employer] [place] Medigap Part B [id number] Self BCBS [place] Medigap Part B [id number] 2.16.840.1.835470.3.227.99 .572.72937.0 Self [id number] [employer] [place] Medigap Part B [id number] Self [id number] [employer] [place] Medig[employer] Part B [id number] 2.840.1.094953.3.227.99 .572.41860.0 Self [id number] [employer] [place] Medig[employer] Part B [id number] 2.0.1.184818.3.227.99 .572.41733.0 Self [id number] [employer] [place] Medigap Part B [id number] 2.0.1.077832.3.227.99 .572.37385.0 Self [id number] [employer]BS [place] Medigap Part B [id number] 2.0.1.670009.3.227.99 .572.94014.0 Self [id number] BCBS [place] PPO 302/307 [id number] SP [id number] Blue Epo Medigap Part B [id number] Self [id number] Blue Epo Medigap Part B [id number] 2.840.1.989158.3.227.99 .572.97421.0 Self [id number] BCBS [place] Medigap Part B [id number] 2.0.1.365985.3.227.99 .802.006422.0 Self [id number] Blue Epo Medigap Part B [id number] 2.840.1.477862.3.227.99 .572.28136.0 Self [id number] Blue Epo Medigap Part B [id number] 2.840.1.686764.3.227.99 .572.09220.0 Self [id number] Blue Epo Medigap Part B [id number] 2.16840.1.412683.3.227.99 .572.85446.0 Self [id number] Blue Epo Medigap Part B [id number] 2.0.1.839645.3.227.99 .572.28666.0 Self [id number] BCBS [place] PPO 302/307 [id number] SP [id number] [facility] [id number] SP [id number] Blue Epo Medigap Part B [id number] 2.0.1.720026.3.227.99 .572.10482.0 Self [id number] BCBS [place] Medigap Part B [id number] 2.0.1.112808.3.227.99 .802.612370.0 Self [id number] Blue Epo Medigap Part B [id number] 2.0.1.217517.3.227.99 .572.02972.0 Self [id number] BCBS [place] PPO 302/307 [id number] SP [id number] Blue Epo Medigap Part B [id number] Self BCBS [place] Medigap Part B [id number] Self BCBS Of [place] Medigap Part B [id number] Self [facility] PUB [facility] [id number] SP [id number] [facility] PHY [id number] SP [id number] MVP/Preferred Care/Cign[employer] Medigap Part B [id number] 2.840.1.930715.3.227.99.802.533553.0 Self [id number] MVP/Preferred Care/Cigna Medigap Part B [id number] Self MVP Commercial [id number] Self [id number] MVP Commercial [id number] Self MVP Health Plan Health Maintenance Organization (HMO) [id number] 2.16.840.1.726233.3.227.99.802.613351.0 Self [id number] MVP Health Plan Health Maintenance Organization (O) [id number] 2.16.840.1.866566.3.227.99.802.019109.0 Self [id number] MVP Health Plan,Hmo/Pos Health Maintenance Organization (HMO) [id number] Self MVP Health Plan Health Maintenance Organization (O) [id number] Self BCBS Of [place] Medigap Part B [id number] Self [employer] Simply Blue Ppo Medigap Part B [id number] 2.0.1.270757.3.227.99.572.56241.0 Self V [id number] [employer] Blue Ppo Medigap Part B [id number] Self [id number] [employer] Blue Ppo Medigap Part B [id number] 2.840.1.003616.3.227.99.572.44663.0 Self V [id number] BCBS [place] Medigap Part B [id number] 2.16840.1.021348.3.227.99 .802.374659.0 Self [id number] [employer] Blue Ppo Medigap Part B [id number] 2.16840.1.087122.3.227.99.572.65670.0 Self V [id number] [employer] Blue Ppo Commercial [id number] Self BCBS [place] Medigap Part B [id number] Self BCBS [place] Medigap Part B [id number] 2.16840.1.722318.3.227.99 .802.413881.0 Self [id number] [employer] Blue Ppo Medigap Part B [id number] 2.16840.1.499421.3.227.99.572.03445.0 Self V [id number] [employer] Blue Ppo Medigap Part B [id number] 2.160.1.743134.3.227.99.572.16047.0 Self V [id number] [employer] Blue Ppo Medigap Part B [id number] 2.0.1.827330.3.227.99.572.21785.0 Self V [id number] [employer] Blue Ppo Medigap Part B [id number] 2.0.1.873585.3.227.99.572.12978.0 Self V [id number] BCBS [employer] U/W Commercial [id number] 2.0.1.113 883.3.227.99.572.27755.0 Self [id number] BCBS [employer] Ppo U/W Commercial [id number] 2.0.1.150663.3.227.99.572.88010.0 Self V [id number] BCBS [employer] U/W Commercial [id number] 2..1.113 883.3.227.99.572.25243.0 Self [id number] BCBS [employer] Ppo U/W Commercial [id number] Self BCBS [employer] U/W Commercial [id number] 2.0.1.113 883.3.227.99.572.04010.0 Self [id number] BCBS [employer] U/W Commercial [id number] 2.0.1.113 883.3.227.99.572.54440.0 Self [id number] BCBS [employer] U/W Commercial [id number] 2.0.1.113 883.3.227.99.572.60552.0 Self [id number] BCBS [employer] Ppo U/W Commercial [id number] 2.0.1.323434.3.227.99.572.31653.0 Self V [id number] BCBS [employer] U/W Commercial [id number] Self [id number] [employer] BCBS Health Maintenance Organization [place] [place] [id number] 2..840.1.441402.3.227.99.8646.2458.0 Self V [id number] BCBS [place] PPO 302/307 [id number] SP [id number] Excell[employer] BCBS Health Maintenance Organization (O) [id number] Self V [id number] [employer] [id number] [employer]CELL[employer]BS [id number] Silva VYA [id number] [employer]BS [id number] Silva VYA [id number] INSURANCE COVID-19 COVID Silva C OVID INSURANCE COVID-19 [id number] xOVID 2 [id number] [place] PPO 302/307 [id number] SP [id number] [facility] Adminstrative Ser Commercial [id number] Self [id number] [facility] Adminstrative Ser Commercial [id number] Self BCBS [place] PPO 302/307 [id number] SP [id number] [employer] BCBS B [id number] S VYA [id number] BCBS/Excell[employer] Commercial [id number] Self [id number] [employer] BCBS B [id number] S VYA [id number] [employer] BCBS B [id number] S VYS [id number] Problems, Conditions, and Diagnoses Code Display Name Description Problem Type Effective Dates Data Source(s) N40.1 Benign prostatic hyperplasia with lower urinary tract symptoms Benign prostatic hyperplasia with lower Diagnosis 08/05/2021 09:19:00 AM EDT [facility] U07.1 COVID-19 COVID-19 Diagnosis 08/01/2021 09:00:33 AM ED T [facility] [id number] Peripheral venous insufficiency Peripheral venou s insufficiency Problem 05/26/2021 12:00:00 AM EDT [facility] [id number] Varicose veins of lower extremity Varicose veins of lower extremity Problem 05/26/2021 12:00:00 AM EDT [facility]) [id number] Essential hypertension Essential hypertension Problem 05/26/2021 12:00:00 AM EDT [facility] [id number] Anxiety state Anxiety state Problem 05/26/2021 12:00:00 AM EDT [facility] ([facility]) [id number] Atrial fibrillation Atrial fibrillation Problem 0 05/22/2021 12:00:00 AM EDT [facility] ([facility]) [id number] Deep venous thrombosis of lower extremit y Deep venous thrombosis of lower extremity Problem 05/22/2021 12:00:00 AM EDT [facility] Surgeries/Procedures Procedure Description Date Indications Data Source(s) BLOOD COUNT COMPLETE AUTOMATED <td>CBC</td><td>Routine </td><td>08/06/2021 4:16 AM EDT</td><td></td><td> </td> 08/06/2021 04:16:00 AM EDT [facility] BASIC METABOLIC PANEL CALCIUM TOTAL <td>BASIC METABOLI C PANEL</td><td>Routine</td><td>08/06/2021 4:16 AM EDT</td><td></td><td> </td> 08/06/2021 04:16:00 AM EDT [facility] TRURL ELECTROSURG RESCJ PROSTATE BLEED COMPLETE <td>TR ANSURETHRAL RESECTION PROSTATECTOMY (TURP), USING GREEN LIGHT LASER, HOLMIUM LASER, BUTTON ELECTRODE, OR RESECTOSCOPE</td><td></td><td>08/05/2021 11:14 AM EDT</td><td> Benign prostatic hyperplasia with lower urinary tract symptoms</td><td></td> 08/05/2021 11:14:00 AM EDT - 08/05/2021 12:57:00 PM EDT Benign prostatic hyperplasia with lower urinary tract symptoms [facility] Benign prostatic hyperplasia with lower urinary tract symptoms BLOOD TYPING ABO <td>TYPE AND SCREEN</td><td> Routine</td><td>08/05/2021 10:22 AM EDT</td><td></td><td> </td> 08/05/2021 10:22:00 AM EDT [facility] Electrocardiogram Complete 07/06/2021 12:00:00 AM EDT [facility] ([facility] OFFICE OUTPATIENT VISIT 25 MINUTES 07/06/2021 12:00:00 AM EDT [facility] ([facility] CYSTOURETHROSCOPY 06/10/2021 12:00:00 AM EDT [facility] ([facility] OFFICE OUTPATIENT VISIT 15 MINUTES 06/04/2021 12:00:00 AM EDT [facility] ([facility]) THERAPEUTIC PX 1/> AREAS EACH 15 MIN EXERCISES 021 12:00:00 AM EDT [facility] ([facility] ) MANUAL THERAPY TQS 1/> REGIONS EACH 15 MINUTES 021 12:00:00 AM EDT [facility] ([facility]) Re-Eval Of PT Established Plan Of Care 20Mins Face To Face P T/Fam 05/22/2021 12:00:00 AM EDT [facility] ([facility]) CT ABDOMEN & PELVIS W/O CONTRST 1/> BODY REGIONS 05/13 12:00:00 AM EDT [facility] ([facility]) THERAPEUTIC PX 1/> AREAS EACH 15 MIN EXERCISES 12:00:00 AM EDT [facility] ([facility]) MANUAL THERAPY TQS 1/> REGIONS EACH 15 MINUTES 021 12:00:00 AM EDT [facility] ([facility] ) OFFICE OUTPATIENT VISIT 25 MINUTES 05/08/2021 12:00:00 AM EDT [facility] ([facility] THERAPEUTIC PX 1/> AREAS EACH 15 MIN EXERCISES 021 12:00:00 AM EDT [facility] ([facility] ) MANUAL THERAPY TQS 1/> REGIONS EACH 15 MINUTES 021 12:00:00 AM EDT [facility] ([facility] ) OFFICE OUTPATIENT VISIT 25 MINUTES 04/30/2021 12:00:00 AM EDT [facility] ([facility] THERAPEUTIC PX 1/> AREAS EACH 15 MIN EXERCISES 12:00:00 AM EDT [facility] ([facility] ) MANUAL THERAPY TQS 1/> REGIONS EACH 15 MINUTES 021 12:00:00 AM EDT [facility] ([facility] ) MANUAL THERAPY TQS 1/> REGIONS EACH 15 MINUTES 12:00:00 AM EDT [facility] ([facility] ) THERAPEUTIC PX 1/> AREAS EACH 15 MIN EXERCISES 12:00:00 AM EDT [facility] ([facility]) THERAPEUTIC PX 1/> AREAS EACH 15 MIN EXERCISES 021 12:00:00 AM EDT [facility] ([facility] ) MANUAL THERAPY TQS 1/> REGIONS EACH 15 MINUTES 021 12:00:00 AM EDT [facility] ([facility] ) OFFICE OUTPATIENT VISIT 25 MINUTES 04/09/2021 12:00:00 AM EDT [facility] ([facility] ) THERAPEUTIC PX 1/> AREAS EACH 15 MIN EXERCISES 021 12:00:00 AM EDT [facility] ([facility] ) MANUAL THERAPY TQS 1/> REGIONS EACH 15 MINUTES 021 12:00:00 AM EDT [facility] ([facility] ) ECG ROUTINE ECG W/LEAST 12 LDS W/I&R 03/31/2021 12:00: 00 AM EDT [facility] ([facility]) OFFICE OUTPATIENT VISIT 25 MINUTES 03/31/2021 12:00:00 AM EDT [facility]) THERAPEUTIC PX 1/> AREAS EACH 15 MIN EXERCISES 12:00:00 AM EDT [facility] ([facility]) MANUAL THERAPY TQS 1/> REGIONS EACH 15 MINUTES 12:00:00 AM EDT [facility] ([facility]) THERAPEUTIC PX 1/> AREAS EACH 15 MIN EXERCISES 12:00:00 AM EDT [facility] ([facility]) MANUAL THERAPY TQS 1/> REGIONS EACH 15 MINUTES 12:00:00 AM EDT [facility] ([facility]) Physical Therapy Eval - Low Complexity 02/20/2021 12:0 0:00 AM EDT [facility] ([facility]) OFFICE OUTPATIENT VISIT 15 MINUTES 01/23/2021 12:00:00 AM EDT [facility] ([facility]) MANUAL THERAPY TQS 1/> REGIONS EACH 15 MINUTES 12:00:00 AM EDT [facility] ([facility]) Re-Eval Of PT Established Plan Of Care 20Mins Face To Face P T/Fam 01/14/2021 12:00:00 AM EDT [facility] ([facility]) THERAPEUTIC PX 1/> AREAS EACH 15 MIN EXERCISES 12:00:00 AM EDT [facility] ([facility]) MANUAL THERAPY TQS 1/> REGIONS EACH 15 MINUTES 021 12:00:00 AM EDT [facility] ([facility]) THERAPEUTIC PX 1/> AREAS EACH 15 MIN EXERCISES 12:00:00 AM EDT [facility] ([facility]) MANUAL THERAPY TQS 1/> REGIONS EACH 15 MINUTES 021 12:00:00 AM EDT [facility] ([facility]) THERAPEUTIC PX 1/> AREAS EACH 15 MIN EXERCISES 12:00:00 AM EDT [facility] ([facility]) MANUAL THERAPY TQS 1/> REGIONS EACH 15 MINUTES 021 12:00:00 AM EDT [facility] ([facility]) THERAPEUTIC PX 1/> AREAS EACH 15 MIN EXERCISES 12:00:00 AM EDT [facility] ([facility]) MANUAL THERAPY TQS 1/> REGIONS EACH 15 MINUTES 12:00:00 AM EDT [facility] ([facility] ) THERAPEUTIC PX 1/> AREAS EACH 15 MIN EXERCISES 12:00:00 AM EST [facility] ([facility] ) MANUAL THERAPY TQS 1/> REGIONS EACH 15 MINUTES 12:00:00 AM EST [facility] ([facility] ) OFFICE OUTPATIENT VISIT 25 MINUTES 12/12/2020 12:00:00 AM EST [facility] ([facility] ) THERAPEUTIC PX 1/> AREAS EACH 15 MIN EXERCISES 12:00:00 AM EST [facility] ([facility] ) MANUAL THERAPY TQS 1/> REGIONS EACH 15 MINUTES 12:00:00 AM EST [facility] ([facility] ) THERAPEUTIC PX 1/> AREAS EACH 15 MIN EXERCISES 12:00:00 AM EST [facility] ([facility] ) MANUAL THERAPY TQS 1/> REGIONS EACH 15 MINUTES 12:00:00 AM EST [facility] ([facility] ) THERAPEUTIC PX 1/> AREAS EACH 15 MIN EXERCISES 12:00:00 AM EST [facility] ([facility] ) MANUAL THERAPY TQS 1/> REGIONS EACH 15 MINUTES 12:00:00 AM EST [facility] ([facility] ) MANUAL THERAPY TQS 1/> REGIONS EACH 15 MINUTES 12:00:00 AM EST [facility] ([facility] ) Physical Therapy Eval - Low Complexity 11/24/2020 12:0 0:00 AM EST [facility] ([facility] ) RADEX SPINE CRV COMPL W/OBLQ&FLEX&/XTN STDS 11/05/2020 12:00:00 AM EST [facility] ([facility] ) OFFICE OUTPATIENT VISIT 25 MINUTES 11/05/2020 12:00:00 AM EST [facility] ([facility] ) THERAPEUTIC PX 1/> AREAS EACH 15 MIN EXERCISES 12:00:00 AM EST [facility] ([facility] ) MANUAL THERAPY TQS 1/> REGIONS EACH 15 MINUTES 12:00:00 AM EST [facility] ([facility] ) Re-Eval Of PT Established Plan Of Care 20Mins Face To Face P T/Fam 10/14/2020 12:00:00 AM EST [facility] ([facility]) THERAPEUTIC PX 1/> AREAS EACH 15 MIN EXERCISES 12:00:00 AM EST [facility] ([facility]) MANUAL THERAPY TQS 1/> REGIONS EACH 15 MINUTES 12:00:00 AM EST [facility] ([facility]) MANUAL THERAPY TQS 1/> REGIONS EACH 15 MINUTES 12:00:00 AM EST [facility] ([facility]) THERAPEUTIC PX 1/> AREAS EACH 15 MIN EXERCISES 12:00:00 AM EST [facility] ([facility]) MANUAL THERAPY TQS 1/> REGIONS EACH 15 MINUTES 12:00:00 AM EST [facility] ([facility]) THERAPEUTIC PX 1/> AREAS EACH 15 MIN EXERCISES 12:00:00 AM EST [facility] ([facility] ) MANUAL THERAPY TQS 1/> REGIONS EACH 15 MINUTES 12:00:00 AM EST [facility] ([facility]) ECG ROUTINE ECG W/LEAST 12 LDS W/I&R 09/25/2020 12:00: 00 AM EST [facility] ([facility]) THERAPEUTIC PX 1/> AREAS EACH 15 MIN EXERCISES 12:00:00 AM EST [facility] ([facility]) MANUAL THERAPY TQS 1/> REGIONS EACH 15 MINUTES 12:00:00 AM EST [facility] ([facility]) THERAPEUTIC PX 1/> AREAS EACH 15 MIN EXERCISES 12:00:00 AM EST [facility] ([facility]) MANUAL THERAPY TQS 1/> REGIONS EACH 15 MINUTES 12:00:00 AM EST [facility] ([facility]) THERAPEUTIC PX 1/> AREAS EACH 15 MIN EXERCISES 12:00:00 AM EST [facility] ([facility]) MANUAL THERAPY TQS 1/> REGIONS EACH 15 MINUTES 12:00:00 AM EST [facility] ([facility]) THERAPEUTIC PX 1/> AREAS EACH 15 MIN EXERCISES 12:00:00 AM EST [facility] ([facility]) MANUAL THERAPY TQS 1/> REGIONS EACH 15 MINUTES 12:00:00 AM EST [facility] ([facility]) THERAPEUTIC PX 1/> AREAS EACH 15 MIN EXERCISES 12:00:00 AM EST [facility] ([facility]) MANUAL THERAPY TQS 1/> REGIONS EACH 15 MINUTES 12:00:00 AM EST [facility] ([facility]) THERAPEUTIC PX 1/> AREAS EACH 15 MIN EXERCISES 12:00:00 AM EST [facility] ([facility]) MANUAL THERAPY TQS 1/> REGIONS EACH 15 MINUTES 12:00:00 AM EST [facility] ([facility]) Re-Eval Of PT Established Plan Of Care 20Mins Face To Face P T/Fam 08/18/2020 12:00:00 AM EST [facility] ([facility]) THERAPEUTIC PX 1/> AREAS EACH 15 MIN EXERCISES 12:00:00 AM EST [facility] ([facility]) MANUAL THERAPY TQS 1/> REGIONS EACH 15 MINUTES 12:00:00 AM EST [facility] ([facility]) THERAPEUTIC PX 1/> AREAS EACH 15 MIN EXERCISES 12:00:00 AM EST [facility] ([facility]) MANUAL THERAPY TQS 1/> REGIONS EACH 15 MINUTES 12:00:00 AM EST [facility] ([facility]) THERAPEUTIC PX 1/> AREAS EACH 15 MIN EXERCISES 12:00:00 AM EDT [facility] ([facility]) MANUAL THERAPY TQS 1/> REGIONS EACH 15 MINUTES 12:00:00 AM EDT [facility] ([facility]) THERAPEUTIC PX 1/> AREAS EACH 15 MIN EXERCISES 12:00:00 AM EDT [facility] ([facility]) MANUAL THERAPY TQS 1/> REGIONS EACH 15 MINUTES 12:00:00 AM EDT [facility] ([facility]) THERAPEUTIC PX 1/> AREAS EACH 15 MIN EXERCISES 12:00:00 AM EDT [facility] ([facility]) MANUAL THERAPY TQS 1/> REGIONS EACH 15 MINUTES 12:00:00 AM EDT [facility] ([facility]) THERAPEUTIC PX 1/> AREAS EACH 15 MIN EXERCISES 12:00:00 AM EDT [facility] ([facility]) MANUAL THERAPY TQS 1/> REGIONS EACH 15 MINUTES 12:00:00 AM EDT [facility] ([facility]) THERAPEUTIC PX 1/> AREAS EACH 15 MIN EXERCISES 12:00:00 AM EDT [facility] ([facility]) MANUAL THERAPY TQS 1/> REGIONS EACH 15 MINUTES 12:00:00 AM EDT [facility] ([facility]) THERAPEUTIC PX 1/> AREAS EACH 15 MIN EXERCISES 12:00:00 AM EDT [facility] ([facility]) MANUAL THERAPY TQS 1/> REGIONS EACH 15 MINUTES 12:00:00 AM EDT [facility] ([facility]) Physical Therapy Eval - Low Complexity 07/03/2020 12:0 0:00 AM EDT [facility] ([facility]) Results ID Date Data Source [id number] 08/10/2021 07:13:08 AM EDT [facility] [place] NT INFORMATIONPatient MRN Name Date of Age Gend*PT [id number] [place] Castillo 1955 65 years M SDCXPT Location Admission Date/Time Visit ID Attending [id number] 08/05/21918 --- --- EPI ID CSN Admitting Provider [id number] Xavier Cervantes MD([id number]) Attestation signed by Xavier Cervantes MD at 08/10/2021 7:13 AMagree -------Surgical Discharge Junito PaniaguahlawMRN: [id number] date: 08/05/2021dmitting Physician: Xavier Cervantes MDDischarge date and time:Discharge Orders Placed(From [...] Get Your MedicationsThese medications were sent to [facility] [place] - [address] [id number], [place] [address] docusate sodium 100 MG capsule polyethylene glycol [...] Name Value Range Interpretation Code Description Data [facility](s) Supporting Document(s) ID Date Data Source [id number] 08/06/2021 07:36:17 AM EDT [facility] Name Value Range Interpretation Code Description Data [facility](s) Supporting Document(s) SODIUM 139 mmol/L (136-145) [facility] POTASSIUM 4.6 mmol/L (3.6-5.2) [facility] CHLORIDE 108 mmol/L (100-108) [facility] CO2 26 mmol/L (22-31) [facility] ANION GAP 5 mmol/L (7-16) L [facility] UREA NITROGEN 17 mg/dL (7-24) [facility] CREATININE 0.88 mg/dL (0.80-1.30) [facility] BUN/CREAT RATIO 19.3 RATIO (10.0-20.0) [facility] GLUCOSE 124 mg/dL (70-99) H [facility] CALCIUM 8.2 mg/dL (8.4-10.2) L [facility] GFR >60 ml/min/1.73m2 (>59) [facility] GFR ( AMER) >60 ml/min/1.73m2 (>59) [facility] GFR INTERPRETATION [facility] --NORMAL KIDNEY FUNCTION OR MILD DISEASE - GFR >OR= 60CHRONIC KIDNEY DISEASE - GFR 15 - 59RENAL FAILURE - GFR <15 Est. GFR calculation based on the MDRDstudy equation, which assumes a steadystate for creatinine. Est. GFR should notbe used for medication dosing. ID Date Data Source [id number] 08/06/2021 06:52:10 AM EDT [facility] Name Value Range Interpretation Code Description Data [facility](s) Supporting Document(s) WBC 9.0 10*3/uL (4.1-11.0) [facility] RBC 4.65 10*6/uL (4.60-6.10) [facility] HGB 12.9 g/dL (13.5-18.0) L [facility] HCT 38.8 % (41.0-53.0) L [facility] PERFORMED AT [address] [place] [address] [address] [place] [address] MCV 83.4 fL (80.0-95.0) [facility] MCH 27.7 pg (27.0-32.0) [facility] MCHC 33.3 g/dL (32.0-36.0) [facility] RDW 14.9 % (10.5-14.5) H [facility] PLT 123 10*3/uL (150-450) L [facility] MPV 8.1 fL (7.1-10.7) [facility] ID Date Data Source [id number] 08/10/2021 12:26:56 PM EDT [facility] [address] [address]Pde# Surgical Pathology ReportPatient Name: FLORIDA CASTILLO: 7Accession [...] 12:25Electronically Signed Out By Eileen Patel M.D. [facility] [place] [address] [id number] compone nt performed at [facility], [facility], [address] [place] [address], [phone].Reported at [facility], [address] [place] [address], [phone]. This report may includeimmunohistochemical or in-situ hybridization results. Testing wasdeveloped and the performance characteristics determined by [facility] as required by CLIA '88. The FDA hasdetermined that approval for specific use is not necessary for clinicaluse. The quality of Hematoxylin and Eosin stains and as applicable, forall immunohistochemical and/or special stains, including positive andnegative controls, were reviewed and considered appropriate.ICD codes N40.1CPT codesA: 15929J, 54251H Name Value Range Interpretation Code Description Data [facility](s) Supporting Document(s) ID Date Data Source [id number] 08/05/2021 12:27:15 PM EDT [facility] MRN Name Date of Age Gend*PT [id number] [place] Castillo 1955 65 years M SDCXPT Location Admission Date/Time Visit ID Attending ProviderPERIOP POOL 08/05/21 0919 --- Xavier Cervantes MD([id number]) EPI ID CSN Admitting Provider [id number] Xavier Cervantes MD([id number])OPERATIVE NOTEPatient Name: Florida CastilloMedical Record Number: [id number] of Procedure: 08/05/2021urgeon: Xavier Cervantes M.D.Chief Nurse Executive: NonePre- operative diagnosis: Benign prostatic hyperplasiaPost-operative diagnosis: SameProcedure: Cystourethroscopy, transurethral resection of prostateAnesthesia: GABlood/fluids administered: crystalloidEstimated blood loss: 200 mLCom plications: NoneSpecimens: Prostate chipsDrains: 22 Albanian 3-way Coude' garg to continuous bladder irrigationProcedure:Informed [...] throughout thecase.Prostate chips were removed using an [employer] evacuator and sent to pathology foranalysis. The bladder and urethra were re-inspected and hemostasis wasobtained.A 22 Fr 3-way Coude' garg catheter was placed to continuous bladder irrigationusing saline as an irrigant and was running clearly.There were no surgical complications.Xavier Cervantes M.D.Date: 08/05/2021Time: 12:26 PM Name Value Range Interpretation Code Description Data [facility](s) Supporting Document(s) ID Date Data Source [id number] 08/05/2021 10:40:36 AM EDT [facility] INFORMATIONPatient MRN Name Date of Age Gend*PT [id number] [place] Castillo 1955 65 years M SDCXPT Location Admission Date/Time Visit ID Attending ProviderPERIOP [facility] 08/05/21918 --- Xavier Cervantes MD([id number]) EPI ID CSN Admitting Provider [id number] Xavier Cervantes MD([id number])Pre-Procedure History and Physical:The history and physical were reviewed and the patient was examined.Reviewed and updated. No changes.Xavier Cervantes MD0:40 AM Name Value Range Interpretation Code Description Data [facility](s) Supporting Document(s) ID Date Data Source [id number] 08/05/2021 01:24:56 PM EDT [facility] SPEC EXP DATE 08/08/2021ATI ENT ABO/Rh A NEGATIVEANTIBODY SCREEN NEGATIVETESTING SITE PERFORMED AT [address] [place] [address] Name Value Range Interpretation Code Description Data [facility](s) Supporting Document(s) TYPE AND SCREEN [facility] ID Date Data Source [id number] 08/01/2021 09:00:00 AM EDT [facility] Name Value Range Interpretation Code Description Data [facility](s) Supporting Document(s) SARS coronavirus 2 RNA [Presence] in Res piratory specimen by MUMTAZ with probe detection NOT DETECTED [facility] This lab was reported by [facility]. ID Date Data Source [id number] 08/02/2021 10:39:32 AM EDT [facility] Name Value Range Interpretation Code Description Data Hil[facility] rce(s) Supporting Document(s) SPECIMEN DESCRIPTION [facility] COVID 19 RESULT (NDET) [facility] NEGATIVE COVID-19 RESULTS DONOT PRECLUDE COVID-2019 INFECTION ANDSHOULD NOT BE USED THE SOLE BASISFOR PATIENT MANAGEMENT DECISIONS. COMMENT [facility] THE [place]. FDA HAS MADE THIS TEST AVAILABL EUNDER AN EMERGENCY USE AUTHORIZATION(EUA) FOR THE DETECTION AND/OR DIAGNOSISOF THE VIRUS THAT CAUSES COVID-19.THIS ASSAY AMPLIFIES AND DETECTS TARGETDNA USING DOUGHNUT DOUGH MIXER- MEDIATEDAMPLIFICATIONTESTING PERFORMED ON [employer] FIRST TEST [facility] EMPLOYED IN HLTHCARE [facility] SYMPTOMATIC [facility] DATE OF SYMPT ONSET [facility] HOSPITALIZED [facility] ICU [facility] CONGREGATE CARE SET [facility] ID Date Data Source [id number] 07/29/2021 04:51:00 PM EDT [facility] Name Value Range Interpretation Code Description Data [facility] r[facility](s) Supporting Document(s) Urine Culture Laboratory test result Normal (applies t o non-numeric results) [facility] ([facility] FULL REPORT IN LAB NOTES ([facility] and [facility] ). NO GROWTH ID Date Data Source [id number] 07/29/2021 04:51:00 PM EDT [facility] ([facility] [...] ts) [facility] Specific [place] Urine Auto 1.018 1.002-1.035 Norm al (applies [...] Letty l (applies to non-numeric results) [facility] ([facility] WBC, Urine Auto 0 /HPF 0-3 Normal (applies to non-numeric results) [facility] ([facility] RBC, Urine Auto 0 /HPF 0-3 Normal (applies to non-numeric results) [facility] ([facility] Mucus, Urine Laboratory test result Normal (applies to non -numeric results) [facility] ([facility] Squamous Epithelial Cell Ur AU 0 /HPF 0-6 N ormal (applies to non-numeric results) [facility] ([facility] Bacteria, Urine Auto Laboratory test result Norm al (applies to non-numeric results) [facility] ([facility] Hyaline Cast, Urine Auto 0 /LPF 0-1 Normal (applies to non -numeric results) [facility] ID Date Data Source [id number] 07/15/2021 02:41:00 PM [facility] Name Value Range Interpretation Code Description Data [facility] r[facility](s) Supporting Document(s) Covid Rapid Testing [facility] CareStart Covid-19 Antigen Lot# [id number] 07/15/21 at 2:50pm ID Date Data Source [id number] 07/15/2021 12:00:00 AM EDT [facility] Name Value Range Interpretation Code Description Data [facility](s) Supporting Document(s) Covid Rapid Testing Negative [facility] This lab was ordered by [facility] and re ported by [facility]. ID Date Data Source [id number] 07/07/2021 12:00:00 AM EDT [facility] Name Value Range Interpretation Code Description Data [facility] r[facility](s) Supporting Document(s) Covid Rapid Testing Negative [facility] This lab was ordered by [facility] and re ported by [facility]. ID Date Data Source [id number] 07/06/2021 02:24:00 PM EDT [facility] ([facility] Name Value Range Interpretation Code Description Data [facility](s) Supporting Document(s) Glu 80 mg/dL 70-110 [facility] ([employer] [facility] [facility] NORMAL RANGES Age WBC [...] HCT IS 5% LESS SOURCE FOR DATA: Capical DYN 1800 OPERATION MANUAL( AUTOMATED BLOOD COUNTS [...] >32 mL/min Normal BUN 14 mg/dL 8- [facility] ([facility] NORMAL RANGES Age WBC [...] HCT IS 5% LESS SOURCE FOR DATA: Snippets 1800 OPERATION MANUAL( AUTOMATED BLOOD COUNTS AND [...] above >32 mL/min Normal BUN/Creatinine Ratio 16.2 [facility] ([facility] NORMAL RANGES Age WBC RBC [...] HCT IS 5% LESS SOURCE FOR DATA: Snippets 1800 OPERATION MANUAL( AUTOMATED BLOOD COUNTS AND [...] >32 mL/min Normal Na 137 mmol/L 136-145 [facility] ([facility] NORMAL RANGES Age WBC RBC [...] mL/min Normal Creat 0.9 mg/dL 0.7-1.2 [facility] ([facility] NORMAL RANGES Age WBC [...] HCT IS 5% LESS SOURCE FOR DATA: Snippets 1800 OPERATION MANUAL( AUTOMATED BLOOD COUNTS AND [...] >32 mL/min Normal K 4.2 mmol/L 3.5-5.1 [facility] ([facility] NORMAL RANGES [...] HCT IS 5% LESS SOURCE FOR DATA: Snippets 1800 OPERATION MANUAL( AUTOMATED BLOOD COUNTS AND [...] >32 mL/min Normal Co2 22.8 mmol/L 22.0-29.0 [facility] ([facility] NORMAL RANGES Age WBC RBC [...] HCT IS 5% LESS SOURCE FOR DATA: Snippets 1800 OPERATION MANUAL( AUTOMATED BLOOD COUNTS AND [...] >32 mL/min Normal CL 101.8 mmol/L 98.0-107.0 [facility] ([facility] NORMAL RANGES Age [...] HCT IS 5% LESS SOURCE FOR DATA: Snippets 1800 OPERATION MANUAL( AUTOMATED BLOOD COUNTS AND [...] HCT IS 5% LESS SOURCE FOR DATA: Snippets 1800 OPERATION MANUAL( AUTOMATED BLOOD COUNTS AND [...] >32 mL/min Normal CA 9.2 mg/dL 8.6-10.[facility] NORMAL [...] HCT IS 5% LESS SOURCE FOR DATA: Snippets 1800 OPERATION MANUAL( AUTOMATED BLOOD COUNTS AND [...] >32 mL/min Normal Alb 4.4 g/dL 3.5-5.2 [facility] ([facility] NORMAL [...] HCT IS 5% LESS SOURCE FOR DATA: Snippets 1800 OPERATION MANUAL( AUTOMATED BLOOD COUNTS AND [...] above >32 mL/min Normal Globulin 2.0 Calc [facility] ([facility] NORMAL RANGES Age WBC [...] HCT IS 5% LESS SOURCE FOR DATA: Snippets 1800 OPERATION MANUAL( AUTOMATED BLOOD COUNTS AND [...] >32 mL/min Normal Alp 71.4 U/L 40-129 [facility] ([facility] NORMAL RANGES Age WBC [...] >32 mL/min Normal A/G Ratio 2.2 Calc [facility] ([facility] NORMAL RANGES [...] HCT IS 5% LESS SOURCE FOR DATA: Capical DYN 1800 OPERATION MANUAL( AUTOMATED BLOOD COUNTS [...] mL/min Normal Ast (Sgot) 16 U/L 0-40 [facility] ([facility] NORMAL RANGES Age WBC RBC [...] HCT IS 5% LESS SOURCE FOR DATA: Snippets 1800 OPERATION MANUAL( AUTOMATED BLOOD COUNTS AND [...] >32 mL/min Normal Tbili 0.31 mg/dL 0.0-1.2 [facility] ([facility] NORMAL RANGES [...] HCT IS 5% LESS SOURCE FOR DATA: Snippets 1800 OPERATION MANUAL( AUTOMATED BLOOD COUNTS AND [...] mL/min Normal Alt (SGPT) 15 U/L 0-41 [facility] ([facility] NORMAL RANGES Age WBC RBC HGB [...] HCT IS 5% LESS SOURCE FOR DATA: Snippets 1800 OPERATION MANUAL( AUTOMATED BLOOD COUNTS AND [...] >32 mL/min Normal Anion Gap 17 mmol/L [facility] ([facility] NORMAL [...] HCT IS 5% LESS SOURCE FOR DATA: Capical DYN 1800 OPERATION MANUAL( AUTOMATED BLOOD COUNTS [...] HCT IS 5% LESS SOURCE FOR DATA: Snippets 1800 OPERATION MANUAL( AUTOMATED BLOOD COUNTS AND [...] HCT IS 5% LESS SOURCE FOR DATA: Snippets 1800 OPERATION MANUAL( AUTOMATED BLOOD COUNTS AND [...] and above >32 mL/min Normal eGFR Non-Afr. Tongan 90 # [facility] ([facility] NORMAL RANGES Age WBC [...] HCT IS 5% LESS SOURCE FOR DATA: Snippets 1800 OPERATION MANUAL( AUTOMATED BLOOD COUNTS AND [...] >32 mL/min Normal ID Date Data Source [id number] 07/06/2021 02:24:00 PM EDT [facility] ([facility] Name Value Range Interpretation Code Description Data Hilary rce(s) Supporting Document(s) WBC 4.8 10E3/uL 4.1-10.9 [facility] ([facility] NORMAL RANGES Age WBC RBC [...] >32 mL/min Normal RBC 4.93 10E6/uL 4.20-6.30 [facility] NORMAL RANGES Age WBC RBC [...] HCT IS 5% LESS SOURCE FOR DATA: Snippets 1800 OPERATION MANUAL( AUTOMATED BLOOD COUNTS AND [...] >32 mL/min Normal HGB 13.6 g/dL 12.0-18.0 [facility] ([facility] NORMAL [...] HCT IS 5% LESS SOURCE FOR DATA: Snippets 1800 OPERATION MANUAL( AUTOMATED BLOOD COUNTS AND [...] >32 mL/min Normal MCV 83.0 fL 80.0-97.0 [facility] ([facility] NORMAL [...] HCT IS 5% LESS SOURCE FOR DATA: Snippets 1800 OPERATION MANUAL( AUTOMATED BLOOD COUNTS AND [...] >32 mL/min Normal HCT 40.9 % 37.0-51.0 [facility] ([facility] NORMAL [...] HCT IS 5% LESS SOURCE FOR DATA: Snippets 1800 OPERATION MANUAL( AUTOMATED BLOOD COUNTS AND [...] >32 mL/min Normal PLT 145 10E3/uL 140-440 [facility] ([facility] NORMAL RANGES Age WBC RBC [...] HCT IS 5% LESS SOURCE FOR DATA: Snippets 1800 OPERATION MANUAL( AUTOMATED BLOOD COUNTS AND [...] HCT IS 5% LESS SOURCE FOR DATA: Snippets 1800 OPERATION MANUAL( AUTOMATED BLOOD COUNTS AND [...] >32 mL/min Normal MCH 27.6 pg 26.0-32.0 [facility] ([facility] NORMAL [...] HCT IS 5% LESS SOURCE FOR DATA: Snippets 1800 OPERATION MANUAL( AUTOMATED BLOOD COUNTS AND [...] >32 mL/min Normal RDW-CV 13.2 % 11.5-14.5 [facility] ([facility] NORMAL RANGES Age WBC [...] HCT IS 5% LESS SOURCE FOR DATA: Snippets 1800 OPERATION MANUAL( AUTOMATED BLOOD COUNTS AND [...] >32 mL/min Normal Neut% 67.1 % 37.0-92.0 [facility] ([facility] NORMAL RANGES [...] HCT IS 5% LESS SOURCE FOR DATA: Snippets 1800 OPERATION MANUAL( AUTOMATED BLOOD COUNTS AND [...] >32 mL/min Normal Lym% 20.7 % 10.0-58.5 [facility] ([facility] NORMAL RANGES [...] HCT IS 5% LESS SOURCE FOR DATA: Capical DYN 1800 OPERATION MANUAL( AUTOMATED BLOOD COUNTS [...] >32 mL/min Normal Neut# 3.2 % 2.0-7.8 [facility] ([facility] NORMAL RANGES Age WBC [...] HCT IS 5% LESS SOURCE FOR DATA: Snippets 1800 OPERATION MANUAL( AUTOMATED BLOOD COUNTS AND [...] >32 mL/min Normal Lym# 1.0 10E3/uL 0.6-4.1 [facility] ([facility] NORMAL RANGES Age WBC RBC [...] HCT IS 5% LESS SOURCE FOR DATA: Snippets 1800 OPERATION MANUAL( AUTOMATED BLOOD COUNTS AND [...] >32 mL/min Normal MXD% 12.2 % 0.1-24.0 [facility] ([facility] NORMAL [...] HCT IS 5% LESS SOURCE FOR DATA: Snippets 1800 OPERATION MANUAL( AUTOMATED BLOOD COUNTS AND [...] HCT IS 5% LESS SOURCE FOR DATA: Snippets 1800 OPERATION MANUAL( AUTOMATED BLOOD COUNTS AND [...] mL/min Normal MXD# 0.6 10E3/uL 0.0-1.8 [facility] ([facility] NORMAL RANGES Age WBC RBC [...] HCT IS 5% LESS SOURCE FOR DATA: Snippets 1800 OPERATION MANUAL( AUTOMATED BLOOD COUNTS AND [...] >32 mL/min Normal ID Date Data Source [id number] 06/22/2021 09:42:00 AM EDT [facility] ([facility] ) Name Value Range Interpretation Code Description Data Hilary rce(s) Supporting Document(s) Covid Rapid Testing Laboratory test result [facility] ([facility]) CARE START COVID-19 ANTIGEN LOT #[id number] 07/07/21 8:56A.M. ID Date Data Source [id number] 06/10/2021 08:08:00 AM EDT [facility] ([facility] Name Value Range Interpretation Code Description Data Hilary rce(s) Supporting Document(s) pH of Urine by Test strip 6.5 5.0-7.5 [facility] ([facility] Urobilinogen [Mass/volume] in Urine by Test strip 0.2 E.U./dL 0.0-1.0 [facility] ([facility] ID Date Data Source [id number] 06/10/2021 08:08:00 AM EDT [facility] ([facility] Name Value Range Interpretation Code Description Data Hilary rce(s) Supporting Document(s) Glucose [Presence] in Urine Laboratory test result [facility] ([facility]) Protein [Presence] in Urine by Test strip Laboratory test result [facility] ([facility]) Ua Nitrite Laboratory test result [facility] ([facility]) Blood [Presence] in Urine by Visual Laboratory test result [facility] ([facility]) Ua Leuko Laboratory test result [facility] ([facility]) Color of Urine Laboratory test result [facility] ([facility]) Ketones [Presence] in Urine by Test strip Laboratory test result [facility] ([facility]) Clarity of Urine Laboratory test result [facility] ([facility]) Bilirubin.total [Presence] in Urine by Test strip Laboratory test res ult [facility] ([facility]) Ua Specific Zuni Laboratory test result 1.003-1.030 [facility] ([facility]) pH of Urine by Test strip 6.5 5.0-7.5 [facility] ([facility]) Urobilinogen [Mass/volume] in Urine by Test strip 0.2 E.U./dL 0.0-1.0 [facility] ([facility]) ID Date Data Source [id number] 05/20/2021 01:48:00 PM EDT [facility] ([facility]) Name Value Range Interpretation Code Description Data Hilary rce(s) Supporting Document(s) Covid Rapid Testing Laboratory test result [facility] ([facility] ) ID Date Data Source [id number] 05/20/2021 12:00:00 AM EDT [facility] Name Value Range Interpretation Code Description Data Hilary rce(s) Supporting Document(s) Covid Rapid Testing Negative [facility] This lab was ordered by [place] and re ported by [facility]. ID Date Data Source [id number] 05/05/2021 08:54:00 AM EDT [facility] ([facility] Name Value Range Interpretation Code Description Data Hilary rce(s) Supporting Document(s) Chol 211 mg/dL 0-200 Above high normal [facility] ([facility] NORMAL RANGES Age [...] HCT IS 5% LESS SOURCE FOR DATA: Snippets 1800 OPERATION MANUAL( AUTOMATED BLOOD COUNTS AND [...] HCT IS 5% LESS SOURCE FOR DATA: Snippets 1800 OPERATION MANUAL( AUTOMATED BLOOD COUNTS AND [...] HCT IS 5% LESS SOURCE FOR DATA: Snippets 1800 OPERATION MANUAL( AUTOMATED BLOOD COUNTS AND [...] LDL_C 136 Calc 75-129 Above high normal [facility] ([facility] NORMAL RANGES [...] HCT IS 5% LESS SOURCE FOR DATA: Capical DYN 1800 OPERATION MANUAL( AUTOMATED BLOOD COUNTS [...] HCT IS 5% LESS SOURCE FOR DATA: Snippets 1800 OPERATION MANUAL( AUTOMATED BLOOD COUNTS AND [...] 2-19 YEARS EXCLUSIVE. ID Date Data Source [id number] 05/05/2021 08:54:00 AM EDT [facility] ([facility] Name Value Range Interpretation Code Description Data Hilary rce(s) Supporting Document(s) Glu 102 mg/dL 70-110 [facility] ([facility] NORMAL RANGES [...] HCT IS 5% LESS SOURCE FOR DATA: Snippets 1800 OPERATION MANUAL( AUTOMATED BLOOD COUNTS AND [...] 2-19 YEARS EXCLUSIVE. BUN 15 mg/dL 8-23 [facility] ([facility] NORMAL [...] HCT IS 5% LESS SOURCE FOR DATA: Snippets 1800 OPERATION MANUAL( AUTOMATED BLOOD COUNTS AND [...] HCT IS 5% LESS SOURCE FOR DATA: Snippets 1800 OPERATION MANUAL( AUTOMATED BLOOD COUNTS AND [...] 2-19 YEARS EXCLUSIVE. Na 137 mmol/L 136-145 [facility] ([facility] NORMAL RANGES Age WBC RBC [...] HCT IS 5% LESS SOURCE FOR DATA: Snippets 1800 OPERATION MANUAL( AUTOMATED BLOOD COUNTS AND [...] 2-19 YEARS EXCLUSIVE. BUN/Creatinine Ratio 14.[address] [facility] ([facility] NORMAL RANGES Age [...] HCT IS 5% LESS SOURCE FOR DATA: Snippets 1800 OPERATION MANUAL( AUTOMATED BLOOD COUNTS AND [...] 2-19 YEARS EXCLUSIVE. CL 103.3 mmol/L 98.0-107.0 [facility] ([facility] NORMAL RANGES Age [...] HCT IS 5% LESS SOURCE FOR DATA: Snippets 1800 OPERATION MANUAL( AUTOMATED BLOOD COUNTS AND [...] 2-19 YEARS EXCLUSIVE. K 4.2 mmol/L 3.5-5.1 [facility] ([facility] NORMAL RANGES Age WBC RBC [...] HCT IS 5% LESS SOURCE FOR DATA: Capical DYN 1800 OPERATION MANUAL( AUTOMATED BLOOD COUNTS [...] 2-19 YEARS EXCLUSIVE. CA 9.6 mg/dL 8.6-10.[address] [facility] ([facility] NORMAL [...] HCT IS 5% LESS SOURCE FOR DATA: Snippets 1800 OPERATION MANUAL( AUTOMATED BLOOD COUNTS AND [...] 2-19 YEARS EXCLUSIVE. Co2 22.6 mmol/L 22.0-29.0 [facility] ([facility] NORMAL RANGES Age WBC RBC [...] HCT IS 5% LESS SOURCE FOR DATA: Snippets 1800 OPERATION MANUAL( AUTOMATED BLOOD COUNTS AND [...] HCT IS 5% LESS SOURCE FOR DATA: Capical DYN 1800 OPERATION MANUAL( AUTOMATED BLOOD COUNTS [...] HCT IS 5% LESS SOURCE FOR DATA: Snippets 1800 OPERATION MANUAL( AUTOMATED BLOOD COUNTS AND [...] YEARS EXCLUSIVE. A/G Ratio 1.9 Calc [facility] ([facility] NORMAL RANGES Age WBC [...] HCT IS 5% LESS SOURCE FOR DATA: Snippets 1800 OPERATION MANUAL( AUTOMATED BLOOD COUNTS AND [...] YEARS EXCLUSIVE. Alt (SGPT) 15 U/L 0-41 [facility] ([facility] NORMAL RANGES Age WBC RBC [...] HCT IS 5% LESS SOURCE FOR DATA: Capical DYN 1800 OPERATION MANUAL( AUTOMATED BLOOD COUNTS [...] HCT IS 5% LESS SOURCE FOR DATA: Snippets 1800 OPERATION MANUAL( AUTOMATED BLOOD COUNTS AND [...] HCT IS 5% LESS SOURCE FOR DATA: Snippets 1800 OPERATION MANUAL( AUTOMATED BLOOD COUNTS AND [...] 2-19 YEARS EXCLUSIVE. Tbili 0.60 mg/dL 0.0-1.2 [facility] ([facility] NORMAL RANGES Age WBC [...] HCT IS 5% LESS SOURCE FOR DATA: Snippets 1800 OPERATION MANUAL( AUTOMATED BLOOD COUNTS AND [...] HCT IS 5% LESS SOURCE FOR DATA: Snippets 1800 OPERATION MANUAL( AUTOMATED BLOOD COUNTS AND [...] HCT IS 5% LESS SOURCE FOR DATA: Snippets 1800 OPERATION MANUAL( AUTOMATED BLOOD COUNTS AND [...] 2-19 YEARS EXCLUSIVE. Anion Gap 15 mmol/L [facility] ([facility] NORMAL [...] HCT IS 5% LESS SOURCE FOR DATA: Capical DYN 1800 OPERATION MANUAL( AUTOMATED BLOOD COUNTS [...] HCT IS 5% LESS SOURCE FOR DATA: Snippets 1800 OPERATION MANUAL( AUTOMATED BLOOD COUNTS AND [...] INDIVIDUALA AGED 2-19 YEARS EXCLUSIVE. eGFR Non-Afr. Tongan 79 # [facility] ([facility] NORMAL RANGES Age [...] HCT IS 5% LESS SOURCE FOR DATA: Snippets 1800 OPERATION MANUAL( AUTOMATED BLOOD COUNTS AND [...] 2-19 YEARS EXCLUSIVE. ID Date Data Source [id number] 05/05/2021 08:54:00 AM EDT [facility] ([facility] Name Value Range Interpretation Code Description Data Hilary rce(s) Supporting Document(s) WBC 4.1 10E3/uL 4.1-10.9 [facility] ([facility] NORMAL RANGES Age WBC RBC [...] HCT IS 5% LESS SOURCE FOR DATA: Snippets 1800 OPERATION MANUAL( AUTOMATED BLOOD COUNTS AND [...] EXCLUSIVE. RBC 4.95 10E6/uL 4.20-6.30 [facility] ([facility] NORMAL RANGES Age WBC [...] HCT IS 5% LESS SOURCE FOR DATA: Snippets 1800 OPERATION MANUAL( AUTOMATED BLOOD COUNTS AND [...] 2-19 YEARS EXCLUSIVE. HGB 13.5 g/dL 12.0-18.0 [facility] ([facility] NORMAL [...] HCT IS 5% LESS SOURCE FOR DATA: Capical DYN 1800 OPERATION MANUAL( AUTOMATED BLOOD COUNTS [...] HCT IS 5% LESS SOURCE FOR DATA: Snippets 1800 OPERATION MANUAL( AUTOMATED BLOOD COUNTS AND [...] HCT IS 5% LESS SOURCE FOR DATA: Snippets 1800 OPERATION MANUAL( AUTOMATED BLOOD COUNTS AND [...] 2-19 YEARS EXCLUSIVE. MCV 82.8 fL 80.0-97.0 [facility] ([facility] NORMAL [...] HCT IS 5% LESS SOURCE FOR DATA: Snippets 1800 OPERATION MANUAL( AUTOMATED BLOOD COUNTS AND [...] HCT IS 5% LESS SOURCE FOR DATA: Snippets 1800 OPERATION MANUAL( AUTOMATED BLOOD COUNTS AND [...] PLT 130 10E3/uL 140-440 Below low normal [facility] ([facility] NORMAL RANGES Age [...] HCT IS 5% LESS SOURCE FOR DATA: Snippets 1800 OPERATION MANUAL( AUTOMATED BLOOD COUNTS AND [...] HCT IS 5% LESS SOURCE FOR DATA: Snippets 1800 OPERATION MANUAL( AUTOMATED BLOOD COUNTS AND [...] 2-19 YEARS EXCLUSIVE. RDW-CV 14.0 % 11.5-14.5 [facility] ([facility] NORMAL [...] HCT IS 5% LESS SOURCE FOR DATA: Snippets 1800 OPERATION MANUAL( AUTOMATED BLOOD COUNTS AND [...] HCT IS 5% LESS SOURCE FOR DATA: Snippets 1800 OPERATION MANUAL( AUTOMATED BLOOD COUNTS AND [...] 2-19 YEARS EXCLUSIVE. Neut% 62.9 % 37.0-92.0 [facility] ([facility] NORMAL [...] HCT IS 5% LESS SOURCE FOR DATA: Snippets 1800 OPERATION MANUAL( AUTOMATED BLOOD COUNTS AND [...] YEARS EXCLUSIVE. Lym# 0.9 10E3/uL 0.6-4.1 [facility] ([facility] NORMAL RANGES Age WBC RBC [...] HCT IS 5% LESS SOURCE FOR DATA: Snippets 1800 OPERATION MANUAL( AUTOMATED BLOOD COUNTS AND [...] 2-19 YEARS EXCLUSIVE. Neut# 2.5 % 2.0-7.8 [facility] ([facility] NORMAL RANGES Age WBC [...] HCT IS 5% LESS SOURCE FOR DATA: Snippets 1800 OPERATION MANUAL( AUTOMATED BLOOD COUNTS AND [...] 2-19 YEARS EXCLUSIVE. MXD# 0.7 10E3/uL 0.0-1.8 [facility] ([facility] NORMAL RANGES Age WBC RBC [...] HCT IS 5% LESS SOURCE FOR DATA: Snippets 1800 OPERATION MANUAL( AUTOMATED BLOOD COUNTS AND [...] HCT IS 5% LESS SOURCE FOR DATA: Snippets 1800 OPERATION MANUAL( AUTOMATED BLOOD COUNTS AND [...] 2-19 YEARS EXCLUSIVE. ID Date Data Source [id number] 04/30/2021 03:44:00 PM EDT [facility] ([facility] Name Value Range Interpretation Code Description Data Hilary rce(s) Supporting Document(s) Urine WBC Laboratory test result 0-5 [facility] ([facility]) Urine RBC Laboratory test result 0-2 [facility] ([facility]) Bacteria Laboratory test result [facility] ([facility]) Crystals Laboratory test result [facility] ([facility]) Epithelial Cells Laboratory test result [facility] ([facility]) Yeast Laboratory test result [facility] ([facility]) Sperm Laboratory test result [facility] ([facility]) Hyaline casts [Presence] in Urine sediment by Light mi croscopy Laboratory test result [facility] ([facility]) ID Date Data Source [id number] 04/30/2021 03:28:00 PM EDT [facility] ([facility]) Name Value Range Interpretation Code Description Data Hilary rce(s) Supporting Document(s) Protein [Presence] in Urine by Test strip Laboratory test result [facility] ([facility]) Glucose [Presence] in Urine Laboratory test result [facility] ([facility]) Ua Nitrite Laboratory test result [facility] ([facility]) Ua Leuko Laboratory test result [facility] ([facility]) Blood [Presence] in Urine by Visual Laboratory test result [facility] ([facility]) Ketones [Presence] in Urine by Test strip Laboratory test result [facility] ([facility]) Color of Urine Laboratory test result [facility] ([facility]) Ua Specific Zuni Laboratory test result 1.003-1.030 [facility] ([facility]) Clarity of Urine Laboratory test result [facility] ([facility]) Bilirubin.total [Presence] in Urine by Test strip Laboratory test res ult [facility] ([facility]) Urobilinogen [Mass/volume] in Urine by Test strip 0.2 E.U./dL 0.0-1.0 [facility] ([facility]) pH of Urine by Test strip 5.5 5.0-7.5 [facility] ([facility]) ID Date Data Source [id number] 03/04/2021 08:30:00 AM EDT [facility] ([facility]) Name Value Range Interpretation Code Description Data Hilary rce(s) Supporting Document(s) Laboratory test finding (navigational concept) Laboratory test result [facility] ([facility]) ID Date Data Source [id number] 02/16/2021 03:15:00 PM EDT [facility] ([facility]) Name Value Range Interpretation Code Description Data Hilary rce(s) Supporting Document(s) Prostate specific Ag [Mass/volume] in Serum or Plasma 3.54 [facility] ([facility]) Prostatic Specific Ag Monitor 3.54 ng/mL [facility] ([facility]) The PSA assay is performed on the [employer] [place] analyzer by [employer] sandwich chemiluminescent immunoassay and should not be compared interchangeably with other methods. It should not be used alone as a screening test or diagnosis for the presence or absence of malignant disease. Predictions of disease recurrence should not be based solely on values obtained from serial patient serum values. ID Date Data Source [id number] 02/16/2021 12:55:00 PM EDT [facility] ([facility] Name Value Range Interpretation Code Description Data Hilary rce(s) Supporting Document(s) Prostate specific Ag [Mass/volume] in Serum or Plasma 3.54 ng/mL Normal (applies to non-numeric results) [facility] ([facility] The PSA assay is performed on the [employer] [place] analyzer by [employer] sandwich chemiluminescent immunoassay and should not be compared interchangeably with other methods. It should not be used alone as a screening test or diagnosis for the presence or absence of malignant disease. Predictions of disease recurrence should not be based solely on values obtained from serial patient serum values. ID Date Data Source [id number] 02/13/2021 03:05:00 PM EDT [facility] ([facility]) Name Value Range Interpretation Code Description Data Hilary rce(s) Supporting Document(s) Covid Rapid Testing Laboratory test result [facility] ([facility] ) ID Date Data Source [id number] 02/13/2021 12:00:00 AM EDT [facility] Name Value Range Interpretation Code Description Data Hilary rce(s) Supporting Document(s) Covid Rapid Testing Negative [facility] This lab was ordered by [place] and re ported by [facility]. ID Date Data Source [id number] 2020 12:00:00 AM EST [facility] RIVAS Patient Name: FLORIDA CASTILLO [id number] [facility] Date of : 1955[address] Date of Exam: [id number] [id number]#: Fax: [phone] EXAM: MRI CERVICAL SPINE WITHOUT [...] rce(s) Supporting Document(s) ID Date Data Source [id number] 10/27/2020 09:34:00 AM EST [facility] ([facility] [...] HCT IS 5% LESS SOURCE FOR DATA: Snippets 1800 OPERATION MANUAL( AUTOMATED BLOOD COUNTS AND [...] HCT IS 5% LESS SOURCE FOR DATA: Capical DYN 1800 OPERATION MANUAL( AUTOMATED BLOOD COUNTS [...] in Serum or Plasma 38 mg[facility] NORMAL RANGES [...] HCT IS 5% LESS SOURCE FOR DATA: Snippets 1800 OPERATION MANUAL( AUTOMATED BLOOD COUNTS AND [...] Cho/HDL Ratio 5.0 CALC MED[facility] ([facility] NORMAL RANGES Age [...] HCT IS 5% LESS SOURCE FOR DATA: Snippets 1800 OPERATION MANUAL( AUTOMATED BLOOD COUNTS AND [...] 2-19 YEARS EXCLUSIVE. LDL_C 117 Calc 75-129 [facility] NORMAL [...] HCT IS 5% LESS SOURCE FOR DATA: Snippets 1800 OPERATION MANUAL( AUTOMATED BLOOD COUNTS AND [...] 2-19 YEARS EXCLUSIVE. ID Date Data Source [id number] 10/27/2020 09:34:00 AM EST [facility] ([facility]amil y [...] HCT IS 5% LESS SOURCE FOR DATA: Snippets 1800 OPERATION MANUAL( AUTOMATED BLOOD COUNTS AND [...] 2-19 YEARS EXCLUSIVE. BUN 15 mg/dL 8-23 [facility] NORMAL RANGES Age WBC [...] HCT IS 5% LESS SOURCE FOR DATA: Snippets 1800 OPERATION MANUAL( AUTOMATED BLOOD COUNTS AND [...] 2-19 YEARS EXCLUSIVE. Creat 0.9 mg/dL 0.7-1.2 [facility] NORMAL [...] HCT IS 5% LESS SOURCE FOR DATA: Snippets 1800 OPERATION MANUAL( AUTOMATED BLOOD COUNTS AND [...] 2-19 YEARS EXCLUSIVE. BUN/Creatinine Ratio 16.5 CALC [facility] ([facility] NORMAL RANGES Age [...] HCT IS 5% LESS SOURCE FOR DATA: Snippets 1800 OPERATION MANUAL( AUTOMATED BLOOD COUNTS AND [...] 2-19 YEARS EXCLUSIVE. K 4.2 mmol/L 3.5-5.1 [facility] ([facility] NORMAL RANGES Age WBC RBC [...] HCT IS 5% LESS SOURCE FOR DATA: Snippets 1800 OPERATION MANUAL( AUTOMATED BLOOD COUNTS AND [...] 2-19 YEARS EXCLUSIVE. Na 138 mmol/L 136-145 [facility] ([facility] NORMAL [...] HCT IS 5% LESS SOURCE FOR DATA: Snippets 1800 OPERATION MANUAL( AUTOMATED BLOOD COUNTS AND [...] YEARS EXCLUSIVE. CL 102.1 mmol/L 98.0-107.0 [facility] ([facility] NORMAL RANGES Age WBC RBC [...] HCT IS 5% LESS SOURCE FOR DATA: Snippets 1800 OPERATION MANUAL( AUTOMATED BLOOD COUNTS AND [...] 2-19 YEARS EXCLUSIVE. Co2 26.0 mmol/L 22.0-29.0 [facility] ([facility] NORMAL RANGES Age WBC RBC [...] HCT IS 5% LESS SOURCE FOR DATA: Snippets 1800 OPERATION MANUAL( AUTOMATED BLOOD COUNTS AND [...] HCT IS 5% LESS SOURCE FOR DATA: Snippets 1800 OPERATION MANUAL( AUTOMATED BLOOD COUNTS AND [...] HCT IS 5% LESS SOURCE FOR DATA: Snippets 1800 OPERATION MANUAL( AUTOMATED BLOOD COUNTS AND [...] 2-19 YEARS EXCLUSIVE. Alb 4.4 g/dL 3.5-5.2 [facility] NORMAL [...] HCT IS 5% LESS SOURCE FOR DATA: Capical DYN 1800 OPERATION MANUAL( AUTOMATED BLOOD COUNTS [...] HCT IS 5% LESS SOURCE FOR DATA: Snippets 1800 OPERATION MANUAL( AUTOMATED BLOOD COUNTS AND [...] HCT IS 5% LESS SOURCE FOR DATA: Snippets 1800 OPERATION MANUAL( AUTOMATED BLOOD COUNTS AND [...] HCT IS 5% LESS SOURCE FOR DATA: Capical DYN 1800 OPERATION MANUAL( AUTOMATED BLOOD COUNTS [...] YEARS EXCLUSIVE. Alt (SGPT) 17 U/L 0-41 [facility] NORMAL RANGES Age WBC RBC [...] HCT IS 5% LESS SOURCE FOR DATA: Snippets 1800 OPERATION MANUAL( AUTOMATED BLOOD COUNTS AND [...] HCT IS 5% LESS SOURCE FOR DATA: Snippets 1800 OPERATION MANUAL( AUTOMATED BLOOD COUNTS AND [...] YEARS EXCLUSIVE. Ast (Sgot) 18 U/L 0-40 [facility] ([facility] NORMAL RANGES Age WBC RBC [...] HCT IS 5% LESS SOURCE FOR DATA: Snippets 1800 OPERATION MANUAL( AUTOMATED BLOOD COUNTS AND [...] 2-19 YEARS EXCLUSIVE. Anion Gap 14 mmol/L [facility] NORMAL [...] HCT IS 5% LESS SOURCE FOR DATA: Snippets 1800 OPERATION MANUAL( AUTOMATED BLOOD COUNTS AND [...] YEARS EXCLUSIVE. Osmolality-Calculated 277.2 CALC [facility] ([facility] NORMAL RANGES Age WBC [...] HCT IS 5% LESS SOURCE FOR DATA: Snippets 1800 OPERATION MANUAL( AUTOMATED BLOOD COUNTS AND [...] HCT IS 5% LESS SOURCE FOR DATA: Snippets 1800 OPERATION MANUAL( AUTOMATED BLOOD COUNTS AND [...] INDIVIDUALA AGED 2-19 YEARS EXCLUSIVE. eGFR Non-Afr. Tongan 90 # [facility] ([facility] [...] HCT IS 5% LESS SOURCE FOR DATA: Snippets 1800 OPERATION MANUAL( AUTOMATED BLOOD COUNTS AND [...] 2-19 YEARS EXCLUSIVE. ID Date Data Source [id number] 10/27/2020 09:34:00 AM EST [facility] ([facility] Name Value Range Interpretation Code Description Data Hilary rce(s) Supporting Document(s) WBC 5.0 10E3/uL 4.1-10.9 [facility] ([facility] NORMAL RANGES Age WBC [...] HCT IS 5% LESS SOURCE FOR DATA: Snippets 1800 OPERATION MANUAL( AUTOMATED BLOOD COUNTS AND [...] 2-19 YEARS EXCLUSIVE. RBC 5.10 10E6/uL 4.20-6.30 [facility] ([facility] NORMAL RANGES Age WBC [...] HCT IS 5% LESS SOURCE FOR DATA: Snippets 1800 OPERATION MANUAL( AUTOMATED BLOOD COUNTS AND [...] HCT IS 5% LESS SOURCE FOR DATA: Snippets 1800 OPERATION MANUAL( AUTOMATED BLOOD COUNTS AND [...] 2-19 YEARS EXCLUSIVE. HGB 13.7 g/dL 12.0-18.0 [facility] ([facility] NORMAL [...] 2-19 YEARS EXCLUSIVE. MCH 26.9 pg 26.0-32.0 [facility] NORMAL [...] HCT IS 5% LESS SOURCE FOR DATA: Snippets 1800 OPERATION MANUAL( AUTOMATED BLOOD COUNTS AND [...] HCT IS 5% LESS SOURCE FOR DATA: Snippets 1800 OPERATION MANUAL( AUTOMATED BLOOD COUNTS AND [...] 2-19 YEARS EXCLUSIVE. MCHC 32.5 g/dL 31.0-36.0 [facility] NORMAL [...] HCT IS 5% LESS SOURCE FOR DATA: Capical DYN 1800 OPERATION MANUAL( AUTOMATED BLOOD COUNTS [...] PLT 125 10E3/uL 140-440 Below low normal [facility] NORMAL RANGES [...] HCT IS 5% LESS SOURCE FOR DATA: Snippets 1800 OPERATION MANUAL( AUTOMATED BLOOD COUNTS AND [...] 2-19 YEARS EXCLUSIVE. RDW-CV 13.4 % 11.5-14.5 [facility] NORMAL [...] HCT IS 5% LESS SOURCE FOR DATA: Snippets 1800 OPERATION MANUAL( AUTOMATED BLOOD COUNTS AND [...] 2-19 YEARS EXCLUSIVE. Neut% 71.1 % 37.0-92.0 [facility] NORMAL [...] HCT IS 5% LESS SOURCE FOR DATA: Snippets 1800 OPERATION MANUAL( AUTOMATED BLOOD COUNTS AND [...] 2-19 YEARS EXCLUSIVE. Lym% 19.3 % 10.0-58.5 [facility] NORMAL [...] HCT IS 5% LESS SOURCE FOR DATA: Snippets 1800 OPERATION MANUAL( AUTOMATED BLOOD COUNTS AND [...] HCT IS 5% LESS SOURCE FOR DATA: Snippets 1800 OPERATION MANUAL( AUTOMATED BLOOD COUNTS AND [...] 2-19 YEARS EXCLUSIVE. Neut# 3.5 % 2.0-7.8 [facility] ([facility] NORMAL [...] HCT IS 5% LESS SOURCE FOR DATA: Snippets 1800 OPERATION MANUAL( AUTOMATED BLOOD COUNTS AND [...] 2-19 YEARS EXCLUSIVE. Lym# 1.0 10E3/uL 0.6-4.1 [facility] NORMAL RANGES Age WBC RBC [...] HCT IS 5% LESS SOURCE FOR DATA: Snippets 1800 OPERATION MANUAL( AUTOMATED BLOOD COUNTS AND [...] YEARS EXCLUSIVE. MXD# 0.5 10E3/uL 0.0-1.8 [facility] ([facility] NORMAL RANGES Age WBC RBC [...] HCT IS 5% LESS SOURCE FOR DATA: Snippets 1800 OPERATION MANUAL( AUTOMATED BLOOD COUNTS AND [...] 2-19 YEARS EXCLUSIVE. MPV 9.8 fL 9.0-13.0 [facility] ([facility] NORMAL [...] HCT IS 5% LESS SOURCE FOR DATA: Snippets 1800 OPERATION MANUAL( AUTOMATED BLOOD COUNTS AND [...] 2-19 YEARS EXCLUSIVE. ID Date Data Source [id number] 10/23/2020 10:28:00 AM EST [facility] ([facility]) Name Value Range Interpretation Code Description Data Hilary rce(s) Supporting Document(s) Triglycerides 186 [facility] ([facility]) Cholesterol 193 [facility] ([facility] Chol/HDL Ratio 5.0 [facility] ([facility]) Cholesterol in LDL [Mass/volume] in Serum or Plasma by calculation 11 7 [facility] ([facility]) HDL 38 [facility] ([facility]) ID Date Data Source [id number] 10/23/2020 10:28:00 AM EST [facility] ([facility] Name Value Range Interpretation Code Description Data Hilary rce(s) Supporting Document(s) Alanine aminotransferase [Enzymatic activity/volume] in Serum or Pl asma 17 [facility] ([facility]) Albumin [Mass/volume] in Serum or Plasma 4.4 [facility] ([facility]) Carbon dioxide, total [Moles/volume] in Serum or Plasma 26.0 [facility] ([facility]) Calcium [Mass/volume] in Serum or Plasma 9.9 [facility] ([facility]) Alkaline phosphatase [Enzymatic activity/volume] in Serum or Plasma 6 7.8 [facility] ([facility]) Chloride [Moles/volume] in Serum or Plasma 102.1 [facility] ([facility]) Potassium [Moles/volume] in Serum or Plasma 4.2 [facility] ([facility]) Protein [Mass/volume] in Serum or Plasma 6.7 [facility] ([facility]) Sodium 138 [facility] ([facility]) Aspartate aminotransferase [Enzymatic activity/volume] in Serum or Plasma 18 [facility] ([facility]) Urea nitrogen [Mass/volume] in Serum or Plasma 15 [facility] ([facility]) Glucose 103 [facility] ([facility]) Creatinine For GFR 0.9 [facility] ([facility]) ID Date Data Source [id number] 10/23/2020 10:28:00 AM EST [facility] ([facility] Name Value Range Interpretation Code Description Data Hilary rce(s) Supporting Document(s) White Blood Count 5.0 [facility] ([facility]) Platelets 125 [facility] ([facility]) Hemoglobin 13.7 [facility] ([facility]) Red Blood Count 5.10 [facility] ([facility]) Hematocrit 42.2 [facility] ([facility]) Procedure Social History Code Duration Value Status Description Data Source(s ) Alcohol intake 08/06/2021 12:00:00 AM EDT Ex-drinker (finding) comp leted Ex- drinker (finding) [facility] Tobacco use and exposure 07/28/2021 12:00:00 AM EDT Never used co mpleted Never used [facility] Smoking 07/28/2021 12:00:00 AM EDT Never smoker completed Never s moker [facility] Smoking 06/08/2021 12:00:00 AM EDT Never Smoked Cigarettes com pleted Never Smoked Cigarettes [facility] ([facility] Smoking 05/26/2021 12:00:00 AM EDT Patient has never smoked co mpleted Patient has never smoked [facility] ([facility]) Smoking 03/31/2021 12:00:00 AM EDT Patient has never smoked co mpleted Patient has never smoked [facility] ([facility]) Smoking 12/12/2020 12:00:00 AM EST Patient has never smoked co mpleted Patient has never smoked [facility] ([facility]) Vital Signs ID Date Data Source UNK Name Value Range Interpretation Code Description Data Source(s) Systolic blood pressure 114 mm[Hg] 114 mm[Hg] [facility] Diastolic blood pressure 69 mm[Hg] 69 mm[Hg] [facility] Heart rate 68 /min 68 /min [facility] Body temperature 36.56 [place] 36.56 Edison [facility] Respiratory rate 17 /min 17 /min [facility] Oxygen saturation in Arterial blood by Pulse oximetry 94 % 94 % [facility] Body height 182.9 cm 182.9 cm [facility] Body weight 113.4 kg 113.4 kg [facility] Body mass index (BMI) [Ratio] 33.91 kg/m2 33.91 kg/m2 [facility] Body temperature 97.5 [degF] 97.5 [degF] [facility] ([facility]) Systolic blood pressure 116 mm[Hg] 116 mm[Hg] M EDENT ([facility] Diastolic blood pressure 74 mm[Hg] 74 mm[Hg] [facility] ([facility] Respiratory rate 14 /min 14 /min [facility] ( [facility] Body height 72 [in_i] 72 [in_i] [facility] ([facility] 6'0" Body weight 273.00 [lb_av] 273.00 [lb_av] MEDEN T ([facility] [place] body weight 178 [lb_av] 178 [lb_av] MEDEN T ([facility] Body temperature 99.2 [degF] 99.2 [degF] [facility] ([facility] Heart rate 72 /min 72 /min [facility] ([facility] Body mass index (BMI) [Ratio] 37.0 kg/m2 37.0 k g/m2 [facility] ([facility] Oxygen saturation in Arterial blood by Pulse oximetry 96 % 96 % [facility] ([facility] Body height 71 [in_i] 71 [in_i] [facility] ([facility]) 5'11" Body weight 268.50 [lb_av] 268.50 [lb_av] MEDEN T ([facility] ) Body temperature 97.3 [degF] 97.3 [degF] [facility] ([facility] Body mass index (BMI) [Ratio] 37.4 kg/m2 37.4 k g/m2 [facility] ([facility] Systolic blood pressure 174 [...] 72 [in_i] [facility] ([facility] 6'0" Body weight 250.00 [lb_av] 250.00 [lb_av] MEDEN T ([facility]) Body weight 113.400 kg 113.400 kg [facility] ([facility] Body mass index (BMI) [Ratio] 33.9 kg/m2 33.9 k g/m2 [facility] ([facility]) Body temperature 96.3 [degF] 96.3 [degF] [facility] ([facility] Body weight 265.00 [lb_av] 265.00 [lb_av] MEDEN T ([facility] [place] body weight 178 [lb_av] 178 [lb_av] MEDEN T ([facility] Respiratory rate 14 /min 14 /min [facility] ( [facility] Body height 72 [in_i] 72 [in_i] [facility] ([facility] 6'0" Systolic blood pressure 126 mm[Hg] 126 mm[Hg] M EDENT ([facility] Diastolic blood pressure 80 mm[Hg] 80 mm[Hg] [facility] ([facility] Body temperature 98.1 [degF] 98.1 [degF] [facility] ([facility] Heart rate 78 /min 78 /min [facility] ([facility] Body mass index (BMI) [Ratio] 35.9 kg/m2 35.9 k g/m2 [facility] ([facility] Oxygen saturation in Arterial blood by Pulse oximetry 96 % 96 % [facility] ([facility] Body weight 113.400 kg 113.400 kg [facility] ([facility] Body mass index (BMI) [Ratio] 33.9 kg/m2 33.9 k g/m2 [facility] ([facility]) Systolic blood pressure 128 mm[Hg] 128 mm[Hg] M [facility] ([facility]) Diastolic blood pressure 72 mm[Hg] 72 mm[Hg] [facility] ([facility] Body height 72 [in_i] 72 [in_i] [facility] ([facility] 6'0" Body weight 250.00 [lb_av] 250.00 [lb_av] MEDEN T ([facility]) Heart rate 80 /min 80 /min [facility] ([facility] Body weight 261.00 [lb_av] 261.00 [lb_av] MEDEN T ([facility]) Body height 72 [in_i] 72 [in_i] [facility] ([facility]) 6'0" Body mass index (BMI) [Ratio] 35.4 kg/m2 35.4 k g/m2 [facility] ([facility]) Heart rate 72 /min 72 /min [facility] ([facility]) Regular Respiratory rate 16 /min 16 /min [facility] ( [facility]) Systolic blood pressure 126 mm[Hg] 126 mm[Hg] M EDENT ([facility]) sitting, large cuff Diastolic blood pressure 70 mm[Hg] 70 mm[Hg] [facility] ([facility]) sitting, large cuff Systolic blood pressure 130 mm[Hg] 130 mm[Hg] M EDENT ([facility]) sittting Diastolic blood pressure 70 mm[Hg] 70 mm[Hg] [facility] ([facility]) sittting Body temperature 97.8 [degF] 97.8 [degF] [facility] ([facility]) Body temperature 96.8 [degF] 96.8 [degF] [facility] ([facility]) Body height 70.5 [in_i] 70.5 [in_i] [facility] ([facility]) 5'10.50" Body weight 262.25 [lb_av] 262.25 [lb_av] MEDEN T ([facility]) Body mass index (BMI) [Ratio] 37.1 kg/m2 37.1 k g/m2 [facility] ([facility]) Systolic blood pressure 136 mm[Hg] 136 mm[Hg] M EDENT ([facility] Body mass index (BMI) [Ratio] 36.2 kg/m2 36.2 k g/m2 [facility] ([facility] Body temperature 98.6 [degF] 98.6 [degF] [facility] ([facility] Heart rate 74 /min 74 /min [facility] ([facility] Respiratory rate 16 /min 16 /min [facility] ( [facility] Body height 72 [in_i] 72 [in_i] [facility] ([facility] 6'0" Body weight 267.00 [lb_av] 267.00 [lb_av] MEDEN T ([facility] [place] body weight 178 [lb_av] 178 [lb_av] MEDEN T ([facility] Oxygen saturation in Arterial blood by Pulse oximetry 96 % 96 % [facility] ([facility] Diastolic blood pressure 76 mm[Hg] 76 mm[Hg] [facility] ([facility] Diastolic blood pressure 76 mm[Hg] 76 mm[Hg] [facility] ([facility]) sitting Diastolic blood pressure 76 mm[Hg] 76 mm[Hg] [facility] ([facility]) sitting, regular cuff Systolic blood pressure 126 mm[Hg] 126 mm[Hg] M EDENT ([facility]) sitting Body weight 261.00 [lb_av] 261.00 [lb_av] MEDEN T ([facility]) Body height 72 [in_i] 72 [in_i] [facility] ([facility]) 6'0" Body mass index (BMI) [Ratio] 35.4 kg/m2 35.4 k g/m2 [facility] ([facility]) Heart rate 68 /min 68 /min [facility] ([facility]) Regular Respiratory rate 16 /min 16 /min [facility] ( [facility]) Systolic blood pressure 122 mm[Hg] 122 [facility]Hg] [facility] sitting, regular cuff Body temperature 97.3 [degF] 97.3 [degF] [facility] ([facility]) Patient Treatment Plan of Care Planned Activity Planned Date Details Description Data Source (s) Aspirin 81 MG Delayed Release Oral Tablet 08/10/2021 12:00:00 AM ED [facility] Aspirin 81 MG Delayed Release Oral Tablet 08/09/2021 12:00:00 AM ED [facility] POLYETHYLENE GLYCOL 3350 142 MG/ML Oral Solution 08/06/2021 12:00:0 0 AM EDT [facility] Docusate Sodium 100 MG Oral Capsule 08/06/2021 12:00:00 AM EDT [facility] valsartan 80 MG Oral Tablet 08/05/2021 05:00:00 PM EDT [facility] eplerenone 25 MG Oral Tablet 08/05/2021 04:30:00 PM EDT [facility] Calcium Carbonate 500 MG Chewable Tablet 08/05/2021 02:01:04 PM EDT [facility] ondansetron (ZOFRAN) injection 4 mg 08/05/2021 02:01:04 PM EDT [facility] Bacitracin 0.5 UNT/MG / Neomycin 0.0035 MG/MG / Polymyxin B 10 UNT/MG Topical Ointment 08/05/2021 02:01:[address] [facility] Oxybutynin chloride 5 MG Oral Tablet 08/05/2021 02:01:04 PM EDT [facility] Acetaminophen 325 MG Oral Tablet 08/05/2021 02:01:03 PM EDT [facility] Magnesium Chloride 0.19962 MEQ/ML / Pota ssium Chloride 0.0497 MEQ/ML / Sodium Acetate 0.0163 MEQ/ML / Sodium Chloride 0.0899 MEQ/ML / Sodium gluconate 5.02 MG/ML Injectable Solution [Normosol-R] 08/05/2021 01:00:00 PM EDT [facility] Aspirin 81 MG Delayed Release Oral Tablet [facility]
[2021-08-12] MEDS ORDERED: TUMS750C22 PO (05:20)
[2021-08-12] MEDS ORDERED: ASPI-161 PO (05:20)
[2021-08-12] MEDS ORDERED: MIRA1POW3 PO (05:20)
[2021-08-12] MEDS ORDERED: FAMO40TA3 PO (05:20)
[2021-08-12] MEDS ORDERED: VALS1TAB68 PO (05:20)
[2021-08-12] MEDS ORDERED: HOME MED LIST COMPLETE! XX SCH (05:20)
[2021-08-12] MEDS ORDERED: ACET-897 PO (05:20)
[2021-08-12] MEDS ORDERED: SIME80CH5 PO (05:20)
[2021-08-12] MEDS ORDERED: CHLO125TA PO (05:20)
--- NOTE | 2021-08-12 05:39 | HPEPDOC ---
[facility] Medical History & Physical Date of Admission Aug 12, 2021 Date of Service: Aug 12, 2021 Attending Physician: KAL WILLIAMSON MD History and Physical CHIEF COMPLAINT: Syncope HISTORY OF PRESENT ILLNESS: Rosendo is a 65-year-old male who presents following syncopal event witnessed by his . He tells me he stood up from sitting position and passed out. He tells me he does not recall the event, but was told that he hit his head upon falling. Denies prior syncope, recurrent falls. Of note, patient recently had TURP procedure at [facility] 08/05/2021, and was discharged 08/06 without any complications. Patient tells me he has been drinking a lot of water, following his recent procedure. Reports occasional palpitations without chest pain. Reports nausea with associated vomiting upon presentation to ED. Denies recent illness. Denies lightheadedness/headache, acute vision changes. Denies difficulty breathing, cough, abdominal pain, numbness/tingling. Denies recent bleeding/bruising, epistaxis. Denies changes in urination including dysuria, hesitancy, frequency. In ED, patient was found to be in A. fib RVR with HR 170s, per EKG. Cardiology (Dr. Nolen) was consulted and recommended digoxin and metoprolol. Patient received total of 0.75 IV digoxin, 5mg IV metoprolol x3, with adequate response and HR 50s. U/A significant for 3+ blood, 2+ protein, WBC 49, trace LE. CBC significant for PLT 71. CMP WNL. Imaging, as noted below. PAST MEDICAL HISTORY: 1. A. fib s/p ablation 2. HTN. 3. History of DVT (03/2015) 4. History PE (03/2018) 5. BPH s/p TURP x2 6. Chronic back pain with sciatica 7. GERD 8. Arthritis 9. Anxiety/depression PAST SURGICAL HISTORY: 1. Ablation (06/2014) 2. TURP (2013), (08/05/2021) 3. Ventral hernia repair 4. ORIF left ankle. SOCIAL HISTORY: Marital status: Resides in: Home Tobacco use: Denies ETOH: Used to drink socially, quit 2002 Illicit drug use: Denies FAMILY HISTORY: HTN, CAD, CVA (breast) ALLERGIES: Please see below. REVIEW OF SYSTEMS: CONSTITUTIONAL: Denies fever/chills, fatigue. HEENT: Denies headaches, lightheadedness, acute vision changes, rhinorrhea, nasal congestion, sore throat. CARDIOVASCULAR: Reports occasional palpitations. Denies chest pain. RESPIRATORY: Denies cough, shortness of breath. GASTROINTESTINAL: Reports nausea/vomiting. Denies abdominal pain, constipation, diarrhea GENITOURINARY: Denies changes in urination, dysuria, hesitancy, frequency SKIN: Reports new "bump" on head following recent fall. Denies new abrasions/wounds/bruising. MUSCULOSKELETAL: Denies new muscle ache, joint pain. NEUROLOGICAL: Denies changes in sensation, numbness/tingling, weakness. HEMATOLOGIC/LYMPHATIC: Denies epistaxis, bleeding. HOME MEDICATIONS: Please see below. PHYSICAL EXAMINATION: VITAL SIGNS: Temperature afebrile, pulse 137, respiratory rate 16, blood pressure 103/59, pulse oximetry 98% on RA GENERAL APPEARANCE: Alert, awake, laying in stretcher, NAD. HEENT: Erythematous and swollen area on right forehead without drainage/warmth/tenderness with palpation. EOMI, nasal cannula in place (w/out O2), moist mucous membranes CARDIOVASCULAR: Irregularly irregular rhythm, regular rate, no MRG. LUNGS: CTA bilaterally, no WRR, no accessory muscles used. ABDOMEN: Soft, nontender, nondistended. : Trinidad catheter in place with adequate output sam in color, clear, no sediment MUSCULOSKELETAL: Normal ROM, strength 5/5. EXTREMITIES: 1+ pitting edema bilateral lower extremity, faint DP/PT pulses palpated, cold bilateral lower extremities with significant venous stasis skin c hanges. NEUROLOGICAL: CN III-XII intact, sensation intact. PSYCHIATRIC: No depressed/anxious mood. LABORATORY DATA: See below. IMAGING: CXR (07/11) 1. No acute cardiopulmonary change. Heart size not enlarged for portable technique. I do suspect some mild left atrial enlargement. No pulmonary edema or pleural effusion. CT cervical spine (08/11) 1. Minimal bilateral maxillary sinus disease. 2. Multilevel degenerative changes with no significant spinal stenosis but varying degrees of multilevel neural foraminal stenosis. 3. Otherwise negative CT cervical spine. No acute fracture or subluxation. Head CT (08/11) 1. Minimal chronic ischemic white matter change. 2. Slight right forehead soft tissue swelling. 3. Minimal bilateral maxillary sinus disease. 4. Otherwise negative noncontrast head CT which is similar to 01/25/2017. CT ABD/pelvis (08/11) 1. There are punctate pancreatic parenchymal calcifications, consistent with chronic pancreatitis. No acute inflammation demonstrated. 2. 1.7 cm right adrenal nodule likely represents an adenoma, possibly lipid poor variety. Correlation with opposed phase MRI could be obtained if clinically desired. No significant interval change. 3. Trinidad catheter within the urinary bladder. Inflammatory changes demonstrated surrounding the urinary bladder associated with bladder wall thickening. Findings consistent with cystitis. 4. Moderate prostatic hyperplasia. 5. Mild diverticulosis is present in the distal colon. No diverticulitis. 6. Nonobstructive calculus left kidney. MICROBIOLOGY: Please see below. ASSESSMENT/PLAN: Rosendo is a 65-year-old male PMH A. fib s/p ablation (2013) not on AC, BPH s/p TURP 08/05/2021 who presents following syncopal episode and was found to have A. fib RVR with adequate response following digoxin and metoprolol in ED, being admitted for further work-up and monitoring. #A. fib RVR s/p ablation (2013), acute HR 137 upon evaluation Start digoxin 0.25 mg daily Hold metoprolol 50 mg Orthostats pending Order echocardiogram On telemetry Start Lovenox 110U BID. Will transition to warfarin for long-term AC if valvular etiology on echocardiogram, or Xarelto/Eliquis for long-term AC if nonvalvular etiology and echocardiogram. ED provider discussed case with cardiology (Dr. Nolen). If patient does not respond adequately to current plan, daytime provider may want to consider cardiology consult for further recommendations. #BPH s/p TURP (08/05/2021) In ED, U/A significant for 3+ blood, 2+ protein, WBC 49, trace LE Urine culture pending Will hold on Abx for now, given asx presentation and U/A most likely 2/2 recent TURP. Trinidad catheter in place with adequate output. Continue Trinidad catheter care. #Thrombocytopenia Plt 71 on CBC in ED Patient denies bleeding, epistaxis, bruising. He tells me his platelets are chronically "borderline" low. On therapeutic Lovenox 110U BID. We will continue to monitor patient for any changes in daily labs or symptoms and adjust currently. Continue to monitor daily CBC #HTN, chronicstable BP 103/59 Start spironolactone 25 mg Continue home valsartan 320 mg daily, chlorthalidone 12.5 mg every 2 days #PVD, chronicstable Continue home ASA 81 mg #GERD, chronicstable Continue home famotidine 40 mg #Anxiety/depression, chronicstable Continue home sertraline 50 mg #DVT prophylaxis On Lovenox 110U BID DIET: Regular ACTIVITY: OOB with assistance, fall risk precautions DISPO: Pending clinical improvement CODE STATUS: Full code Vital Signs Vital Signs Date Time Temp Pulse Resp B/P (MAP) Pulse Ox O2 Delivery O2 Flow Rate FiO2 08/12/21 00:51 137 98 08/12/21 00:10 103/59 (74) 08/11/21 19:00 16 Room Air Laboratory Data Labs 24H Laboratory Tests 2 08/11/21 19:27: Immature Granulocyte % (Auto) 0.4, Neutrophils (%) (Auto) 79.2H, Lymphocytes (%) (Auto) 7.5L, Monocytes (%) (Auto) 7.6, Eosinophils (%) (Auto) 4.8H, Basophils (%) (Auto) 0.5, Neutrophils # (Auto) 8.4, Lymphocytes # (Auto) 0.8L, Monocytes # (Auto) 0.8, Eosinophils # (Auto) 0.5, Basophils # (Auto) 0.1, Nucleated Red Blood Cells % (auto) 0.0, Immature Platelet Fraction 4.7, Anion Gap 7L, Glomerular Filtration Rate > 60.0, Calcium Level 8.9, Total Bilirubin 1.0, Aspar munoz Amino Transf (AST/SGOT) 15, Alanine Aminotransferase (ALT/SGPT) 23, Alkaline Phosphatase 69, Total Creatine Kinase 45, Creatine Kinase MB < 1.0, Creatine Kinase MB Relative Index 2.22, Troponin I 0.02, TP-Yig-O-Type Natriuretic Peptide 57, Total Protein 6.6, Albumin 3.1L, Albumin/Globulin Ratio 0.9 08/11/21 19:32: POC Glucose (Misc Panel) 165H, POC Sodium (Misc Panel) 135L, POC Potassium (Misc Panel) 3.8, POC Chloride (Misc Panel) 97L, POC Total CO2 (Misc Panel) 25.0, POC Blood Urea Nitrogen (Misc Panel 16, POC Ionized Calcium (Misc Panel) 4.7, POC Creatinine (Misc Panel) 1.0, POC Hematocrit (Misc Panel) 40.0 08/11/21 19:34: POC Troponin I (Misc) 0.02 08/11/21 23:24: Glomerular Filtration Rate > 60.0, Total Creatine Kinase 49, Creatine Kinase MB 1.1, Creatine Kinase MB Relative Index 2.24, Troponin I 0.12#H, Urine Color A MBER, Urine Appearance CLOUDYH, Urine pH 6.0, Urine Specific Mcdermitt 1.017, Urine Protein 2+H, Urine Glucose (Auto)(UA) NEGATIVE, Urine Ketones (Auto) NEGATIVE, Urine Blood 3+H, Urine Nitrite NEGATIVE, Urine Bilirubin NEGATIVE, Urine Urobilinogen 0.2, Urine Leukocyte Esterase (Auto) TRACEH, Urine WBC (Auto) 49H, Urine RBC (Auto) TNTCH, Urine Hyaline Casts (Auto) 0, Urine Bacteria (Auto) NEGATIVE, Urine Squamous Epithelial Cells 1, Urine Mucus (Auto) LARGE, Urine Yeast-Like Cells (Auto) SMALLH, Urine Sperm (Auto) 08/12/21 03:02: Total Creatine Kinase 53, Creatine Kinase MB 1.5, Creatine Kinase MB Relative Index 2.83, Troponin I 0.10 CBC/BMP Laboratory Tests 08/11/21 19:27 08/11/21 23:24 Microbiology Microbiology 08/11/21 Respiratory Virus Panel (PCR) (KATHYA) - Final, Complete Home Medications Scheduled Aspirin (Aspirin EC) 81 Mg Tablet.dr, 81 MG PO DAILY Calcium Carbonate (Tums) 300 Mg Tab.chew, 750 MG PO QHS Chlorthalidone (Chlorthalidone) 25 Mg Tablet, 12.5 MG PO Q2D Eplerenone (Eplerenone) 25 Mg Tab, 25 MG PO DAILY Magnesium Oxide (Magnesium Oxide) 400 Mg Tab, 400 MG PO DAILY Multivitamins (Thera M Plus Tablet) 1 Tab Tab, 1 TAB PO DAILY Rivaroxaban (Xarelto) 20 Mg Tablet, 20 MG PO DAILY@18 Sertraline Hcl (Sertraline HCl) 50 Mg Tab, 50 MG PO DAILY Simethicone (Simethicone) 80 Mg Tab.chew, 80 MG PO QHS Scheduled PRN Acetaminophen (Tylenol Extra Strength) 500 Mg Tablet, 500 MG PO Q4H PRN for MILD PAIN (PS 1-4) Famotidine (Famotidine) 40 Mg Tablet, 40 MG PO DAILY PRN for HEARTBURN Polyethylene Glycol 3350 (Miralax) 17 Gm Powd.pack, 17 GM PO DAILY PRN for CONSTIPATION Allergies Coded Allergies: escitalopram (Verified Allergy, Severe, SUICIDAL IDEATION, 08/12/21) codeine (Verified Adverse Reaction, Intermediate, UNKNOWN REACTION-PTS MOTHER STATES THEY HAD TO PUMP HIS STOM, 08/12/21) A-FIB/CHADSVASC A-FIB History Current/History of A-Fib/PAF?: Yes Current PO Anticoag Therapy: No Age/Risk Factor Scoring CHADSVASC: CHADSVASC Response (Comments) Value Age Risk Factor Age < 65 years old 0 Gender Risk Factor Male 0 Hx of CHF No 0 Hx of HTN Yes 1 Hx of Stroke/TIA/or VTE No 0 Hx of Diabetes No 0 Hx of Vascular Disease Yes 1 Total 2 Treatment Treatment ordered: Other Other anticoagulant ordered: Lovenox GME ATTESTATION GME ATTESTATION My faculty preceptor for this patient encounter was physically present during the encounter and was fully available. All aspects of the patient interview, examination, medical decision making process, and medical care plan development were reviewed and approved by the faculty preceptor. The faculty preceptor is aware and concurs with the plan as stated in the body of this note and will attest to such by his/her cosignature. ATTENDING NOTE IDenisse, have independently examined this patient and performed my own physical exam, as well as reviewed the documentation and edited where necessary. I have discussed in detail with the resident / student the findings and plan of treatment as documented by the resident / student and edited their note. I agree with their findings and treatment plan and have edited their documentation. I will continue to follow the patient during this hospital stay. Keshia iDego DO Aug 12, 2021 05:39 KAL WILLIAMSON MD Aug 16, 2021 06:38
[2021-08-12] MEDS ORDERED: ACETAMINOPHEN 500 MG TAB PO PRN (05:40)
[2021-08-12] MEDS ORDERED: FAMOTIDINE 20 MG TAB PO PRN (05:40)
[2021-08-12 08:09] LABS: BASO % 0.5 % (0.0-1.0); EOS # 0.6 10^3/uL (0.0-0.5); EOS % 7.3 % (0.0-3.0); HEMATOCRIT 38.6 % (42.0-52.0); HEMOGLOBIN 12.2 g/dl (13.5-17.5); LYMPH # 0.8 10^3/uL (1.5-5.0); MEAN CORPUSCULAR HEMOGLOBIN 27.1 pg (27.0-33.0); MEAN CORPUSCULAR HGB CONC 31.6 g/dl (32.0-36.5); MEAN CORPUSCULAR VOLUME 85.8 fl (80.0-96.0); MONO # 0.7 10^3/uL (0.0-0.8); MONO % 8.1 % (2.0-8.0); NEUTROPHILS # 6.2 10^3/uL (1.5-8.5); NEUTROPHILS % 73.5 % (36.0-66.0); WHITE BLOOD COUNT 8.4 10^3/uL (4.0-10.0)
[2021-08-12 08:12] LABS: PLATELET COUNT, AUTOMATED 74 10^3/uL (150-450)
[2021-08-12 08:34] LABS: BLOOD UREA NITROGEN 13 MG/DL (7-18); CALCIUM LEVEL 8.7 MG/DL (8.8-10.2); CARBON DIOXIDE LEVEL 29 MEQ/L (21-32); CHLORIDE LEVEL 105 MEQ/L (98-107); CREATININE FOR GFR 0.89 MG/DL (0.70-1.30); GLOMERULAR FILTRATION RATE > 60.0 (>49); GLUCOSE, FASTING 109 MG/DL (70-100); POTASSIUM SERUM 4.5 MEQ/L (3.5-5.1); SODIUM LEVEL 138 MEQ/L (136-145)
[2021-08-12] MEDS ORDERED: DIGOXIN 0.25 MG TAB PO SCH (09:00)
[2021-08-12] MEDS: SERTRALINE HCL 50 MG TAB PO SCH (11:06)
[2021-08-12] MEDS: MULTIVITAMINS/MINERALS THERAP 1 TAB PO SCH (11:06)
[2021-08-12] MEDS: MAGNESIUM OXIDE 400MG TAB (MAG-OX) PO SCH (11:06)
[2021-08-12] MEDS: ENOXAPARIN 120MG/0.8ML SYRINGE (J1650 PER 10MG) SC SCH ×2 (11:06→21:00)
[2021-08-12] MEDS: ASPIRIN 81MG ENTERIC TABLET PO SCH (11:06)
[2021-08-12] MEDS: SPIRONOLACTONE 25 MG TAB PO SCH (11:07)
--- NOTE | 2021-08-12 11:42 | IPNPDOC ---
Text Note Date of Service The patient was seen on 08/12/21. NOTE S: Pt states he feels pretty good today though he states he did not sleep too well overnight. Pt states he feels "a bit dizzy" and has a "haze" but attributes it to his "floaters in his eye" and it only gets worse when he moves his neck which he has been doing lately. Pt states it is "a little tough" for him to swallow as he usually sleeps with a wedge pillow at night and thinks his GERD is causing some acid reflux making him having the discomfort. Pt states he still has some "flutters" in his chest and attributes it to his afib. Pt states he usually gets more edema in his right leg than his left. Pt denies any fever, chills, MELARA, SOB, dyspnea, chest pain, n/v/d/c, numbness, tingling. O: PHYSICAL EXAM: Vital Signs: See below GENERAL: Pt is laying comfortably in ED bed in NAD and A&Ox3. HEENT: Red circular bump on his right anterior forehead without drainage/warmth/tenderness to palpation. EOMI, mucous membranes moist. LUNGS: CTA bilaterally, no crackles, wheezes, rales. No accessory muscles used. HEART: RR bradycardic. S1S2. No m/r/g appreciated. ABDOMEN: Soft and nontender. BS appreciated. : Trinidad catheter in place draining dark colored urine with small clots tubing. EXTREMITIES: 2+ pitting edema in right leg, 1+ edema left leg. MUSCULOSKELETAL: Normal ROM, strength 5/5 PSYCHIATRIC: No depressed or anxious mood. A/P: Mr. Castillo is a 65 yo male with a PMH of afib s/p ablation (2013) not on anticoagulation, HTN, DVT (2014), PE (03/2018) BPH s/p TURP (2013, 08/05/2021), chronic back pain sciatica, GERD, arthritis, anxiety/depression presents with a syncopal episode with fall witness by and was found to be afib RVP s/p digoxin and metoprolol and was admitted for further work up, now in sinus bradycardia rhythm # Afib RVR -Pt not on any AC since ablation in 2013 -s/p IV digoxin and IV metoprolol in the ED -HR is sinus omer in the 50's -Holding rate controlling medications digoxin and metoprolol due to bradycardia. -UA and urine cx to r/o infection, see plan below -TSH ordered -c/t telemetry -c/t Lovenox for now pending echocardiogram results to r/o severe chitimacha valve disease, expect to start DOAC if negative for this. -Will obtain previous recent echocardiograms from pt's [employer]asket [employer] Dr. Bazzi # Syncope - likely 2/2 atrial fibrillation, monitor on telemetry - Orthostatic BPs pending - echocardiogram pending #UA concerning for UTI vs asymptomatic bacteruria -U/A significant for 3+ blood, 2+ protein, WBC 49, trace LE upon admission -UCx pending -Will hold on abx for now pending urine culture result. # BPH s/p TURP (2013, 08/05/2021) -Trinidad catheter in place with adequate output. Continue Trinidad catheter care. #Thrombocytopenia -Plt 74 -Platelets are chronically in the low 100's for the past 10 years on EMR. #HTN -BP 127/59 -c/t spironolactone 25 mg -c/t home valsartan 320 mg daily, chlorthalidone 12.5 mg every 2 days #PVD -c/t home ASA 81 mg #GERD -c/t home famotidine 40 mg #Anxiety/depression -c/t home sertraline 50 mg DVT prophylaxis: On therapeutic Lovenox 110 mg subQ BID DIET: Regular ACTIVITY: OOB with assistance, fall risk precautions CODE STATUS: Full code DISPO: Pending clinical improvement VS,Yao, I+O VS, Yao, I+O Laboratory Tests 08/11/21 19:27 08/11/21 23:24 08/12/21 07:47 Vital Signs Date Time Temp Pulse Resp B/P (MAP) Pulse Ox O2 Delivery O2 Flow Rate FiO2 08/12/21 09:30 56 100 Room Air 08/12/21 09:00 113/59 (77) 08/11/21 19:00 16 I&O- Last 24 Hours up to 6 AM 08/12/21 06:00 Intake Total 500 ml Output Total 1200 ml Balance -700 ml KARLA FARLEY OMS-4 Aug 12, 2021 11:42 DANI GATES D.O. Aug 12, 2021 17:22
[2021-08-12 14:27] LABS: THYROID STIMULATING HORMONE 0.287 uIU/ML (0.358-3.740)
[2021-08-12 17:42] LABS: FREE T4 1.17 NG/DL (0.76-1.46)
--- NOTE | 2021-08-12 20:13 | ECHO ---
ECHOCARDIOGRAM DATE OF PROCEDURE: 08/12/2021 Age: 65 Gender: Male Height: 72 inches Weight: 249 pounds Body surface area: 2.34 m2 PATIENT LOCATION: Inpatient, currently in the emergency room. REFERRING PHYSICIAN: Keshia Diego D.O. INDICATION: Syncope/atrial fibrillation . MEASUREMENTS: 2D Measurements: RV - 4.1 cm LV - 5.4 cm Septum 4.2 cm Posterior wall 1.2 cm Aortic root 3.9 cm Ascending aorta 3.7 cm LA - 4.7 cm LVEF 65% Doppler Measurements: AV - 1.2 m/sec LVOT - 0.95 m/sec LVOT diameter 2.1 cm MV-E 78, A 38, EA ratio 2.1 Early mitral deceleration time 190 msec E prime medial 8.1 A prime medial 7.1 E prime lateral 13.1 Average E/E prime ratio 7.4/PCWP 11 mmHg PV - 0.8 m/sec Pulmonary artery acceleration time 113 msec RVSP - 38 mmHg IVC - 1.8 cm COMMENTS: Sinus bradycardia with incomplete right bundle branch block, occasional premature atrial contractions (PACs). Technically challenging study in light of the patient's body habitus, but diagnostically useful information was still obtained. M-mode and 2-dimensional cardiography was performed with pulse, continuous wave, color flow and tissue Doppler studies. Borderline left ventricular hypertrophy with normal wall motion. Moderately dilated left atrium with grade 2 left ventricular (LV) diastolic dysfunction, but current mean left atrial pressure within normal limits. Right ventricular size upper limits of normal with at least mildly dilated right atrium. Normal right ventricular free wall motion and at least mild pulmonary hypertension. Normal inferior vena cava (IVC) size and collapse against an elevated central venous pressure. Aortic root diameter upper limits of normal with marginal increase in ascending aortic diameter. Subtle aortic valvular sclerosis without stenosis and only trace insufficiency. Mild degenerative changes of the mitral valvular apparatus with no more than very mild mitral insufficiency. Normal appearing tricuspid valve with very mild insufficiency. No apparent intracardiac mass or pericardial effusion.
[2021-08-12 21:00] VITALS: BP 104/54
[2021-08-12] MEDS: VALSARTAN 80 MG TAB (DIOVAN) PO SCH (21:00)
[2021-08-12] MEDS: SIMETHICONE 80MG CHEW TAB PO SCH (21:00)
[2021-08-12 22:02] VITALS: BP 116/56
[2021-08-12 22:03] VITALS: BP 106/55
[2021-08-12 22:06] VITALS: BP 133/62
[2021-08-13] VITALS (9 sets, daily range): BP systolic 103–136; BP diastolic 52–90
[2021-08-13 05:50] LABS: HEMATOCRIT 37.2 % (42.0-52.0); HEMOGLOBIN 11.7 g/dl (13.5-17.5); MEAN CORPUSCULAR HEMOGLOBIN 27.1 pg (27.0-33.0); MEAN CORPUSCULAR HGB CONC 31.5 g/dl (32.0-36.5); MEAN CORPUSCULAR VOLUME 86.1 fl (80.0-96.0); RED BLOOD COUNT 4.32 10^6/uL (4.30-6.10); WHITE BLOOD COUNT 7.2 10^3/uL (4.0-10.0)
[2021-08-13 05:53] LABS: PLATELET COUNT, AUTOMATED 81 10^3/uL (150-450)
[2021-08-13 06:13] LABS: BLOOD UREA NITROGEN 14 MG/DL (7-18); CALCIUM LEVEL 7.9 MG/DL (8.8-10.2); CARBON DIOXIDE LEVEL 27 MEQ/L (21-32); CHLORIDE LEVEL 108 MEQ/L (98-107); CREATININE FOR GFR 0.83 MG/DL (0.70-1.30); GLOMERULAR FILTRATION RATE > 60.0 (>49); GLUCOSE, FASTING 104 MG/DL (70-100); POTASSIUM SERUM 4.2 MEQ/L (3.5-5.1); SODIUM LEVEL 141 MEQ/L (136-145)
[2021-08-13] MEDS: NS 1,000 ML IV SCH (08:03)
[2021-08-13] MEDS ORDERED: CHLORTHALIDONE 12.5MG PER 1/2 TABLET PO SCH (09:00)
--- NOTE | 2021-08-13 09:04 | ECGEPIP ---
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
[2021-08-13] MEDS: ENOXAPARIN 120MG/0.8ML SYRINGE (J1650 PER 10MG) SC SCH (10:24)
[2021-08-13] MEDS: ASPIRIN 81MG ENTERIC TABLET PO SCH (10:33)
[2021-08-13] MEDS: MAGNESIUM OXIDE 400MG TAB (MAG-OX) PO SCH (10:34)
[2021-08-13] MEDS: SPIRONOLACTONE 25 MG TAB PO SCH (10:34)
[2021-08-13] MEDS: SERTRALINE HCL 50 MG TAB PO SCH (10:35)
[2021-08-13] MEDS: MULTIVITAMINS/MINERALS THERAP 1 TAB PO SCH (10:35)
--- NOTE | 2021-08-13 14:39 | IPNPDOC ---
Text Note Date of Service The patient was seen on 08/13/21. NOTE S: Pt states he feels about the same as yesterday although he did sleep a little bit more overnight. Pt states he has no acute concerns and asks when he could go home. Pt states his shoulder feels better than yesterday but hurts when he raises his arm over his head. Pt denies any GERD symptoms and the medication has helped. Pt states he has some blood in his nose but thinks it is from the nasal canula causing it to be irritated. Pt denies any fever, chills, MELARA, dizziness, sore throat, swollen lymph nodes, SOB, dyspnea, chest pain, palpitations, n/v/d/c, numbness, tingling, LE edema, dysuria, pyuria, polyuria. O: PHYSICAL EXAM: Vital Signs: See below GENERAL: Pt is laying comfortably in bed in NAD and A&Ox3. HEENT: Red circular bump on his right anterior forehead without drainage/warmth/tenderness to palpation. EOMI, mucous membranes moist. Nares has small dried blood clots. LUNGS: CTA bilaterally, no crackles, wheezes, rales. No accessory muscles used. HEART: Sinus bradycardia. S1S2. No m/r/g appreciated. ABDOMEN: Soft and nontender. BS appreciated. : Garg catheter in place draining light blood-tinged colored hematuria. No clots were seen in tubing. EXTREMITIES: Trace in legs b/l. Sensations intact peripherally. Pedal pulses 2+. MUSCULOSKELETAL: Normal ROM, strength 5/5. PSYCHIATRIC: No depressed or anxious mood. Imaging: Echocardiogram 08/12/2021 -LVEF 65% -Moderately dilated left atrium with grade 2 left ventricular diastolic dysfunction -Subtle aortic valvular sclerosis without stenosis and only trace insufficiency -Mild degenerative changes of the mitral valvular apparatus with no more than very mild mitral insufficiency -Normal appearing tricuspid valve with very mild insufficiency -No apparent intracardiac mass or pericardial effusion CT abd/pelvis 08/11/2021 1. Consistent with the [employer]'s Incidental Findings Committee white paper (J Am Austyn Radiol 2017): For any incidental adrenal lesion greater than 1 cm but less than 4 cm classified in this report as benign, likely benign, or containing fat (including classification as an adenoma or myelolipoma), no follow-up imaging is recommended per consensus recommendations based on imaging criteria. Further lab evaluation could be pursued if warranted based on clinical findings. 2. Consistent with the [place]'s Incidental Findings Committee white paper (J Am Austyn Radiol 2018): Any incidental renal lesion less than 1 cm or classified as too small to characterize, or any incidental cystic renal lesion characterized as simple-appearing, is likely benign. No follow-up imaging is recommended for these lesions per consensus recommendations based on imaging criteria. CT head 08/11/2021 1. Minimal chronic ischemic white matter change. 2. Slight right forehead soft tissue swelling. 3. Minimal bilateral maxillary sinus disease. 4. Otherwise negative noncontrast head CT which is similar to 01/25/2017. CT cervical spine 08/11/2021 1. Minimal bilateral maxillary sinus disease. 2. Multilevel degenerative changes with no significant spinal stenosis but varying degrees of multilevel neural foraminal stenosis. 3. Otherwise negative CT cervical spine. No acute fracture or subluxation. CXR 08/11/2021 1. No acute cardiopulmonary change. Heart size not enlarged for portable technique. I do suspect some mild left atrial enlargement. No pulmonary edema or pleural effusion. A/P: Mr. Castillo is a 65 yo male with a PMH of afib s/p ablation (2013) not on anticoagulation, HTN, DVT (2014), PE (03/2018) BPH s/p TURP (2013, 08/05/2021), chronic back pain sciatica, GERD, arthritis, anxiety/depression presents with a syncopal episode with fall witness by and was found to be afib RVP s/p digoxin and metoprolol and was admitted for further work up, now in sinus bradycardia rhythm. # Hematuria, on admission and acutely worse today -Likely 2/2 thrombocytopenia and initiation of therapeutic lovenox on admission -Hbg stable at 11.7. Repeat CBC this afternoon to trend -Will hold AC for now pending improvement of hematuria # Afib RVR on admission, now in sinus bradycardia -Pt was not on any AC since ablation in 2013 -s/p IV digoxin and IV metoprolol in the ED -HR is sinus omer in the high 50's low 60's -Holding rate controlling medications digoxin and metoprolol due to bradycardia. -UA negative. Urine Cx need to obtain to r/o infection, see plan below -TSH low 0.287 with free T4 WNL 1.17. -c/t telemetry -Hold AC given hematuria and thrombocytopenia. Consider starting Xarelto for AC, pending clinical improvement, since echocardiogram show no severe [place] valve disease. Pt was explained and understands the risk and benefits of holding AC and rate controlling medications temporarily at this time. Pt was also explained the possibility of requiring a pacemaker in the future given his presentation of afib with RVR and subsequent episode of sinus bradycardia. # Syncope, acute-stable -likely 2/2 atrial fibrillation, and less likely reflexive or neurogenic syncope. -c/t monitor on telemetry -Orthostatic vitals negative. HR increased from 63 to 80 with appropriate compensated increase in BP. -Echocardiogram 08/12/2021 results above, does not show source of syncope. #Thrombocytopenia -Plt 81 today -Platelets are chronically in the low 100's for the past 10 years on EMR. Check peripheral smear. -Will hold off AC due to hematuria. #UA concerning for UTI vs irritation due to cath vs asymptomatic bacteruria, acute -U/A significant for 3+ blood, 2+ protein, WBC 49, trace LE upon admission. Like -UCx needs to be obtained -Will hold on abx for now, urine culture was not sent. Will order again today. # BPH s/p TURP (2013, 08/05/2021), chronic-stable -Garg catheter in place with adequate output. Continue Garg catheter care. -Per urologist, will leave garg in place until he is able to follow up outpatient in their office. #HTN, chronic-stable -BP 103/52 -hold home valsartan due to low H/H -c/t spironolactone 25 mg -c/t home chlorthalidone 12.5 mg every 2 days #PVD, chronic-stable -c/t home ASA 81 mg #GERD, chronic-stable -c/t home famotidine 40 mg #Anxiety/depression, chronic-stable -c/t home sertraline 50 mg DVT prophylaxis: Not on AC due to pt's hematuria and thrombocytopenia. Pt is able to ambulate with assistance. DIET: Regular ACTIVITY: OOB with assistance, fall risk precautions CODE STATUS: Full code DISPO: Pending clinical improvement VS,Fishbone, I+O VS, Fishbone, I+O Laboratory Tests 08/13/21 05:23 Vital Signs Date Time Temp Pulse Resp B/P (MAP) Pulse Ox O2 Delivery O2 Flow Rate FiO2 08/13/21 08:58 20 08/13/21 08:00 97.4 91 Room Air 08/13/21 04:05 2.0 I&O- Last 24 Hours up to 6 AM 08/13/21 05:59 Intake Total 1300 ml Output Total 1140 ml Balance 160 ml KARLA FARLEY OMS-4 Aug 13, 2021 11:45 DANI GATES D.O. Aug 13, 2021 18:50
[2021-08-13] MEDS ORDERED: RIVAROXABAN 20 MG TAB (XARELTO) PO SCH (18:00)
[2021-08-13 19:48] LABS: HEMATOCRIT 39.2 % (42.0-52.0); HEMOGLOBIN 12.5 g/dl (13.5-17.5); MEAN CORPUSCULAR HEMOGLOBIN 27.7 pg (27.0-33.0); MEAN CORPUSCULAR HGB CONC 31.9 g/dl (32.0-36.5); MEAN CORPUSCULAR VOLUME 86.7 fl (80.0-96.0); RED BLOOD COUNT 4.52 10^6/uL (4.30-6.10)
[2021-08-13 19:49] LABS: PLATELET COUNT, AUTOMATED 95 10^3/uL (150-450)
[2021-08-13] MEDS: SIMETHICONE 80MG CHEW TAB PO SCH (20:53)
[2021-08-13] MEDS ORDERED: VALSARTAN 80 MG TAB (DIOVAN) PO SCH (21:00)
[2021-08-14] VITALS: BP 116/62
[2021-08-14 04:00] VITALS: BP 113/62
[2021-08-14 04:07] LABS: HEMATOCRIT 36.3 % (42.0-52.0); HEMOGLOBIN 11.6 g/dl (13.5-17.5); MEAN CORPUSCULAR HEMOGLOBIN 27.4 pg (27.0-33.0); MEAN CORPUSCULAR VOLUME 85.6 fl (80.0-96.0); RED BLOOD COUNT 4.24 10^6/uL (4.30-6.10); WHITE BLOOD COUNT 6.4 10^3/uL (4.0-10.0)
[2021-08-14 04:14] LABS: PLATELET COUNT, AUTOMATED 97 10^3/uL (150-450)
[2021-08-14 04:29] LABS: BLOOD UREA NITROGEN 12 MG/DL (7-18); CALCIUM LEVEL 8.7 MG/DL (8.8-10.2); CARBON DIOXIDE LEVEL 29 MEQ/L (21-32); CHLORIDE LEVEL 104 MEQ/L (98-107); CREATININE FOR GFR 0.88 MG/DL (0.70-1.30); GLOMERULAR FILTRATION RATE > 60.0 (>49); GLUCOSE, FASTING 101 MG/DL (70-100); POTASSIUM SERUM 4.1 MEQ/L (3.5-5.1); SODIUM LEVEL 139 MEQ/L (136-145)
[2021-08-14 08:00] VITALS: BP 108/59
[2021-08-14] MEDS: MULTIVITAMINS/MINERALS THERAP 1 TAB PO SCH (09:27)
[2021-08-14] MEDS: ASPIRIN 81MG ENTERIC TABLET PO SCH (09:27)
[2021-08-14] MEDS: MAGNESIUM OXIDE 400MG TAB (MAG-OX) PO SCH (09:28)
[2021-08-14] MEDS: SERTRALINE HCL 50 MG TAB PO SCH (09:28)
[2021-08-14] MEDS: SPIRONOLACTONE 25 MG TAB PO SCH (09:28)
[2021-08-14] MEDS ORDERED: XARE20TA PO (10:21)
--- NOTE | 2021-08-14 14:26 | DS.PDOC ---
Discharge Summary General Date of Admission Aug 12, 2021 at 05:05 Date of Discharge August 14, 2021 Attending Physician: LUISA CLEMENTS MD Discharge Summary PROCEDURES PERFORMED DURING STAY: None. ADMITTING DIAGNOSES: -A. fib with RVR -Hematuria -Syncope -Thrombocytopenia -HTN -History of DVT (03/2015) -History PE (03/2018) -BPH s/p TURP (2013, 08/05/2021) -GERD -Anxiety/depression DISCHARGE DIAGNOSES: -A. fib, resolved -Sinus bradycardia -Hematuria 2/ recent surgery and AC, improved -Syncope with fall / A. fib, asymptomatic -HTN -History of DVT (03/2015) -History PE (03/2018) -BPH s/p TURP (2013, 08/05/2021) -GERD -Anxiety/depression COMPLICATIONS/CHIEF COMPLAINT: Afib; Episode Of Syncope. HISTORY OF PRESENT ILLNESS: Mr. Castillo is a 65 yo male who presents 08/12/2021 following a syncopal event witnessed by his . Pt states he stood up from sitting position and passed out. Pt states he does not recall the event, but was told that he hit his head upon falling. Denies prior syncope or recurrent falls. Patient recently had TURP procedure at [facility] 08/05/2021 and was discharged 08/06 without any complications. Pt states he has been drinking a lot of water following his recent procedure. Pt reports occasional palpitations without chest pain and nausea with associated vomiting. Pt denies recent illness, lightheadedness, headache, acute vision changes, difficulty breathing, cough, abdominal pain, numbness or tingling, recent bleeding/bruising, epistaxis, changes in urination including dysuria, hesitancy, or frequency. HOSPITAL COURSE: Upon presentation to the ED, patient was found to be in A. fib with RVR with HR in 170's per EKG. Dr. Nolen from cardiology was curbsided and recommended digoxin and metoprolol. Patient received 5 mg IV metoprolol x2 and patients heart rate was still in the 140s-150s so a total of 0.75 IV digoxin was given and heart rate came down with adequate response with heart rate in the 50s. Imaging of CXR and CT head/c-spine/abd/pelvis found no acute process. UA was significant for 3+ blood, 2+ protein, WBC 49, trace LE but it was suspected to recent surgery as patient was asymptomatic. Pt was found to be t hrombocytopenic with plt in the 70's for which the pt states he chronically is borderline low. Chart review showed pt has been in the low 100's for the past 10 years. Antibiotic treatment was held pending UCx. Pt follows Dr. Barry for his A. fib s/p ablation for which he was on atenolol but no anticoagulation. Due to the pt's DSN1HCEUn score was 3, therapeutic Lovenox was started for anticoagulat ion pending the echocardiogram to rule out severe [place] valve disease before starting a DOAC. Due to the pt's bradycardia, rate controlling medications were held. Of note, the pt's troponin was 0.02 on admission peaked at 0.12 with serial EKG showing ST & T wave abnormalities most likely due to demand ischemia secondary to A. fib RVR. On 08/13/2021, pt heart rate was sinus bradycardia in the high 50's low 60's so rate controlling medications were still held. Echocardiogram came back negative for any severe [place] valvular disease and pt was planned to be placed on Xarelto for anticoagulation. However, the hematuria which was noted upon admission had acutely worsened and anticoagulation was held due to hematuria and thrombocytopenia. Pt was explained and understood the risk and benefits of holding anticoagulation and agreed to this. Pt's hemoglobin was stable throughout the hospital stay. In regards to the [place], patient's urologist recommended to him the [place] was left in place until he is able to follow up outpatient in their office. On 08/14/2021, the pt was sinus omer with heart rate in the high 50's with the rate controlling medications and anticoagulations still held. He was instructed to restart on Xarelto two days after discharge as long as he does not have any recurrence of his hematuria. Pt is medically and clinically stable and no longer requires hospital level of c are. DISCHARGE MEDICATIONS: Please see below. ALLERGIES: Please see below. PHYSICAL EXAMINATION ON DISCHARGE: VITAL SIGNS: Please see below. GENERAL: Pt laying comfortably in bed in NAD and A&Ox3. HEENT: Red circular bump on his right anterior forehead without drainage/warmth/tenderness to palpation. EOMI, mucous membranes moist. CARDIOVASCULAR EXAMINATION: Sinus bradycardia. S1S2. No m/r/g appreciated. RESPIRATORY EXAMINATION: CTA bilaterally, no crackles, wheezes, rales. No accessory muscles used. ABDOMINAL EXAMINATION: Soft, nontender, nondistended. Bowel sounds appreciated. : [place] catheter in place draining very light blood-tinged colored urine. No clots were seen in tubing. EXTREMITIES: Mild edema in legs b/l. Sensations intact peripherally. Pedal pulses 2+. SKIN: No bruising or rashes. NEUROLOGICAL EXAMINATION: No focal deficits appreciated. PSYCHIATRIC EXAMINATION: No depressed or anxious mood. LABORATORY DATA: Please see below. IMAGING: Echocardiogram 08/12/2021 -LVEF 65% -Moderately dilated left atrium with grade 2 left ventricular diastolic dysfunction -Subtle aortic valvular sclerosis without stenosis and only trace insufficiency -Mild degenerative changes of the mitral valvular apparatus with no more than very mild mitral insufficiency -Normal appearing tricuspid valve with very mild insufficiency -No apparent intracardiac mass or pericardial effusion CT abd/pelvis 08/11/2021 1. Consistent with the [employer]'s Incidental Findings Committee white paper (J Am Austyn Radiol 2017): For any incidental adrenal lesion greater than 1 cm but less than 4 cm classified in this report as benign, likely benign, or containing fat (including classification as an adenoma or myelolipoma), no follow-up imaging is recommended per consensus recommendations based on imaging criteria. Further lab evaluation could be pursued if warranted based on clinical findings. 2. Consistent with the [employer]'s Incidental Findings Committee white paper (J Am Austyn Radiol 2018): Any incidental renal lesion less than 1 cm or classified as too small to characterize, or any incidental cystic renal lesion characterized as simple-appearing, is likely benign. No follow-up imaging is recommended for these lesions per consensus recommendations based on imaging criteria. CT head 08/11/2021 1. Minimal chronic ischemic white matter change. 2. Slight right forehead soft tissue swelling. 3. Minimal bilateral maxillary sinus disease. 4. Otherwise negative noncontrast head CT which is similar to 01/25/2017. CT cervical spine 08/11/2021 1. Minimal bilateral maxillary sinus disease. 2. Multilevel degenerative changes with no significant spinal stenosis but varying degrees of multilevel neural foraminal stenosis. 3. Otherwise negative CT cervical spine. No acute fracture or subluxation. CXR 08/11/2021 1. No acute cardiopulmonary change. Heart size not enlarged for portable technique. I do suspect some mild left atrial enlargement. No pulmonary edema or pleural effusion. PROGNOSIS: Good ACTIVITY: As tolerated. DIET: Regular DISCHARGE PLAN/DISPOSITION: Home with self care DISCHARGE INSTRUCTIONS: Follow-up with your PCP in 7-10 days Please follow-up with your urologist within 1 week Please follow-up with your [facility] in 1 week Please wait 2 days before starting the Xarelto. Please stop taking your home valsartan. If you did not receive this while in the hospital. Please measure your blood pressure daily and keep a log to review with your PCP and [facility]. If your blood pressure reading is greater than 140/90 for 2 consecutive days, please notify your PCP for further management. If your symptoms return or your condition worsens, please call your PCP or return to the ED for further evaluation. DISCHARGE CONDITION: Stable. TIME SPENT ON DISCHARGE: 35 minutes. Vital Signs/I&Os Vital Signs Date Time Temp Pulse Resp B/P (MAP) Pulse Ox O2 Delivery O2 Flow Rate FiO2 08/14/21 08:00 97.9 58 18 108/59 (75) 96 Nasal Cannula 1.0 I&O- Last 24 Hours up to 6 AM 08/14/21 06:00 Intake Total 3520 ml Output Total 4250 ml Balance -730 ml Laboratory Data Labs 24H Laboratory Tests 2 08/13/21 18:40: Nucleated Red Blood Cells % (auto) 0.0 08/14/21 03:37: Nucleated Red Blood Cells % (auto) 0.0, Anion Gap 6L, Glomerular Filtration Rate > 60.0, Calcium Level 8.7L CBC/BMP Laboratory Tests 08/13/21 18:40 08/14/21 03:37 Microbiology Microbiology 08/13/21 Urine Culture, Received Pending 08/11/21 Respiratory Virus Panel (PCR) (KATHYA) - Final, Complete Discharge Medications Scheduled Aspirin (Aspirin EC) 81 Mg Tablet.dr, 81 MG PO DAILY, (Reported) Calcium Carbonate (Tums) 300 Mg Tab.chew, 750 MG PO QHS, (Reported) Chlorthalidone (Chlorthalidone) 25 Mg Tablet, 12.5 MG PO Q2D, (Reported) Eplerenone (Eplerenone) 25 Mg Tab, 25 MG PO DAILY, (Reported) Magnesium Oxide (Magnesium Oxide) 400 Mg Tab, 400 MG PO DAILY, (Reported) Multivitamins (Thera M Plus Tablet) 1 Tab Tab, 1 TAB PO DAILY, (Reported) Rivaroxaban (Xarelto) 20 Mg Tablet, 20 MG PO DAILY@18 Sertraline Hcl (Sertraline HCl) 50 Mg Tab, 50 MG PO DAILY, (Reported) Simethicone (Simethicone) 80 Mg Tab.chew, 80 MG PO QHS, (Reported) Scheduled PRN Acetaminophen (Tylenol Extra Strength) 500 Mg Tablet, 500 MG PO Q4H PRN for MILD PAIN (PS 1-4), (Reported) Famotidine (Famotidine) 40 Mg Tablet, 40 MG PO DAILY PRN for HEARTBURN, (Reported) Polyethylene Glycol 3350 (Miralax) 17 Gm Powd.pack, 17 GM PO DAILY PRN for CONSTIPATION, (Reported) Allergies Coded Allergies: escitalopram (Verified Allergy, Severe, SUICIDAL IDEATION, 08/12/21) codeine (Verified Adverse Reaction, Intermediate, UNKNOWN REACTION-PTS MOTHER STATES THEY HAD TO PUMP HIS STOM, 08/12/21) KARLA FARLEY OMS-4 Aug 14, 2021 11:46 DANI GATES D.O. Aug 14, 2021 16:10
--- NOTE | 2021-08-15 20:08 | ECGEPIP ---
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 Order Number: [id number] Reading MD: Rio Overton Measurements Intervals [place] Rate: 82 P: 49 ID: [id number] QRS: 30 QRSD: 96 T: 10 QT: 380 QTc: 443 Interpretive Statements Sinus rhythm Nonspecific ST abnormality Since 08/12/21 sinus rhythm replaced atrial fibrillation Electronically Signed on 08-15-2021 20:07:42 EDT by Rio Overton
== END 2021-08-14 18:00 | disposition home or self-care (01) | DRG 201 ==
LOC: M ED 18:44 → EDBD 18:44 → M ED INP 08-12 05:05 → M PCU 08-12 21:45
PROVIDERS: ADMIT Family Medicine; ATTEND Family Medicine
DX: I48.91 Unspecified atrial fibrillation (principal); D68.32 Hemorrhagic disorder due to extrinsic circulating anticoagulants; D69.6 Thrombocytopenia, unspecified; R55 Syncope and collapse; I10 Essential (primary) hypertension; N40.0 Benign prostatic hyperplasia without lower urinary tract symptoms; M54.40 Lumbago with sciatica, unspecified side; K21.9 Gastro-esophageal reflux disease without esophagitis; M19.90 Unspecified osteoarthritis, unspecified site; F41.9 Anxiety disorder, unspecified; F32.A Depression, unspecified; Z86.718 Personal history of other venous thrombosis and embolism; Z86.711 Personal history of pulmonary embolism; Z20.822 Contact with and (suspected) exposure to COVID-19; I73.9 Peripheral vascular disease, unspecified; Z79.82 Long term (current) use of aspirin; Z79.899 Other long term (current) drug therapy; Z88.5 Allergy status to narcotic agent; Z88.8 Allergy status to other drugs, medicaments and biological substances; R31.9 Hematuria, unspecified; Z79.01 Long term (current) use of anticoagulants; R00.1 Bradycardia, unspecified

== ENCOUNTER → 2021-09-01 | Outpatient (CLI) | payer BC ==
[~2021-09-01] MED LIST changes: +ACET-897 PO; +ASPI-161 PO; +CHLO125TA PO; +FAMO40TA3 PO; +MIRA1POW3 PO; +SIME80CH5 PO; +TUMS750C22 PO; +VALS1TAB68 PO; +XARE20TA PO
--- NOTE | 2021-09-01 14:55 | REP ---
INDICATION: PAIN COMPARISON: None. TECHNIQUE: Internal rotation, external rotation, and Y view. FINDINGS: Generalized age-related arthritic changes are appreciated. There is no evidence for acute fracture or dislocation. Subacromial space is normal no periarticular calcifications or loose bodies are identified. The acromioclavicular joint is normal. IMPRESSION: Age-related changes. No acute fracture or dislocation. <Electronically signed by Dima Ramos > 09/01/21 [id number]
== END ==
LOC: M WUC 14:24
PROVIDERS: ATTEND Internal Medicine
DX: M25.511 Pain in right shoulder (principal)

== ENCOUNTER → 2021-09-25 | Outpatient (REF) | payer BC ==
[~2021-09-25] MED LIST changes: +LOSA50TA28 PO; -LOSA50TA88 PO
[2021-09-25 20:30] LABS: BLOOD UREA NITROGEN 10 MG/DL (7-18); CALCIUM LEVEL 9.4 MG/DL (8.8-10.2); CARBON DIOXIDE LEVEL 29 MEQ/L (21-32); CHLORIDE LEVEL 104 MEQ/L (98-107); CREATININE FOR GFR 1.07 MG/DL (0.70-1.30); GLOMERULAR FILTRATION RATE > 60.0 (>49); GLUCOSE, FASTING 118 MG/DL (70-100); NT-PRO BNP 429 PG/ML (<125); SODIUM LEVEL 139 MEQ/L (136-145)
== END ==
LOC: M WUC 19:32
PROVIDERS: ATTEND Physician Assistant
DX: I48.0 Paroxysmal atrial fibrillation (principal); I50.32 Chronic diastolic (congestive) heart failure

== ENCOUNTER → 2021-11-04 | Outpatient (REF) | payer OTHER, BC ==
[2021-11-04 12:56] LABS: HEMATOCRIT 41.6 % (42.0-52.0); HEMOGLOBIN 13.4 g/dl (13.5-17.5); MEAN CORPUSCULAR HGB CONC 32.2 g/dl (32.0-36.5); MEAN CORPUSCULAR VOLUME 83.9 fl (80.0-96.0); PLATELET COUNT, AUTOMATED 167 10^3/uL (150-450); RED BLOOD COUNT 4.96 10^6/uL (4.30-6.10); WHITE BLOOD COUNT 5.3 10^3/uL (4.0-10.0)
[2021-11-04 14:17] LABS: ALBUMIN 3.4 GM/DL (3.2-5.2); ALT/SGPT 22 U/L (12-78); BILIRUBIN,TOTAL 0.3 MG/DL (0.2-1.0); BLOOD UREA NITROGEN 12 MG/DL (7-18); CALCIUM LEVEL 9.1 MG/DL (8.8-10.2); CARBON DIOXIDE LEVEL 29 MEQ/L (21-32); CHLORIDE LEVEL 106 MEQ/L (98-107); CHOLESTEROL LEVEL 187 MG/DL (<200); CHOLESTEROL RISK RATIO 5.194 (<5); CREATININE FOR GFR 0.94 MG/DL (0.70-1.30); GLOMERULAR FILTRATION RATE > 60.0 (>49); GLUCOSE, FASTING 99 MG/DL (70-100); HDL CHOLESTEROL 36 MG/DL (>40); LDL CHOLESTEROL 100 MG/DL (<100); NON-HDL-C 151 MG/DL; POTASSIUM SERUM 4.3 MEQ/L (3.5-5.1); SODIUM LEVEL 141 MEQ/L (136-145); TOTAL PROTEIN 6.4 GM/DL (6.4-8.2); TRIGLYCERIDES LEVEL 256 MG/DL (<150)
== END ==
LOC: M LABDRWAD 12:15
PROVIDERS: ATTEND Internal Medicine
DX: I48.91 Unspecified atrial fibrillation (principal); E78.5 Hyperlipidemia, unspecified

== ENCOUNTER → 2021-11-13 | Outpatient (REF) | payer OTHER, BC ==
[2021-11-13 17:22] LABS: HEMATOCRIT 41.5 % (42.0-52.0); HEMOGLOBIN 13.3 g/dl (13.5-17.5); MEAN CORPUSCULAR HEMOGLOBIN 26.9 pg (27.0-33.0); MEAN CORPUSCULAR VOLUME 83.8 fl (80.0-96.0); PLATELET COUNT, AUTOMATED 166 10^3/uL (150-450); RED BLOOD COUNT 4.95 10^6/uL (4.30-6.10); WHITE BLOOD COUNT 7.2 10^3/uL (4.0-10.0)
[2021-11-13 18:22] LABS: BLOOD UREA NITROGEN 16 MG/DL (7-18); CALCIUM LEVEL 9.1 MG/DL (8.8-10.2); CARBON DIOXIDE LEVEL 30 MEQ/L (21-32); CHLORIDE LEVEL 106 MEQ/L (98-107); CREATININE FOR GFR 1.01 MG/DL (0.70-1.30); GLOMERULAR FILTRATION RATE > 60.0 (>49); GLUCOSE, FASTING 90 MG/DL (70-100); NT-PRO BNP 426 PG/ML (<125); POTASSIUM SERUM 3.9 MEQ/L (3.5-5.1); SODIUM LEVEL 140 MEQ/L (136-145)
[2021-11-14 17:13] LABS: MAGNESIUM LEVEL 1.8 MG/DL (1.7-2.2)
== END ==
LOC: M LABDRWAD 16:49
PROVIDERS: ATTEND Physician Assistant
DX: I50.32 Chronic diastolic (congestive) heart failure (principal); I48.0 Paroxysmal atrial fibrillation

== ENCOUNTER → 2022-02-19 | Outpatient (CLI) | payer MEDICARE ==
[2022-02-19 16:38] LABS: BLOOD UREA NITROGEN 13 MG/DL (7-18); CALCIUM LEVEL 9.6 MG/DL (8.8-10.2); CARBON DIOXIDE LEVEL 29 MEQ/L (21-32); CHLORIDE LEVEL 105 MEQ/L (98-107); CREATININE FOR GFR 1.05 MG/DL (0.70-1.30); GLOMERULAR FILTRATION RATE > 60.0 (>49); GLUCOSE, FASTING 115 MG/DL (70-100); POTASSIUM SERUM 3.8 MEQ/L (3.5-5.1); SODIUM LEVEL 139 MEQ/L (136-145)
== END ==
LOC: M WUC 14:05
PROVIDERS: ATTEND Physician Assistant
DX: I50.32 Chronic diastolic (congestive) heart failure (principal)

== ENCOUNTER → 2022-07-26 | Outpatient (CLI) | payer MEDICARE ==
[~2022-07-26] MED LIST changes: -GLUCTAB6 PO; +GLUCTAB7 PO
== END ==
LOC: M SLEEP HO 10:27
PROVIDERS: ATTEND Physician Assistant
DX: G47.9 Sleep disorder, unspecified (principal)

== ENCOUNTER → 2024-01-06 | Outpatient (CLI) | payer MEDICARE ==
[~2024-01-06] MED LIST changes: -ASPI-161 PO; +ASPI-615 PO; -MIRA1POW3 PO; +MIRA33506 PO
== END ==
LOC: M SLEEP 20:00
PROVIDERS: ATTEND Nurse Practitioner Family
DX: G47.33 Obstructive sleep apnea (adult) (pediatric) (principal)

== ENCOUNTER → 2024-01-06 | Outpatient (CLI) | payer MEDICARE | LOC: M PLAIMG 13:50 | PROVIDERS: ATTEND Physician Assistant | DX: R00.1 Bradycardia, unspecified (principal); I45.10 Unspecified right bundle-branch block; I77.810 Thoracic aortic ectasia; I08.0 Rheumatic disorders of both mitral and aortic valves ==

== ENCOUNTER 2025-08-03 20:44 | Observation (INO) | payer MEDICARE ==
[~2025-08-03] VITALS: Ht 182.9 cm; Wt 122.7 kg
[~2025-08-03 20:44] MED LIST changes: -EPLE25TA PO; +EPLE25TA15 PO; -FLAX10005 PO; +FLAX1CAP6 PO; -RAMI1CAP24 PO; +RAMI5CAP60 PO
[2025-08-03 21:26] LABS: BASO # 0.0 10^3/uL (0.0-0.2); BASO % 0.6 % (0.0-1.0); EOS # 0.2 10^3/uL (0.0-0.5); EOS % 3.4 % (0.0-3.0); LYMPH # 0.9 10^3/uL (1.5-5.0); LYMPH % 12.4 % (24.0-44.0); MONO # 0.5 10^3/uL (0.0-0.8); MONO % 7.5 % (2.0-8.0); NEUTROPHILS # 5.4 10^3/uL (1.5-8.5); NEUTROPHILS % 76.0 % (36.0-66.0); PLATELET COUNT, AUTOMATED 149 10^3/uL (150-450)
[2025-08-03 21:37] LABS: INR 1.34
[2025-08-03 21:47] LABS: CK-MB VALUE MASS 2.0 NG/ML (<3.6)
[2025-08-03 21:49] LABS: DIGOXIN LEVEL 0.5 NG/ML (0.8-2.0)
[2025-08-03 21:50] LABS: ALT/SGPT 22 U/L (7.0-40); AST/SGOT 21 U/L (<34); CALCIUM LEVEL 9.0 MG/DL (8.3-10.6); CARBON DIOXIDE LEVEL 26 MMOL/L (20-31); CHLORIDE LEVEL 104 MMOL/L (98-107); CREATININE FOR GFR 0.77 MG/DL (0.70-1.30); GLOMERULAR FILTRATION RATE > 90.0 (>49); MAGNESIUM LEVEL 1.8 MG/DL (1.8-2.4); POTASSIUM SERUM 3.9 MMOL/L (3.5-5.1); SODIUM LEVEL 141 MMOL/L (136-145)
[2025-08-03 21:55] LABS: CPK CREATINE PHOSPHOKINASE 94 U/L (46-171); MB/CK RELATIVE INDEX 2.12 (< OR =4)
[2025-08-03] MEDS: METOPROLOL 5 MG/5 ML VIAL IV SCH (22:28)
[2025-08-03 23:00] LABS: CK-MB VALUE MASS 2.9 NG/ML (<3.6)
[2025-08-03 23:02] LABS: CPK CREATINE PHOSPHOKINASE 87.0 U/L (46-171); MB/CK RELATIVE INDEX 3.33 (< OR =4)
[2025-08-03] MEDS: METOPROLOL TART 50 MG TAB PO ONE (23:04)
[2025-08-03] MEDS ORDERED: AMIODARONE HCL 150 MG in IV 1 EA IV SCH (23:30)
[2025-08-04] MEDS ORDERED: ACETAMINOPHEN 325 MG TAB PO PRN (00:15)
[2025-08-04] MEDS ORDERED: MAALOX 30 ML SUSP *UDC PO PRN (00:15)
[2025-08-04] MEDS ORDERED: MOM 30 ML SUSPENSION UDC PO PRN (00:15)
[2025-08-04 01:40] VITALS: BP 130/60; TEMP 97.9; O2SAT 97
[2025-08-04 04:09] VITALS: BP 136/77; TEMP 97; O2SAT 98
[2025-08-04] MEDS ORDERED: MULTTAB13 PO (04:25)
[2025-08-04] MEDS ORDERED: XARE20TA PO (04:25)
[2025-08-04] MEDS ORDERED: BISO5TAB14 PO (04:28)
[2025-08-04] MEDS ORDERED: DIGO0.253 PO (04:28)
[2025-08-04] MEDS ORDERED: VALS1TAB66 PO (04:28)
[2025-08-04] MEDS ORDERED: HOME MED LIST COMPLETE! XX SCH (04:30)
[2025-08-04] MEDS ORDERED: SIMETHICONE 80MG CHEW TAB PO PRN (06:45)
[2025-08-04 08:00] VITALS: BP 138/76; TEMP 97.7; O2SAT 98
[2025-08-04] MEDS: POTASSIUM CHLORIDE 10MEQ SR TABLET PO ONE (08:15)
[2025-08-04] MEDS: MAG SULF 1GM/100ML (MAG RUN) 1 GM in IV 1 EA IV ONE (08:15)
[2025-08-04] MEDS: METOPROLOL SUCC. 50 MG *XL* TAB PO SCH (08:18)
[2025-08-04 08:28] VITALS: BP 139/74
[2025-08-04] MEDS ORDERED: METO1TAB7 PO (08:33)
[2025-08-04] MEDS ORDERED: ASPIRIN 81 MG ENTERIC TABLET PO SCH (12:00)
[2025-08-04] MEDS ORDERED: MAGNESIUM OXIDE 400 MG TAB PO SCH (12:00)
[2025-08-04] MEDS ORDERED: DIGOXIN 0.25 MG TAB PO SCH (14:00)
[2025-08-04] MEDS ORDERED: RIVAROXABAN 20MG TAB PO SCH (18:00)
[2025-08-04] MEDS ORDERED: VALSARTAN 80MG TAB PO SCH (21:00)
== END 2025-08-04 09:45 | disposition home or self-care (01) ==
LOC: M ED 20:44 → M ED INP 20:45 → M MSPAV 08-04 01:40
PROVIDERS: ADMIT Internal Medicine; ATTEND Student in an Organized Health Care Education/Training Program
DX: I48.91 Unspecified atrial fibrillation (principal); I10 Essential (primary) hypertension; F41.9 Anxiety disorder, unspecified; K21.9 Gastro-esophageal reflux disease without esophagitis; E78.5 Hyperlipidemia, unspecified; N40.0 Benign prostatic hyperplasia without lower urinary tract symptoms; Z86.718 Personal history of other venous thrombosis and embolism; Z86.711 Personal history of pulmonary embolism; R00.0 Tachycardia, unspecified; Z90.79 Acquired absence of other genital organ(s); Z88.5 Allergy status to narcotic agent; Z88.8 Allergy status to other drugs, medicaments and biological substances; Z79.899 Other long term (current) drug therapy; Z79.82 Long term (current) use of aspirin; Z79.01 Long term (current) use of anticoagulants
CPT/HCPCS: 71045; 80048; 80076; 80162; 82550; 82553; 83735; 83880; 84443; 84484; 85025; 85610; 93005; 93041; 94760; 96365; 96375; 99285; G0378; J0616; J3475